=== PATIENT | male | born 1940 | race Caucasian/White ===

== ENCOUNTER 2018-05-14 06:55 | Day surgery (SDC) | payer OTHER ==
[~2018-05-14] VITALS: Ht 185.4 cm; Wt 81.5 kg
[2018-05-14] MEDS ORDERED: IOHEXOL 350 MG/ML 50 ML BTL (for Cath Lab) OTHER ONE (06:56)
[2018-05-14 07:59] VITALS: BP 173/71; PULSE 53; RESP 18; TEMP 97.8; O2SAT 95
[2018-05-14] MEDS ORDERED: ASPI-516 CHEW (08:04)
[2018-05-14] MEDS ORDERED: ATOR40TA16 PO (08:04)
[2018-05-14] MEDS ORDERED: METF500T PO ×2 (08:04→10:17)
[2018-05-14] MEDS ORDERED: ISOS30TA3 PO (08:04)
[2018-05-14] MEDS ORDERED: PANT20TA2 PO (08:04)
[2018-05-14] MEDS ORDERED: NITR1SUB3 SL (08:04)
[2018-05-14 08:20] LABS: AUTOMATED NEUTROPHIL # 2.5 TH/MM3 (1.8-7.7); BASOPHIL % 1.2 % (0.0-2.0); EOSINOPHIL # 0.2 TH/MM3 (0-0.4); EOSINOPHIL % 4.7 % (0.0-4.0); HEMATOCRIT 34.1 % (39.0-51.0); HEMOGLOBIN 11.7 GM/DL (13.0-17.0); LYMPH % 22.7 % (9.0-44.0); LYMPHOCYTE # 0.9 TH/MM3 (1.0-4.8); MEAN CELL VOLUME 91.9 FL (80.0-100.0); MEAN CORPUSCULAR HEMOGLOBIN 31.5 PG (27.0-34.0); MEAN CORPUSCULAR HGB CONC 34.3 % (32.0-36.0); MEAN PLATELET VOLUME 8.4 FL (7.0-11.0); MONO % 9.6 % (0.0-8.0); MONOCYTE # 0.4 TH/MM3 (0-0.9); NEUT % 61.8 % (16.0-70.0); PLATELET COUNT 179 TH/MM3 (150-450); RED BLOOD COUNT 3.71 MIL/MM3 (4.50-5.90); RED CELL DISTRIBUTION WIDTH 14.4 % (11.6-17.2)
[2018-05-14] MEDS ORDERED: HEPARIN-NS/PF INJ 1,500 ML ONE (08:27)
[2018-05-14] MEDS ORDERED: NITROGLYCERIN INJ 5 ML ONE (08:28)
[2018-05-14] MEDS ORDERED: HEPARIN SODIUM - IV 10,000 UNITS/10 ML VIAL ONE (08:28)
[2018-05-14] MEDS ORDERED: VERAPAMIL HCL 5 MG/2 ML VIAL ONE (08:28)
[2018-05-14 08:33] LABS: BICARBONATE 28.8 MEQ/L (21.0-32.0); CALCIUM 8.5 MG/DL (8.5-10.1); CREATININE 1.15 MG/DL (0.60-1.30)
[2018-05-14 08:34] LABS: INTERNATIONAL NORMALIZED RATIO 1.1 RATIO; PROTHROMBIN TIME - PATIENT 10.8 SEC (9.8-11.6)
[2018-05-14] MEDS ORDERED: LIDOCAINE HCL 1% PF 30 ML VIAL ONE (08:40)
[2018-05-14] MEDS ORDERED: SODIUM CHLOR 0.9% 1000 ML INJ 1,000 ML IV SCH (08:45)
[2018-05-14] MEDS ORDERED: MIDAZOLAM HCL 2 MG/2 ML VIAL ONE (08:46)
--- NOTE | 2018-05-14 10:14 | CATHPROC ---
[email or web address] HIS Report Study Information Study Number Admission Scheduled Start Study Start [id number] May 14 2018 6:55AM 05/14/2018 May 14 2018 8:33AM [place] [facility] Cardiac Catheterization Admit Source Facility Department Other [facility] Physician and Clinical Staff Initial Moises Louise Assembly Room Supervisorjami Hernandez RN, Santos Assembly Room SupervisorGriffin Cortez,ANTON Recorder Ирина Shaver ,RT(R) Scrub StoneCapri,RT(R) Scrub Student, TERMITE CONTROL SERVICER/RT(R) Procedures Performed Procedure Location (Site) Vessel Name Coronary Angiograms LCA Left Coronary Coronary Angiograms RCA Right Coronary Wire insertion Fem Vein (right) Femoral Vein Wire insertion Radial (right) Radial Art. Equipment Time Silica Dry Press Helper Description Size Mfg Part Number Used/Scraped CATHETER, FR5 SWAN DAT 08:49 [employer] FR 5 [id number] *[id number] Used MONITOR TRANSDUCER, TRUWAVE [id number] 08:48 [employer]AR[employer] SANCHEZ * Used W/STOCKCOCK *[id number] *[id number] [id number] *[id number] 08:48 [employer] BLANKET,WARM AIR CCL * Used *[id number] 08:48 [employer] PACK, CCL CUSTOM * Used *[id number] BAND, RADIAL COMPRESSION TR [id number] 09:49 [employer] MEDICAL 24CM Used SHORT 24 *[id number] 09:12 [employer] MEDICAL SHEATH, FR5.5 PRELUDE 11CM FR 5 [id number] Used [id number] 08:48 [employer] Preference WIRE, 3MMJ .035 180CM 180CM Used *[id number] PROBE COVER, STERILE [id number] 09:21 [employer] MEDICAL * Used ULTRASOUND W/ GEL *[id number] PROBE COVER, STERILE [id number] 09:21 [employer] MEDICAL * Used ULTRASOUND W/ GEL *[id number] 08:48 NAMIC MANIFOLD, 4 PORT * Used *[id number] 08:48 [employer] OMNIPAQUE, 350 MG, 150ML 150ML [id number] Used SHEATH, FR6 TRANSRADIAL [id number] 08:48 [employer] FR 6 Used SLENDER 10CM *[id number] SHEATH, FR6 TRANSRADIAL [id number] 08:48 [employer] FR 6 Used SLENDER 10CM *[id number] History: Current Medications Medication Dosage/Unit Route Frequency Last Date/Time Taken ASA Statins (any) NTG Patch NTG SL History: Allergies Allergy Reaction butalbital acetaminophen erythromycin base tamsulosin History: Risk Factors Family History of Hypertension Dyslipidemia Previous AR Previous Heart Failure Premature CAD Yes Yes Yes No No Prior Valve Prior PCI Prior PCIDate Prior CABG Surgery No Yes 11/17/2004 No Cerebrovascular Peripheral Artery Chronic Lung On Dialysis Diabetes Diabetes Therapy Disease Disease Disease No No Yes No Yes Oral History: Stress Tests Stress or Imaging Studies Performed No History: Other Disease Selection Items CAD HTN History: Other Current Smoker Method Quit Packs a Day Years Used Pack Years No Cigarettes 44 Years Ago 1 20 20 Labs Hgb (g/dl) Hct (%) WBC (l/cumm) Platelets (thousands) 11.60-17.00 35.00-51.00 4.00-11.00 150.00-450.00 11.7 34.1 4 179 Glucose (mg/dl) BUN (mg/dl) Creatinine (mg/dl) BUN:Creatinine (1:x) 74.00-106.00 7.00-18.00 0.50-1.30 10.00-20.00 125 15 1.1 13.6 Na (meq/l) K (meq/l) 136.00-145.00 3.50-5.10 137 3.7 INR (PTT:PT) 0.90-1.10 1.1 CPK-MB (ng/ML) 0.50-3.60 Not Drawn Medication Medication Total Dose (Bolus/Oral) Medication Total Dosage/Unit 1% XYLOCAINE 15 mL FENTANYL 50 mcg RADIAL COCKTAIL 5 mL (Bolus) Medications (Bolus/Oral) Medication Time Given Dosage/Unit Administered By Reason 1% XYLOCAINE 05/14/2018 8:59:00 AM 5 mL Moises Webb 5 mL 1% XYLOCAINE given in lab by Moises Webb in Right Radial via Subcutaneous. Ordered by Moises Dominique FENTANYL 05/14/2018 9:00:38 AM 50 mcg Griffin Stratton 50 mcg FENTANYL given in lab by Griffin Stratton, ANTON in Left Antecubital via Peripheral IV. Ordered by Moises Dominique 1% XYLOCAINE 05/14/2018 9:15:31 AM 10 mL Moises Webb 10 mL 1% XYLOCAINE given in lab by Moises Webb in Right Groin via Subcutaneous. Ordered by Moises Dominique. Ntg 200mcg Verapamil 2.5mg Heparin RADIAL COCKTAIL 05/14/2018 9:16:00 AM 5 mL (Bolus) Moises Webb 3000U 5 mL (Bolus) RADIAL COCKTAIL given in lab by Moises Webb via Radial. Using [Solution Name]. O rdered by Moises Webb. Reason: Ntg 200mcg Heparin 3300U. Medication (Drip) Medication Time Given Dosage/Unit Concentration/Unit Diluent (ml) Solution IV Solutions 05/14/2018 8:34:34 AM 50 mL (IV) NaCl .9 Patient arrived on IV Solutions in Left Antecubital via Peripheral IV. Pump/Drip Flow using NaCl .9. Initial Case Assessment Cardiovascular HR Rhythm NIBP Chest Pain 55 sr 157/75 0 Edema Present Skin color Skin None Normal Warm Dry Circulatory - Right Pulses Dorsalis Pedis Femoral Radial 2 3 2 Scale (0,1,2,3,4,d) Circulatory - Left Pulses Dorsalis Pedis Femoral Radial 2 3 Scale (0,1,2,3,4,d) Neurological State Oriented to time-place- Alert Moves all extremities person Respiration - General Respiration Rate SpO2 (%) (B/min) 9 99 Final Case Assessment Cardiovascular HR Rhythm NIBP Chest Pain 55 sr 151/63 0 Edema Present Skin color Skin None Normal Warm Dry Circulatory - Right Pulses Dorsalis Pedis Femoral Radial 2 3 2 Scale (0,1,2,3,4,d) Circulatory - Left Pulses Dorsalis Pedis Femoral Radial 2 3 Scale (0,1,2,3,4,d) Neurological State Oriented to time-place- Alert Moves all extremities person Respiration - General Respiration Rate SpO2 (%) (B/min) 20 99 Chronological Log Time Study Chronological Log 8:25:20 Patient arrived via Bed. 8:34:08 Patient Name, D.O.B, / Armband Verified By R.N. 8:34:19 Consent signed by the physician and the patient and verified by the [facility] staff. 8:34:19 Pre-op and post- op instructions given; patient acknowledges understanding of instructions. 8:34:22 Verbal Stimulation=2 Physical Stimulation=2 Airway=2 Respiration=2 TOTAL=8. (0=absent, 1=li mited, 2=present) 8:34:27 Allens test performed on the right radial and ulnar artery. positive 8:34:29 Patient has been NPO for More than 6Hrs. 8:34:29 Skin Breakdown- none per patient 8:34:31 Patient Warmer Placed on the Table. 8:34:32 Estefany Prominences Protected 8:34:33 A # 20 IV was noted in the Antecubital (left). Grade = 0 8:34:34 Patient arrived on IV Solutions in Left Antecubital via Peripheral IV. Pump/Drip Flow using NaCl .9. 8:34:36 History and physical on the chart or being dictated. Assessment: Initial Case, HR=55 BPM, Rhythm=sr, VGCL=908/75 mmhg, Chest Pain=0, Edema=None, Col or=Normal, Skin = Warm, Dry Right Pulses: Tate Ped=2, Femoral=3, Radial=2 8:34:36 Left Pulses: Tate Ped=2, Femoral=3 Neurological: State=Alert, Ox3, RIVERA Respiration: Resp=9 B/min, SpO2=99 % Vitals capture started with the following parameters, Patient=Adult, Interval=5 min, Initial Pre uopkg=037 mmHg, 8:36:15 Deflation Rate=5 mmHg, Cuff placed on Left Arm 8:36:54 HR=56 bpm, SKMC=256/75 mmhg, SpO2=99.0 %, Resp=9 B/min 8:38:55 Reference ECG taken 8:41:57 HR=57 bpm, AIMA=194/76 mmhg, SpO2=99.0 %, Resp=8 B/min 8:47:01 HR=52 bpm, LMII=799/69 mmhg, SpO2=99.0 %, Resp=8 B/min 8:47:08 Right radial, right brachial, and groin(s) prepped with 2% chlorhexidine, and draped after a 3 min. waiting time. 8:47:16 MD paged 8:50:30 MD responded 8:51:56 HR=52 bpm, DKRI=356/67 mmhg, SpO2=98.0 %, Resp=15 B/min 8:52:49 Pressure channel 1 zeroed. 8:52:55 MD arrived. 8:56:57 HR=52 bpm, UGJE=759/71 mmhg, SpO2=99.0 %, Resp=16 B/min Time Out. Correct patient, correct procedure, correct physician, labs, allergies, and equipment verified with geophysical laboratory chief 8:58:53 team present. Fire risk assesment completed (see hard stop sheet for coding). Time Out Concu rred by MD and individual staff in procedure. 5 mL 1% XYLOCAINE given in lab by Moises Webb in Right Radial via Subcutaneous. Ordered by Jon 8:59:00 Moises Ray 8:59:15 Case Start 50 mcg FENTANYL given in lab by Griffin Stratton, RN in Left Antecubital via Peripheral IV. Ordered by Moises Webb 9:00:38 G. 9:01:25 Access site was Right Radial Artery. ::38 A wire was inserted via Radial (right). A SHEATH, FR6 TRANSRADIAL SLENDER 10CM FR 6 was advanced into the Radial (right) using the Tammie doe 9:01:45 technique. 9:01:56 HR=54 bpm, QMTV=769/72 mmhg, SpO2=99.0 %, Resp=8 B/min 9:06:59 HR=57 bpm, YDQW=007/72 mmhg, SpO2=97.0 %, Resp=17 B/min 9:12:00 HR=57 bpm, PQTG=279/72 mmhg, SpO2=97.0 %, Resp=18 B/min 10 mL 1% XYLOCAINE given in lab by Moises Webb in Right Groin via Subcutaneous. Ordered by Jon 9:15:31 Moises Ray 5 mL (Bolus) RADIAL COCKTAIL given in lab by Moises Webb via Radial. Using [Solution Nam e]. Ordered by 9:16:00 Moises Webb Reason: Ntg 200mcg Heparin 3300U. 9:16:59 HR=60 bpm, TBWL=778/68 mmhg, SpO2=97.0 %, Resp=13 B/min 9:22:00 HR=60 bpm, ZJFT=170/68 mmhg, SpO2=98.0 %, Resp=12 B/min 9:23:00 Access site was Left Femoral Vein. 9:23:10 A wire was inserted via Fem Vein (right). 9:23:16 A SHEATH, FR5.5 PRELUDE 11CM FR 5 was advanced into the Fem Vein (right) using the Percutane ous technique. A CATHETER, FR5 SWAN DAT MONITOR FR 5 was advanced over a wire. OMNIPAQUE, 350 MG, 150ML 150ML was 9:24:53 used for injections. Recorded Pressure: PCW, HR=60, Condition=Condition 1 9:26:44 (Pulmonary Capillary Wedge) PCW 39/43/28 9:27:01 HR=59 bpm, IHQD=147/67 mmhg, SpO2=99.0 %, Resp=12 B/min 9:27:39 Saturation: Site=PA (Pulmonary Artery) , O2=67.8 %, Hgb=11.7 gm/dl, Condition=Condition 1. U sed in calculation. 9:29:59 Saturation: Site=Ao (Aorta) , O2=94.9 %, Hgb=11.7 gm/dl, Condition=Condition 1. Used in calc ulation. Recorded Pressure: MPA, HR=53, Condition=Condition 1 9:31:15 (Main Pulmonary Artery) MPA 37/15/26 Recorded Pressure: RV, HR=55, Condition=Condition 1 9:31:48 (Right Ventricle) RV 39/3/12 9:32:00 HR=53 bpm, DNVF=845/69 mmhg, SpO2=97.0 %, Resp=4 B/min Recorded Pressure: RA, HR=56, Condition=Condition 1 9:32:50 (Right Atrium) RA 12/8 9:33:02 [place] Dat Catheter Removed A JR 4.0 INFINITI CATHETER FR 5 was advanced over a wire. OMNIPAQUE, 350 MG, 150ML 150ML was us ed for 9:33:55 injections. Recorded Pressure: Ao, HR=56, Condition=Condition 1 9:35:47 (Aorta) Ao 175/64/106 9:36:20 The RCA was injected and visualized at various angles. OMNIPAQUE, 350 MG, 150ML 150ML used. 9:36:59 HR=55 bpm, IFAZ=301/71 mmhg, SpO2=97.0 %, Resp=15 B/min 9:37:10 Catheter was removed A JL 3.5 INFINITI CATHETER FR 5 was advanced over a wire. OMNIPAQUE, 350 MG, 150ML 150ML was us ed for 9:38:58 injections. 9:39:59 The LCA was injected and visualized at various angles. OMNIPAQUE, 350 MG, 150ML 150ML used. 9:41:56 HR=51 bpm, KQTU=949/71 mmhg, SpO2=97.0 %, Resp=11 B/min 9:46:53 Catheter was removed 9:47:03 Activated Clotting Time Drawn 9:47:46 HR=50 bpm, WLBC=672/63 mmhg, SpO2=98.0 %, Resp=13 B/min 9:47:48 Case End (Physician broke scrub) Assessment: Final Case, HR=55 BPM, Rhythm=sr, LLMQ=723/63 mmhg, Chest Pain=0, Edema=None, Color =Normal, Skin = Warm, Dry Right Pulses: Tate Ped=2, Femoral=3, Radial=2 9:49:46 Left Pulses: Tate Ped=2, Femoral=3 Neurological: State=Alert, Ox3, RIVERA Respiration: Resp=20 B/min, SpO2=99 % 9:50:23 Catheter(s) removed without difficulty Radial Compression Device Used. 12 mLs of air placed in BAND, RADIAL COMPRESSION TR SHORT 24 24 CM. Affected 9:50:29 hand ~O2 SATURATION~ % O2 saturation. 9:50:37 Sterile dressing applied to site 9:50:37 No case complications noted. 9:50:39 Cine recording checked. 9:50:39 Bedside Report will be given. 9:50:43 A Left and Right Heart Cath was performed. 9:51:20 ACT (Normal Range 90-180) = 202 9:52:02 HR=56 bpm, PMRS=690/69 mmhg, SpO2=98.0 %, Resp=5 B/min 9:57:03 HR=57 bpm, FPUL=557/67 mmhg, SpO2=99.0 %, Resp=12 B/min 10:02:06 IJYE=237/63 mmhg 10:05:17 Patient moved to stretcher End Study - Contrast Media Used In Study Contrast Total Opened (mL) Total Used (mL) Total Wasted (mL) Omnipaque 45 45 0 End Study - Maximum Contrast Load Max Contrast Load (mL) 370.5 End Study - Radiation Exposure Fluoro Time (minutes) 3.6 End Study - Sheaths Sheaths Pulled By Sheath Hold Time (min) Honorio Dinhey End Study - Patient Disposition Complications Transferred To Interventional Outcome No Critical Care Bed No attempt made
[2018-05-14] MEDS ORDERED: MISC INFORMATION XX ONE ×2 (10:15)
[2018-05-14 11:59] LABS: BILIRUBIN, URINE NEG (NEG); BLOOD, URINE NEG (NEG); GLUCOSE,URINE NEG (NEG); KETONE, URINE NEG (NEG); NITRITE,URINE NEG (NEG); SQUAMOUS EPITHELIAL CELL URINE <1 /hpf (0-5); URINE COLOR Straw (YELLW/STRAW); URINE LEUKOCYTE ESTERASE NEG (NEG)
[2018-05-14 12:23] LABS: ALBUMIN 3.5 GM/DL (3.4-5.0); ALT (GPT) 15 U/L (12-78); AST (GOT) 10 U/L (15-37); DIRECT BILIRUBIN ADULT 0.2 MG/DL (0.0-0.2)
[2018-05-14 12:25] LABS: ALKALINE PHOSPHATASE 60 U/L (45-117); INDIRECT BILIRUBIN 0.4 MG/DL (0.0-0.8); TOTAL BILIRUBIN ADULT 0.6 MG/DL (0.2-1.0); TOTAL PROTEIN 6.1 GM/DL (6.4-8.2)
--- NOTE | 2018-05-14 12:26 | RADRPT ---
EXAM DATE: 05/14/2018 11:33 AM EDT AGE/SEX: 77 years / Male INDICATIONS: Evaluate for pneumonia, pneumothorax, or any communicable disease. Pre op CABG. CLINICAL DATA: This is the patient's initial encounter. Patient reports that signs and symptoms have been present for 1 day and indicates a pain score of 0/10. MEDICAL/SURGICAL HISTORY: None. None. COMPARISON: No prior exams available for comparison. FINDINGS: The lungs are symmetrically aerated. No focal areas of consolidation. Mild prominence of the intersti tial markings in the central lungs bilaterally. The heart is normal size. Both hemidiaphragms well de lineated. Mild degenerative changes throughout the thoracic spine. CONCLUSION: The lungs are clear. Electronically signed by: Donaldo Slade MD 05/14/2018 12:25 PM EDT
--- NOTE | 2018-05-14 13:39 | RADRPT ---
EXAM DATE: 05/14/2018 1:22 PM EDT AGE/SEX: 77 years / Male INDICATIONS: Preop cardiac surgery. CLINICAL DATA: This is the patient's initial encounter. Patient reports that signs and symptoms have been present for 1 day and indicates a pain score of 0/10. MEDICAL/SURGICAL HISTORY: Diabetes mellitus type II. Carcinoma, prostatic. Peripheral vascula r disease. Coronary artery disease. Skin cancer. Neoplasm. CKD stage III. HTN. Angina. Coronary ar yuridia stent. Cardiac cath. COMPARISON: No prior exams available for comparison. TECHNIQUE: Venous ultrasound of both lower extremities was performed from the inguinal ligament to t he proximal calf. Real-time, color Doppler and spectral tracing, compression and augmentation techni ques were used. FINDINGS: Right Leg: Normal compression of the deep venous system from the inguinal region to the proximal hilda f. No echogenic clot is seen. Normal response of the venous system to augmentation and respiration. Left Leg: Normal compression of the deep venous system from the inguinal region to the proximal calf . No echogenic clot is seen. Normal response of the venous system to augmentation and respiration. Other: None. CONCLUSION: 1. No evidence of deep venous thrombosis within the lower extremities. Electronically signed by: Momo Soto MD 05/14/2018 1:38 PM EDT
[2018-05-14 14:22] LABS: HEMOGLOBIN A1C 6.5 % (4.3-6.0)
--- NOTE | 2018-05-14 14:45 | PD.CAR.PN ---
CVT Progress Note Subjective/Hospital Course: pt seen and evaluated / full note dictated Jehovah Witness no blood products / ok for epogen will discuss bypass/ cellsaver sts data discussed with pt using bedside big data engineer RISK SCORES About the STS Risk Calculator Procedure: AV Replacement + CAB Risk of Mortality: 3.388% Morbidity or Mortality: 23.215% Long Length of Stay: 10.885% Short Length of Stay: 22.825% Permanent Stroke: 2.276% Prolonged Ventilation: 14.56% DSW Infection: 0.807% Renal Failure: 8.465% Reoperation: 9.802% Objective: Vital Signs Date Time Temp Pulse Resp B/P (MAP) Pulse Ox O2 Delivery O2 Flow Rate FiO2 05/14/18 10:07 95 Room Air 05/14/18 07:59 97.8 53 18 173/71 (105) 95 Labs: Laboratory Tests Test 05/14/18 07:34 05/14/18 11:09 White Blood Count 4.0 TH/MM3 (4.0-11.0) Red Blood Count 3.71 MIL/MM3 (4.50-5.90) Hemoglobin 11.7 GM/DL (13.0-17.0) Hematocrit 34.1 % (39.0-51.0) Mean Corpuscular Volume 91.9 FL (80.0-100.0) Mean Corpuscular Hemoglobin 31.5 PG (27.0-34.0) Mean Corpuscular Hemoglobin Concent 34.3 % (32.0-36.0) Red Cell Distribution Width 14.4 % (11.6-17.2) Platelet Count 179 TH/MM3 (150-450) Mean Platelet Volume 8.4 FL (7.0-11.0) Neutrophils (%) (Auto) 61.8 % (16.0-70.0) Lymphocytes (%) (Auto) 22.7 % (9.0-44.0) Monocytes (%) (Auto) 9.6 % (0.0-8.0) Eosinophils (%) (Auto) 4.7 % (0.0-4.0) Basophils (%) (Auto) 1.2 % (0.0-2.0) Neutrophils # (Auto) 2.5 TH/MM3 (1.8-7.7) Lymphocytes # (Auto) 0.9 TH/MM3 (1.0-4.8) Monocytes # (Auto) 0.4 TH/MM3 (0-0.9) Eosinophils # (Auto) 0.2 TH/MM3 (0-0.4) Basophils # (Auto) 0.0 TH/MM3 (0-0.2) CBC Comment DIFF FINAL Differential Comment Prothrombin Time 10.8 SEC (9.8-11.6) Prothromb Time International Ratio 1.1 RATIO Activated Partial Thromboplast Time 28.3 SEC (24.3-30.1) Blood Urea Nitrogen 15 MG/DL (7-18) Creatinine 1.15 MG/DL (0.60-1.30) Random Glucose 125 MG/DL (74-106) Calcium Level 8.5 MG/DL (8.5-10.1) Sodium Level 137 MEQ/L (136-145) Potassium Level 3.7 MEQ/L (3.5-5.1) Chloride Level 101 MEQ/L (98-107) Carbon Dioxide Level 28.8 MEQ/L (21.0-32.0) Anion Gap 7 MEQ/L (5-15) Estimat Glomerular Filtration Rate 61 ML/MIN (>89) Total Bilirubin 0.6 MG/DL (0.2-1.0) Direct Bilirubin 0.2 MG/DL (0.0-0.2) Indirect Bilirubin 0.4 MG/DL (0.0-0.8) Aspartate Amino Transf (AST/SGOT) 10 U/L (15-37) Alanine Aminotransferase (ALT/SGPT) 15 U/L (12-78) Alkaline Phosphatase 60 U/L (45-117) Total Protein 6.1 GM/DL (6.4-8.2) Albumin 3.5 GM/DL (3.4-5.0) Urine Color Straw (YELLW/STRAW) Urine Turbidity CLEAR (CLEAR) Urine pH 7.0 (5.0-8.5) Urine Specific [place] 1.013 (1.002-1.035) Urine Protein NEG mg/dL (NEG-TRACE) Urine Glucose (UA) NEG mg/dL (NEG) Urine Ketones NEG mg/dL (NEG) Urine Occult Blood NEG (NEG) Urine Nitrite NEG (NEG) Urine Bilirubin NEG (NEG) Urine Urobilinogen LESS THAN 2 mg/dL (LESS Urine Leukocyte Esterase NEG (NEG) Urine RBC LESS THAN 1 /hpf (0-3) Urine WBC 1 /hpf (0-5) Urine Squamous Epithelial Cells <1 /hpf (0-5) Microscopic Urinalysis Comment CATH-CULT NOT IND Result Diagram: 05/14/18 0734 05/14/18 0734 Sara Urban May 14, 2018 14:45
--- NOTE | 2018-05-14 14:51 | RADRPT ---
EXAM DATE: 05/14/2018 2:43 PM EDT AGE/SEX: 77 years / Male INDICATIONS: Pre-op CABG. CLINICAL DATA: This is the patient's initial encounter. Patient reports that signs and symptoms have been present for 1 day and indicates a pain score of 0/10. MEDICAL/SURGICAL HISTORY: Cardiovascular disease. Carcinoma, prostatic. Diabetes. None. RADIATION DOSE: 9.31 CTDI (mGy) COMPARISON: No prior exams available for comparison. TECHNIQUE: Multiple contiguous axial images were obtained through the chest without contrast. Image s were obtained in suspended respiration using multiple row detector helical technique. Using automa charla exposure control and adjustment of the mA and/or kV according to patient size, radiation dose was kept as low as reasonably achievable to obtain optimal diagnostic quality images. DICOM format imag e data is available electronically for review and comparison. FINDINGS: Lungs: The lungs are symmetrically aerated. No infiltrates or nodular densities are seen.. Scattere d atelectasis and/or fibrotic scarring is noted within the posterior lower lobes. Mediastinum: There is good visualization of the great vessels of the middle mediastinum. No evidenc e of mediastinal or hilar adenopathy/mass. Coronary artery calcifications are noted. Pleurae: No evidence of focal thickening or pleural effusion. Axillae: Unremarkable. Bony Structures: Unremarkable. Miscellaneous: The examination was extended to include the upper abdomen, and both adrenal glands ar e normal in size and configuration. CONCLUSION: 1. Scattered atelectasis and/or fibrotic scarring within the posterior lower lobes. 2. Coronary artery calcifications. 3. Degenerative changes throughout the thoracic spine. Electronically signed by: Momo Soto MD 05/14/2018 2:49 PM EDT
--- NOTE | 2018-05-14 15:24 | MB ---
cc: Sara Urban DATE: 05/14/2018 PRIMARY CARE PHYSICIAN: Rob Squires MD SOLUTION ADVISOR: Viktor Myers MD INTERVENTIONALIST: Moises Webb DO HISTORY OF PRESENT ILLNESS: A 77-year-old man, history of coronary artery disease, prior stent to the LAD in 2004, also history of severe aortic valve stenosis, normal ejection fraction of 56%, mean gradient of 37 mm, peak gradient 57, presented for followup with the cradle slide maker and was having some chest pain, which was radiating to his left arm. The patient is deaf since childbirth. He does have a bedside type cutter during the entire conversation. He underwent cardiac catheterization, which showed 3-vessel disease including a 70% mid distal LAD, 90% circumflex, OM 70%, the RCA 60%. RCA was nondominant. Artery pressures of 8, PA pressures 37/26 with a wedge of 28. Cardiac output of 6.0. We were consulted to evaluate for coronary artery bypass grafting and aortic valve replacement. PAST MEDICAL HISTORY: Includes coronary artery disease, prior stenting of the LAD in 2004, carotid artery stenosis. Apparently, he had a history of a 90% right internal. Repeat carotid ultrasound is pending at this time. 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 PAST SURGICAL HISTORY: Include appendectomy, coronary stent in 2004, hernia repair, radical prostatectomy, skin cancer resection. ALLERGIES: INCLUDE BUTALBITAL, ACETAMINOPHEN, ERYTHROMYCIN, FLOMAX. HOME MEDICATIONS: Include aspirin, atorvastatin, Imdur, metformin, nitroglycerine, Protonix. FAMILY HISTORY: Noncontributory. SOCIAL HISTORY: The patient , 4 children. Rare alcohol. Jehovah Witness. No blood products. Okay for Epogen. Will discuss Cell Saver and bypass surgery on pump. REVIEW OF SYSTEMS: Other than the HPI, other 12 systems negative and discussed with the type cutter and the patient. PHYSICAL EXAMINATION: VITAL SIGNS: Blood pressure 170/70, heart rate of 53, afebrile. GENERAL: The patient is awake, alert, no acute distress. HEENT: Head is normocephalic, atraumatic. Pupils are equal and reactive. Oral mucosa pink, moist. He has upper and lower dentures. NECK: Supple. No JVD. He has a soft bruit on the right. HEART: He has a III/ systolic murmur best noted on the left sternal border. LUNGS: Clear to auscultation. No wheezes, rales or rhonchi. ABDOMEN: Soft, nontender. No masses or organomegaly. EXTREMITIES: No cyanosis, clubbing, or edema. LABORATORY AND DIAGNOSTIC DATA: Lab work shows hemoglobin 11, hematocrit of 34, white cell count of 4, platelet count of 179. Sodium 137, potassium 3.7, BUN of 15, creatinine 1.15, AST 10, ALT 15. INR 1.1. Urinalysis is unremarkable. Radiological exams including the carotid repeat is pending. Chest CT pending. Carotid US discussed with Dr Altman 1. Right Internal Carotid Artery: Atherosclerotic plaquing with elevated ratios and velocities characteristic of a estimated stenosis of 50-69%. 2. Left Internal Carotid Artery: No significant stenosis in the internal./ external stenosis will need out patient follow up with Dr Altman post surgery IMPRESSION: This is a 77-year-old male, Jehovah Witness, does not accept blood products of any kind. Will discuss a Cell Saver, going on cardiac bypass, also patient okay for Epogen. In the meantime, will follow up with the carotid ultrasound regarding his history of carotid disease on the right and schedule tentatively for 06/02/2018. Discussed in front of the type cutter again and informed consent received with the type cutter in presence. ROSE Coombs MD JRT/JEFF , 02:54 PM , 03:22 PM MELY
--- NOTE | 2018-05-14 16:28 | RADRPT ---
EXAM DATE: 05/14/2018 1:25 PM EDT AGE/SEX: 77 years / Male INDICATIONS: Preop cardiac surgery. CLINICAL DATA: This is the patient's initial encounter. Patient reports that signs and symptoms have been present for 1 day and indicates a pain score of 0/10. MEDICAL/SURGICAL HISTORY: Diabetes mellitus type II. Carcinoma, prostatic. Peripheral vascula r disease. Coronary artery disease. Skin cancer. Neoplasm. CKD stage III. HTN. Angina. Coronary ar yuridia stent. Cardiac cath. COMPARISON: No prior exams available for comparison. MEASUREMENTS: RIGHT THIGH: Proximal:__4 mm Mid:__ 3 mm Distal:__5 mm LEFT THIGH: Proximal:__4 mm Mid:__3 mm Distal:__5 mm RIGHT CALF: Proximal:__3 mm Mid:__2 mm Distal:__2 mm LEFT CALF: Proximal:__2 mm Mid:__2 mm Distal:__2 mm FINDINGS: The venous system of the lower extremities are patent by color Doppler imaging. Measurements of the leg veins (in mm) are listed above. CONCLUSION: 1. Sonographic lower extremity venous mapping, as above. Electronically signed by: Camden Gunn MD 05/14/2018 4:27 PM EDT
--- NOTE | 2018-05-14 17:46 | RADRPT ---
EXAM DATE: 05/14/2018 1:37 PM EDT AGE/SEX: 77 years / Male INDICATIONS: Preop cardiac surgery. CLINICAL DATA: This is the patient's initial encounter. Patient reports that signs and symptoms have been present for 1 day and indicates a pain score of 0/10. MEDICAL/SURGICAL HISTORY: Diabetes mellitus type I. Carcinoma, prostatic. Peripheral vascular disease. Coronary artery disease. Skin cancer. Neoplasm. CK stage III. HTN. Angina. Coronary annamarie ry stent. Cardiac cath. COMPARISON: No prior exams available for comparison. VELOCITY PARAMETERS: ICA/CCA Ratio: Right 3.0 , Left 1.4 ICA: Right 249 cm/sec, Left 145 cm/sec CCA: Right 83 cm/sec, Left 107 cm/sec ECA: Right 134 cm/sec, Left 369 cm/sec Vertebral: Right 95 cm/sec antegrade, Left 74 cm/sec antegrade FINDINGS: Right Carotid: Mild arteriosclerotic plaque is visualized.The waveforms are within normal limits. Left Carotid: Mild arteriosclerotic plaque is visualized. The waveforms are within normal limits. Other: None. CONCLUSION: 1. Right Internal Carotid Artery: Atherosclerotic plaquing with elevated ratios and velocities wilder cteristic of a estimated stenosis of 50-69%. 2. Left Internal Carotid Artery: No significant stenosis in the internal. 3. High-grade stenosis suspected in the left external carotid. Antegrade flow in both vertebrals 4. Recommend CTA of the cervical vessels for further anatomic characterization Electronically signed by: Zaheer Blue MD 05/14/2018 5:45 PM EDT
--- NOTE | 2018-05-14 20:40 | EKG ---
Date Performed: 05/14/2018 Time Performed: 08:09:04 PTAGE: 77 years EKG: Sinus bradycardia. When compared to PREVIOUS TRACING , sinus rate is slower. Normal ECG except for rate PREVIOUS TRACIN 21.22 DOCTOR: Alex Lozada Interpretating Date/Time 05/14/2018 20:39:01
--- NOTE | 2018-05-14 23:36 | MA ---
cc: Moises Webb Vincent G DO DATE: 05/14/2018 PROCEDURE: Right heart catheterization, coronary angiogram, ultrasound-guided access. PREOPERATIVE DIAGNOSIS: Severe aortic stenosis, coronary artery disease. POSTOPERATIVE DIAGNOSIS: Severe aortic stenosis by echocardiogram, multivessel coronary artery disease. MEDICATIONS: Fentanyl 50 mcg, heparin 3300 units, nitro 200 mcg. CONTRAST USED: 45 mL FLUOROSCOPY: 3.6 minutes. MODERATE SEDATION: 0 minutes. FRAILTY SCORE: 3. ESTIMATED BLOOD LOSS: 10 mL PROCEDURAL SUMMARY: Roscoe Bennett is a pleasant 77-year-old male who sees my partner, Dr. Myers, in the office and underwent an echocardiogram, which showed moderate to severe aortic stenosis with a mean gradient of 37. He was also noted to have chest pain, which was typical for angina. Because of this, as well as the evaluation of the aortic valve for possible aortic valve replacement, he was recommended cardiac catheterization. Risks, benefits and alternatives were explained to him and he consented as such. He was brought to the lab and prepped in the usual sterile fashion. The right radial artery was accessed using modified Seldinger technique and placement of a 5/6 Kinyarwanda slender sheath. This was easily aspirated and flushed. The right radial artery was accessed using modified Seldinger technique and placement of a 5/6 Kinyarwanda slender sheath. I attempted to gain access to the right brachial vein, but was unable to and so right femoral vein was accessed using modified Seldinger technique with ultrasound guidance and placement of a 5-Kinyarwanda sheath. This was easily aspirated and flushed. A [place]-Leisa catheter was advanced to a wedge position and oxygen saturations as well as pressures were done in a standard pullback throughout the heart. [place]-Leisa catheter was removed. A JR4 was advanced to the ascending aorta over a J wire and used for selective angiography of the right coronary artery system. This was exchanged out for a JL3.5, which was used for selective angiography of the left coronary artery system. A radial band was placed over the arteriotomy site for hemostasis. The femoral sheath was sutured in place as ACT value was slightly elevated and he was sent to the holding unit where the sheath will be removed and pressure held for hemostasis. The patient left the laborer powerhouse cardiovascularly stable. FINDINGS: LEFT MAIN: Normal-sized vessel with adequate reflux. It trifurcates into an LAD, ramus and circumflex. LAD: Normal-sized vessel with a stent in the proximal portion, which is patent with 20% in-stent restenosis. After this, there is a 70% lesion at the takeoff of the second diagonal. Distally, the LAD has diffuse 30% disease. It gives off multiple small diagonals which are overall around 1.5 mm. RAMUS: Normal-sized vessel with 80% disease in the proximal and mid portion. Distally, there is no disease. LEFT CIRCUMFLEX: Normal-sized vessel with a 90% lesion in the proximal portion. It supplies two obtuse marginals as well as a left posterior descending artery. The mid portion of the left circumflex has a 70% lesion. RCA: Small, nondominant vessel with 80% stenosis in the mid portion: HEMODYNAMICS: RA 8 RV 39/3, RVEDP 12. PA 37/15, mean PA 26. Wedge 28. Cardiac output 6.0. Cardiac index 2.9. IMPRESSION: 1. Moderate to severe aortic stenosis (mean gradient 37) by echocardiogram. 2. Multivessel coronary artery disease. RECOMMENDATIONS: 1. Mr. Bennett appears to have at least moderate to severe aortic stenosis as well as multivessel coronary artery disease and he will be seen by CT surgery for further consideration of aortic valve replacement/coronary artery bypass graft. 2. 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 3. He appears to only get his anginal symptoms when he overdoes it and so I believe that he may go home today and come back electively for surgery. Thank you for allowing me to see Roscoe Bennett. If there are any questions, please do not hesitate to call. DO EDD Richards/ , 10:54 PM , 11:33 PM
== END 2018-05-14 16:17 | disposition home or self-care (01) ==
LOC: HDOC 06:55 → HDIC 06:56 → HDOC 16:17
PROVIDERS: ATTEND Nuclear Medicine Nuclear Cardiology
DX: I25.10 Atherosclerotic heart disease of native coronary artery without angina pectoris (principal); I35.0 Nonrheumatic aortic (valve) stenosis; Z01.818 Encounter for other preprocedural examination; E11.51 Type 2 diabetes mellitus with diabetic peripheral angiopathy without gangrene; E11.22 Type 2 diabetes mellitus with diabetic chronic kidney disease; Z85.828 Personal history of other malignant neoplasm of skin; I12.9 Hypertensive chronic kidney disease with stage 1 through stage 4 chronic kidney disease, or unspecified chronic kidney disease; N18.3 Chronic kidney disease, stage 3 (moderate); Z95.5 Presence of coronary angioplasty implant and graft; I73.9 Peripheral vascular disease, unspecified; R00.1 Bradycardia, unspecified; Z01.811 Encounter for preprocedural respiratory examination; Z79.84 Long term (current) use of oral hypoglycemic drugs
CPT/HCPCS: 71045; 71250; 80048; 80076; 81001; 83036; 85025; 85610; 85730; 93005; 93456; 93880; 93970; 93998; 94010; 99152; 99153; C1769; C1893; J1644; J2250; J3010; Q9967

== ENCOUNTER 2018-06-02 05:26 | Inpatient (IN) ==
[~2018-06-02 05:26] MED LIST: Metoprolol Tartrate 25 MG Tablet PO SCH
[2018-06-02] MEDS ORDERED: MethylPREDNISolone Sod Succinate Inj 125 MG/2 ML Vial ONE (06:11)
[2018-06-02] MEDS ORDERED: ceFAZolin 2 GM Premix Inj 0 GM/0 ML PIGGYBACK IV.SIG ONE (06:12)
[2018-06-02] MEDS ORDERED: Heparin - SQ 10,000 UNITS/ML Vial SQ ONE ×3 (06:12→15:07)
[2018-06-02] MEDS ORDERED: Metoprolol Tartrate 25 MG Tablet PO SCH (06:15)
[2018-06-02] MEDS ORDERED: Chlorhexidine Gluconate 2% 1 Pack (2 Cloths) TOPICAL SCH (06:15)
[2018-06-02] MEDS ORDERED: Dextrose 50% in Water 50 ML Vial IV.PUSH PRN ×2 (06:26→15:08)
[2018-06-02] MEDS ORDERED: Insulin Regular (For Infusion) 100 UNIT in Sodium Chlor 0.9% Inj 99 ML IV.CONT PRN ×2 (06:26→16:00)
[2018-06-02] MEDS ORDERED: Chlorhexidine 4% Topical 120 APPLIC/120 ML Bottle TOPICAL SCH (06:30)
[2018-06-02] MEDS ORDERED: Sodium Chloride 0.9% Irr Bot 500 ML, ceFAZolin Inj 500 MG IRRIGATION SCH ×2 (06:30)
[2018-06-02] MEDS ORDERED: Sodium Chlor 0.9% Inj 77.5 ML, Papaverine Inj 60 MG, Nitroglycerin Inj 100 MCG, dilTIAZ... IRRIGATION SCH ×3 (06:30)
[2018-06-02] MEDS ORDERED: Sodium Chlor 0.9% Inj 500 ML IV.SIG SCH (07:00)
[2018-06-02] MEDS ORDERED: ceFAZolin Inj 2,000 MG in Sodium Chlor 0.9% Inj 80 ML IV.SIG SCH (07:00)
[2018-06-02] MEDS ORDERED: CUST1000P IRRIGATION ONE (07:14)
[2018-06-02] MEDS ORDERED: Albumin Human 25% Inj 50 ML IV.SIG ONE ×2 (07:16→12:39)
[2018-06-02] MEDS ORDERED: Heparin 10,000 UNITS/10 ML Vial (for IV use) ONE ×2 (07:16→12:40)
[2018-06-02] MEDS ORDERED: Calcium Chloride Inj 1 GM/10 ML Syringe ONE (07:16)
[2018-06-02] MEDS ORDERED: Desmopressin Inj 4 MCG/ML Ampul IV.SIG SCH (08:00)
[2018-06-02] MEDS ORDERED: Nitroglycerin Drip Premix 50 MG/250 ML BOTTLE ONE (08:51)
[2018-06-02] MEDS ORDERED: FACTOR VIIA IV.PUSH ONE (13:41)
[2018-06-02] MEDS ORDERED: Dexmedetomidine Inj 200 MCG/2 ML Vial IV.CONT ONE (15:07)
[2018-06-02] MEDS ORDERED: SODIUM CHLOR 0.9% IV.SIG ONE (15:07)
[2018-06-02] MEDS ORDERED: Protamine Sulfate Inj 250 MG/25 ML Vial IV.CONT ONE (15:07)
[2018-06-02] MEDS ORDERED: Metoprolol Inj 5 MG/5 ML Vial IV.PUSH ONE (15:07)
[2018-06-02] MEDS ORDERED: Lidocaine PF 1% Inj 5 ML Syringe INFILTRATN ONE (15:07)
[2018-06-02] MEDS ORDERED: Normosol-R pH 7.4 Inj 3,000 ML IV.CONT ONE (15:07)
[2018-06-02] MEDS ORDERED: Phenylephrine/NS 1000 MCG/10ML Syringe IV.PUSH ONE (15:07)
[2018-06-02] MEDS ORDERED: Calcium Chloride Inj 1 GM/10 ML Syringe IV.CONT ONE (15:07)
[2018-06-02] MEDS ORDERED: Sodium Chlor 0.9% Inj 750 ML IV.SIG ONE (15:07)
[2018-06-02] MEDS ORDERED: Potassium Chlor 20 mEq Premix 20 MEQ/100 ML PIGGYBACK IV.SIG PRN (15:08)
[2018-06-02] MEDS ORDERED: hydrALAZINE HCl Inj 20 MG/ML Vial IV.PUSH PRN (15:08)
[2018-06-02] MEDS ORDERED: Acetaminophen 650 MG Supp RECTAL PRN (15:08)
[2018-06-02] MEDS ORDERED: Acetaminophen 325 MG Tablet PO PRN (15:08)
[2018-06-02] MEDS ORDERED: Metoprolol Inj 5 MG/5 ML Vial IV.PUSH PRN (15:08)
[2018-06-02] MEDS ORDERED: Magnesium Sulfate Inj 2 GM in Sodium Chlor 0.9% Inj 96 ML IV.SIG PRN ×2 (15:08→16:00)
[2018-06-02] MEDS ORDERED: RESP: Racemic Epinephrine 2.25% 0.5 ML Neb NEB PRN (15:08)
[2018-06-02] MEDS ORDERED: Morphine Inj 4 MG/ML Vial IV.PUSH PRN (15:08)
[2018-06-02] MEDS ORDERED: Post-op Orders (for Pharmacy) OTHER STA (15:08)
[2018-06-02] MEDS ORDERED: Phenylephrine Inj 40 MG in Sodium Chlor 0.9% Inj 496 ML IV.CONT PRN (15:08)
[2018-06-02] MEDS ORDERED: Ketorolac Inj 30 MG/ML (IVP) Vial IV.PUSH PRN (15:08)
[2018-06-02] MEDS ORDERED: Albumin Human 5% Inj 250 ML IV.SIG PRN (15:08)
[2018-06-02] MEDS ORDERED: fentaNYL Citrate Inj 100 MCG/2 ML Ampul IV.PUSH PRN (15:08)
[2018-06-02] MEDS ORDERED: Calcium Chloride Inj 1 GM/10 ML Syringe IV.PUSH PRN (15:08)
[2018-06-02] MEDS ORDERED: Clevidipine Inj 25 MG/50 ML VIAL IV.CONT PRN (15:08)
[2018-06-02] MEDS ORDERED: Dexmedetomidine Inj 200 MCG/50 ML INFUS..BTL IV.CONT PRN (16:00)
[2018-06-02] MEDS ORDERED: EPINEPHrine (1:1000) Inj 2 MG in Sodium Chlor 0.9% Inj 248 ML IV.CONT PRN (16:00)
[2018-06-02] MEDS ORDERED: fentaNYL Citrate Inj 250 MCG/5 ML Ampul ONE ×2 (16:06)
[2018-06-02] MEDS: Calcium Chloride Inj 1 GM in Sodium Chlor 0.9% Inj 100 ML IV.SIG PRN (16:16)
--- NOTE | 2018-06-02 16:27 | P.OP ---
Date of procedure: 06/02/18 Anesthesia: GETA Surgeon: Yasir Beavers MD Operation and Findings: PREPROCEDURE DIAGNOSES 1. Severe Multi Vessel Coronary Artery Disease. 2. Critical Aortic Valve Stenosis 3. Christianity 4. Anemia POSTPROCEDURE DIAGNOSES Same SURGICAL PROCEDURE 1. Coronary Artery Bypass Grafting x 2 with left internal mammary artery (RAPP) to left anterior descending (LAD), reverse saphenous vein graft to the Ramus marginalis (RM) 2. Aortic Valve Replacement with 23mm Medtronic Mosaic Tissue Valve 3. Right Leg Endoscopic Vein [place] 4. Intraoperative Vein Mapping. SURGEON Yasir Beavers MD SUBMARINE OPERATOR Roscoe Butler, ESTHER Robert, [facility] ANESTHESIA General endotracheal SOLDER DEPOSIT OPERATOR Kamron Fowler, KIANA Bellamy MD PREPARATION ChloraPrep. COUNTS Needle, sponge, and instrument counts were correct. DRAINS Two 32-[place] Island[place] mediastinal tubes. COMPLICATIONS None. INDICATIONS FOR PROCEDURE The patient is a 77-year-old presenting with shortness of breath and known . Patient was noted to have multi-vessel coronary artery disease in addition to severe . The patient is being brought to the operating room for surgical revascularization and AVR therapy. PROCEDURE Patient was brought to the operating room and placed supine on the OR table. Following the induction of adequate general endotracheal anesthesia and placement of appropriate monitoring devices, intraoperative vein mapping was performed which revealed suitable-caliber conduit in the right lower extremity. The patient was then prepped and draped in standard sterile fashion. Next, 2500 units of intravenous heparin was given. The right greater saphenous vein was harvested endoscopically. This appeared to be a good-caliber conduit. Simultaneously, a median sternotomy was performed and the left internal mammary artery dissected free off the posterior sternal table. The patient was systemically heparinized and anticoagulation monitored by serial ACT measurements. The internal mammary artery had good pulsatile flow in it and was a good-caliber conduit. The pericardium was then divided in the midline, the cradle created and targets analyzed. Then 2 pursestring sutures of 2-0 Ethibond were placed on the aorta proximal to the takeoff of the innominate artery, another was placed in the right atrial appendage. At this point, aortic and 2-stage venous cannulas were introduced and attached to the arterial and venous components of the bypass circuit respectively. Antegrade cardioplegia cannula and a left ventricular vent, through the right superior pulmonary vein, were also placed. The patient was placed on cardiopulmonary bypass and core cooling initiated to a temperature of 32 degrees centigrade. At this point, all anastomoses were performed in a pump-assisted, beating-heart fashion using the CritiSense stabilizing system. The left internal mammary artery was anastomosed to the mid LAD (1.75 mm) in an end-to-side fashion using 7-0 Prolene. Segment of saphenous vein graft was then anastomosed to the ramus (2.25 mm) in an end-to- side fashion using 7-0 Prolene. The crossclamp was applied and 2 L of cardioplegia solution (Mcc HTK) given in an antegrade fashion into the root as well as through the ramus graft, in addition to topical cooling with slushed saline. Upon achieving adequate diastolic arrest of the heart a transverse aortotomy was performed extending towards the non-coronary annulus. The aortic valve was noted to be very heavily calcified with the calcification extending into ascending aorta as well as the anterior leaflet of the mitral valve. The valve was excised and sent for microbiologic analysis. Circumferential decalcification was performed. Horizontal mattress sutures of pledgeted 2-0 Ethibond were placed circumferentially in the aortic annulus with the pledgets on the ventricular side. After adequate sizing, a 23 mm Medtronic Mosaic Cinch tissue valve was brought in the surgical field and the sutures passed through the skirt. The valve was situated supra-annular. The sutures were tied with Cor-knots. This appeared to be a good fit. Gradual rewarming was initiated and the aortotomy closed in 2 layers. This was with 4-0 Prolene; the 1st layer being horizontal mattress, the 2nd layer being running baseball stitch. The cross clamp was removed and upon achieving normothermic cardiac activity, the patient was weaned off of the cardiopulmonary bypass circuit without any difficulty. The proximal anastomosis was then constructed to the ascending aorta in a running manner using 6-0 Prolene.Transesophageal echocardiography revealed a well-situated aortic prosthesis with no evidence of perivalvular leak and no aortic stenosis or aortic regurgitation. Protamine was administered. Decannulation was performed and all sites were inspected for hemostasis. All anastomotic sites were inspected and appeared to be hemostatic and patent. Strict hemostasis was assured. 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 A lot of time was spent making sure there was no surgical bleeding. The closure was undertaken. 2 chest tubes were placed. The pericardium was reapproximated in the midline. The sternum was approximated using sternal wires. The muscular and fascial layers were then closed in 3 layers. The endoscopic vein harvest site was closed in 2 layers. The patient tolerated the procedure well and was transferred to CVICU in stable condition.
--- NOTE | 2018-06-02 16:27 | XR ---
EXAM DATE: 06/02/2018 4:19 PM EDT AGE/SEX: 77 years / Male INDICATIONS: . Post op AVR. CLINICAL DATA: This is the patient's initial encounter. Patient reports that signs and symptoms have been present for 2 days and indicates a pain score of Nonresponsive. MEDICAL/SURGICAL HISTORY: . Diabetes mellitus type II. Carcinoma, prostatic. Peripheral vascula r disease. Coronary artery disease. Skin cancer. Neoplasm. CKD stage III. HTN. Angina. . Coronary a rtery stent. Cardiac cath. COMPARISON: [facility] – [place], [place] SINGLE [facility], 05/14/2018. . FINDINGS: Endotracheal tube is present in good position with tip approximately 6 cm above the maribel. Nasogastr ic tube descends into the stomach. Right neck sheath and central catheter are present in good positio n. Thoracostomy tubes are noted. The cardiac contours are satisfactory. Sternotomy wires are present. Prosthetic aortic valve is noted. There is mild optimal atelectasis in the lung bases, left worse th an right. CONCLUSION: Satisfactory postop appearance Electronically signed by: Roscoe Tolliver MD 06/02/2018 4:26 PM EDT
--- NOTE | 2018-06-02 16:35 | P.PNCA ---
- Note Subjective/Hospital Course: 77-year-old man, intially seen history of coronary artery disease, prior stent to the LAD in 2004, also history of severe aortic valve stenosis, normal ejection fraction of 56%, mean gradient of 37 mm, peak gradient 57, presented for followup with the flower arranger and was having some chest pain, which was radiating to his left arm. The patient is deaf since childbirth. He does have a bedside foundry molder during the entire conversation. He underwent cardiac catheterization, which showed 3-vessel disease including a 70% mid distal LAD, 90% circumflex, OM 70%, the RCA 60%. RCA was nondominant. Artery pressures of 8, PA pressures 37/26 with a wedge of 28. Cardiac output of 6.0. We were consulted to evaluate for coronary artery bypass grafting and aortic valve replacement. PAST MEDICAL HISTORY: Includes coronary artery disease, prior stenting of the LAD in 2004, carotid artery stenosis. Apparently, he had a history of a 90% right internal. Repeat carotid ultrasound is pending at this time. 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 Jehovah Witness. No blood products. Okay for Epogen. 06/02 electively admitted for surgery 1. Coronary Artery Bypass Grafting x 2 with left internal mammary artery (RAPP) to left anterior descending (LAD), reverse saphenous vein graft to the Ramus marginalis (RM) 2. Aortic Valve Replacement with 23mm Medtronic Mosaic Tissue Valve 3. Right Leg Endoscopic Vein [place] 4. Intraoperative Vein Mapping. Objective: Vital Signs - 24 hr 06/02/18 06:42 06/02/18 15:40 06/02/18 15:50 Temperature 97.6 F Pulse Rate 61 Respiratory Rate 16 22 Blood Pressure 174/64 H Pulse Oximetry 100 100 100 06/02/18 16:00 Temperature 99.1 F Pulse Rate 97 H Respiratory Rate 19 Blood Pressure 129/69 Pulse Oximetry 99 Labs: Laboratory Results - last 12 hr 06/02/18 06:30 Nasal Screen MRSA (PCR) Not detected
[2018-06-02 17:52] LABS: Baso # (Auto) 0.1 th/mm3 (0.0-0.2); Baso % (Auto) 0.3 % (0.0-2.0); Hematocrit 28.5 % (39.0-51.0); Hemoglobin 9.8 gm/dL (13.0-17.0); Lymph # (Auto) 1.1 th/mm3 (1.0-4.8); Lymph % (Auto) 5.7 % (9.0-44.0); Mean Corpuscular HGB Conc 34.2 % (32.0-36.0); Mean Corpuscular Hemoglobin 31.7 pg (27.0-34.0); Mean Corpuscular Volume 92.6 fL (80.0-100.0); Mean Platelet Volume 9.4 fL (7.0-11.0); Mono # (Auto) 2.1 th/mm3 (0.0-0.9); Mono % (Auto) 10.6 % (0.0-8.0); Neut # (Auto) 16.5 th/mm3 (1.8-7.7); Neut % (Auto) 83.4 % (16.0-70.0); Platelet Count 103 th/mm3 (150-450); Red Blood Count 3.08 mil/mm3 (4.50-5.90); Red Cell Distribution Width 13.8 % (11.6-17.2); White Blood Count 19.7 th/mm3 (4.0-11.0)
[2018-06-02 17:55] LABS: INR 1.1 Ratio; Prothrombin Time 11.4 sec (9.8-11.6)
[2018-06-02] MEDS: Potassium Chlor 20 mEq Premix 20 MEQ/100 ML PIGGYBACK IV.SIG PRN ×3 (18:50→22:30)
--- NOTE | 2018-06-02 19:33 | P.CON ---
History of Present Illness Service: Critical Care Medicine Consult date: 06/02/18 Requesting Physician: Yasir Beavers Reason for Consult: hemodynamic management Primary Care Provider: Rob Squires MD Family Provider: Rob Squires MD History of Present Illness: This is a 77-year-old male with a history of deafness and severe aortic stenosis who presents for elective 2 vessel CABG (RAPP to LAD, saphenous vein graft to diagonal) and bioprosthetic aortic valve replacement. He underwent the above-mentioned procedure. Intraoperative events were complicated by significant bleeding once the chest wall was closed requiring reopening the chest wall and obtain hemostasis. During this time he received 7 mg of recombinant factor VII. He arrives to the CVICU intubated on phenylephrine 100 mcg/min for persistent hypotension. I discussed the case with Dr. Beavers, the patient is a Taoist and his stated preoperatively that he will not accept blood, blood products, or human albumin. He did agree to agree to recombinant factor VII administration. Patient is intubated and no additional information is available from the patient. Review systems is unobtainable. Review of Systems unobtainable due to endotracheal tube PMFSH - History History Provided By: Medical Record - Medical History Medical History: Medical History (Last Updated 06/02/18 @ 06:40 by Zaira Clement) CAD (coronary artery disease) CKD (chronic kidney disease) Coronary artery stenosis Deaf Diabetes mellitus HTN (hypertension) Heart murmur Hyperlipidemia PVD (peripheral vascular disease) Prostate cancer Skin cancer Stomach benign neoplasm - Surgical History Surgical History: Surgical History (Last Updated 06/02/18 @ 06:40 by Zaira Clement) H/O hernia repair H/O radical prostatectomy History of appendectomy Stented coronary artery - Tobacco History Second Hand Smoke Exposure: No Smoking Status: Former smoker Tobacco Type: Cigarettes - Alcohol History How Often Do You Have a Drink Containing Alcohol: Never - Substance Use History Substance History: No History of Abuse - Travel History Recent Travel in the [facility] Within the Last 8 Weeks: No Medications and Allergies Active Medications: Active Medications Albuterol (Duoneb Neb (Prn)) 1 ampul NEB Q2HR NEB PRN PRN Reason: WHEEZING Albuterol (Duoneb Neb (Saira)) 1 ampul NEB Q6HR NEB [facility] Last Admin: 06/02/18 16:50 Dose: 1 ampul Amiodarone HCl (Cordarone) 200 mg PO Q12HR [facility] Aspirin (Aspirin Chew) 81 mg PO DAILY [facility] Atorvastatin Calcium (Lipitor) 10 mg PO DAILY [facility] Calcium Chloride (Calcium Chloride Inj) 0.5 gm IV.PUSH PRN PRN PRN Reason: SEE LABEL COMMENTS Chlorhexidine Gluconate (Chlorhexidine 2% Cloth) 3 pack TOPICAL PROCED TECH [facility] Stop: 06/05/18 06:07 Chlorhexidine Gluconate (Hibiclens 4% Topical) 1 applicatio TOPICAL PROCED TECH [facility] Stop: 06/08/18 06:27 Sodium Chloride 77.5 ml/Papaverine HCl 60 mg/Nitroglycerin 100 mcg/Diltiazem HCl 100 mg 0 ml IRRIGATION PROCED TECH [facility] Stop: 06/08/18 06:27 Last Admin: 06/02/18 10:20 Dose: 1 irrig.soln Sodium Chloride 500 ml/ (Cefazolin Sodium 500 mg) 0 ml IRRIGATION PROCED TECH [facility] Stop: 06/08/18 06:28 Last Admin: 06/02/18 10:21 Dose: 1 irrig.soln Desmopressin Acetate (Ddavp Inj) 32 mcg IV.SIG PROCED TECH [facility] Stop: 06/04/18 07:59 Dextrose (D50w Vial) 50 ml IV.PUSH UNSCH PRN PRN Reason: PER HYPOGLYCEMIA PROTOCOL Dextrose (D50w Vial) 50 ml IV.PUSH UNSCH PRN PRN Reason: x 2 per Hypoglycemia Protocol Epinephrine (Racepinephrine 2.25% Neb) 0.5 ml NEB DAILY NEB PRN PRN Reason: STRIDOR Fentanyl Citrate (Fentanyl Inj) 25 mcg IV.PUSH Q1H PRN PRN Reason: BREAKTHROUGH PAIN Hydralazine HCl (Apresoline Inj) 10 mg IV.PUSH Q4H PRN PRN Reason: SEE LABEL COMMENTS Lactated Ringer's (Lr 1000 Ml Inj) 1,000 mls @ 30 mls/hr IV.SIG .Q24H [facility] Stop: 06/05/18 06:07 Last Admin: 06/02/18 07:08 Dose: 30 mls/hr Sodium Chloride (Ns Inj) 500 mls @ 30 mls/hr IV.SIG .Q10H [facility] Stop: 06/05/18 06:07 Insulin Human Regular 100 unit (/ Sodium Chloride) 100 mls @ 3 mls/hr IV.CONT TITRATE PRN; Protocol PRN Reason: See Protocol Cefazolin Sodium 2,000 mg/ (Sodium Chloride) 100 mls @ 200 mls/hr IV.SIG PROCED TECH [facility] Stop: 06/08/18 06:28 Last Admin: 06/02/18 08:14 Dose: 200 mls/hr, 200 mls/hr Clevidipine (Cleviprex Inj) 25 mg in 50 mls @ 2 mls/hr IV.CONT TITRATE PRN; Protocol PRN Reason: Per protocol Dexmedetomidine/Sodium Chloride (Precedex Inj) 200 mcg in 50 mls @ 4.1 mls/hr IV.CONT TITRATE PRN; Protocol PRN Reason: Per Protocol Last Titration: 06/02/18 17:45 Dose: 0 mcg/kg/hr, 0 mls/hr Epinephrine HCl 2 mg/ Sodium (Chloride) 250 mls @ 22.5 mls/hr IV.CONT TITRATE PRN; Protocol PRN Reason: See protocol Insulin Human Regular 100 unit (/ Sodium Chloride) 100 mls @ 3 mls/hr IV.CONT TITRATE PRN; Protocol PRN Reason: See Protocol Last Titration: 06/02/18 18:00 Dose: 3 units/hr, 3 mls/hr Lactated Ringer's (Lr 1000 Ml Inj) 500 mls @ 500 mls/hr IV.SIG .Q1H PRN PRN Reason: SEE LABEL COMMENTS Magnesium Sulfate Inj 2 gm/ (Sodium Chloride) 100 mls @ 50 mls/hr IV.SIG PRN PRN PRN Reason: SEE LABEL COMMENTS Magnesium Sulfate Inj 2 gm/ (Sodium Chloride) 100 mls @ 50 mls/hr IV.SIG PRN PRN PRN Reason: SEE LABEL COMMENTS Phenylephrine HCl 40 mg/ (Sodium Chloride) 500 mls @ 30 mls/hr IV.CONT TITRATE PRN; Protocol PRN Reason: See Protocol Last Titration: 06/02/18 18:40 Dose: 30 mcg/min, 22.5 mls/hr Potassium Chloride (Kcl 20 Meq Premix Inj) 20 meq in 100 mls @ 50 mls/hr IV.SIG PRN PRN PRN Reason: SEE LABEL COMMENTS Potassium Chloride (Kcl 20 Meq Premix Inj) 20 meq in 100 mls @ 50 mls/hr IV.SIG PRN PRN PRN Reason: SEE LABEL COMMENTS Cefazolin Sodium/Dextrose (Ancef 2 Gm Premix Inj) 2 gm in 50 mls @ 100 mls/hr IV.SIG Q8H [facility] Stop: 06/04/18 04:29 Potassium Chloride (Kcl 20 Meq Premix Inj) 20 meq in 100 mls @ 50 mls/hr IV.SIG PRN PRN PRN Reason: SEE LABEL COMMENTS Last Admin: 06/02/18 18:50 Dose: 50 mls/hr Ketorolac Tromethamine (Toradol Inj) 15 mg IV.PUSH Q6H PRN PRN Reason: SEE LABEL COMMENTS Stop: 06/04/18 15:07 Meperidine HCl (Demerol Inj) 12.5 mg IV.PUSH Q4H PRN PRN Reason: SHIVERING Metoprolol Tartrate (Lopressor) 25 mg PO PROCED TECH [facility] Stop: 06/05/18 06:07 Metoprolol Tartrate (Lopressor) 12.5 mg PO PROCED TECH [facility] Stop: 06/08/18 06:28 Last Admin: 06/02/18 06:30 Dose: Not Given Metoprolol Tartrate (Lopressor Inj) 2.5 mg IV.PUSH Q1H PRN PRN Reason: SEE LABEL COMMENTS Morphine Sulfate (Morphine Inj) 1 mg IV.PUSH Q10M PRN PRN Reason: PAIN SCALE 1 TO 5 Ondansetron HCl (Zofran Odt) 4 mg PO Q6H PRN PRN Reason: NAUSEA OR VOMITING Pantoprazole Sodium (Protonix) 40 mg PO DAILY@06 [facility] Phenylephrine HCl (Neosynephrine Inj) 0.1 mg IV.PUSH PRN PRN PRN Reason: SEE LABEL COMMENTS Potassium Chloride (K-Dur) 20 meq PO PRN PRN PRN Reason: SEE LABEL COMMENTS Potassium Chloride (K-Dur) 40 meq PO PRN PRN PRN Reason: SEE LABEL COMMENTS Povidone Iodine (Betadine 5% Antisepsis Kit) 1 applicatio EACH NARE PROCED TECH [facility] Stop: 06/05/18 06:07 Last Admin: 06/02/18 07:09 Dose: 1 applicatio Sodium Bicarbonate (Sodium Bicarbonate 8.4% Inj) 50 meq IV.PUSH UNSCH PRN PRN Reason: SEE LABEL COMMENTS Sodium Bicarbonate (Sodium Bicarbonate 8.4% Inj) 100 meq IV.PUSH UNSCH PRN PRN Reason: SEE LABEL COMMENTS Sodium Chloride (Ns Flush) 2 ml IV.FLUSH BID [facility] Sodium Chloride (Ns Flush) 2 ml IV.FLUSH PRN PRN PRN Reason: FLUSH AFTER USING IV ACCESS Sodium Chloride (Ns Flush) 2 ml IV.FLUSH BID [facility] Sodium Chloride (Ns Flush) 2 ml IV.FLUSH PRN PRN PRN Reason: FLUSH AFTER USING IV ACCESS Terbutaline Sulfate (Brethine Inj) 1 mg SQ UNSCH PRN PRN Reason: For Extravasation Tramadol HCl (Ultram) 50 mg PO Q4H PRN PRN Reason: PAIN 1 TO 10 Allergies Allergy/AdvReac Type Severity Reaction Status Date / Time acetaminophen Allergy Severe Verified 05/14/18 08:05 butalbital Allergy Severe Verified 05/14/18 08:05 erythromycin base Allergy Severe Verified 05/14/18 08:05 tamsulosin Allergy Severe Verified 05/14/18 08:05 Home Medications Medication Instructions Recorded Confirmed Type aspirin [Aspir-81] 81 mg PO DAILY 06/02/18 06/02/18 History atorvastatin PO DAILY 06/02/18 History isosorbide mononitrate 30 mg PO DAILY 06/02/18 History metformin 500 mg PO BID 06/02/18 History metoprolol succinate PO DAILY 06/02/18 History nitroglycerin 0.6 mg SUBLINGUAL Q5-15M PRN 06/02/18 History Physical Exam Vital signs: Vital Signs 06/02/18 06:42 06/02/18 15:08 06/02/18 15:40 Temperature 36.4 C 37.6 C Pulse Rate 61 Respiratory Rate 16 22 Blood Pressure 174/64 H Pulse Oximetry 100 100 06/02/18 15:50 06/02/18 16:00 06/02/18 16:50 Temperature 37.3 C Pulse Rate 97 H 88 Respiratory Rate 19 18 Blood Pressure 129/69 Pulse Oximetry 100 99 06/02/18 17:00 06/02/18 18:10 06/02/18 18:45 Temperature 37.4 C 37.4 C 37.4 C Pulse Rate 117 H 92 H Respiratory Rate 13 Blood Pressure 139/70 109/58 L Pulse Oximetry Intake & Output 06/02/18 06/02/18 06/03/18 06:59 18:59 06:59 Intake Total 5943.1 / 5943.1 Output Total 2995 / 2995 Balance 2948.1 / 2948.1 Weight 82 kg Intake: IV 193.1 / 193.1 Precedex Inj 200 mcg In 50 ml @ 17.7 / 17.7 0.2 MCG/KG/HR 4.1 mls/hr IV. CONT TITRATE PRN Rx#:[id number] NovoLIN R (IV Infusion) 100 29.4 / 29.4 UNIT In NS Inj 99 ML @ 3 UNITS/ HR 3 mls/hr IV.CONT TITRATE PRN Rx#:[id number] Neosynephrine Inj 40 MG In NS 146 / 146 Inj 496 ML @ 40 MCG/MIN 30 mls/ hr IV.CONT TITRATE PRN Rx#: [id number] Anesthesia Amount 5000 / 5000 Cell Saver Amount 750 / 750 Output: Estimated Blood Loss 1500 / 1500 Urine Amount (Catheter) 1495 / 1495 Indwelling Temp Sensing 1495 / 1495 Catheter Other: Weight On Admission 82 kg Narrative: GENERAL: Elderly male, lying in bed, intubated, sedated HEENT: Normocephalic. Atraumatic. Pupils equal, round, reactive, conjugate. Mucous membranes are moist NECK: Trachea is midline. There is no JVD. Right IJ introducer sheath in place , site clean dry and intact. CHEST: Endotracheal tube in place. PRVC. FiO2 50%. Equal chest rise. There is a soft tissue wound VAC overlying a midline sternal incision all which appear clean dry and intact. 2 chest tubes exit subxiphoid with a moderate amount of sanguinous output. Initial chest tube output was 150 cc in the first hour. No air leak in the chest tubes. CARDIOVASCULAR: Normal rate, regular rhythm. Appears sinus by telemetry. On phenylephrine at 100 mcg/min. CVP is 0. ABDOMEN: Soft, nontender, nondistended. No guarding. MUSCULOSKELETAL: Pulses 2+. No peripheral edema. Lower extremities wrapped in Jack bandage. NEUROLOGICAL: RASS -3. Moves all extremities. Does not follow commands. Still arousing from anesthesia. On very low-dose dexmedetomidine. - Urinary Catheter Management Indwelling Temp Sensing Catheter Cath placed during this visit: yes Reason for continuing: Hourly intake/output Insertion date: 06/02/18 Insertion time: 07:45 Assessment and Plan - Plan Assessment: 77-year-old male postop day 0 status post CABG 2 (RAPP to LAD, saphenous vein graft to diagonal) and bioprosthetic aortic valve replacement, course complicated by postoperative hypotension and a moderate amount of chest tube bleeding. Patient appears clinically intravascularly hypovolemic and we will gently give crystalloid IV fluid resuscitation. We will honor the patient' s wishes not to have any blood or blood product administration. We will wean phenylephrine as tolerated for goal map greater than 65. If he remains stable we will move towards extubation. s/p CABG (RAPP-->LAD, SVG-->Diag) and tAVR 06/02 - anticoagulation per Dr. Beavers - afib prophylaxis per Dr. Beavers - monitor chest tube output closely - close uop monitoring Post-operative hypotension Acute intravascular volume depletion - gentle ivf crystlloid resuscitation - trend CVP - trend lactates Anemia secondary to acute blood loss - patient is Taoist and will not receive blood or blood products - no albumin - recombinant factor VII is allowable per the patient. - trend on daily cbc. - minimize lab draws Deafness - spanish medical interpreter at bedside Wean mechanical ventilation for goal extubation tonight - wean fio2 for goal spo2 > 90% - OOB after extubation advance diet tomorrow. Discussed with Dr. Beavers Critical care medicine will continue to follow along while patient remains in the CVICU. Critical care time: 31 minutes, exclusive of separately billable procedures.
[2018-06-02 20:12] LABS: Activated Partial Thrombo Time 44.1 sec (24.3-30.1)
[2018-06-02] MEDS: ceFAZolin 2 GM Premix Inj 2 GM/50 ML PIGGYBACK IV.SIG SCH (20:23)
[2018-06-02] MEDS ORDERED: Amiodarone 200 MG Tablet PO SCH (21:00)
--- NOTE | 2018-06-03 05:02 | XR ---
EXAM DATE: 06/03/2018 4:59 AM EDT AGE/SEX: 77 years / Male INDICATIONS: . Status post CABG. CLINICAL DATA: This is the patient's subsequent encounter. Patient reports that signs and symptoms h ave been present for 3 days and indicates a pain score of Nonresponsive. MEDICAL/SURGICAL HISTORY: . Diabetes mellitus type II. Carcinoma, prostatic. Peripheral vascul ar disease. Coronary artery disease. Skin cancer. Neoplasm. CKD stage III. HTN. Angina. . Coronary artery stent. Cardiac cath. COMPARISON: [facility], CHEST 1V SINGLE AP, 06/02/2018. . FINDINGS: Central and left chest tube present. Bilateral mostly basilar airspace disease, left greater than rig ht similar to June 02. Previous endotracheal tube and nasogastric tube have been removed. Right centr al line in superior vena cava. CONCLUSION: Interval extubation. Stable mild basilar airspace disease. Right central line in superior vena cava. Electronically signed by: Tha Mullen MD 06/03/2018 5:01 AM EDT
[2018-06-03] MEDS: ceFAZolin 2 GM Premix Inj 2 GM/50 ML PIGGYBACK IV.SIG SCH ×3 (05:35→20:00)
[2018-06-03 05:37] LABS: Hematocrit 26.6 % (39.0-51.0); Hemoglobin 9.1 gm/dL (13.0-17.0); Mean Corpuscular HGB Conc 34.1 % (32.0-36.0); Mean Corpuscular Hemoglobin 31.7 pg (27.0-34.0); Mean Platelet Volume 9.4 fL (7.0-11.0); Platelet Count 104 th/mm3 (150-450); Red Blood Count 2.86 mil/mm3 (4.50-5.90); Red Cell Distribution Width 14.1 % (11.6-17.2); White Blood Count 9.8 th/mm3 (4.0-11.0)
[2018-06-03 05:54] LABS: Calcium 8.9 mg/dL (8.5-10.1); Carbon Dioxide 23.9 meq/L (21.0-32.0); Magnesium 2.3 mg/dL (1.5-2.5); Potassium 3.9 meq/L (3.5-5.1)
[2018-06-03] MEDS ORDERED: Pantoprazole Inj 40 MG Vial IV.PUSH ONE (06:30)
[2018-06-03] MEDS: Calcium Chloride Inj 1 GM in Sodium Chlor 0.9% Inj 100 ML IV.SIG PRN ×4 (08:49→14:43)
[2018-06-03] MEDS ORDERED: Bisacodyl 10 MG Supp RECTAL PRN (09:16)
[2018-06-03] MEDS ORDERED: Sod Phosphate/Sod Biphosphate (Adult) Enema 133 ML Bottle RECTAL PRN (09:16)
[2018-06-03] MEDS ORDERED: Dextrose 50% in Water 50 ML Vial IV.PUSH PRN (09:16)
[2018-06-03] MEDS ORDERED: fentaNYL Citrate Inj 100 MCG/2 ML Ampul IV.PUSH PRN (09:20)
--- NOTE | 2018-06-03 09:24 | P.PNCC ---
Subjective Subjective Remarks/Hospital Course: Hospital Course: This is a 77-year-old male with a history of deafness and severe aortic stenosis who presents for elective 2 vessel CABG (RAPP to LAD, saphenous vein graft to diagonal) and bioprosthetic aortic valve replacement. He underwent the above-mentioned procedure. Intraoperative events were complicated by significant bleeding once the chest wall was closed requiring reopening the chest wall and obtain hemostasis. During this time he received 7 mg of recombinant factor VII. He arrives to the CVICU intubated on phenylephrine 100 mcg/min for persistent hypotension. I discussed the case with Dr. Beavers, the patient is a Muslim and his stated preoperatively that he will not accept blood, blood products, or human albumin. He did agree to agree to recombinant factor VII administration. Patient is intubated and no additional information is available from the patient. Review systems is unobtainable. Subjective: 06/02: extubated overnight. lactated trended up to 6. this AM volume depleted, remains on phenylephrine. gave 1L crystalloid bolus this AM. repeat lactate downtrending to 3. more altered this AM, likely secondary to acidosis. ordered 1 amp bicarb for persistent acidosis in the setting of myocardial dysfunction post AVR. hgb stable at 9.1. chest tubes drying up. uop marginal. Objective Vital Signs / I&O: Vital Signs 06/02/18 15:08 06/02/18 15:40 06/02/18 15:50 Temperature 37.6 C Pulse Rate Respiratory Rate 22 Blood Pressure Pulse Oximetry 100 100 06/02/18 16:00 06/02/18 16:50 06/02/18 17:00 Temperature 37.3 C 37.4 C Pulse Rate 97 H 88 117 H Respiratory Rate 19 18 13 Blood Pressure 129/69 139/70 Pulse Oximetry 99 06/02/18 18:10 06/02/18 18:45 06/02/18 19:00 Temperature 37.4 C 37.4 C 37.7 C H Pulse Rate 92 H 93 H Respiratory Rate 12 Blood Pressure 109/58 L 93/52 L Pulse Oximetry 99 06/02/18 20:22 06/02/18 20:25 06/02/18 22:13 Temperature 37.7 C H Pulse Rate Respiratory Rate 22 16 Blood Pressure Pulse Oximetry 100 99 06/02/18 23:00 06/02/18 23:06 06/02/18 23:20 Temperature 37.7 C H 37.7 C H Pulse Rate 100 H 105 H Respiratory Rate 22 19 Blood Pressure 90/43 L Pulse Oximetry 100 06/03/18 00:16 06/03/18 03:00 06/03/18 04:29 Temperature 37.9 C H 37.4 C Pulse Rate 106 H 103 H Respiratory Rate 24 18 Blood Pressure 104/59 L Pulse Oximetry 100 06/03/18 07:00 06/03/18 07:45 Temperature 37.6 C H Pulse Rate 100 H Respiratory Rate 28 H Blood Pressure 94/51 L Pulse Oximetry 97 Intake & Output 06/02/18 06/03/18 06/03/18 18:59 06:59 18:59 Intake Total 5943.1 / 5943.1 450 / 450 50 / 50 Output Total 2995 / 2995 650 / 650 Balance 2948.1 / 2948.1 -200 / -200 50 / 50 Weight 88 kg Intake: IV 193.1 / 193.1 450 / 450 50 / 50 Precedex Inj 200 mcg In 50 ml @ 17.7 / 17.7 0.2 MCG/KG/HR 4.1 mls/hr IV. CONT TITRATE PRN Rx#:[id number] NovoLIN R (IV Infusion) 100 29.4 / 29.4 UNIT In NS Inj 99 ML @ 3 UNITS/ HR 3 mls/hr IV.CONT TITRATE PRN Rx#:[id number] Neosynephrine Inj 40 MG In NS 146 / 146 Inj 496 ML @ 40 MCG/MIN 30 mls/ hr IV.CONT TITRATE PRN Rx#: [id number] Calcium Chloride Inj 1 GM In NS 0 / 0 Inj 100 ML @ 100 mls/hr IV.SIG PRN PRN Rx#:[id number] KCl 20 mEq Premix Inj 20 meq In 300 / 300 100 ml @ 50 mls/hr IV.SIG PRN PRN Rx#:[id number] Ancef 2 GM Premix Inj 2 gm In 40 / 40 50 / 50 50 ml @ 100 mls/hr IV.SIG Q8H [facility] Rx#:[id number] Anesthesia Amount 5000 / 5000 Cell Saver Amount 750 / 750 Output: Estimated Blood Loss 1500 / 1500 Urine Amount (Catheter) 1495 / 1495 430 / 430 Indwelling Temp Sensing 1495 / 1495 430 / 430 Catheter Chest Tube Drainage 220 / 220 Mediastinal 220 / 220 Other: # Bowel Movements 0 Result Diagrams: 06/03/18 05:16 06/03/18 05:16 Objective Remarks: GENERAL: Elderly male, lying in bed, awake, somnolent. HEENT: Normocephalic. Atraumatic. Pupils equal, round, reactive, conjugate. Mucous membranes are moist NECK: Trachea is midline. There is no JVD. Right IJ introducer sheath in place , site clean dry and intact. CHEST: nc o2. equal chest rise. Equal chest rise. There is a soft tissue wound VAC overlying a midline sternal incision all which appear clean dry and intact. 2 chest tubes exit subxiphoid with minimal sanguinous output this AM. No air leak in the chest tubes. CARDIOVASCULAR: Normal rate, regular rhythm. Appears sinus by telemetry. On phenylephrine at 20 mcg/min. CVP is 2. ABDOMEN: Soft, nontender, nondistended. No guarding. MUSCULOSKELETAL: Pulses 2+. No peripheral edema. Lower extremities wrapped in Jack bandage. NEUROLOGICAL: RASS -1. Moves all extremities. follows commands. Assessment and Plan - Assessment and Plan Plan: Assessment: 77-year-old male postop day 1 status post CABG 2 (RAPP to LAD, saphenous vein graft to diagonal) and bioprosthetic aortic valve replacement, course complicated by postoperative hypotension and a moderate amount of chest tube bleeding. Now patient continues to remain slightly under-resuscitated. continue gentle hydration. trend lactates. lactic acid persists. remains critically ill and high risk for decompensation. s/p CABG (RAPP-->LAD, SVG-->Diag) and tAVR 06/02 - anticoagulation per Dr. Beavers - afib prophylaxis per Dr. Beavers - monitor chest tube output closely - close uop monitoring Post-operative hypotension- persistent. Acute intravascular volume depletion - gentle ivf crystlloid resuscitation - additional 1L crystalloid - trend CVP - trend lactates Lactic Acidosis - secondary to volume depletion - trend. Anemia secondary to acute blood loss - patient is Muslim and will not receive blood or blood products - no albumin - recombinant factor VII is allowable per the patient. - trend on daily cbc. - minimize lab draws Deafness - salesperson corsets at bedside advance diet. Discussed with Dr. Beavers Critical care medicine will continue to follow along while patient remains in the CVICU. Critical care time: 33 minutes, exclusive of separately billable procedures.
--- NOTE | 2018-06-03 09:57 | P.PNCA ---
- Note CVT: Post Op Day #: 1 Subjective/Hospital Course: 77-year-old man, intially seen history of coronary artery disease, prior stent to the LAD in 2004, also history of severe aortic valve stenosis, normal ejection fraction of 56%, mean gradient of 37 mm, peak gradient 57, presented for followup with the boat ride operator and was having some chest pain, which was radiating to his left arm. The patient is deaf since childbirth. He does have a bedside microbiology instructor during the entire conversation. He underwent cardiac catheterization, which showed 3-vessel disease including a 70% mid distal LAD, 90% circumflex, OM 70%, the RCA 60%. RCA was nondominant. Artery pressures of 8, PA pressures 37/26 with a wedge of 28. Cardiac output of 6.0. We were consulted to evaluate for coronary artery bypass grafting and aortic valve replacement. PAST MEDICAL HISTORY: Includes coronary artery disease, prior stenting of the LAD in 2004, carotid artery stenosis. Apparently, he had a history of a 90% right internal. Repeat carotid ultrasound is pending at this time. 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 Jehovah Witness. No blood products. Okay for Epogen. 06/02 electively admitted for surgery 1. Coronary Artery Bypass Grafting x 2 with left internal mammary artery (RAPP) to left anterior descending (LAD), reverse saphenous vein graft to the Ramus marginalis (RM) 2. Aortic Valve Replacement with 23mm Medtronic Mosaic Tissue Valve 3. Right Leg Endoscopic Vein [facility] 4. Intraoperative Vein Mapping. 5000cc crystalloid, 750cc sell saver 1300cc EBL extubated last pm intraoperative events were complicated by significant bleeding once the chest wall was closed requiring reopening the chest wall and obtain hemostasis. During this time he received 7 mg of recombinant factor VII. He arrived to the CVICU intubated on phenylephrine 100 mcg/min for persistent hypotension. the patient is a [employer] and his stated preoperatively that he will not accept blood, blood products, or human albumin. He did agree to agree to recombinant factor VII administration. 06/03 pt has sign microbiology instructor at bedside, pt lethargic but attempting to follow some commands remains on low dose Jl, weaned off insulin gtt HGB 9.1, check BNP in am with pedi tube start ferrous sulfate in am epogen in am will need coumadin goal 2-2.5 x 6 weeks for AVR tissue valve Objective: Vital Signs - 24 hr 06/02/18 15:08 06/02/18 15:40 06/02/18 15:50 Temperature 99.6 F Pulse Rate Respiratory Rate 22 Blood Pressure Pulse Oximetry 100 100 06/02/18 16:00 06/02/18 16:50 06/02/18 17:00 Temperature 99.1 F 99.3 F Pulse Rate 97 H 88 117 H Respiratory Rate 19 18 13 Blood Pressure 129/69 139/70 Pulse Oximetry 99 06/02/18 18:10 06/02/18 18:45 06/02/18 19:00 Temperature 99.4 F 99.4 F 99.8 F H Pulse Rate 92 H 93 H Respiratory Rate 12 Blood Pressure 109/58 L 93/52 L Pulse Oximetry 99 06/02/18 20:22 06/02/18 20:25 06/02/18 22:13 Temperature 99.8 F H Pulse Rate Respiratory Rate 22 16 Blood Pressure Pulse Oximetry 100 99 06/02/18 23:00 06/02/18 23:06 06/02/18 23:20 Temperature 99.8 F H 99.8 F H Pulse Rate 100 H 105 H Respiratory Rate 22 19 Blood Pressure 90/43 L Pulse Oximetry 100 06/03/18 00:16 06/03/18 03:00 06/03/18 04:29 Temperature 100.2 F H 99.4 F Pulse Rate 106 H 103 H Respiratory Rate 24 18 Blood Pressure 104/59 L Pulse Oximetry 100 06/03/18 07:00 06/03/18 07:45 Temperature 99.7 F H Pulse Rate 100 H Respiratory Rate 28 H Blood Pressure 94/51 L Pulse Oximetry 97 GENERAL: lethargic, weak, attempting to follow simple commands with microbiology instructor at bedside SKIN: Warm and dry. prevena dressing to chest , BOB wrap to right leg HEAD: Atraumatic. Normocephalic. EYES: Pupils equal and round. No scleral icterus. No injection or drainage. ENT: No nasal bleeding or discharge. Mucous membranes pink and moist. NECK: Trachea midline. No JVD. CARDIOVASCULAR: Regular rate and rhythm. general edema RESPIRATORY: No accessory muscle use. Clear to auscultation. Breath sounds equal bilaterally. chest tube to wall suction, no air leak , drained 220cc/ 12 hrs GASTROINTESTINAL: Abdomen soft, non-tender, nondistended. Hepatic and splenic margins not palpable. MUSCULOSKELETAL: Extremities without clubbing, cyanosis, or edema. No obvious deformities. NEUROLOGICAL: lethargic, awake , sleepy No obvious cranial nerve deficits. Motor grossly within normal limits. pt is deaf PSYCHIATRIC: lethargic Labs: Laboratory Results - last 12 hr 06/03/18 06/03/18 06/03/18 00:04 03:03 05:16 WBC 9.8 D RBC 2.86 L Hgb 9.1 L Hct 26.6 L MCV 93.0 MCH 31.7 MCHC 34.1 RDW 14.1 Plt Count 104 L MPV 9.4 Sodium Potassium Chloride Carbon Dioxide Anion Gap BUN Creatinine Estimated GFR POC Glucose 102 161 H Random Glucose Calcium Magnesium Ammonia 06/03/18 06/03/18 06/03/18 05:16 05:16 05:25 WBC RBC Hgb Hct MCV MCH MCHC RDW Plt Count MPV Sodium 147 H Potassium 3.9 Chloride 110 H Carbon Dioxide 23.9 Anion Gap 13 BUN 35 H Creatinine 1.76 H Estimated GFR 38 L POC Glucose 115 H Random Glucose 127 H Calcium 8.9 Magnesium 2.3 Ammonia 32 06/03/18 06/03/18 06/03/18 06:40 07:38 08:45 WBC RBC Hgb Hct MCV MCH MCHC RDW Plt Count MPV Sodium Potassium Chloride Carbon Dioxide Anion Gap BUN Creatinine Estimated GFR POC Glucose 93 120 H 113 H Random Glucose Calcium Magnesium Ammonia Result Diagrams: 06/03/18 05:16 06/03/18 05:16 Cardiovascular: NSR - Plan (1) CAD (coronary artery disease), [place] coronary artery (3) S/P CABG x 2 Plan: ASA, statin , hold BB for now wean Jl as tolerated , IV fluid resuscitation CCM following mobilize pt thia am low dose fentanly for pain pulm toileting (4) S/P aortic valve replacement Plan: will need coumadin x 6 weeks, 2-2.5 (6) Acute blood loss as cause of postoperative anemia Plan: start ferrous sulfate in am dose of epogen in am limit blood draws pediatric tubes only pt has microbiology instructor at bedside (1) CAD (coronary artery disease), [place] coronary artery Qualifiers: [place] vs. transplanted heart: [place] heart
[2018-06-03] MEDS: Insulin NovoLOG Aspart Correctional Sugar Inj SQ SCH ×4 (10:32→22:00)
[2018-06-03] MEDS: Potassium Chlor 20 mEq Premix 20 MEQ/100 ML PIGGYBACK IV.SIG PRN ×2 (12:01→14:03)
--- NOTE | 2018-06-03 13:06 | P.DIET ---
Nutritional Evaluation Screening comments: MDC for diet education s/p CABG x 2 and AVR on 06/02. Patient Navigator to provide education. Consult RD if complexities with diet education arise.
[2018-06-03] MEDS ORDERED: Calcium Chloride Inj 1 GM in Sodium Chlor 0.9% Inj 100 ML IV.SIG PRN (13:17)
[2018-06-03] MEDS: Epoetin Alfa Inj 20,000 UNIT/ML Vial SQ SCH (14:27)
--- NOTE | 2018-06-03 14:41 | ECG ---
Date Performed: 06/03/2018 Time Performed: 04:28:50 PTAGE: 77 years EKG: Sinus tachycardia Lateral T wave changes are nonspecific Low QRS voltages in precordial jass ds Borderline ECG NO PREVIOUS TRACING DOCTOR: Bahman Bowman Interpretating Date/Time 06/03/2018 14:40:20
[2018-06-03] MEDS ORDERED: Metoprolol Inj 5 MG/5 ML Vial IV.PUSH SCH (16:45)
[2018-06-03] MEDS ORDERED: Metoprolol Inj 5 MG/5 ML Vial ONE (16:55)
[2018-06-04] MEDS: Docusate Sodium 100 MG Capsule PO SCH ×3 (00:20→21:52)
[2018-06-04] MEDS: Insulin NovoLOG Aspart Correctional Sugar Inj SQ SCH ×7 (02:00→22:03)
[2018-06-04] MEDS: ceFAZolin 2 GM Premix Inj 2 GM/50 ML PIGGYBACK IV.SIG SCH (04:11)
[2018-06-04 04:46] LABS: INR 1.2 Ratio; Prothrombin Time 12.1 sec (9.8-11.6)
[2018-06-04 04:52] LABS: Calcium 8.3 mg/dL (8.5-10.1); Carbon Dioxide 29.1 meq/L (21.0-32.0); Potassium 4.3 meq/L (3.5-5.1)
--- NOTE | 2018-06-04 08:52 | P.PNCC ---
Subjective Subjective Remarks/Hospital Course: Hospital Course: This is a 77-year-old male with a history of deafness and severe aortic stenosis who presents for elective 2 vessel CABG (RAPP to LAD, saphenous vein graft to diagonal) and bioprosthetic aortic valve replacement. He underwent the above-mentioned procedure. Intraoperative events were complicated by significant bleeding once the chest wall was closed requiring reopening the chest wall and obtain hemostasis. During this time he received 7 mg of recombinant factor VII. He arrives to the CVICU intubated on phenylephrine 100 mcg/min for persistent hypotension. I discussed the case with Dr. Beavers, the patient is a [employer] and his stated preoperatively that he will not accept blood, blood products, or human albumin. He did agree to agree to recombinant factor VII administration. Patient is intubated and no additional information is available from the patient. Review systems is unobtainable. Subjective: 06/03: extubated overnight. lactated trended up to 6. this AM volume depleted, remains on phenylephrine. gave 1L crystalloid bolus this AM. repeat lactate downtrending to 3. more altered this AM, likely secondary to acidosis. ordered 1 amp bicarb for persistent acidosis in the setting of myocardial dysfunction post AVR. hgb stable at 9.1. chest tubes drying up. uop marginal. 06/04: clinically improving, although still appears to have some hypoactive delirium: intermittently not following commands. Cr improving slightly. remains slightly tachycardic with rates in the low 100s. on 6L o2 by NC. uop adequate. Objective Vital Signs / I&O: Vital Signs 06/03/18 10:47 06/03/18 11:00 06/03/18 14:40 Temperature 37.6 C Pulse Rate 120 H 117 H 116 H Respiratory Rate 16 Blood Pressure 96/67 L Pulse Oximetry 98 06/03/18 15:00 06/03/18 18:53 06/03/18 20:00 Temperature 37.6 C H 36.9 C Pulse Rate 121 H 105 H Respiratory Rate 24 20 Blood Pressure 113/55 L 105/59 L Pulse Oximetry 97 96 06/03/18 20:40 06/03/18 21:08 06/03/18 23:00 Temperature Pulse Rate 103 H 103 H Respiratory Rate 20 Blood Pressure Pulse Oximetry 93 L 06/04/18 00:00 06/04/18 04:00 06/04/18 07:19 Temperature 36.9 C 37.1 C Pulse Rate 103 H 112 H 109 H Respiratory Rate 18 22 Blood Pressure 138/67 142/44 H Pulse Oximetry 96 96 06/04/18 07:24 06/04/18 08:21 06/04/18 08:28 Temperature 36.9 C Pulse Rate 109 H 111 H Respiratory Rate 20 18 Blood Pressure 154/72 H Pulse Oximetry 97 97 97 Intake & Output 06/03/18 06/04/18 06/04/18 18:59 06:59 18:59 Intake Total 420 / 420 50 / 50 Output Total 575 / 575 575 / 575 Balance -155 / -155 -525 / -525 Weight 88 kg 88 kg Intake: IV 420 / 420 50 / 50 KCl 20 mEq Premix Inj 20 meq In 100 / 100 100 ml @ 50 mls/hr IV.SIG PRN PRN Rx#:[id number] Ancef 2 GM Premix Inj 2 gm In 100 / 100 50 / 50 50 ml @ 100 mls/hr IV.SIG Q8H LAW Rx#:[id number] Oral 0 / 0 Output: Urine Amount (Catheter) 575 / 575 455 / 455 Indwelling Temp Sensing 575 / 575 455 / 455 Catheter Chest Tube Drainage 120 / 120 Mediastinal 120 / 120 Other: Date of Last Bowel Movement 06/03/18 06/03/18 # Bowel Movements 2 # Incontinent Bowel Movements 2 Result Diagrams: 06/03/18 05:16 06/04/18 04:00 Objective Remarks: GENERAL: Elderly male, lying in bed, awake, somnolent. HEENT: Normocephalic. Atraumatic. Pupils equal, round, reactive, conjugate. Mucous membranes are moist NECK: Trachea is midline. There is no JVD. Right IJ introducer sheath in place , site clean dry and intact. CHEST: nc o2. equal chest rise. Equal chest rise. There is a soft tissue wound VAC overlying a midline sternal incision all which appear clean dry and intact. 2 chest tubes exit subxiphoid with minimal output this AM. No air leak in the chest tubes. CARDIOVASCULAR: tachycardic rate of 104, regular rhythm. Appears sinus by telemetry. ABDOMEN: Soft, nontender, nondistended. No guarding. MUSCULOSKELETAL: Pulses 2+. No peripheral edema. Lower extremities wrapped in Jack bandage. NEUROLOGICAL: RASS -1. Moves all extremities. not following commands this AM. Assessment and Plan - Assessment and Plan Plan: Assessment: 77-year-old male postop day 2 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 Clinically improving slowly. Unclear etiology of delirium: may be pump associated vs. ICU hypoactive delirium. doubt MRI or head CT will change active management: current non-focal neurologic exam. Acute encephalopathy Hypoactive Delirium - frequent neuro checks - will hold off on neuro imaging at this point: non-focal exam. - avoid sedating meds s/p CABG (RAPP-->LAD, SVG-->Diag) and tAVR 06/02 - anticoagulation per Dr. Beavers - afib prophylaxis per Dr. Beavers - monitor chest tube output closely - close uop monitoring Post-operative hypotension- resolved. Lactic Acidosis- resolved sinus tachycardia - start lopressor 25mg po bid Acute intravascular volume overload - allow autodiuresis. - will give one-time dose of lasix 20mg iv to assist with autodiuresis. Anemia secondary to acute blood loss - patient is [employer] and will not receive blood or blood products - no albumin - recombinant factor VII is allowable per the patient. - minimize lab draws Deafness - child development teacher at bedside advance diet. Discussed with Dr. Beavers Critical care medicine will continue to follow along while patient remains in the CVICU. Could consider transferring out of ICU as ICU environment may worsen delirium. Will leave ultimate choice of disposition up to CT surgery team.
[2018-06-04] MEDS: Metoprolol Tartrate 25 MG Tablet PO SCH ×2 (08:56→21:53)
[2018-06-04] MEDS: Multivitamin/Minerals Therapeutic Tablet PO SCH (08:56)
[2018-06-04] MEDS: Polyethylene Glycol 3350 17 GM Packet PO SCH (08:57)
[2018-06-04] MEDS ORDERED: Ferrous Sulfate 325 MG Tablet PO SCH (12:00)
--- NOTE | 2018-06-04 14:07 | P.PNCA ---
- Note Subjective/Hospital Course: 77-year-old man, intially seen history of coronary artery disease, prior stent to the LAD in 2004, also history of severe aortic valve stenosis, normal ejection fraction of 56%, mean gradient of 37 mm, peak gradient 57, presented for followup with the tire care manager and was having some chest pain, which was radiating to his left arm. The patient is deaf since childbirth. He does have a bedside french cord binder during the entire conversation. He underwent cardiac catheterization, which showed 3-vessel disease including a 70% mid distal LAD, 90% circumflex, OM 70%, the RCA 60%. RCA was nondominant. Artery pressures of 8, PA pressures 37/26 with a wedge of 28. Cardiac output of 6.0. We were consulted to evaluate for coronary artery bypass grafting and aortic valve replacement. PAST MEDICAL HISTORY: Includes coronary artery disease, prior stenting of the LAD in 2004, carotid artery stenosis. Apparently, he had a history of a 90% right internal. Repeat carotid ultrasound is pending at this time. 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 Jehovah Witness. No blood products. Okay for Epogen. 06/02 electively admitted for surgery 1. Coronary Artery Bypass Grafting x 2 with left internal mammary artery (RAPP) to left anterior descending (LAD), reverse saphenous vein graft to the Ramus marginalis (RM) 2. Aortic Valve Replacement with 23mm Medtronic Mosaic Tissue Valve 3. Right Leg Endoscopic Vein [place] 4. Intraoperative Vein Mapping. 5000cc crystalloid, 750cc sell saver 1300cc EBL extubated last pm intraoperative events were complicated by significant bleeding once the chest wall was closed requiring reopening the chest wall and obtain hemostasis. During this time he received 7 mg of recombinant factor VII. He arrived to the CVICU intubated on phenylephrine 100 mcg/min for persistent hypotension. the patient is a [employer] and his stated preoperatively that he will not accept blood, blood products, or human albumin. He did agree to agree to recombinant factor VII administration. 06/03 pt has sign french cord binder at bedside, pt lethargic but attempting to follow some commands remains on low dose Jl, weaned off insulin gtt HGB 9.1, check BNP in am with pedi tube start ferrous sulfate in am epogen in am will need coumadin goal 2-2.5 x 6 weeks for AVR tissue valve 06/04 pt was more lethargic this am , not following commands did not sleep well last pm , as the day went on , pt napped was more awake and response , responding to sign language with french cord binder at bedside needs environmental cues BB added for BP , on ASA, statin on iron supplement and epogen will keep in CVICU today Objective: Vital Signs - 24 hr 06/03/18 14:40 06/03/18 15:00 06/03/18 18:53 Temperature 99.7 F H Pulse Rate 116 H 121 H Respiratory Rate 16 24 Blood Pressure 113/55 L Pulse Oximetry 97 06/03/18 20:00 06/03/18 20:40 06/03/18 21:08 Temperature 98.4 F Pulse Rate 105 H 103 H Respiratory Rate 20 20 Blood Pressure 105/59 L Pulse Oximetry 96 93 L 06/03/18 23:00 06/04/18 00:00 06/04/18 04:00 Temperature 98.4 F 98.8 F Pulse Rate 103 H 103 H 112 H Respiratory Rate 18 22 Blood Pressure 138/67 142/44 H Pulse Oximetry 96 96 06/04/18 07:19 06/04/18 07:24 06/04/18 08:21 Temperature 98.5 F Pulse Rate 109 H 109 H Respiratory Rate 20 Blood Pressure 154/72 H Pulse Oximetry 97 97 06/04/18 08:28 06/04/18 10:53 06/04/18 10:56 Temperature 98.6 F Pulse Rate 111 H 82 92 H Respiratory Rate 18 20 Blood Pressure 143/67 H Pulse Oximetry 97 97 06/04/18 11:00 Temperature 98.6 F Pulse Rate 92 H Respiratory Rate 20 Blood Pressure 143/67 H Pulse Oximetry 97 GENERAL: lethargic sleepy SKIN: Warm and dry. prevena dressing to chest HEAD: Atraumatic. Normocephalic. EYES: Pupils equal and round. No scleral icterus. No injection or drainage. ENT: No nasal bleeding or discharge. Mucous membranes pink and moist. NECK: Trachea midline. No JVD. CARDIOVASCULAR: Regular rate and rhythm. mild general edema RESPIRATORY: No accessory muscle use. Clear to auscultation. Breath sounds equal bilaterally. diminsihed in bases, chest tube drained 130cc/ 12 hrs GASTROINTESTINAL: Abdomen soft, non-tender, nondistended. Hepatic and splenic margins not palpable. MUSCULOSKELETAL: Extremities without clubbing, cyanosis, or edema. No obvious deformities. NEUROLOGICAL: sleepy , lethargic , but improving, awake and alert. No obvious cranial nerve deficits. pt deaf Labs: Laboratory Results - last 12 hr 06/04/18 06/04/18 06/04/18 04:00 04:00 04:08 PT 12.1 H INR 1.2 Sodium 147 H Potassium 4.3 Chloride 113 H Carbon Dioxide 29.1 Anion Gap 5 BUN 42 H Creatinine 1.54 H Estimated GFR 44 L POC Glucose 187 H Random Glucose 165 H Calcium 8.3 L 06/04/18 09:53 PT INR Sodium Potassium Chloride Carbon Dioxide Anion Gap BUN Creatinine Estimated GFR POC Glucose 138 H Random Glucose Calcium Result Diagrams: 06/03/18 05:16 06/04/18 04:00 Telemetry: NSR - Plan (1) CAD (coronary artery disease), [place] coronary artery Plan: on ASA, statin , BB OT, PT OOB to stretcher chair leave chest tubes in today eval for [facility] (3) S/P CABG x 2 Plan: ASA, statin , hold BB for now wean Jl as tolerated , IV fluid resuscitation CCM following mobilize pt pulm toileting (4) S/P aortic valve replacement Plan: will need coumadin x 6 weeks, 2-2.5 start in am (6) Acute blood loss as cause of postoperative anemia Plan: start ferrous sulfate in am scheduled epogen -- limit blood draws pediatric tubes only check cbc in am in [place] of starting coumadin (7) Deaf mutism, congenital Plan: pt has french cord binder at bedside at all time (1) CAD (coronary artery disease), [place] coronary artery Qualifiers: [place] vs. transplanted heart: [place] heart
[2018-06-04] MEDS: Ferrrous Sulfate 300 MG/5 ML UDC PO SCH (17:07)
--- NOTE | 2018-06-04 19:39 | ECG ---
Date Performed: 06/03/2018 Time Performed: 16:29:36 PTAGE: 77 years EKG: Sinus Tachycardia Nonspecific ST-T wave changes Abnormal ECG PREVIOUS TRACING :06/03/2018 @04.28 Since the previous tracing, no significant change noted DOCTOR: Jose Rolle Interpretating Date/Time 06/04/2018 19:38:18
[2018-06-05] MEDS: Insulin NovoLOG Aspart Correctional Sugar Inj SQ SCH ×5 (01:54→17:47)
[2018-06-05 04:56] LABS: INR 1.1 Ratio; Prothrombin Time 11.1 sec (9.8-11.6)
[2018-06-05 05:01] LABS: Mean Corpuscular HGB Conc 34.3 % (32.0-36.0); Mean Corpuscular Hemoglobin 32.1 pg (27.0-34.0); Mean Corpuscular Volume 93.6 fL (80.0-100.0); Mean Platelet Volume 9.7 fL (7.0-11.0); Platelet Count 71 th/mm3 (150-450); Red Blood Count 1.98 mil/mm3 (4.50-5.90); White Blood Count 9.5 th/mm3 (4.0-11.0)
[2018-06-05 05:09] LABS: Calcium 8.3 mg/dL (8.5-10.1); Carbon Dioxide 29.8 meq/L (21.0-32.0); Potassium 3.7 meq/L (3.5-5.1)
[2018-06-05 05:11] LABS: Hematocrit 18.5 % (39.0-51.0); Hemoglobin 6.4 gm/dL (13.0-17.0)
[2018-06-05] MEDS: Multivitamin/Minerals Therapeutic Tablet PO SCH (08:23)
[2018-06-05] MEDS: Metoprolol Tartrate 25 MG Tablet PO SCH ×3 (08:24→22:17)
[2018-06-05] MEDS: Polyethylene Glycol 3350 17 GM Packet PO SCH (08:25)
[2018-06-05] MEDS: Docusate Sodium 100 MG Capsule PO SCH ×2 (08:25→22:21)
[2018-06-05] MEDS ORDERED: Potassium Chloride 25 MEQ Effervescent Tablet PO ONE (10:00)
--- NOTE | 2018-06-05 11:43 | P.PNCA ---
- Note Subjective/Hospital Course: 77-year-old man, intially seen history of coronary artery disease, prior stent to the LAD in 2004, also history of severe aortic valve stenosis, normal ejection fraction of 56%, mean gradient of 37 mm, peak gradient 57, presented for followup with the change person and was having some chest pain, which was radiating to his left arm. The patient is deaf since childbirth. He does have a bedside supervisor sewing room during the entire conversation. He underwent cardiac catheterization, which showed 3-vessel disease including a 70% mid distal LAD, 90% circumflex, OM 70%, the RCA 60%. RCA was nondominant. Artery pressures of 8, PA pressures 37/26 with a wedge of 28. Cardiac output of 6.0. We were consulted to evaluate for coronary artery bypass grafting and aortic valve replacement. PAST MEDICAL HISTORY: Includes coronary artery disease, prior stenting of the LAD in 2004, carotid artery stenosis. Apparently, he had a history of a 90% right internal. Repeat carotid ultrasound is pending at this time. 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 Jehovah Witness. No blood products. Okay for Epogen. 06/02 electively admitted for surgery 1. Coronary Artery Bypass Grafting x 2 with left internal mammary artery (RAPP) to left anterior descending (LAD), reverse saphenous vein graft to the Ramus marginalis (RM) 2. Aortic Valve Replacement with 23mm Medtronic Mosaic Tissue Valve 3. Right Leg Endoscopic Vein [place] 4. Intraoperative Vein Mapping. 5000cc crystalloid, 750cc sell saver 1300cc EBL extubated last pm intraoperative events were complicated by significant bleeding once the chest wall was closed requiring reopening the chest wall and obtain hemostasis. During this time he received 7 mg of recombinant factor VII. He arrived to the CVICU intubated on phenylephrine 100 mcg/min for persistent hypotension. the patient is a Restorationism and his stated preoperatively that he will not accept blood, blood products, or human albumin. He did agree to agree to recombinant factor VII administration. 06/03 pt has sign supervisor sewing room at bedside, pt lethargic but attempting to follow some commands remains on low dose Jl, weaned off insulin gtt HGB 9.1, check BNP in am with pedi tube start ferrous sulfate in am epogen in am will need coumadin goal 2-2.5 x 6 weeks for AVR tissue valve 06/04 pt was more lethargic this am , not following commands did not sleep well last pm , as the day went on , pt napped was more awake and response , responding to sign language with supervisor sewing room at bedside needs environmental cues BB added for BP , on ASA, statin on iron supplement and epogen will keep in CVICU today 06/05 pt improving slowly, still sleepy during the day needs environmental cues. ux interaction designer at bedside pt nods head , but does not participate in signing back HGB 6.4/ continue epogen and ferrous sulfate / hold on starting coumadin ASA only transfer to stepdown near nurses station Objective: Vital Signs - 24 hr 06/04/18 14:13 06/04/18 15:00 06/04/18 15:03 Temperature 99.4 F Pulse Rate 98 H 101 H 101 H Respiratory Rate 20 18 Blood Pressure 172/75 H Pulse Oximetry 98 06/04/18 20:00 06/04/18 21:40 06/04/18 22:29 Temperature 98.4 F Pulse Rate 98 H 89 Respiratory Rate 20 20 Blood Pressure 169/75 H Pulse Oximetry 99 97 06/05/18 00:00 06/05/18 04:00 06/05/18 07:11 Temperature 98.7 F 98.5 F Pulse Rate 83 81 91 H Respiratory Rate 18 20 Blood Pressure 175/80 H 163/72 H Pulse Oximetry 96 98 06/05/18 07:13 06/05/18 08:18 06/05/18 08:20 Temperature 98.7 F Pulse Rate 91 H 88 Respiratory Rate 18 18 Blood Pressure 167/73 H Pulse Oximetry 95 95 99 06/05/18 11:01 06/05/18 11:03 Temperature 99.1 F Pulse Rate 72 72 Respiratory Rate 18 Blood Pressure 167/73 H Pulse Oximetry 95 Labs: Laboratory Results - last 12 hr 06/05/18 06/05/18 06/05/18 04:30 04:30 04:30 WBC 9.5 RBC 1.98 L Hgb 6.4 L* D Hct 18.5 L* MCV 93.6 MCH 32.1 MCHC 34.3 RDW 14.0 Plt Count 71 L D MPV 9.7 Hematology Comments PT 11.1 INR 1.1 Sodium 148 H Potassium 3.7 Chloride 112 H Carbon Dioxide 29.8 Anion Gap 6 BUN 37 H Creatinine 1.23 Estimated GFR 57 L POC Glucose Random Glucose 164 H Calcium 8.3 L 06/05/18 09:35 WBC RBC Hgb Hct MCV MCH MCHC RDW Plt Count MPV Hematology Comments PT INR Sodium Potassium Chloride Carbon Dioxide Anion Gap BUN Creatinine Estimated GFR POC Glucose 153 H Random Glucose Calcium Result Diagrams: 06/05/18 04:30 06/05/18 04:30 Telemetry: NSR - Plan (1) CAD (coronary artery disease), [place] coronary artery Plan: on ASA, statin , BB OT, PT OOB to stretcher chair leave chest tubes in today eval for [facility] (3) S/P CABG x 2 Plan: ASA, statin , increase BB add norvasc mobilize pt pulm toileting wean 02 gentle diuresis (4) S/P aortic valve replacement Plan: will need coumadin x 6 weeks, 2-2.5 hold on starting with HGB 6.4 ? dilutional (6) Acute blood loss as cause of postoperative anemia Plan: ferrous sulfate scheduled epogen M-W- limit blood draws pediatric tubes only (7) Deaf mutism, congenital Plan: pt has supervisor sewing room at bedside at all time continue over the weekend ASI supervisor sewing room notified [phone] (1) CAD (coronary artery disease), [place] coronary artery Qualifiers: [place] vs. transplanted heart: [place] heart
[2018-06-05] MEDS: amLODIPine 5 MG Tablet PO SCH (12:31)
[2018-06-05] MEDS: Ferrrous Sulfate 300 MG/5 ML UDC PO SCH ×2 (12:33→17:10)
[2018-06-05] MEDS: Epoetin Alfa Inj 20,000 UNIT/ML Vial SQ SCH (13:18)
--- NOTE | 2018-06-05 16:42 | P.CONREH ---
History of Present Illness Service: Physical medicine and rehabilitation Consult date: 06/05/18 Requesting Physician: Yasir Beavers Reason for Consult: Comprehensive rehabilitation evaluation Primary Care Provider: Rob Squires MD Family Provider: Rob Squires MD History of Present Illness: Roscoe Bennett is a 77-year-old male admitted to [facility] 06/02/18 and underwent CABG 2 RAPP to LAD and reverse saphenous vein graft to RM as well as aortic valve replacement with tissue valve. He was extubated 06/03/18. He was noted to have postoperative delirium. Hemoglobin 6.4. Patient is Zoroastrian. Epogen permitted. Review of Systems unobtainable due to mental condition, other (Clip Riveter is available but patient is not responding to signing) [facility] - History History Provided By: Medical Record - Medical History Medical History: Medical History (Last Reviewed 06/12/18 @ 09:17 by Vanesa Patel) CAD (coronary artery disease) CKD (chronic kidney disease) Coronary artery stenosis Deaf Diabetes mellitus HTN (hypertension) Heart murmur Hyperlipidemia PVD (peripheral vascular disease) Prostate cancer Skin cancer Stomach benign neoplasm - Surgical History Surgical History: Surgical History (Last Reviewed 06/12/18 @ 09:17 by Vanesa Patel) H/O hernia repair H/O radical prostatectomy History of appendectomy Stented coronary artery - Tobacco History Second Hand Smoke Exposure: No Smoking Status: Former smoker Tobacco Type: Cigarettes - Alcohol History How Often Do You Have a Drink Containing Alcohol: Never - Substance Use History Substance History: No History of Abuse - Travel History Recent Travel in the [facility] Within the Last 8 Weeks: No Medications and Allergies Active Medications: Active Medications Al Hydroxide/Mg Hydroxide (Milk Of [place] Liq) 30 ml PO DAILY [facility] Last Admin: 06/05/18 08:25 Dose: Not Given Albuterol (Duoneb Neb (Prn)) 1 ampul NEB Q2HR NEB PRN PRN Reason: WHEEZING Amlodipine Besylate (Norvasc) 5 mg PO DAILY [facility] Last Admin: 06/05/18 12:31 Dose: Not Given Aspirin (Aspirin Chew) 81 mg PO DAILY [facility] Last Admin: 06/05/18 08:24 Dose: Not Given Atorvastatin Calcium (Lipitor) 10 mg PO DAILY [facility] Last Admin: 06/05/18 08:24 Dose: 10 mg Bisacodyl (Dulcolax Supp) 10 mg RECTAL DAILY PRN PRN Reason: SEE LABEL COMMENTS Chlorhexidine Gluconate (Hibiclens 4% Topical) 1 applicatio TOPICAL FRUIT LOADER [facility] Stop: 06/08/18 06:27 Dextrose (D50w Vial) 50 ml IV.PUSH UNSCH PRN PRN Reason: PER HYPOGLYCEMIA PROTOCOL Docusate Sodium (Colace) 100 mg PO BID [facility] Last Admin: 06/05/18 08:25 Dose: Not Given Epoetin [place] (Epogen Inj) 20,000 unit SQ MoWeFr [facility] Last Admin: 06/05/18 13:18 Dose: 20,000 unit Ferrous Sulfate (Ferrrous Sulfate Liq) 300 mg PO BID@1200,1700 [facility] Last Admin: 06/05/18 12:33 Dose: 300 mg Glucagon (Glucagon Inj) 1 mg OTHER PRN PRN PRN Reason: For hypoglycemia Insulin Aspart (Novolog Insulin Correctional Sugar Inj) 0 unit SQ 02,06,10,14, 18,22 [facility]; Protocol Last Admin: 06/05/18 13:22 Dose: Not Given Metoprolol Tartrate (Lopressor) 50 mg PO BID [facility] Last Admin: 06/05/18 09:22 Dose: 50 mg Multivitamins/Minerals (Theragran-M) 1 tab PO DAILY [facility] Last Admin: 06/05/18 08:23 Dose: 1 tab Ondansetron HCl (Zofran Odt) 4 mg PO Q6H PRN PRN Reason: NAUSEA OR VOMITING Pantoprazole Sodium (Protonix) 40 mg PO DAILY@06 [facility] Last Admin: 06/05/18 06:29 Dose: 40 mg Polyethylene Glycol (Miralax) 17 gm PO DAILY [facility] Last Admin: 06/05/18 08:25 Dose: Not Given Sennosides (Senokot) 8.6 mg PO HS [facility] Last Admin: 06/04/18 21:52 Dose: 8.6 mg Sodium Biphosphate/Sodium Phosphate (Fleets Enema (Adult)) 118 ml RECTAL UNSCH PRN PRN Reason: SEE LABEL COMMENTS Sodium Chloride (Ns Flush) 2 ml IV.FLUSH BID [facility] Last Admin: 06/05/18 08:15 Dose: 2 ml Sodium Chloride (Ns Flush) 2 ml IV.FLUSH PRN PRN PRN Reason: FLUSH AFTER USING IV ACCESS Sodium Chloride (Ns Flush) 2 ml IV.FLUSH BID LAW Last Admin: 06/05/18 08:25 Dose: Not Given Sodium Chloride (Ns Flush) 2 ml IV.FLUSH PRN PRN PRN Reason: FLUSH AFTER USING IV ACCESS Tramadol HCl (Ultram) 50 mg PO Q6H PRN PRN Reason: PAIN 1 TO 10 Allergies Allergy/AdvReac Type Severity Reaction Status Date / Time acetaminophen Allergy Severe Verified 05/14/18 08:05 butalbital Allergy Severe Verified 05/14/18 08:05 erythromycin base Allergy Severe Verified 05/14/18 08:05 tamsulosin Allergy Severe Verified 05/14/18 08:05 Home Medications Medication Instructions Recorded Confirmed Type atorvastatin [Lipitor] 10 mcg/day PO DAILY 06/02/18 06/04/18 History metformin 500 mg PO BID 06/02/18 06/03/18 History Exam - Physical Examination Vital Signs / I&O: Vital Signs 06/04/18 20:00 06/04/18 21:40 06/04/18 22:29 Temperature 98.4 F Pulse Rate 98 H 89 Respiratory Rate 20 20 Blood Pressure 169/75 H Pulse Oximetry 99 97 06/05/18 00:00 06/05/18 04:00 06/05/18 07:11 Temperature 98.7 F 98.5 F Pulse Rate 83 81 91 H Respiratory Rate 18 20 Blood Pressure 175/80 H 163/72 H Pulse Oximetry 96 98 06/05/18 07:13 06/05/18 08:18 06/05/18 08:20 Temperature 98.7 F Pulse Rate 91 H 88 Respiratory Rate 18 18 Blood Pressure 167/73 H Pulse Oximetry 95 95 99 06/05/18 11:01 06/05/18 11:03 06/05/18 15:06 Temperature 99.1 F Pulse Rate 72 72 56 L Respiratory Rate 18 Blood Pressure 167/73 H Pulse Oximetry 95 06/05/18 15:08 Temperature 99.6 F Pulse Rate 56 L Respiratory Rate 17 Blood Pressure 118/55 L Pulse Oximetry 99 Intake & Output 06/04/18 06/05/18 06/05/18 18:59 06:59 18:59 Intake Total 500 / 500 240 / 240 Output Total 1715 / 1715 580 / 580 Balance -1215 / -1215 -340 / -340 Weight 84 kg Intake: Oral 500 / 500 240 / 240 Output: Urine Amount (Catheter) 1415 / 1415 540 / 540 Indwelling Temp Sensing 1415 / 1415 540 / 540 Catheter Chest Tube Drainage 300 / 300 40 / 40 Mediastinal 300 / 300 40 / 40 Other: Date of Last Bowel Movement 06/03/18 06/03/18 06/03/18 # Bowel Movements 0 0 Intake & Output 06/03/18 06/04/18 06/05/18 06/06/18 06:59 06:59 06:59 06:59 Intake Total 6393.1 / 6393.1 470 / 470 740 / 740 Output Total 3645 / 3645 1150 / 1150 2295 / 2295 Balance 2748.1 / 2748.1 -680 / -680 -1555 / -1555 Weight 88 kg 84 kg General: No acute distress, Other (Patient is up in bedside chair) Respiratory: BS equal, Coarse breath sounds Gastrointestinal: Positive bowel sounds, Non-tender Date of Last Bowel Movement: 06/03/18 Cardiovascular: Normal rate, Regular rhythm - Neurologic Orientation: unable to assess: Self, Place, Time, Situation Neurologic: Pupils (PERRLA), EOM (Focuses briefly), Speech (Not attempting to verbalize her to sign), Other (Not following commands to move both upper and lower extremities) DTRs: Normal Clonus: Negative Results - Labs CBC & Chem 7: 06/12/18 04:33 06/12/18 04:33 Labs: Laboratory Results - last 24 hr 06/04/18 06/04/18 06/05/18 17:31 21:58 04:30 WBC RBC Hgb Hct MCV MCH MCHC RDW Plt Count MPV Hematology Comments PT 11.1 INR 1.1 Sodium Potassium Chloride Carbon Dioxide Anion Gap BUN Creatinine Estimated GFR POC Glucose 98 130 H Random Glucose Calcium 06/05/18 06/05/18 06/05/18 04:30 04:30 09:35 WBC 9.5 RBC 1.98 L Hgb 6.4 L* D Hct 18.5 L* MCV 93.6 MCH 32.1 MCHC 34.3 RDW 14.0 Plt Count 71 L D MPV 9.7 Hematology Comments PT INR Sodium 148 H Potassium 3.7 Chloride 112 H Carbon Dioxide 29.8 Anion Gap 6 BUN 37 H Creatinine 1.23 Estimated GFR 57 L POC Glucose 153 H Random Glucose 164 H Calcium 8.3 L 06/05/18 13:21 WBC RBC Hgb Hct MCV MCH MCHC RDW Plt Count MPV Hematology Comments PT INR Sodium Potassium Chloride Carbon Dioxide Anion Gap BUN Creatinine Estimated GFR POC Glucose 79 Random Glucose Calcium Assessment and Plan (1) S/P CABG x 2 Status: Acute Code(s): Z95.1 - Presence of aortocoronary bypass graft (2) S/P aortic valve replacement Status: Acute Code(s): Z95.2 - Presence of prosthetic heart valve (3) Acute blood loss as cause of postoperative anemia Status: Acute Code(s): D62 - Acute posthemorrhagic anemia (4) Deaf mutism, congenital Status: Chronic Code(s): H91.3 - Deaf nonspeaking, not elsewhere classified - Plan 1. Physical therapy is mobilizing and patient is now dependent for bed mobility and mod assist of 2 for transfers. Continue to mobilize as medical and cardiac status allows. 2. Occupational therapy is addressing ADLs and now dependent 3. Continue to reposition a monitor skin carefully for breakdown 4. Patient will benefit from ongoing rehabilitation at discharge in case management is addressing. Will follow for level of care anticipating that skilled level of care may be appropriate 5. Will follow while hospitalized and at discharge Thank you for this consult
[2018-06-06 04:36] LABS: INR 1.1 Ratio; Prothrombin Time 10.9 sec (9.8-11.6)
[2018-06-06] MEDS: Insulin NovoLOG Aspart Correctional Sugar Inj SQ SCH ×5 (09:42→16:26)
[2018-06-06] MEDS: amLODIPine 5 MG Tablet PO SCH (09:44)
[2018-06-06] MEDS: Metoprolol Tartrate 25 MG Tablet PO SCH ×2 (09:44→21:58)
[2018-06-06] MEDS: Multivitamin/Minerals Therapeutic Tablet PO SCH (09:44)
--- NOTE | 2018-06-06 10:25 | P.PNCA ---
- Note Subjective/Hospital Course: 77-year-old man, intially seen history of coronary artery disease, prior stent to the LAD in 2004, also history of severe aortic valve stenosis, normal ejection fraction of 56%, mean gradient of 37 mm, peak gradient 57, presented for followup with the log inspector and was having some chest pain, which was radiating to his left arm. The patient is deaf since childbirth. He does have a bedside official court interpreter during the entire conversation. He underwent cardiac catheterization, which showed 3-vessel disease including a 70% mid distal LAD, 90% circumflex, OM 70%, the RCA 60%. RCA was nondominant. Artery pressures of 8, PA pressures 37/26 with a wedge of 28. Cardiac output of 6.0. We were consulted to evaluate for coronary artery bypass grafting and aortic valve replacement. PAST MEDICAL HISTORY: Includes coronary artery disease, prior stenting of the LAD in 2004, carotid artery stenosis. Apparently, he had a history of a 90% right internal. Repeat carotid ultrasound is pending at this time. 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 Jehovah Witness. No blood products. Okay for Epogen. 06/02 electively admitted for surgery 1. Coronary Artery Bypass Grafting x 2 with left internal mammary artery (RAPP) to left anterior descending (LAD), reverse saphenous vein graft to the Ramus marginalis (RM) 2. Aortic Valve Replacement with 23mm Medtronic Mosaic Tissue Valve 3. Right Leg Endoscopic Vein [place] 4. Intraoperative Vein Mapping. 5000cc crystalloid, 750cc sell saver 1300cc EBL extubated last pm intraoperative events were complicated by significant bleeding once the chest wall was closed requiring reopening the chest wall and obtain hemostasis. During this time he received 7 mg of recombinant factor VII. He arrived to the CVICU intubated on phenylephrine 100 mcg/min for persistent hypotension. the patient is a Latter-day and his stated preoperatively that he will not accept blood, blood products, or human albumin. He did agree to agree to recombinant factor VII administration. 06/[address] official [address] interpreter at bedside, pt lethargic but attempting to follow some commands remains on low dose Jl, weaned off insulin gtt HGB 9.1, check BNP in am with pedi tube start ferrous sulfate in am epogen in am will need coumadin goal 2-2.5 x 6 weeks for AVR tissue valve 06/04 pt was more lethargic this am , not following commands did not sleep well last pm , as the day went on , pt napped was more awake and response , responding to sign language with official court interpreter at bedside needs environmental cues BB added for BP , on ASA, statin on iron supplement and epogen will keep in CVICU today 06/05 pt improving slowly, still sleepy during the day needs environmental cues. art glass designer at bedside pt nods head , but does not participate in signing back HGB 6.4/ continue epogen and ferrous sulfate / hold on starting coumadin ASA only transfer to stepdown near nurses station 06/06 Left sided weakness this am. Will obtain head CT Continue with PT Monitor CBC Objective: Vital Signs - 24 hr 06/05/18 11:01 06/05/18 11:03 06/05/18 15:06 Temperature 99.1 F Pulse Rate 72 72 56 L Respiratory Rate 18 Blood Pressure 167/73 H Pulse Oximetry 95 06/05/18 15:08 06/05/18 19:15 06/05/18 20:00 Temperature 99.6 F 97.9 F Pulse Rate 56 L 78 Respiratory Rate 17 18 Blood Pressure 118/55 L 151/62 H Pulse Oximetry 99 100 100 06/05/18 23:00 06/06/18 03:00 06/06/18 07:00 Temperature 97.6 F 98.2 F 99 F Pulse Rate 64 74 68 Respiratory Rate 22 18 18 Blood Pressure 114/47 L 141/81 H 155/60 H Pulse Oximetry 98 96 06/06/18 08:00 Temperature Pulse Rate Respiratory Rate Blood Pressure Pulse Oximetry 99 Labs: Laboratory Results - last 12 hr 06/06/18 06/06/18 06/06/18 04:14 05:48 08:52 PT 10.9 INR 1.1 POC Glucose 129 H 184 H Result Diagrams: 06/05/18 04:30 06/05/18 04:30 - Plan (1) CAD (coronary artery disease), [place] coronary artery Plan: on ASA, statin , BB OT, PT OOB to stretcher chair leave chest tubes in today eval for [facility] (3) S/P CABG x 2 Plan: ASA, statin , increase BB add norvasc mobilize pt pulm toileting wean 02 gentle diuresis (4) S/P aortic valve replacement Plan: will need coumadin x 6 weeks, 2-2.5 hold on starting with HGB 6.4 ? dilutional (6) Acute blood loss as cause of postoperative anemia Plan: ferrous sulfate scheduled epogen limit blood draws pediatric tubes only (7) Deaf mutism, congenital Plan: pt has official court interpreter at bedside at all time continue over the weekend ASI official court interpreter notified [phone] (1) CAD (coronary artery disease), [place] coronary artery Qualifiers: [place] vs. transplanted heart: [place] heart
[2018-06-06] MEDS: Polyethylene Glycol 3350 17 GM Packet PO SCH (11:11)
[2018-06-06] MEDS: Docusate Sodium 100 MG Capsule PO SCH ×2 (11:11→22:06)
[2018-06-06 11:44] LABS: Calcium 8.2 mg/dL (8.5-10.1); Carbon Dioxide 31.1 meq/L (21.0-32.0); Potassium 3.4 meq/L (3.5-5.1)
[2018-06-06 12:38] LABS: Mean Corpuscular HGB Conc 34.6 % (32.0-36.0); Mean Corpuscular Hemoglobin 32.6 pg (27.0-34.0); Mean Platelet Volume 9.9 fL (7.0-11.0); Platelet Count 100 th/mm3 (150-450); Red Blood Count 2.16 mil/mm3 (4.50-5.90); White Blood Count 8.8 th/mm3 (4.0-11.0)
[2018-06-06] MEDS: Ferrrous Sulfate 300 MG/5 ML UDC PO SCH ×2 (12:45→18:01)
[2018-06-06 12:46] LABS: Hematocrit 20.3 % (39.0-51.0)
--- NOTE | 2018-06-06 23:01 | CT ---
EXAM DATE: 06/06/2018 10:55 PM EDT AGE/SEX: 77 years / Male INDICATIONS: Weakness. CLINICAL DATA: This is the patient's initial encounter. Patient reports that signs and symptoms have been present for 1 day and indicates a pain score of 0/10. MEDICAL/SURGICAL HISTORY: Diabetes. Carcinoma, prostatic. Renal disease. Aortic valve stenosis, hypertension Appendectomy. Prostatectomy. CABG. Hernia repair RADIATION DOSE: 66.34 CTDI (mGy) COMPARISON: No prior exams available for comparison. TECHNIQUE: CT of the head without contrast. Using automated exposure control and adjustment of the mA and/or kV according to patient size, radiation dose was kept as low as reasonably achievable to ob tain optimal diagnostic quality images. DICOM format image data is available electronically for revi ew and comparison. FINDINGS: Cerebrum: The ventricles, sulci, and cisterns are diffusely prominent consistent with age-appropriat e diffuse atrophy.. No evidence of midline shift, mass lesion, hemorrhage or acute infarction. No e xtraaxial fluid collections are seen. Posterior Fossa: Multiple small hypodensities in the cerebellum bilaterally indicating likely old in farcts. The 4th ventricle is midline. The cerebellopontine angle is unremarkable. Extracranial: The visualized portion of the orbits is intact. Skull: Evidence of prior craniotomy in the right frontal region.. No evidence of skull fracture. CONCLUSION: 1. Multiple bilateral cerebellar infarcts, likely old. 2. Postsurgical findings right frontal region. 3. Age-appropriate diffuse atrophy. Electronically signed by: Jose Juan Perry MD 06/06/2018 11:00 PM EDT
[2018-06-07] MEDS: Insulin NovoLOG Aspart Correctional Sugar Inj SQ SCH ×7 (06:22→18:40)
[2018-06-07 07:13] LABS: INR 1.1 Ratio; Prothrombin Time 11.1 sec (9.8-11.6)
[2018-06-07] MEDS: Multivitamin/Minerals Therapeutic Tablet PO SCH (08:58)
--- NOTE | 2018-06-07 09:44 | P.PNCA ---
- Note Subjective/Hospital Course: 77-year-old man, intially seen history of coronary artery disease, prior stent to the LAD in 2004, also history of severe aortic valve stenosis, normal ejection fraction of 56%, mean gradient of 37 mm, peak gradient 57, presented for followup with the administrative dietitian and was having some chest pain, which was radiating to his left arm. The patient is deaf since childbirth. He does have a bedside supervisor stone during the entire conversation. He underwent cardiac catheterization, which showed 3-vessel disease including a 70% mid distal LAD, 90% circumflex, OM 70%, the RCA 60%. RCA was nondominant. Artery pressures of 8, PA pressures 37/26 with a wedge of 28. Cardiac output of 6.0. We were consulted to evaluate for coronary artery bypass grafting and aortic valve replacement. PAST MEDICAL HISTORY: Includes coronary artery disease, prior stenting of the LAD in 2004, carotid artery stenosis. Apparently, he had a history of a 90% right internal. Repeat carotid ultrasound is pending at this time. 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 Jehovah Witness. No blood products. Okay for Epogen. 06/02 electively admitted for surgery 1. Coronary Artery Bypass Grafting x 2 with left internal mammary artery (RAPP) to left anterior descending (LAD), reverse saphenous vein graft to the Ramus marginalis (RM) 2. Aortic Valve Replacement with 23mm Medtronic Mosaic Tissue Valve 3. Right Leg Endoscopic Vein [place] 4. Intraoperative Vein Mapping. 5000cc crystalloid, 750cc sell saver 1300cc EBL extubated last pm intraoperative events were complicated by significant bleeding once the chest wall was closed requiring reopening the chest wall and obtain hemostasis. During this time he received 7 mg of recombinant factor VII. He arrived to the CVICU intubated on phenylephrine 100 mcg/min for persistent hypotension. the patient is a Amish and his stated preoperatively that he will not accept blood, blood products, or human albumin. He did agree to agree to recombinant factor VII administration. 06/03 pt has sign supervisor stone at bedside, pt lethargic but attempting to follow some commands remains on low dose Jl, weaned off insulin gtt HGB 9.1, check BNP in am with pedi tube start ferrous sulfate in am epogen in am will need coumadin goal 2-2.5 x 6 weeks for AVR tissue valve 06/04 pt was more lethargic this am , not following commands did not sleep well last pm , as the day went on , pt napped was more awake and response , responding to sign language with supervisor stone at bedside needs environmental cues BB added for BP , on ASA, statin on iron supplement and epogen will keep in CVICU today 06/05 pt improving slowly, still sleepy during the day needs environmental cues. intermediate designer at bedside pt nods head , but does not participate in signing back HGB 6.4/ continue epogen and ferrous sulfate / hold on starting coumadin ASA only transfer to stepdown near nurses station 06/06 Left sided weakness this am. Will obtain head CT Continue with PT Monitor CBC 06/07 Clinically stable. Moving left side better. Head CT results noted. No acute infarct. Old infarcts Transfer CPCU Monitor CBC PT Objective: Vital Signs - 24 hr 06/06/18 11:00 06/06/18 15:00 06/06/18 19:00 Temperature 98.3 F 98.7 F 97.9 F Pulse Rate 55 L 66 67 Respiratory Rate 18 18 18 Blood Pressure 131/58 L 122/53 L 124/58 L Pulse Oximetry 95 99 06/06/18 21:25 06/06/18 23:00 06/07/18 03:00 Temperature 98.3 F 98.3 F Pulse Rate 66 64 Respiratory Rate 23 20 Blood Pressure 136/65 144/62 H Pulse Oximetry 96 96 97 06/07/18 07:00 Temperature 99.4 F Pulse Rate 67 Respiratory Rate 20 Blood Pressure 97/49 L Pulse Oximetry Labs: Laboratory Results - last 12 hr 06/07/18 06/07/18 06/07/18 01:05 06:13 06:47 PT 11.1 INR 1.1 POC Glucose 141 H 138 H 06/07/18 08:46 PT INR POC Glucose 178 H Result Diagrams: 06/06/18 11:57 06/06/18 11:07 - Plan (1) CAD (coronary artery disease), [place] coronary artery Plan: on ASA, statin , BB OT, PT OOB to stretcher chair leave chest tubes in today eval for [place] [facility] (3) S/P CABG x 2 Plan: ASA, statin , increase BB add norvasc mobilize pt pulm toileting wean 02 gentle diuresis (4) S/P aortic valve replacement Plan: will need coumadin x 6 weeks, 2-2.5 hold on starting with HGB 6.4 ? dilutional (6) Acute blood loss as cause of postoperative anemia Plan: ferrous sulfate scheduled epogen limit blood draws pediatric tubes only (7) Deaf mutism, congenital Plan: pt has supervisor stone at bedside at all time continue over the weekend ASI supervisor stone notified [phone] (1) CAD (coronary artery disease), [place] coronary artery Qualifiers: [place] vs. transplanted heart: [place] heart
[2018-06-07] MEDS: Docusate Sodium 100 MG Capsule PO SCH ×2 (10:35→20:31)
[2018-06-07] MEDS: Polyethylene Glycol 3350 17 GM Packet PO SCH (10:35)
[2018-06-07] MEDS: Metoprolol Tartrate 25 MG Tablet PO SCH (10:35)
[2018-06-07] MEDS: amLODIPine 5 MG Tablet PO SCH (10:36)
[2018-06-07 11:11] LABS: Baso % (Auto) 0.3 % (0.0-2.0); Eos % (Auto) 0.5 % (0.0-4.0); Hemoglobin 9.2 gm/dL (13.0-17.0); Lymph # (Auto) 0.6 th/mm3 (1.0-4.8); Mean Corpuscular HGB Conc 34.2 % (32.0-36.0); Mean Corpuscular Hemoglobin 32.3 pg (27.0-34.0); Mean Corpuscular Volume 94.5 fL (80.0-100.0); Mean Platelet Volume 9.4 fL (7.0-11.0); Mono # (Auto) 0.7 th/mm3 (0.0-0.9); Mono % (Auto) 7.9 % (0.0-8.0); Neut # (Auto) 7.5 th/mm3 (1.8-7.7); Neut % (Auto) 84.3 % (16.0-70.0); Platelet Count 110 th/mm3 (150-450); Red Blood Count 2.86 mil/mm3 (4.50-5.90); Red Cell Distribution Width 14.3 % (11.6-17.2); White Blood Count 8.9 th/mm3 (4.0-11.0)
[2018-06-07 11:15] LABS: Carbon Dioxide 28.2 meq/L (21.0-32.0)
[2018-06-07 11:16] LABS: Potassium 3.6 meq/L (3.5-5.1)
[2018-06-07 11:48] LABS: Eosinophils 1 % (0-4); Lymphocytes 8 % (9-44); Monocytes 5 % (0-8); Tallied Nucleated RBC 2 (0-0)
[2018-06-07 11:49] LABS: Platelet Morphology Normal (Normal); RBC Morphology Normal (Normal)
[2018-06-07] MEDS: Ferrrous Sulfate 300 MG/5 ML UDC PO SCH ×2 (12:40→18:40)
[2018-06-08] MEDS: Insulin NovoLOG Aspart Correctional Sugar Inj SQ SCH ×6 (04:07→21:02)
[2018-06-08] MEDS: Multivitamin/Minerals Therapeutic Tablet PO SCH (08:14)
[2018-06-08] MEDS: Docusate Sodium 100 MG Capsule PO SCH ×2 (08:14→21:02)
[2018-06-08] MEDS: Polyethylene Glycol 3350 17 GM Packet PO SCH (08:15)
[2018-06-08] MEDS: Metoprolol Tartrate 25 MG Tablet PO SCH ×2 (09:01→21:01)
--- NOTE | 2018-06-08 10:43 | P.PNCA ---
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 The patient is deaf since childbirth. He does have a bedside mill operator during the entire conversation. He underwent cardiac catheterization, which showed 3-vessel disease including a 70% mid distal LAD, 90% circumflex, OM 70%, the RCA 60%. RCA was nondominant. Artery pressures of 8, PA pressures 37/26 with a wedge of 28. Cardiac output of 6.0. We were consulted to evaluate for coronary artery bypass grafting and aortic valve replacement. PAST MEDICAL HISTORY: Includes coronary artery disease, prior stenting of the LAD in 2004, carotid artery stenosis. Apparently, he had a history of a 90% right internal. Repeat carotid ultrasound is pending at this time. 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 Jehovah Witness. No blood products. Okay for Epogen. 06/02 electively admitted for surgery 1. Coronary Artery Bypass Grafting x 2 with left internal mammary artery (RAPP) to left anterior descending (LAD), reverse saphenous vein graft to the Ramus marginalis (RM) 2. Aortic Valve Replacement with 23mm Medtronic Mosaic Tissue Valve 3. Right Leg Endoscopic Vein [place] 4. Intraoperative Vein Mapping. 5000cc crystalloid, 750cc sell saver 1300cc EBL extubated last pm intraoperative events were complicated by significant bleeding once the chest wall was closed requiring reopening the chest wall and obtain hemostasis. During this time he received 7 mg of recombinant factor VII. He arrived to the CVICU intubated on phenylephrine 100 mcg/min for persistent hypotension. the patient is a Spiritism and his stated preoperatively that he will not accept blood, blood products, or human albumin. He did agree to agree to recombinant factor VII administration. 06/03 pt has sign mill operator at bedside, pt lethargic but attempting to follow some commands remains on low dose Jl, weaned off insulin gtt HGB 9.1, check BNP in am with pedi tube start ferrous sulfate in am epogen in am will need coumadin goal 2-2.5 x 6 weeks for AVR tissue valve 06/04 pt was more lethargic this am , not following commands did not sleep well last pm , as the day went on , pt napped was more awake and response , responding to sign language with mill operator at bedside needs environmental cues BB added for BP , on ASA, statin on iron supplement and epogen will keep in CVICU today 06/05 pt improving slowly, still sleepy during the day needs environmental cues. experience design director at bedside pt nods head , but does not participate in signing back HGB 6.4/ continue epogen and ferrous sulfate / hold on starting coumadin ASA only transfer to stepdown near nurses station 06/06 Left sided weakness this am. Will obtain head CT Continue with PT Monitor CBC 06/07 Clinically stable. Moving left side better. Head CT results noted. No acute infarct. Old infarcts Transfer CPCU Monitor CBC PT 06/08 left sided neglect , able to move left arm some difficultly lifting head up , will focus and track, will attempt to sign consult with nephrology will start plavix , continue ASA, no coumadin for now Objective: Vital Signs - 24 hr 06/07/18 11:00 06/07/18 15:00 06/07/18 16:00 Temperature 97.9 F 98.5 F Pulse Rate 72 76 74 Respiratory Rate 24 20 Blood Pressure 108/49 L 118/58 L Pulse Oximetry 06/07/18 17:00 06/07/18 18:00 06/07/18 19:00 Temperature 98.6 F Pulse Rate 68 64 79 Respiratory Rate 16 Blood Pressure 128/58 L Pulse Oximetry 06/07/18 20:00 06/07/18 22:00 06/07/18 23:00 Temperature 100.3 F H Pulse Rate 80 83 Respiratory Rate 18 Blood Pressure 143/65 H Pulse Oximetry 96 06/08/18 00:20 06/08/18 03:00 06/08/18 05:47 Temperature 98.1 F Pulse Rate 82 80 66 Respiratory Rate 18 Blood Pressure 151/67 H Pulse Oximetry 06/08/18 06:00 06/08/18 07:00 06/08/18 07:33 Temperature 98.1 F Pulse Rate 70 69 Respiratory Rate 20 Blood Pressure 145/64 H Pulse Oximetry 95 95 07/23/18 08:00 06/08/18 09:00 06/08/18 10:00 Temperature Pulse Rate 74 80 88 Respiratory Rate Blood Pressure Pulse Oximetry 06/08/18 10:31 Temperature 99.5 F Pulse Rate 86 Respiratory Rate Blood Pressure 120/60 Pulse Oximetry 94 L GENERAL: SKIN: Warm and dry. prevena dressing to chest HEAD: Atraumatic. Normocephalic. EYES: Pupils equal and round. No scleral icterus. No injection or drainage. ENT: No nasal bleeding or discharge. Mucous membranes pink and moist. NECK: Trachea midline. No JVD. CARDIOVASCULAR: Regular rate and rhythm. some general edema RESPIRATORY: No accessory muscle use. Clear to auscultation. Breath sounds equal bilaterally. diminished in bases , fair cough effort GASTROINTESTINAL: Abdomen soft, non-tender, nondistended. Hepatic and splenic margins not palpable. MUSCULOSKELETAL: Extremities without clubbing, cyanosis, or edema. No obvious deformities. NEUROLOGICAL: left arm and leg weakness, some facial droop , 3/5 LUE awake and lethargic but improved attempts to sign acknowledges presence PSYCHIATRIC: NA / deaf / attempts to sign mill operator at bedside Result Diagrams: 06/07/18 10:40 06/07/18 10:40 Telemetry: NSR - Plan (1) CAD (coronary artery disease), [place] coronary artery Plan: on ASA, statin , BB , plavix OT, PT OOB to stretcher chair PT/OT/ speech will need half-way rehab (3) S/P CABG x 2 Plan: ASA, statin , increase BB add norvasc mobilize pt pulm toileting wean 02 gentle diuresis (4) S/P aortic valve replacement Plan: will need coumadin x 6 weeks, 2-2.5 hold on starting with HGB 6.4 ? dilutional (6) Acute blood loss as cause of postoperative anemia Plan: ferrous sulfate scheduled epogen -- limit blood draws pediatric tubes only HGB stable >9.0 (7) Deaf mutism, congenital Plan: pt has mill operator at bedside at all time continue over the weekend ASI mill operator notified [phone] (8) History of CVA (cerebrovascular accident) Plan: ASA, plavix neuro consult pending (1) CAD (coronary artery disease), [place] coronary artery Qualifiers: [place] vs. transplanted heart: [place] heart
--- NOTE | 2018-06-08 11:53 | MB ---
cc: Melvin Boyle MD DATE: 06/08/2018 HISTORY OF PRESENT ILLNESS: The patient is a 77-year-old who is deaf and I am asked to see him for left-sided weakness. He has a history of severe aortic stenosis and had 2-vessel CABG and bioprosthetic aortic valve replacement. He is a Mormonism. He had some hypotension postop, some postop bleeding and the chest had to be reopened. He was noted to have some confusion on 06/04/2018 and has been noticed to have some left-sided weakness. No atrial fibrillation according to the nurse and tele, although he is on fibrillation prophylaxis according to the notes. The patient denied any history of prior strokes. History is hard to get because the patient is a little lethargic, has some confusion and is not communicating well with sign language, with a sign frog catcher. There is a history of a carotid ultrasound done, although the report cannot be brought up by the computer. Looks like the surgery was done on 05/14/2018. PREOPERATIVE MEDICATION: 1. He was on Lipitor. 2. Toprol. 3. Nitroglycerin. 4. Metformin. 5. Isosorbide. 6. A baby aspirin. CURRENT MEDICATIONS: 1. He is on a baby aspirin. 2. Lipitor. 3. Colace. 4. Epoetin 5. Glucagon. 6. Lopressor. 7. Protonix. 8. MiraLax. 9. Ultram. PAST MEDICAL HISTORY: Carotid artery stenosis, 90% internal carotid artery on the right. In the past, hyperlipidemia, hypertension, peripheral vascular disease, prostate cancer, stomach neoplasm, benign carcinoid, type 2 diabetes, deafness since , chronic kidney disease stage III. PHYSICAL EXAMINATION: VITAL SIGNS: On exam he has been in sinus rhythm, 9, 95, 86, 120/60. NECK: There were no carotid bruits. HEART: Regular rate and rhythm. I do not detect a murmur. NEUROLOGIC: Pupils are equal. Visual jamil are hard to say, appears to be full, however. Face is symmetric. Tongue was midline. Facial sensation is hard to say if it is intact or not; it seems to be intact and in both his arms and legs but is hard to say again. Best effort, he seems to move his right arm and leg normally. Left arm he can lift up off the chair. Left leg he can lift up off the chair well, but has weakness in the left tibialis anterior. I would say he has definitely got some weakness, however, in the finger extensors and triceps on the left, at least at 4-/5, maybe worse, hard to say. He is a little drowsy. LABORATORY DATA: His hematocrit is 27, it was as low as 18. His hemoglobin is 9.2 now. Platelet count is normal. Basic metabolic profile with creatinine 1.31, otherwise essentially normal. Ammonia level is normal. Coags normal. IMAGING STUDIES: CAT scan of the brain shows what appeared to be older cerebellar infarcts. He had a carotid ultrasound done earlier, but I do not have those results. Unable to pull up on this computer, although on the old computer I am able to pull it up. He had a 50-69% on the right and nothing on the left. It was a high-grade stenosis in the left external carotid artery only. IMPRESSION: Probably a right hemisphere infarct, possibly bilateral cerebellar infarcts in the past. PLAN: We will check an MRI and also an MRA of the neck and head, also get an echocardiogram on him. If any atrial fibrillation comes up, he should be anticoagulated. Depending on the results. MD YULIANA Cox/JEFF , 11:16 AM , 11:51 AM
[2018-06-08] MEDS ORDERED: Amiodarone Inj 150 MG in Dextrose 5% in Water Inj 97 ML IV.SIG ONE ×2 (12:00)
[2018-06-08] MEDS ORDERED: Potassium Chloride 25 MEQ Effervescent Tablet PO ONE (12:00)
[2018-06-08] MEDS: Ferrrous Sulfate 300 MG/5 ML UDC PO SCH ×2 (12:09→17:27)
--- NOTE | 2018-06-08 13:10 | MB ---
cc: Bruce Fulton DO DATE: 06/08/2018 HISTORY OF PRESENT ILLNESS: Mr. Bennett is a 77-year-old male who is deaf, who recently underwent a CABG and aortic valve replacement. He has been having urinary retention and has been receiving straight catheterization for approximately 300-400 mL every 6-8 hours. Postoperatively, he has been having trouble with ambulation and possible stroke. However, the CT scan of the head was negative. An MRI of the head is currently pending and he was recently noted to be in rapid atrial fibrillation and has been placed on a drip to control his heart rate. Prior to his surgery, he denies any nocturia or trouble with urination. He denies any gross hematuria or urinary tract infections. He denies incomplete emptying. PAST MEDICAL HISTORY: Noted for carotid stenosis, hypertension, hyperlipidemia, peripheral vascular disease, aortic stenosis, prostate cancer, type 2 diabetes, chronic kidney disease. PAST SURGICAL HISTORY: Recent coronary artery bypass graft with aortic valve replacement. SOCIAL HISTORY: He is currently deaf. I do not have any history of smoking or drinking. FAMILY HISTORY: Noncontributory. PHYSICAL EXAMINATION: GENERAL: Well-developed, well-nourished, 77-year-old male in no acute distress. He is resting comfortably in his recliner. HEENT: Normocephalic, atraumatic. Pupils equal, round, regular and reactive to light. Extraocular movements intact. NECK: Supple. HEART: Regular rate is irregular. LUNGS: Clear bilaterally. ABDOMEN: Soft, nontender, nondistended. Normal phallus. Testes descended. Catheter is currently in place draining clear urine and 350 was noted to drain upon placement of the Oliva catheter. EXTREMITIES: Show no cyanosis, clubbing, or edema. LABORATORY DATA: His white count is 8.9, hemoglobin 9.2, hematocrit 27.0, platelet count 110. Sodium 143, potassium 3.6, chloride 107, CO2 28.2, BUN of 29, creatinine 1.31, glucose of 211. IMAGING STUDIES: Head CT showed old multi-bilateral cerebral infarcts, postsurgical findings of the right frontal lobe with diffuse atrophy. ASSESSMENT: A 77-year-old male status post aortic valve replacement and coronary artery bypass grafting with left-sided weakness and possible cerebrovascular accident, awaiting MRI results. The patient now in rapid atrial fibrillation on a drip and urinary retention. RECOMMENDATIONS: 1. Maintain the Oliva catheter. 2. Would recommend giving a void trial once he has regained his strength and is ambulating again. 3. We will await MRI results and we will follow with you. Thank you for the consult and allowing me to participate in the care of this patient. DO ESTELA Hedrick/JEFF , 12:53 PM , 01:09 PM
[2018-06-08] MEDS: Epoetin Alfa Inj 20,000 UNIT/ML Vial SQ SCH (13:30)
[2018-06-08] MEDS ORDERED: Metoprolol Inj 5 MG/5 ML Vial ONE (15:29)
--- NOTE | 2018-06-08 15:53 | XR ---
EXAM DATE: 06/08/2018 3:40 PM EDT AGE/SEX: 77 years / Male INDICATIONS: S/p pneumonia. CLINICAL DATA: This is the patient's initial encounter. Patient reports that signs and symptoms have been present for 1 day and indicates a pain score of Nonresponsive. MEDICAL/SURGICAL HISTORY: Diabetes mellitus type II. Hypertension. carcinoma of the prostate, peripheral vascular disease, coronary artery disease . coronary artery stent, cardiac cauterization COMPARISON: [facility] [place], [place]ST 1V SINGLE AP, 06/03/2018. . FINDINGS: A single AP view of the chest demonstrates interval removal of the right-sided central line and left- sided thoracostomy tube. No pneumothorax observed. Small bilateral pleural effusions and bibasilar co nsolidations are noted. The right is new from the prior exam. The left is stable. The heart is normal in size. Median sternotomy wires. CONCLUSION: New right-sided pleural effusion and right lower lobe consolidation. Stable left pleural effusion and left lower lobe consolidation. Electronically signed by: Donaldo Retana MD 06/08/2018 3:52 PM EDT
[2018-06-08] MEDS ORDERED: Epoetin Alfa Inj 20,000 UNIT/ML Vial SQ SCH (16:00)
[2018-06-08 16:17] LABS: Baso # (Auto) 0.1 th/mm3 (0.0-0.2); Baso % (Auto) 0.5 % (0.0-2.0); Eos # (Auto) 0.2 th/mm3 (0.0-0.4); Eos % (Auto) 1.5 % (0.0-4.0); Lymph # (Auto) 0.6 th/mm3 (1.0-4.8); Lymph % (Auto) 4.9 % (9.0-44.0); Mean Corpuscular HGB Conc 34.6 % (32.0-36.0); Mean Corpuscular Hemoglobin 32.7 pg (27.0-34.0); Mean Corpuscular Volume 94.7 fL (80.0-100.0); Mean Platelet Volume 9.2 fL (7.0-11.0); Mono % (Auto) 9.1 % (0.0-8.0); Neut # (Auto) 9.6 th/mm3 (1.8-7.7); Platelet Count 163 th/mm3 (150-450); Red Blood Count 2.12 mil/mm3 (4.50-5.90); Red Cell Distribution Width 14.3 % (11.6-17.2); White Blood Count 11.4 th/mm3 (4.0-11.0)
[2018-06-08 16:19] LABS: Hemoglobin 6.9 gm/dL (13.0-17.0)
[2018-06-08 16:20] LABS: Hematocrit 20.1 % (39.0-51.0)
[2018-06-08 16:37] LABS: Calcium 7.6 mg/dL (8.5-10.1); Carbon Dioxide 29.1 meq/L (21.0-32.0)
[2018-06-08 16:45] LABS: Potassium 3.7 meq/L (3.5-5.1)
[2018-06-08] MEDS ORDERED: Metoprolol Inj 5 MG/5 ML Vial IV.PUSH ONE (16:45)
[2018-06-08 16:51] LABS: Lymphocytes 3 % (9-44); Metamyelocytes 2 % (0-1); Monocytes 8 % (0-8); Myelocytes 3 % (0-0); Tallied Nucleated RBC 2 (0-0)
[2018-06-08 16:52] LABS: Platelet Estimate Normal (Normal); Platelet Morphology Normal (Normal)
[2018-06-08] MEDS ORDERED: Gadobutrol PF 7.5 MMOL/7.5 ML Vial (for RAD) IV.SIG ONE (18:48)
--- NOTE | 2018-06-08 19:21 | MR ---
EXAM DATE: 06/08/2018 7:13 PM EDT AGE/SEX: 77 years / Male INDICATIONS: CVA. CLINICAL DATA: This is the patient's initial encounter. Patient reports that signs and symptoms have been present for 1 day and indicates a pain score of 5/10. MEDICAL/SURGICAL HISTORY: Hypertension. Diabetes mellitus type II. Carcinoma, prostatic. Appe ndectomy. CABG. Craniotomy. Aortic valve replacement, Hernia repair. [place] [facility] [place]. . TECHNIQUE: Multiplanar, multisequence examination of the brain was performed without and with 10 ml G adavist (gadobutrol) contrast as a single exam dose. FINDINGS: Cerebrum: The ventricles are normal for age. There are numerous small focal areas of increased sign al seen on the diffusion weighted images in the superior frontoparietal regions, right occipital lesi on region, and the temporal regions bilaterally. These are in the watershed zone areas. They do appea r somewhat more prominent on the right than the left. There does appear to be a mild chronic subdural collection seen in the right frontal region measuring up to 1 cm in thickness. Significant underlyin g mass effect on the sulci in this region is not seen. No areas of hemorrhage are seen. The pituitar y gland and suprasellar cistern are normal in configuration. White Matter: There is signal abnormality seen on the diffusion-weighted images are also seen on the T2 and FLAIR images in the white matter likely related to recent areas of infarction. Posterior Fossa: There are numerous small areas of signal abnormality seen on the diffusion-weighted images in the cerebral hemispheres bilaterally being more prominent on the left. Diffusion Imaging: Again noted are the multiple small areas of signal abnormality seen throughout th e cerebral and cerebellar hemispheres bilaterally. Extracranial: The patient appears to be status post right frontal craniotomy. There is an associated chronic subdural fluid collection in this region Post Contrast: No abnormal areas of parenchymal or dural enhancement. No evidence of blood-brain ba rrier breakdown. There is prominent motion artifact on the postcontrast images. CONCLUSION: 1. Numerous areas of infarction seen predominantly in the watershed zone areas in the superior front oparietal regions, right occipital region, and temporal regions bilaterally. 2. Numerous small areas of infarction seen throughout the cerebellar hemispheres bilaterally. 3. No definite areas of hemorrhage or mass effect are seen at this time. 4. Status post right frontal craniotomy with an associated chronic subdural fluid collection seen. Electronically signed by: Roscoe Kay MD 06/08/2018 7:20 PM EDT
--- NOTE | 2018-06-08 19:26 | MR ---
EXAM DATE: 06/08/2018 7:20 PM EDT AGE/SEX: 77 years / Male INDICATIONS: CVA. CLINICAL DATA: This is the patient's initial encounter. Patient reports that signs and symptoms have been present for 1 day and indicates a pain score of 4/10. MEDICAL/SURGICAL HISTORY: Hypertension. Diabetes mellitus type II. Carcinoma, prostatic. CABG . Craniotomy. Appendectomy. Aortic valve replacement, Hernia repair. COMPARISON: [facility] [place] W & W/O CONTRAST, 06/08/2018. . TECHNIQUE: 3D [id number] MRA was performed. Source images, multiplanar STS MIP, and 3D volum e MIP reconstructions were reviewed. FINDINGS: There is asymmetry to the intracranial portions of the internal carotid arteries with the right inter nal carotid artery being smaller with less signal. The right internal carotid artery primarily ends a s the right middle cerebral artery. There is a very small right A1 segment of the anterior cerebral a rtery seen. The left internal carotid artery appears normal. Both the A2 segments primarily fill from the left A1 segment. There is a patent anterior communicating artery. There is asymmetry to the midd le cerebral arteries with diminished flow seen in general on the right. The basilar artery is primari ly a continuation of the right vertebral artery. The left vertebral artery appears to end as the post erior inferior cerebellar artery. The basilar artery is seen to normally bifurcate into the posterior cerebral arteries. There appears to be asymmetry with diminished signal seen on the left side compar ed to the right side at the posterior cerebral arteries. CONCLUSION: Asymmetric flow as described above. Distinct thrombus is not seen. Electronically signed by: Roscoe Kay MD 06/08/2018 7:25 PM EDT
[2018-06-09] MEDS ORDERED: Potassium Chloride 25 MEQ Effervescent Tablet PO ONE (08:11)
[2018-06-09] MEDS: Multivitamin/Minerals Therapeutic Tablet PO SCH (08:20)
[2018-06-09] MEDS: Metoprolol Tartrate 25 MG Tablet PO SCH ×2 (08:20→21:05)
[2018-06-09] MEDS: Polyethylene Glycol 3350 17 GM Packet PO SCH (08:21)
[2018-06-09] MEDS: Docusate Sodium 100 MG Capsule PO SCH ×2 (08:21→21:07)
[2018-06-09] MEDS: Insulin NovoLOG Aspart Correctional Sugar Inj SQ SCH ×4 (08:21→21:06)
--- NOTE | 2018-06-09 08:30 | P.PNNEU ---
Subjective Subjective Comments: had afib yest and converted Active Medications: Active Medications Al Hydroxide/Mg Hydroxide (Milk Of Magnesia Liq) 30 ml PO DAILY [facility] Last Admin: 06/08/18 08:15 Dose: Not Given Albuterol (Duoneb Neb (Prn)) 1 ampul NEB Q2HR NEB PRN PRN Reason: WHEEZING Aspirin (Aspirin Chew) 81 mg PO DAILY [facility] Last Admin: 06/08/18 08:14 Dose: 81 mg Atorvastatin Calcium (Lipitor) 10 mg PO DAILY [facility] Last Admin: 06/08/18 08:14 Dose: 10 mg Bisacodyl (Dulcolax Supp) 10 mg RECTAL DAILY PRN PRN Reason: SEE LABEL COMMENTS Clopidogrel Bisulfate (Plavix) 75 mg PO DAILY [facility] Last Admin: 06/08/18 12:26 Dose: 75 mg Dextrose (D50w Vial) 50 ml IV.PUSH UNSCH PRN PRN Reason: PER HYPOGLYCEMIA PROTOCOL Docusate Sodium (Colace) 100 mg PO BID [facility] Last Admin: 06/08/18 21:02 Dose: Not Given Epoetin Brandon (Epogen Inj) 10,000 unit SQ MoWeFr [facility] Last Admin: 06/08/18 17:27 Dose: 10,000 unit Ferrous Sulfate (Ferrrous Sulfate Liq) 300 mg PO BID@1200,1700 [facility] Last Admin: 06/08/18 17:27 Dose: 300 mg Glucagon (Glucagon Inj) 1 mg OTHER PRN PRN PRN Reason: For hypoglycemia Amiodarone HCl 450 mg/ (Dextrose) 250 mls @ 33.33 mls/hr IV.CONT TITRATE PRN; Protocol PRN Reason: Per Protocol Last Admin: 06/08/18 19:27 Dose: 0.5 mg/min, 17 mls/hr Insulin Aspart (Novolog Insulin Correctional Sugar Inj) 0 unit SQ ACHS [facility]; Protocol Last Admin: 06/08/18 21:02 Dose: 7 unit Metoprolol Tartrate (Lopressor) 25 mg PO BID [facility] Last Admin: 06/08/18 21:01 Dose: 25 mg Multivitamins/Minerals (Theragran-M) 1 tab PO DAILY [facility] Last Admin: 06/08/18 08:14 Dose: 1 tab Ondansetron HCl (Zofran Odt) 4 mg PO Q6H PRN PRN Reason: NAUSEA OR VOMITING Pantoprazole Sodium (Protonix) 40 mg PO DAILY@06 [facility] Last Admin: 06/09/18 05:32 Dose: 40 mg Polyethylene Glycol (Miralax) 17 gm PO DAILY [facility] Last Admin: 06/08/18 08:15 Dose: Not Given Potassium Bicarb/Potassium Chloride (K-Lyte Cl Eff) 25 meq PO ONCE ONE Stop: 06/09/18 08:12 Sennosides (Senokot) 8.6 mg PO [facility] Last Admin: 06/08/18 21:03 Dose: Not Given Sodium Biphosphate/Sodium Phosphate (Fleets Enema (Adult)) 118 ml RECTAL UNSCH PRN PRN Reason: SEE LABEL COMMENTS Sodium Chloride (Ns Flush) 2 ml IV.FLUSH BID [facility] Last Admin: 06/08/18 21:04 Dose: 2 ml Sodium Chloride (Ns Flush) 2 ml IV.FLUSH PRN PRN PRN Reason: FLUSH AFTER USING IV ACCESS Sodium Chloride (Ns Flush) 2 ml IV.FLUSH BID [facility] Last Admin: 06/08/18 21:04 Dose: 2 ml Sodium Chloride (Ns Flush) 2 ml IV.FLUSH PRN PRN PRN Reason: FLUSH AFTER USING IV ACCESS Allergies/Adverse Reactions: Allergies Allergy/AdvReac Type Severity Reaction Status Date / Time acetaminophen Allergy Severe Verified 05/14/18 08:05 butalbital Allergy Severe Verified 05/14/18 08:05 erythromycin base Allergy Severe Verified 05/14/18 08:05 tamsulosin Allergy Severe Verified 05/14/18 08:05 Physical Exam Vital signs: Vital Signs 06/08/18 09:00 06/08/18 09:30 06/08/18 10:00 Temperature Pulse Rate 80 88 Respiratory Rate Blood Pressure Pulse Oximetry 94 L 06/08/18 10:31 06/08/18 11:00 06/08/18 12:00 Temperature 99.5 F Pulse Rate 86 85 122 H Respiratory Rate Blood Pressure 120/60 Pulse Oximetry 94 L 06/08/18 13:00 06/08/18 14:00 06/08/18 14:44 Temperature 99.6 F Pulse Rate 118 H 124 H 120 H Respiratory Rate 20 Blood Pressure 106/69 Pulse Oximetry 95 06/08/18 15:00 06/08/18 16:00 06/08/18 17:00 Temperature Pulse Rate 109 H 102 H 108 H Respiratory Rate Blood Pressure Pulse Oximetry 06/08/18 18:00 06/08/18 19:00 06/08/18 20:00 Temperature 98.2 F Pulse Rate 89 85 Respiratory Rate 20 Blood Pressure 148/67 H Pulse Oximetry 95 95 06/08/18 23:17 06/08/18 23:19 06/09/18 00:00 Temperature 99.8 F H Pulse Rate 64 67 67 Respiratory Rate 18 Blood Pressure 108/53 L Pulse Oximetry 99 06/09/18 01:00 06/09/18 02:07 06/09/18 03:00 Temperature 98.8 F Pulse Rate 65 66 64 Respiratory Rate 18 Blood Pressure 138/65 Pulse Oximetry 99 06/09/18 04:23 06/09/18 05:00 06/09/18 06:00 Temperature Pulse Rate 82 64 65 Respiratory Rate Blood Pressure Pulse Oximetry 06/09/18 07:00 06/09/18 08:00 Temperature 98.4 F Pulse Rate 82 77 Respiratory Rate 18 Blood Pressure 149/69 H Pulse Oximetry 98 98 Intake & Output 06/08/18 06/09/18 06/09/18 18:59 06:59 18:59 Intake Total 1060 / 1060 570 / 570 Output Total 900 / 900 300 / 300 Balance 160 / 160 270 / 270 Weight 84 kg Intake: IV 100 / 100 250 / 250 Cordarone Inj 450 MG In D5W Inj 250 / 250 241 ML @ 1 MG/MIN 33.33 mls/hr IV.CONT TITRATE PRN Rx#: [id number] Cordarone Inj 150 MG In D5W Inj 100 / 100 97 ML @ 100 mls/hr IV.SIG ONCE ONE Rx#:[id number] Oral 960 / 960 320 / 320 Output: Urine 300 / 300 Urine Amount (Catheter) 900 / 900 Indwelling Urethral Catheter 900 / 900 Other: Date of Last Bowel Movement 06/08/18 06/09/18 06/09/18 # Bowel Movements 3 3 # Incontinent Bowel Movements 2 Narrative: moves ble well and r am better than left rxt bilat threats not interacting much awake minimally lethargic - Urinary Catheter Management Indwelling Temp Sensing Catheter Cath placed during this visit: yes, but has since been removed by the nurse Reason for continuing: Chronic Urinary Retention Insertion date: 06/08/18 Insertion time: 10:09 Removal date: 06/07/18 Removal time: 09:00 Indwelling Urethral Catheter Cath placed during this visit: no Objective Laboratory Results - last 24 hr 06/08/18 06/08/18 06/08/18 10:45 15:55 15:55 WBC 11.4 H RBC 2.12 L Hgb 6.9 L* D Hct 20.1 L* MCV 94.7 MCH 32.7 MCHC 34.6 RDW 14.3 Plt Count 163 D MPV 9.2 Prelim Diff (Auto) Slide review pending Neut % (Auto) 84.0 H Lymph % (Auto) 4.9 L Wheeler % (Auto) 9.1 H Eos % (Auto) 1.5 Baso % (Auto) 0.5 Neut # (Auto) 9.6 H Lymph # (Auto) 0.6 L Wheeler # (Auto) 1.0 H Eos # (Auto) 0.2 Baso # (Auto) 0.1 WBC Differential Manual diff final Seg Neuts % (Manual) 77 H Band Neuts % (Manual) 7 H Lymphocytes % (Manual) 3 L Monocytes % (Manual) 8 Metamyelocytes % (Man) 2 H Myelocytes % (Man) 3 H Abs Neuts (Manual) 10.1 H Nucleated RBCs/100 WBC 2 H Differential Comment . Platelet Estimate Normal Platelet Morphology Normal Hematology Comments Sodium Potassium Chloride Carbon Dioxide Anion Gap BUN Creatinine Estimated GFR POC Glucose 211 H Random Glucose Calcium Magnesium 2.3 06/08/18 06/08/18 06/08/18 15:55 17:01 20:29 WBC RBC Hgb Hct MCV MCH MCHC RDW Plt Count MPV Prelim Diff (Auto) Neut % (Auto) Lymph % (Auto) Wheeler % (Auto) Eos % (Auto) Baso % (Auto) Neut # (Auto) Lymph # (Auto) Wheeler # (Auto) Eos # (Auto) Baso # (Auto) WBC Differential Seg Neuts % (Manual) Band Neuts % (Manual) Lymphocytes % (Manual) Monocytes % (Manual) Metamyelocytes % (Man) Myelocytes % (Man) Abs Neuts (Manual) Nucleated RBCs/100 WBC Differential Comment Platelet Estimate Platelet Morphology Hematology Comments Sodium 143 Potassium 3.7 Chloride 107 Carbon Dioxide 29.1 Anion Gap 7 BUN 28 H Creatinine 1.20 Estimated GFR 58 L POC Glucose 200 H 156 H Random Glucose 209 H Calcium 7.6 L Magnesium Review/Management - Review/Management Plan: imp had afib mri shows mult cva all 4 territories kristie showered around surgery or post op fu echo i rec anticoag with afib yest no blood on mri mra neck today he got 1 mg ativan yest at mri acc to tech would explain his lethargy i bhupinder nurse
--- NOTE | 2018-06-09 09:46 | P.PNCA ---
- Note Subjective/Hospital Course: 77-year-old man, intially seen history of coronary artery disease, prior stent to the LAD in 2004, also history of severe aortic valve stenosis, normal ejection fraction of 56%, mean gradient of 37 mm, peak gradient 57, presented for followup with the [employer] and was having some chest pain, which was radiating to his left arm. The patient is deaf since childbirth. He does have a bedside park interpreter during the entire conversation. He underwent cardiac catheterization, which showed 3-vessel disease including a 70% mid distal LAD, 90% circumflex, OM 70%, the RCA 60%. RCA was nondominant. Artery pressures of 8, PA pressures 37/26 with a wedge of 28. Cardiac output of 6.0. We were consulted to evaluate for coronary artery bypass grafting and aortic valve replacement. PAST MEDICAL HISTORY: Includes coronary artery disease, prior stenting of the LAD in 2004, carotid artery stenosis. Apparently, he had a history of a 90% right internal. Repeat carotid ultrasound is pending at this time. 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 Jehovah Witness. No blood products. Okay for Epogen. 06/02 electively admitted for surgery 1. Coronary Artery Bypass Grafting x 2 with left internal mammary artery (RAPP) to left anterior descending (LAD), reverse saphenous vein graft to the Ramus marginalis (RM) 2. Aortic Valve Replacement with 23mm Medtronic Mosaic Tissue Valve 3. Right Leg Endoscopic Vein [place] 4. Intraoperative Vein Mapping. 5000cc crystalloid, 750cc sell saver 1300cc EBL extubated last pm intraoperative events were complicated by significant bleeding once the chest wall was closed requiring reopening the chest wall and obtain hemostasis. During this time he received 7 mg of recombinant factor VII. He arrived to the CVICU intubated on phenylephrine 100 mcg/min for persistent hypotension. the patient is a [employer] and his stated preoperatively that he will not accept blood, blood products, or human albumin. He did agree to agree to recombinant factor VII administration. 06/03 pt has sign park interpreter at bedside, pt lethargic but attempting to follow some commands remains on low dose Jl, weaned off insulin gtt HGB 9.1, check BNP in am with pedi tube start ferrous sulfate in am epogen in am will need coumadin goal 2-2.5 x 6 weeks for AVR tissue valve 06/04 pt was more lethargic this am , not following commands did not sleep well last pm , as the day went on , pt napped was more awake and response , responding to sign language with park interpreter at bedside needs environmental cues BB added for BP , on ASA, statin on iron supplement and epogen will keep in CVICU today 06/05 pt improving slowly, still sleepy during the day needs environmental cues. reconsignment clerk at bedside pt nods head , but does not participate in signing back HGB 6.4/ continue epogen and ferrous sulfate / hold on starting coumadin ASA only transfer to stepdown near nurses station 06/06 Left sided weakness this am. Will obtain head CT Continue with PT Monitor CBC 06/07 Clinically stable. Moving left side better. Head CT results noted. No acute infarct. Old infarcts Transfer [facility] Monitor CBC PT 06/08 left sided neglect , able to move left arm some difficultly lifting head up , will focus and track, will attempt to sign consult with nephrology will start plavix , continue ASA, no coumadin for now 06/09 MRI : mri shows mult cva all 4 territories 1. Numerous areas of infarction seen predominantly in the watershed zone areas in the superior frontoparietal regions, right occipital region, and temporal regions bilaterally. 2. Numerous small areas of infarction seen throughout the cerebellar hemispheres bilaterally. 3. No definite areas of hemorrhage or mass effect are seen at this time. 4. Status post right frontal craniotomy with an associated chronic subdural fluid collection seen. pt went into Afib RVR yesterday / placed on amiodarone IV, converted to NSR this am will change to amiodarone po , will also start coumadin goal 2-3 continue PT/OT / Speech will need rehab remove prevena dressing today Objective: Vital Signs - 24 hr 06/08/18 10:00 06/08/18 10:31 06/08/18 11:00 Temperature 99.5 F Pulse Rate 88 86 85 Respiratory Rate Blood Pressure 120/60 Pulse Oximetry 94 L 06/08/18 12:00 06/08/18 13:00 06/08/18 14:00 Temperature Pulse Rate 122 H 118 H 124 H Respiratory Rate Blood Pressure Pulse Oximetry 06/08/18 14:44 06/08/18 15:00 06/08/18 16:00 Temperature 99.6 F Pulse Rate 120 H 109 H 102 H Respiratory Rate 20 Blood Pressure 106/69 Pulse Oximetry 95 06/08/18 17:00 06/08/18 18:00 06/08/18 19:00 Temperature 98.2 F Pulse Rate 108 H 89 85 Respiratory Rate 20 Blood Pressure 148/67 H Pulse Oximetry 95 06/08/18 20:00 06/08/18 23:17 06/08/18 23:19 Temperature 99.8 F H Pulse Rate 64 67 Respiratory Rate 18 Blood Pressure 108/53 L Pulse Oximetry 95 99 06/09/18 00:00 06/09/18 01:00 06/09/18 02:07 Temperature Pulse Rate 67 65 66 Respiratory Rate Blood Pressure Pulse Oximetry 06/09/18 03:00 06/09/18 04:23 06/09/18 05:00 Temperature 98.8 F Pulse Rate 64 82 64 Respiratory Rate 18 Blood Pressure 138/65 Pulse Oximetry 99 06/09/18 06:00 06/09/18 07:00 06/09/18 08:00 Temperature 98.4 F Pulse Rate 65 82 77 Respiratory Rate 18 Blood Pressure 149/69 H Pulse Oximetry 98 98 06/09/18 09:00 Temperature Pulse Rate 68 Respiratory Rate Blood Pressure Pulse Oximetry GENERAL: more awake and alert today , attempts to sign with park interpreter SKIN: Warm and dry. prevena dressing to chest HEAD: Normocephalic. EYES: No scleral icterus. No injection or drainage. NECK: Supple, trachea midline. No JVD or lymphadenopathy. CARDIOVASCULAR: Regular rate and rhythm without murmurs, gallops, or rubs. RESPIRATORY: Breath sounds equal bilaterally. No accessory muscle use. diminished in bases , fair cough effort GASTROINTESTINAL: Abdomen soft, non-tender, nondistended. MUSCULOSKELETAL: No cyanosis, or edema. BACK: Nontender without obvious deformity. No CVA tenderness. neuro : left sided weakness improving Result Diagrams: 06/08/18 15:55 06/08/18 15:55 Telemetry: NSR - Plan (1) CAD (coronary artery disease), [place] coronary artery Plan: on ASA, statin , BB , OT, PT OOB to stretcher chair PT/OT/ speech will need [facility] rehab (3) S/P CABG x 2 Plan: ASA, statin , increase BB add norvasc mobilize pt pulm toileting wean 02 gentle diuresis (4) S/P aortic valve replacement Plan: will need coumadin x 6 weeks, 2-2.5 hold on starting with HGB 6.4 ? dilutional (6) Acute blood loss as cause of postoperative anemia Plan: ferrous sulfate scheduled epogen M-W- 10,000 sq limit blood draws pediatric tubes only HGB stable >6.9 (7) Deaf mutism, congenital Plan: pt has park interpreter at bedside at all time continue over the weekend ASI park interpreter notified [phone] (8) History of CVA (cerebrovascular accident) Plan: ASA, couamdin acute 1. Numerous areas of infarction seen predominantly in the watershed zone areas in the superior frontoparietal regions, right occipital region, and temporal regions bilaterally. 2. Numerous small areas of infarction seen throughout the cerebellar hemispheres bilaterally. 3. No definite areas of hemorrhage or mass effect are seen at this time. 4. Status post right frontal craniotomy with an associated chronic subdural fluid collection seen. neuro consult pending (1) CAD (coronary artery disease), [place] coronary artery Qualifiers: [place] vs. transplanted heart: [place] heart
[2018-06-09] MEDS: Amiodarone 200 MG Tablet PO SCH ×2 (10:47→21:05)
--- NOTE | 2018-06-09 11:12 | ECG ---
Date Performed: 06/08/2018 Time Performed: 11:47:00 PTAGE: 77 years EKG: --- Warning: Data quality may affect interpretation --- Atrial fibrillation with rapid vent ricular response. Abnormal ECG PREVIOUS TRACING : 06/03/2018 16.29 DOCTOR: Bahman Bowman Interpretating Date/Time 06/09/2018 11:11:36
[2018-06-09 12:47] LABS: INR 1.1 Ratio; Prothrombin Time 10.9 sec (9.8-11.6)
[2018-06-09] MEDS: Ferrrous Sulfate 300 MG/5 ML UDC PO SCH ×2 (13:02→16:22)
[2018-06-09] MEDS ORDERED: Gadobutrol PF 10 MMOL/10 ML Vial (for RAD) IV.SIG ONE (15:34)
--- NOTE | 2018-06-09 16:03 | MR ---
EXAM DATE: 06/09/2018 3:31 PM EDT AGE/SEX: 77 years / Male INDICATIONS: . CVA. CLINICAL DATA: This is the patient's initial encounter. Patient reports that signs and symptoms have been present for 1 day and indicates a pain score of 4/10. MEDICAL/SURGICAL HISTORY: Diabetes mellitus type II. Hypertension. Carcinoma, prostatic. CABG . Appendectomy. Craniotomy. Aortic valve replacement, Hernia repair. COMPARISON: Carotid ultrasound 05/14/2018. TECHNIQUE: 10 ml Gadavist (gadobutrol) contrast infused MRA (single exam dose) of the extracranial circulation was performed using a neurovascular coil. Postprocessing was performed, including rotati ng sub-volume maximum intensity projections of each carotid artery, rotating full-volume maximum inte nsity projections of both carotid arteries, sagittal and coronal sliding thin-slab reformations of ea ch carotid artery, and left oblique sliding thin-slab reformation through the aortic arch to include the origin of the arch branch vessels. FINDINGS: Aortic Arch : Motion artifact degrades the evaluation of the arch vessels somewhat. Conventional raffaele norma is observed. Atherosclerotic plaque is seen involving the origin of the arch vessels but no hemo dynamically significant stenosis involving the origins. There is a questionable stenosis involving th e origin of the common carotid artery which is poorly characterized due to the motion and its juxtapo sition to the adjacent vein.. Right Carotid : The common carotid artery is patent. Please see the above discussion regarding its o rigin. The ECA is patent. There is a focal area of lack of signal involving the proximal ICA occurrin g approximately 2 cm cephalad to its origin. There is signal seen both cranial and caudal to this. Th is spans approximately half a centimeter... Left Carotid : The common carotid artery is patent. The external carotid artery shows a high-grade s tenosis at its origin. The internal carotid artery is patent throughout its extracranial extent.. Vertebrals : The right vertebral artery is dominant. Left vertebral artery is diffusely small in hilda iber. Both are patent otherwise.. CONCLUSION: 1. High-grade stenosis involving the proximal right ICA occurring approximately 2 cm cephalad to its origin. 2. Questionable stenosis involving the origin of the right common carotid artery. Motion artifact de grades this area of the exam. Consideration could be made to a CTA to further assess. This is less se nsitive motion artifact. 3. Patent left carotid. 4. Dominant right vertebral artery. Percent stenosis is calculated using the diameter of the stenotic region over the diameter of the nor mal distal internal carotid artery Electronically signed by: Donaldo Retana MD 06/09/2018 4:02 PM EDT
[2018-06-09] MEDS: Heparin - SQ 10,000 UNITS/ML Vial SQ SCH (21:05)
[2018-06-10 04:50] LABS: INR 1.1 Ratio; Prothrombin Time 11.4 sec (9.8-11.6)
--- NOTE | 2018-06-10 07:49 | P.PNNEU ---
Subjective Subjective Comments: sr Active Medications: Active Medications Al Hydroxide/Mg Hydroxide (Milk Of Magnesia Liq) 30 ml PO DAILY [facility] Last Admin: 06/09/18 08:21 Dose: Not Given Albuterol (Duoneb Neb (Prn)) 1 ampul NEB Q2HR NEB PRN PRN Reason: WHEEZING Amiodarone HCl (Cordarone) 400 mg PO Q12HR [facility] Last Admin: 06/09/18 21:05 Dose: 400 mg Aspirin (Aspirin Chew) 81 mg PO DAILY [facility] Last Admin: 06/09/18 08:20 Dose: 81 mg Atorvastatin Calcium (Lipitor) 10 mg PO DAILY [facility] Last Admin: 06/09/18 08:20 Dose: 10 mg Bisacodyl (Dulcolax Supp) 10 mg RECTAL DAILY PRN PRN Reason: SEE LABEL COMMENTS Dextrose (D50w Vial) 50 ml IV.PUSH UNSCH PRN PRN Reason: PER HYPOGLYCEMIA PROTOCOL Docusate Sodium (Colace) 100 mg PO BID [facility] Last Admin: 06/09/18 21:07 Dose: Not Given Epoetin Brandon (Epogen Inj) 10,000 unit SQ MoWeFr [facility] Last Admin: 06/08/18 17:27 Dose: 10,000 unit Ferrous Sulfate (Ferrrous Sulfate Liq) 300 mg PO BID@1200,1700 [facility] Last Admin: 06/09/18 16:22 Dose: 300 mg Glucagon (Glucagon Inj) 1 mg OTHER PRN PRN PRN Reason: For hypoglycemia Guaifenesin (Robitussin Liq) 200 mg PO Q4H PRN PRN Reason: COUGH Heparin Sodium (Porcine) (Heparin Inj) 5,000 units SQ Q12H [facility] Last Admin: 06/09/18 21:05 Dose: 5,000 units Insulin Aspart (Novolog Insulin Correctional Sugar Inj) 0 unit SQ ACHS [facility]; Protocol Last Admin: 06/09/18 21:06 Dose: 7 unit Metoprolol Tartrate (Lopressor) 25 mg PO BID [facility] Last Admin: 06/09/18 21:05 Dose: 25 mg Multivitamins/Minerals (Theragran-M) 1 tab PO DAILY [facility] Last Admin: 06/09/18 08:20 Dose: 1 tab Ondansetron HCl (Zofran Odt) 4 mg PO Q6H PRN PRN Reason: NAUSEA OR VOMITING Pantoprazole Sodium (Protonix) 40 mg PO DAILY@06 [facility] Last Admin: 06/10/18 06:58 Dose: 40 mg Polyethylene Glycol (Miralax) 17 gm PO DAILY [facility] Last Admin: 06/09/18 08:21 Dose: Not Given Sennosides (Senokot) 8.6 mg PO HS [facility] Last Admin: 06/09/18 21:05 Dose: 8.6 mg Sodium Biphosphate/Sodium Phosphate (Fleets Enema (Adult)) 118 ml RECTAL UNSCH PRN PRN Reason: SEE LABEL COMMENTS Sodium Chloride (Ns Flush) 2 ml IV.FLUSH BID [facility] Last Admin: 06/09/18 21:06 Dose: 2 ml Sodium Chloride (Ns Flush) 2 ml IV.FLUSH PRN PRN PRN Reason: FLUSH AFTER USING IV ACCESS Warfarin Sodium (Coumadin) 5 mg PO DAILY@1600 [facility] Last Admin: 06/09/18 16:20 Dose: 5 mg Allergies/Adverse Reactions: Allergies Allergy/AdvReac Type Severity Reaction Status Date / Time acetaminophen Allergy Severe Verified 05/14/18 08:05 butalbital Allergy Severe Verified 05/14/18 08:05 erythromycin base Allergy Severe Verified 05/14/18 08:05 tamsulosin Allergy Severe Verified 05/14/18 08:05 Physical Exam Vital signs: Vital Signs 06/09/18 08:00 06/09/18 09:00 06/09/18 10:00 Temperature Pulse Rate 77 68 58 L Respiratory Rate Blood Pressure Pulse Oximetry 98 06/09/18 11:00 06/09/18 12:00 06/09/18 13:00 Temperature 98.2 F Pulse Rate 65 63 66 Respiratory Rate 18 Blood Pressure 138/65 Pulse Oximetry 100 06/09/18 14:00 06/09/18 15:00 06/09/18 16:00 Temperature 97.6 F Pulse Rate 64 70 77 Respiratory Rate 18 Blood Pressure 147/67 H Pulse Oximetry 98 06/09/18 17:00 06/09/18 18:00 06/09/18 19:40 Temperature 97.7 F Pulse Rate 75 70 80 Respiratory Rate 19 Blood Pressure 157/81 H Pulse Oximetry 97 06/09/18 20:00 06/09/18 21:00 06/09/18 22:00 Temperature Pulse Rate 71 70 67 Respiratory Rate Blood Pressure Pulse Oximetry 06/09/18 23:00 06/09/18 23:50 06/10/18 00:00 Temperature 99.1 F Pulse Rate 71 75 70 Respiratory Rate 21 Blood Pressure 152/65 H Pulse Oximetry 95 06/10/18 01:00 06/10/18 02:51 06/10/18 03:42 Temperature 99.1 F Pulse Rate 68 65 72 Respiratory Rate 20 Blood Pressure 134/60 Pulse Oximetry 98 06/10/18 04:45 06/10/18 05:33 06/10/18 06:08 Temperature Pulse Rate 72 71 67 Respiratory Rate Blood Pressure Pulse Oximetry Intake & Output 06/09/18 06/10/18 06/10/18 18:59 06:59 18:59 Intake Total 720 / 720 240 / 240 Output Total 450 / 450 250 / 250 Balance 270 / 270 -10 / -10 Weight 84 kg Intake: Oral 720 / 720 240 / 240 Output: Urine Amount (Catheter) 450 / 450 250 / 250 Indwelling Temp Sensing 450 / 450 Catheter Indwelling Urethral Catheter 250 / 250 Other: Date of Last Bowel Movement 06/09/18 # Bowel Movements 1 Narrative: moves ble well and r am better than left rxt bilat threats not interacting much awake less lethargic signed name to diplomatic interpreter not follow commands for me now awake alert can do left tricep 4- and makes fist but not lifting lue off bed 3- at deltoid - Urinary Catheter Management Indwelling Temp Sensing Catheter Cath placed during this visit: yes, but has since been removed by the nurse Reason for continuing: Acute urinary retention Insertion date: 06/08/18 Insertion time: 10:09 Removal date: 06/07/18 Removal time: 09:00 Indwelling Urethral Catheter Cath placed during this visit: no Objective Laboratory Results - last 24 hr 06/09/18 06/09/18 06/09/18 12:01 12:07 20:10 PT 10.9 INR 1.1 POC Glucose 184 H 191 H 06/10/18 04:16 PT 11.4 INR 1.1 POC Glucose Review/Management - Review/Management Plan: imp had afib mri shows mult cva all 4 territories likley showered around surgery or post op fu echo pend i rec anticoag with afib yest on coumadin and sq hep no blood on mri mra neck very tight r ica check ldl consider statin some inc rr now and i have asked nurse to call med team now
[2018-06-10] MEDS: Heparin - SQ 10,000 UNITS/ML Vial SQ SCH ×2 (08:43→20:46)
[2018-06-10] MEDS: Amiodarone 200 MG Tablet PO SCH ×2 (08:44→20:44)
[2018-06-10] MEDS: Multivitamin/Minerals Therapeutic Tablet PO SCH (08:44)
[2018-06-10] MEDS: Metoprolol Tartrate 25 MG Tablet PO SCH ×2 (08:44→20:44)
[2018-06-10] MEDS: Docusate Sodium 100 MG Capsule PO SCH ×2 (08:45→20:46)
[2018-06-10] MEDS: Polyethylene Glycol 3350 17 GM Packet PO SCH (08:45)
[2018-06-10] MEDS: Insulin NovoLOG Aspart Correctional Sugar Inj SQ SCH ×4 (08:45→20:45)
[2018-06-10] MEDS: Piperacil/Tazo 4.5 GM Premix 4.5 GM/100 ML BAG IV.SIG SCH ×2 (11:21→16:03)
[2018-06-10] MEDS: Epoetin Alfa Inj 20,000 UNIT/ML Vial SQ SCH (11:22)
[2018-06-10] MEDS: Ferrrous Sulfate 300 MG/5 ML UDC PO SCH ×2 (11:23→16:02)
[2018-06-10 13:49] LABS: Chol/HDL Ratio 3.38 Ratio; HDL Cholesterol 24.2 mg/dL (40.0-60.0)
--- NOTE | 2018-06-10 15:23 | P.PNCV ---
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 The patient is deaf since childbirth. He does have a bedside interpreter deaf during the entire conversation. He underwent cardiac catheterization, which showed 3-vessel disease including a 70% mid distal LAD, 90% circumflex, OM 70%, the RCA 60%. RCA was nondominant. Artery pressures of 8, PA pressures 37/26 with a wedge of 28. Cardiac output of 6.0. We were consulted to evaluate for coronary artery bypass grafting and aortic valve replacement. PAST MEDICAL HISTORY: Includes coronary artery disease, prior stenting of the LAD in 2004, carotid artery stenosis. Apparently, he had a history of a 90% right internal. Repeat carotid ultrasound is pending at this time. 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 Jehovah Witness. No blood products. Okay for Epogen. 06/02 electively admitted for surgery 1. Coronary Artery Bypass Grafting x 2 with left internal mammary artery (RAPP) to left anterior descending (LAD), reverse saphenous vein graft to the Ramus marginalis (RM) 2. Aortic Valve Replacement with 23mm Medtronic Mosaic Tissue Valve 3. Right Leg Endoscopic Vein [place] 4. Intraoperative Vein Mapping. 5000cc crystalloid, 750cc sell saver 1300cc EBL extubated last pm intraoperative events were complicated by significant bleeding once the chest wall was closed requiring reopening the chest wall and obtain hemostasis. During this time he received 7 mg of recombinant factor VII. He arrived to the CVICU intubated on phenylephrine 100 mcg/min for persistent hypotension. the patient is a Shinto and his stated preoperatively that he will not accept blood, blood products, or human albumin. He did agree to agree to recombinant factor VII administration. 06/03 pt has sign interpreter deaf at bedside, pt lethargic but attempting to follow some commands remains on low dose Jl, weaned off insulin gtt HGB 9.1, check BNP in am with pedi tube start ferrous sulfate in am epogen in am will need coumadin goal 2-2.5 x 6 weeks for AVR tissue valve 06/04 pt was more lethargic this am , not following commands did not sleep well last pm , as the day went on , pt napped was more awake and response , responding to sign language with interpreter deaf at bedside needs environmental cues BB added for BP , on ASA, statin on iron supplement and epogen will keep in CVICU today 06/05 pt improving slowly, still sleepy during the day needs environmental cues. 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 Will obtain head CT Continue with PT Monitor CBC 06/07 Clinically stable. Moving left side better. Head CT results noted. No acute infarct. Old infarcts Transfer [facility] Monitor CBC PT 06/08 left sided neglect , able to move left arm some difficultly lifting head up , will focus and track, will attempt to sign consult with nephrology will start plavix , continue ASA, no coumadin for now 06/09 MRI : mri shows mult cva all 4 territories 1. Numerous areas of infarction seen predominantly in the watershed zone areas in the superior frontoparietal regions, right occipital region, and temporal regions bilaterally. 2. Numerous small areas of infarction seen throughout the cerebellar hemispheres bilaterally. 3. No definite areas of hemorrhage or mass effect are seen at this time. 4. Status post right frontal craniotomy with an associated chronic subdural fluid collection seen. pt went into Afib RVR yesterday / placed on amiodarone IV, converted to NSR this am will change to amiodarone po , will also start coumadin goal 2-3 continue PT/OT / Speech will need rehab remove prevena dressing today 06/10 more awake today, attempts to sign with interpreter deaf appreciate neuro input/ CXR reviewed, concern for aspiration PNA continue EZpap acapella , aspiration precautions continue heparin sq, coumadin Goal 2-3 add zosyn , f/u labs in am continue epogen and ferrous sulfate Objective: Vital Signs - 24 hr 06/09/18 16:00 06/09/18 17:00 06/09/18 18:00 Temperature Pulse Rate 77 75 70 Respiratory Rate Blood Pressure Pulse Oximetry 06/09/18 19:40 06/09/18 20:00 06/09/18 21:00 Temperature 97.7 F Pulse Rate 80 71 70 Respiratory Rate 19 Blood Pressure 157/81 H Pulse Oximetry 97 06/09/18 22:00 06/09/18 23:00 06/09/18 23:50 Temperature 99.1 F Pulse Rate 67 71 75 Respiratory Rate 21 Blood Pressure 152/65 H Pulse Oximetry 95 06/10/18 00:00 06/10/18 01:00 06/10/18 02:51 Temperature Pulse Rate 70 68 65 Respiratory Rate Blood Pressure Pulse Oximetry 06/10/18 03:42 06/10/18 04:45 06/10/18 05:33 Temperature 99.1 F Pulse Rate 72 72 71 Respiratory Rate 20 Blood Pressure 134/60 Pulse Oximetry 98 06/10/18 06:08 06/10/18 07:00 06/10/18 08:00 Temperature 99.5 F Pulse Rate 67 74 63 Respiratory Rate 29 H Blood Pressure 143/67 H Pulse Oximetry 96 06/10/18 08:38 06/10/18 09:00 06/10/18 10:00 Temperature Pulse Rate 71 65 62 Respiratory Rate 18 Blood Pressure Pulse Oximetry 96 06/10/18 11:00 06/10/18 12:00 06/10/18 13:00 Temperature 98.0 F Pulse Rate 68 60 62 Respiratory Rate 30 H Blood Pressure 131/58 L Pulse Oximetry 97 06/10/18 14:00 Temperature Pulse Rate 64 Respiratory Rate Blood Pressure Pulse Oximetry GENERAL: more awake and alert , more interactive SKIN: Warm and dry. sternal incision intact and well approximated HEAD: Normocephalic. EYES: No scleral icterus. No injection or drainage. NECK: Supple, trachea midline. No JVD or lymphadenopathy. CARDIOVASCULAR: Regular rate and rhythm without murmurs, gallops, or rubs. RESPIRATORY: Breath sounds equal bilaterally. No accessory muscle use. diminished right lower lobe GASTROINTESTINAL: Abdomen soft, non-tender, nondistended. MUSCULOSKELETAL: No cyanosis, or edema. BACK: Nontender without obvious deformity. No CVA tenderness. Neuro : left sided weakness, slightly improved Labs: Laboratory Results - last 12 hr 06/10/18 06/10/18 06/10/18 04:16 11:48 12:45 PT 11.4 INR 1.1 POC Glucose 259 H Triglycerides 83 Cholesterol 82 L LDL Cholesterol, Calc 41 HDL Cholesterol 24.2 L Cholesterol/HDL Ratio 3.38 Result Diagrams: 06/08/18 15:55 06/08/18 15:55 - Plan (1) CAD (coronary artery disease), [place] coronary artery Plan: on ASA, statin , BB , OT, PT OOB to stretcher chair PT/OT/ speech will need snf rehab (3) S/P CABG x 2 Plan: ASA, statin , increase BB add norvasc mobilize pt pulm toileting wean 02 (4) S/P aortic valve replacement Plan: will need coumadin x 6 weeks, 2-2.5 hold on starting with HGB 6.4 ? dilutional (6) Acute blood loss as cause of postoperative anemia Plan: ferrous sulfate scheduled epogen M-W- 2 00,000 sq limit blood draws pediatric tubes only HGB stable >6.9 , recheck in am (7) Deaf mutism, congenital Plan: pt has interpreter deaf at bedside at all time continue over the weekend ASI interpreter deaf notified [phone] (8) History of CVA (cerebrovascular accident) Plan: ASA, couamdin, Heparin sq acute 1. Numerous areas of infarction seen predominantly in the watershed zone areas in the superior frontoparietal regions, right occipital region, and temporal regions bilaterally. 2. Numerous small areas of infarction seen throughout the cerebellar hemispheres bilaterally. 3. No definite areas of hemorrhage or mass effect are seen at this time. 4. Status post right frontal craniotomy with an associated chronic subdural fluid collection seen. neuro following (1) CAD (coronary artery disease), [place] coronary artery Qualifiers: [place] vs. transplanted heart: [place] heart
--- NOTE | 2018-06-11 01:57 | XR ---
EXAM DATE: 06/11/2018 1:37 AM EDT AGE/SEX: 77 years / Male INDICATIONS: Short of breath, follow up left lower lobe infiltrate. CLINICAL DATA: This is the patient's subsequent encounter. Patient reports that signs and symptoms h ave been present for 4 - 6 days and indicates a pain score of 5/10. MEDICAL/SURGICAL HISTORY: Diabetes mellitus type II. Hypertension. carcinoma of the prostate, peripheral vascular disease, coronary artery disease. Coronary artery stent. cardiac cauterization. [place] [facility] [place]. . FINDINGS: A single AP view of the chest demonstrates persistent bibasilar airspace disease with associated effu sions. Heart size is borderline prominent. Median sternotomy wires and osseous structures are all int act. CONCLUSION: Stable chest with bibasilar airspace disease and associated effusions. Electronically signed by: Zaheer Blue MD 06/11/2018 1:55 AM EDT
[2018-06-11 04:27] LABS: Baso # (Auto) 0.1 th/mm3 (0.0-0.2); Baso % (Auto) 0.6 % (0.0-2.0); Eos # (Auto) 0.2 th/mm3 (0.0-0.4); Lymph % (Auto) 8.4 % (9.0-44.0); Mean Corpuscular HGB Conc 33.2 % (32.0-36.0); Mean Corpuscular Hemoglobin 31.6 pg (27.0-34.0); Mean Corpuscular Volume 95.3 fL (80.0-100.0); Mean Platelet Volume 8.7 fL (7.0-11.0); Mono # (Auto) 1.2 th/mm3 (0.0-0.9); Mono % (Auto) 10.3 % (0.0-8.0); Neut # (Auto) 9.1 th/mm3 (1.8-7.7); Neut % (Auto) 78.7 % (16.0-70.0); Platelet Count 295 th/mm3 (150-450); Red Blood Count 2.18 mil/mm3 (4.50-5.90); Red Cell Distribution Width 14.6 % (11.6-17.2); White Blood Count 11.6 th/mm3 (4.0-11.0)
[2018-06-11 04:36] LABS: INR 1.4 Ratio; Prothrombin Time 14.4 sec (9.8-11.6)
[2018-06-11 04:45] LABS: Hematocrit 20.8 % (39.0-51.0); Hemoglobin 6.9 gm/dL (13.0-17.0)
[2018-06-11 05:01] LABS: Calcium 7.7 mg/dL (8.5-10.1); Carbon Dioxide 27.7 meq/L (21.0-32.0); Potassium 3.3 meq/L (3.5-5.1)
[2018-06-11] MEDS: Piperacil/Tazo 4.5 GM Premix 4.5 GM/100 ML BAG IV.SIG SCH ×4 (05:35→16:24)
[2018-06-11 06:08] LABS: Eosinophils 3 % (0-4); Lymphocytes 10 % (9-44); Metamyelocytes 1 % (0-1); Monocytes 5 % (0-8); Myelocytes 1 % (0-0); Tallied Nucleated RBC 1 (0-0)
[2018-06-11 06:09] LABS: Platelet Estimate Normal (Normal); Platelet Morphology Normal (Normal)
[2018-06-11 06:10] LABS: Polychromasia 3.8 % (0.0-1.9)
[2018-06-11 06:11] LABS: Acanthocytes Occ
[2018-06-11] MEDS: Insulin NovoLOG Aspart Correctional Sugar Inj SQ SCH ×4 (07:59→21:30)
--- NOTE | 2018-06-11 08:05 | P.PNNEU ---
Subjective Subjective Comments: No acute events reported No headache No chest pain No dyspnea Active Medications: Active Medications Al Hydroxide/Mg Hydroxide (Milk Of Magnesia Liq) 30 ml PO DAILY [facility] Last Admin: 06/10/18 08:45 Dose: Not Given Albuterol (Duoneb Neb (Saira)) 1 ampul NEB Q6HR NEB SAIRA Albuterol (Duoneb Neb (Prn)) 1 ampul NEB Q2HR NEB PRN PRN Reason: WHEEZING Last Admin: 06/10/18 08:38 Dose: 1 ampul Amiodarone HCl (Cordarone) 400 mg PO Q12HR [facility] Last Admin: 06/10/18 20:44 Dose: 400 mg Aspirin (Aspirin Chew) 81 mg PO DAILY [facility] Last Admin: 06/10/18 08:44 Dose: 81 mg Atorvastatin Calcium (Lipitor) 10 mg PO DAILY [facility] Last Admin: 06/10/18 08:44 Dose: 10 mg Bisacodyl (Dulcolax Supp) 10 mg RECTAL DAILY PRN PRN Reason: SEE LABEL COMMENTS Dextrose (D50w Vial) 50 ml IV.PUSH UNSCH PRN PRN Reason: PER HYPOGLYCEMIA PROTOCOL Docusate Sodium (Colace) 100 mg PO BID [facility] Last Admin: 06/10/18 20:46 Dose: Not Given Epoetin [place] (Epogen Inj) 20,000 unit SQ MoWeFr [facility] Last Admin: 06/10/18 11:22 Dose: 20,000 unit Ferrous Sulfate (Ferrrous Sulfate Liq) 300 mg PO BID@1200,1700 [facility] Last Admin: 06/10/18 16:02 Dose: 300 mg Glucagon (Glucagon Inj) 1 mg OTHER PRN PRN PRN Reason: For hypoglycemia Guaifenesin (Robitussin Liq) 200 mg PO Q4H PRN PRN Reason: COUGH Heparin Sodium (Porcine) (Heparin Inj) 5,000 units SQ Q12H [facility] Last Admin: 06/10/18 20:46 Dose: 5,000 units Piperacillin/Tazobactam/Dextrose (Zosyn 4.5 Gm Premix) 4.5 gm in 100 mls @ 200 mls/hr IV.SIG Q6H [facility] Last Admin: 06/11/18 05:35 Dose: 200 mls/hr Insulin Aspart (Novolog Insulin Correctional Sugar Inj) 0 unit SQ ACHS [facility]; Protocol Last Admin: 06/11/18 07:59 Dose: Not Given Metoprolol Tartrate (Lopressor) 25 mg PO BID [facility] Last Admin: 06/10/18 20:44 Dose: 25 mg Multivitamins/Minerals (Theragran-M) 1 tab PO DAILY [facility] Last Admin: 06/10/18 08:44 Dose: 1 tab Ondansetron HCl (Zofran Odt) 4 mg PO Q6H PRN PRN Reason: NAUSEA OR VOMITING Pantoprazole Sodium (Protonix) 40 mg PO DAILY@06 [facility] Last Admin: 06/11/18 05:35 Dose: 40 mg Polyethylene Glycol (Miralax) 17 gm PO DAILY [facility] Last Admin: 06/10/18 08:45 Dose: Not Given Sennosides (Senokot) 8.6 mg PO HS [facility] Last Admin: 06/10/18 20:47 Dose: Not Given Sodium Biphosphate/Sodium Phosphate (Fleets Enema (Adult)) 118 ml RECTAL UNSCH PRN PRN Reason: SEE LABEL COMMENTS Sodium Chloride (Ns Flush) 2 ml IV.FLUSH BID [facility] Last Admin: 06/10/18 20:46 Dose: 2 ml Sodium Chloride (Ns Flush) 2 ml IV.FLUSH PRN PRN PRN Reason: FLUSH AFTER USING IV ACCESS Warfarin Sodium (Coumadin) 5 mg PO DAILY@1600 [facility] Last Admin: 06/10/18 16:02 Dose: 5 mg Allergies/Adverse Reactions: Allergies Allergy/AdvReac Type Severity Reaction Status Date / Time acetaminophen Allergy Severe Verified 05/14/18 08:05 butalbital Allergy Severe Verified 05/14/18 08:05 erythromycin base Allergy Severe Verified 05/14/18 08:05 tamsulosin Allergy Severe Verified 05/14/18 08:05 Physical Exam Vital signs: Vital Signs 06/10/18 08:38 06/10/18 09:00 06/10/18 10:00 Temperature Pulse Rate 71 65 62 Respiratory Rate 18 Blood Pressure Pulse Oximetry 96 06/10/18 11:00 06/10/18 12:00 06/10/18 13:00 Temperature 98.0 F Pulse Rate 68 60 62 Respiratory Rate 30 H Blood Pressure 131/58 L Pulse Oximetry 97 06/10/18 14:00 06/10/18 15:00 06/10/18 16:00 Temperature 99.6 F Pulse Rate 64 73 75 Respiratory Rate 30 H Blood Pressure 156/65 H Pulse Oximetry 96 06/10/18 17:00 06/10/18 18:00 06/10/18 19:00 Temperature Pulse Rate 68 76 Respiratory Rate Blood Pressure Pulse Oximetry 96 06/10/18 19:32 06/10/18 20:10 06/10/18 20:30 Temperature 98.7 F Pulse Rate 78 72 Respiratory Rate 27 H Blood Pressure 161/71 H Pulse Oximetry 95 95 06/10/18 21:20 06/10/18 22:11 06/10/18 23:00 Temperature 100.9 F H Pulse Rate 65 63 72 Respiratory Rate 30 H Blood Pressure 140/60 Pulse Oximetry 97 06/11/18 00:00 06/11/18 01:22 06/11/18 02:11 Temperature Pulse Rate 72 71 71 Respiratory Rate Blood Pressure Pulse Oximetry 06/11/18 03:00 06/11/18 04:38 06/11/18 05:15 Temperature 98.2 F Pulse Rate 69 73 80 Respiratory Rate 28 H Blood Pressure 142/69 H Pulse Oximetry 94 L 06/11/18 05:30 06/11/18 06:00 06/11/18 07:00 Temperature 98.9 F Pulse Rate 76 88 80 Respiratory Rate 28 H 26 H Blood Pressure 146/60 H Pulse Oximetry 94 L 06/11/18 07:57 Temperature Pulse Rate Respiratory Rate Blood Pressure Pulse Oximetry 94 L Intake & Output 06/10/18 06/11/18 06/11/18 18:59 06:59 18:59 Intake Total 1020 / 1020 240 / 240 Output Total 450 / 450 320 / 320 Balance 570 / 570 -80 / -80 Weight 82.5 kg Intake: IV 300 / 300 Zosyn 4.5 GM Premix 4.5 gm In 200 / 200 100 ml @ 200 mls/hr IV.SIG Q6H [facility]IRA Rx#:[id number] Flagyl 500 MG Inj 100 ML @ 100 100 / 100 mls/hr IV.SIG Q8H SAIRA Rx#: [id number] Oral 720 / 720 240 / 240 Output: Urine Amount (Catheter) 450 / 450 320 / 320 Indwelling Temp Sensing 450 / 450 Catheter Indwelling Urethral Catheter 320 / 320 Other: Date of Last Bowel Movement 06/10/18 06/11/18 # Bowel Movements 1 2 Narrative: awake on toilet moving left arm some stood with assist - Urinary Catheter Management Indwelling Temp Sensing Catheter Cath placed during this visit: yes, but has since been removed by the nurse Reason for continuing: Acute urinary retention Insertion date: 06/08/18 Insertion time: 10:09 Removal date: 06/07/18 Removal time: 09:00 Indwelling Urethral Catheter Cath placed during this visit: no Reason for continuing: Acute urinary retention Objective Laboratory Results - last 24 hr 06/10/18 06/10/18 06/10/18 11:48 12:45 16:05 WBC RBC Hgb Hct MCV MCH MCHC RDW Plt Count MPV Prelim Diff (Auto) Neut % (Auto) Lymph % (Auto) [place] % (Auto) Eos % (Auto) Baso % (Auto) Neut # (Auto) Lymph # (Auto) [place] # (Auto) Eos # (Auto) Baso # (Auto) WBC Differential Seg Neuts % (Manual) Band Neuts % (Manual) Lymphocytes % (Manual) Monocytes % (Manual) Eosinophils % (Manual) Metamyelocytes % (Man) Myelocytes % (Man) Abs Neuts (Manual) Nucleated RBCs/100 WBC Differential Comment Platelet Estimate Platelet Morphology Polychromasia Acanthocytes (Spur) Keratocytes PT INR Sodium Potassium Chloride Carbon Dioxide Anion Gap BUN Creatinine Estimated GFR POC Glucose 259 H 242 H Random Glucose Calcium Triglycerides 83 Cholesterol 82 L LDL Cholesterol, Calc 41 HDL Cholesterol 24.2 L Cholesterol/HDL Ratio 3.38 06/10/18 06/11/18 06/11/18 20:30 03:22 03:22 WBC 11.6 H RBC 2.18 L Hgb 6.9 L* Hct 20.8 L* MCV 95.3 MCH 31.6 MCHC 33.2 RDW 14.6 Plt Count 295 D MPV 8.7 Prelim Diff (Auto) Slide review pending Neut % (Auto) 78.7 H Lymph % (Auto) 8.4 L [place] % (Auto) 10.3 H Eos % (Auto) 2.0 Baso % (Auto) 0.6 Neut # (Auto) 9.1 H Lymph # (Auto) 1.0 [place] # (Auto) 1.2 H Eos # (Auto) 0.2 Baso # (Auto) 0.1 WBC Differential Manual diff final Seg Neuts % (Manual) 74 H Band Neuts % (Manual) 6 Lymphocytes % (Manual) 10 Monocytes % (Manual) 5 Eosinophils % (Manual) 3 Metamyelocytes % (Man) 1 Myelocytes % (Man) 1 H Abs Neuts (Manual) 9.5 H Nucleated RBCs/100 WBC 1 H Differential Comment . Platelet Estimate Normal Platelet Morphology Normal Polychromasia 3.8 H Acanthocytes (Spur) Occ H Keratocytes Occ H PT 14.4 H INR 1.4 Sodium Potassium Chloride Carbon Dioxide Anion Gap BUN Creatinine Estimated GFR POC Glucose 246 H Random Glucose Calcium Triglycerides Cholesterol LDL Cholesterol, Calc HDL Cholesterol Cholesterol/HDL Ratio 06/11/18 06/11/18 03:22 07:48 WBC RBC Hgb Hct MCV MCH MCHC RDW Plt Count MPV Prelim Diff (Auto) Neut % (Auto) Lymph % (Auto) [place] % (Auto) Eos % (Auto) Baso % (Auto) Neut # (Auto) Lymph # (Auto) [place] # (Auto) Eos # (Auto) Baso # (Auto) WBC Differential Seg Neuts % (Manual) Band Neuts % (Manual) Lymphocytes % (Manual) Monocytes % (Manual) Eosinophils % (Manual) Metamyelocytes % (Man) Myelocytes % (Man) Abs Neuts (Manual) Nucleated RBCs/100 WBC Differential Comment Platelet Estimate Platelet Morphology Polychromasia Acanthocytes (Spur) Keratocytes PT INR Sodium 145 Potassium 3.3 L Chloride 108 H Carbon Dioxide 27.7 Anion Gap 9 BUN 23 H Creatinine 1.44 H Estimated GFR 47 L POC Glucose 147 H Random Glucose 98 Calcium 7.7 L Triglycerides Cholesterol LDL Cholesterol, Calc HDL Cholesterol Cholesterol/HDL Ratio Review/Management - Review/Management Plan: imp had afib mri shows mult cva all 4 territories likley showered around surgery or post op fu echo pend i rec anticoag with afib yest on coumadin and sq hep no blood on mri mra neck very tight r ica check ldl consider statin some inc rr now and i have asked nurse to call med team now ---- 06/11/18 looks a little better inr 1.4 will need inpt rehab r ica asx ldl nl fu echo
[2018-06-11] MEDS: Amiodarone 200 MG Tablet PO SCH ×2 (08:55→21:18)
[2018-06-11] MEDS: Heparin - SQ 10,000 UNITS/ML Vial SQ SCH ×2 (08:55→21:18)
[2018-06-11] MEDS: Metoprolol Tartrate 25 MG Tablet PO SCH ×2 (08:55→21:18)
[2018-06-11] MEDS: Multivitamin/Minerals Therapeutic Tablet PO SCH (08:55)
[2018-06-11] MEDS: Docusate Sodium 100 MG Capsule PO SCH ×2 (08:56→21:18)
[2018-06-11] MEDS: Polyethylene Glycol 3350 17 GM Packet PO SCH (09:03)
--- NOTE | 2018-06-11 11:11 | P.PNIM ---
Subjective Interval history: Feeling okay. No other complaints. Eating breakfast. Bedside sweatband perforator available to interpret. Physical Exam Vital signs: Vital Signs 06/10/18 12:00 06/10/18 13:00 06/10/18 14:00 Temperature Pulse Rate 60 62 64 Respiratory Rate Blood Pressure Pulse Oximetry 06/10/18 15:00 06/10/18 16:00 06/10/18 17:00 Temperature 99.6 F Pulse Rate 73 75 68 Respiratory Rate 30 H Blood Pressure 156/65 H Pulse Oximetry 96 06/10/18 18:00 06/10/18 19:00 06/10/18 19:32 Temperature 98.7 F Pulse Rate 76 78 Respiratory Rate 27 H Blood Pressure 161/71 H Pulse Oximetry 96 95 06/10/18 20:10 06/10/18 20:30 06/10/18 21:20 Temperature Pulse Rate 72 65 Respiratory Rate Blood Pressure Pulse Oximetry 95 06/10/18 22:11 06/10/18 23:00 06/11/18 00:00 Temperature 100.9 F H Pulse Rate 63 72 72 Respiratory Rate 30 H Blood Pressure 140/60 Pulse Oximetry 97 06/11/18 01:22 06/11/18 02:11 06/11/18 03:00 Temperature 98.2 F Pulse Rate 71 71 69 Respiratory Rate 28 H Blood Pressure 142/69 H Pulse Oximetry 94 L 06/11/18 04:38 06/11/18 05:15 06/11/18 05:30 Temperature Pulse Rate 73 80 76 Respiratory Rate 28 H Blood Pressure Pulse Oximetry 06/11/18 06:00 06/11/18 07:00 06/11/18 07:57 Temperature 98.9 F Pulse Rate 88 80 Respiratory Rate 26 H Blood Pressure 146/60 H Pulse Oximetry 94 L 94 L 06/11/18 08:00 06/11/18 09:00 06/11/18 10:00 Temperature Pulse Rate 76 88 61 Respiratory Rate Blood Pressure Pulse Oximetry 06/11/18 10:47 Temperature 97.8 F Pulse Rate 79 Respiratory Rate 22 Blood Pressure 136/80 Pulse Oximetry 99 Intake & Output 06/10/18 06/11/18 06/11/18 18:59 06:59 18:59 Intake Total 1020 / 1020 240 / 240 Output Total 450 / 450 320 / 320 Balance 570 / 570 -80 / -80 Weight 82.5 kg Intake: IV 300 / 300 Zosyn 4.5 GM Premix 4.5 gm In 200 / 200 100 ml @ 200 mls/hr IV.SIG Q6H LAW Rx#:[id number] Flagyl 500 MG Inj 100 ML @ 100 100 / 100 mls/hr IV.SIG Q8H LAW Rx#: [id number] Oral 720 / 720 240 / 240 Output: Urine Amount (Catheter) 450 / 450 320 / 320 Indwelling Temp Sensing 450 / 450 Catheter Indwelling Urethral Catheter 320 / 320 Other: Date of Last Bowel Movement 06/10/18 06/11/18 # Bowel Movements 1 2 Narrative: GENERAL: This is a well-nourished, well-developed patient, in no apparent distress sitting up eating breakfast. CARDIOVASCULAR: Regular rate and rhythm RESPIRATORY: Relatively clear GASTROINTESTINAL: Abdomen soft, non-tender, nondistended. Normal active bowel sounds MUSCULOSKELETAL: Extremities without clubbing, cyanosis, or edema. NEURO: Alert to place person and time - Urinary Catheter Management Indwelling Temp Sensing Catheter Cath placed during this visit: yes, but has since been removed by the nurse Reason for continuing: Acute urinary retention Insertion date: 06/08/18 Insertion time: 10:09 Removal date: 06/07/18 Removal time: 09:00 Indwelling Urethral Catheter Cath placed during this visit: no Reason for continuing: Acute urinary retention Results - Labs CBC & Chem 7: 06/11/18 03:22 06/11/18 03:22 Laboratory Results - last 24 hr 06/10/18 06/10/18 06/10/18 11:48 12:45 16:05 WBC RBC Hgb Hct MCV MCH MCHC RDW Plt Count MPV Prelim Diff (Auto) Neut % (Auto) Lymph % (Auto) [place] % (Auto) Eos % (Auto) Baso % (Auto) Neut # (Auto) Lymph # (Auto) [place] # (Auto) Eos # (Auto) Baso # (Auto) WBC Differential Seg Neuts % (Manual) Band Neuts % (Manual) Lymphocytes % (Manual) Monocytes % (Manual) Eosinophils % (Manual) Metamyelocytes % (Man) Myelocytes % (Man) Abs Neuts (Manual) Nucleated RBCs/100 WBC Differential Comment Platelet Estimate Platelet Morphology Polychromasia Acanthocytes (Spur) Keratocytes PT INR Sodium Potassium Chloride Carbon Dioxide Anion Gap BUN Creatinine Estimated GFR POC Glucose 259 H 242 H Random Glucose Calcium Triglycerides 83 Cholesterol 82 L LDL Cholesterol, Calc 41 HDL Cholesterol 24.2 L Cholesterol/HDL Ratio 3.38 06/10/18 06/11/18 06/11/18 20:30 03:22 03:22 WBC 11.6 H RBC 2.18 L Hgb 6.9 L* Hct 20.8 L* MCV 95.3 MCH 31.6 MCHC 33.2 RDW 14.6 Plt Count 295 D MPV 8.7 Prelim Diff (Auto) Slide review pending Neut % (Auto) 78.7 H Lymph % (Auto) 8.4 L [place] % (Auto) 10.3 H Eos % (Auto) 2.0 Baso % (Auto) 0.6 Neut # (Auto) 9.1 H Lymph # (Auto) 1.0 [place] # (Auto) 1.2 H Eos # (Auto) 0.2 Baso # (Auto) 0.1 WBC Differential Manual diff final Seg Neuts % (Manual) 74 H Band Neuts % (Manual) 6 Lymphocytes % (Manual) 10 Monocytes % (Manual) 5 Eosinophils % (Manual) 3 Metamyelocytes % (Man) 1 Myelocytes % (Man) 1 H Abs Neuts (Manual) 9.5 H Nucleated RBCs/100 WBC 1 H Differential Comment . Platelet Estimate Normal Platelet Morphology Normal Polychromasia 3.8 H Acanthocytes (Spur) Occ H Keratocytes Occ H PT 14.4 H INR 1.4 Sodium Potassium Chloride Carbon Dioxide Anion Gap BUN Creatinine Estimated GFR POC Glucose 246 H Random Glucose Calcium Triglycerides Cholesterol LDL Cholesterol, Calc HDL Cholesterol Cholesterol/HDL Ratio 06/11/18 06/11/18 03:22 07:48 WBC RBC Hgb Hct MCV MCH MCHC RDW Plt Count MPV Prelim Diff (Auto) Neut % (Auto) Lymph % (Auto) [place] % (Auto) Eos % (Auto) Baso % (Auto) Neut # (Auto) Lymph # (Auto) [place] # (Auto) Eos # (Auto) Baso # (Auto) WBC Differential Seg Neuts % (Manual) Band Neuts % (Manual) Lymphocytes % (Manual) Monocytes % (Manual) Eosinophils % (Manual) Metamyelocytes % (Man) Myelocytes % (Man) Abs Neuts (Manual) Nucleated RBCs/100 WBC Differential Comment Platelet Estimate Platelet Morphology Polychromasia Acanthocytes (Spur) Keratocytes PT INR Sodium 145 Potassium 3.3 L Chloride 108 H Carbon Dioxide 27.7 Anion Gap 9 BUN 23 H Creatinine 1.44 H Estimated GFR 47 L POC Glucose 147 H Random Glucose 98 Calcium 7.7 L Triglycerides Cholesterol LDL Cholesterol, Calc HDL Cholesterol Cholesterol/HDL Ratio - Imaging Impressions Chest X-Ray 06/11/18 06:00 CONCLUSION: Assessment and Plan - Plan Assessment: 77-year-old male postop day 2 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 Clinically improving slowly. Acute encephalopathy due to CVA Neurology service following and recommended inpatient rehab Aspirin Anticoagulation with warfarin with goal INR greater than 2.0 INR today 1.4 on warfarin 5 mg p.o. daily s/p CABG (RAPP-->LAD, SVG-->Diag) and tAVR 06/02 - anticoagulation per Dr. Beavers - afib prophylaxis per Dr. Beavers Post-operative hypotension- resolved. Lactic Acidosis- resolved sinus tachycardiaresolved - start lopressor 25mg po bid Anemia secondary to acute blood loss - patient is Denominational and will not receive blood or blood products - no albumin - recombinant factor VII is allowable per the patient. - minimize lab draws Epogen. Bilateral consolidation with pneumonia and pleural effusion fluid overload Zosyn IV Deafness - sweatband perforator at bedside Urinary hesitancy and retentionFoley catheter. Per urology recommendations to make ensure patient is more amatory prior to this continuing the catheter. DVT prophylaxisCoumadin
[2018-06-11] MEDS: Ferrrous Sulfate 300 MG/5 ML UDC PO SCH ×2 (12:28→16:21)
[2018-06-11] MEDS: Potassium Chloride 25 MEQ Effervescent Tablet PO SCH ×2 (12:28→16:24)
[2018-06-11] MEDS ORDERED: Potassium Chloride 10 MEQ ER Capsule PO ONE (14:00)
--- NOTE | 2018-06-11 14:03 | P.PNCV ---
- Note Subjective/Hospital Course: 77-year-old man, intially seen history of coronary artery disease, prior stent to the LAD in 2004, also history of severe aortic valve stenosis, normal ejection fraction of 56%, mean gradient of 37 mm, peak gradient 57, presented for followup with the gold letterer and was having some chest pain, which was radiating to his left arm. The patient is deaf since childbirth. He does have a bedside employee health rn during the entire conversation. He underwent cardiac catheterization, which showed 3-vessel disease including a 70% mid distal LAD, 90% circumflex, OM 70%, the RCA 60%. RCA was nondominant. Artery pressures of 8, PA pressures 37/26 with a wedge of 28. Cardiac output of 6.0. We were consulted to evaluate for coronary artery bypass grafting and aortic valve replacement. PAST MEDICAL HISTORY: Includes coronary artery disease, prior stenting of the LAD in 2004, carotid artery stenosis. Apparently, he had a history of a 90% right internal. Repeat carotid ultrasound is pending at this time. 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 Jehovah Witness. No blood products. Okay for Epogen. 06/02 electively admitted for surgery 1. Coronary Artery Bypass Grafting x 2 with left internal mammary artery (RAPP) to left anterior descending (LAD), reverse saphenous vein graft to the Ramus marginalis (RM) 2. Aortic Valve Replacement with 23mm Medtronic Mosaic Tissue Valve 3. Right Leg Endoscopic Vein [place] 4. Intraoperative Vein Mapping. 5000cc crystalloid, 750cc sell saver 1300cc EBL extubated last pm intraoperative events were complicated by significant bleeding once the chest wall was closed requiring reopening the chest wall and obtain hemostasis. During this time he received 7 mg of recombinant factor VII. He arrived to the CVICU intubated on phenylephrine 100 mcg/min for persistent hypotension. the patient is a Restorationism and his stated preoperatively that he will not accept blood, blood products, or human albumin. He did agree to agree to recombinant factor VII administration. 06/03 pt has sign employee health rn at bedside, pt lethargic but attempting to follow some commands remains on low dose Jl, weaned off insulin gtt HGB 9.1, check BNP in am with pedi tube start ferrous sulfate in am epogen in am will need coumadin goal 2-2.5 x 6 weeks for AVR tissue valve 06/04 pt was more lethargic this am , not following commands did not sleep well last pm , as the day went on , pt napped was more awake and response , responding to sign language with employee health rn at bedside needs environmental cues BB added for BP , on ASA, statin on iron supplement and epogen will keep in CVICU today 06/05 pt improving slowly, still sleepy during the day needs environmental cues. solar designer at bedside pt nods head , but does not participate in signing back HGB 6.4/ continue epogen and ferrous sulfate / hold on starting coumadin ASA only transfer to stepdown near nurses station 06/06 Left sided weakness this am. Will obtain head CT Continue with PT Monitor CBC 06/07 Clinically stable. Moving left side better. Head CT results noted. No acute infarct. Old infarcts Transfer [facility] Monitor CBC PT 06/08 left sided neglect , able to move left arm some difficultly lifting head up , will focus and track, will attempt to sign consult with nephrology will start plavix , continue ASA, no coumadin for now 06/09 MRI : mri shows mult cva all 4 territories 1. Numerous areas of infarction seen predominantly in the watershed zone areas in the superior frontoparietal regions, right occipital region, and temporal regions bilaterally. 2. Numerous small areas of infarction seen throughout the cerebellar hemispheres bilaterally. 3. No definite areas of hemorrhage or mass effect are seen at this time. 4. Status post right frontal craniotomy with an associated chronic subdural fluid collection seen. pt went into Afib RVR yesterday / placed on amiodarone IV, converted to NSR this am will change to amiodarone po , will also start coumadin goal 2-3 continue PT/OT / Speech will need rehab remove prevena dressing today 06/10 more awake today, attempts to sign with employee health rn appreciate neuro input/ CXR reviewed, concern for aspiration PNA continue EZpap acapella , aspiration precautions continue heparin sq, coumadin Goal 2-3 add zosyn , f/u labs in am continue epogen and ferrous sulfate 06/11 CXR noted, volume overload, small bilateral effusion right lower lobe consolidation gentle diuresis , await echo results continue antibiotics , OOB , PT/OT speech dc heparin SQ when INR> 2 leave gunn cath in place per Urology , voiding trials when pt more ambulatory possible dc to rehab tomorrow, when cleared by Neuro Objective: Vital Signs - 24 hr 06/10/18 14:00 06/10/18 15:00 06/10/18 16:00 Temperature 99.6 F Pulse Rate 64 73 75 Respiratory Rate 30 H Blood Pressure 156/65 H Pulse Oximetry 96 06/10/18 17:00 06/10/18 18:00 06/10/18 19:00 Temperature Pulse Rate 68 76 Respiratory Rate Blood Pressure Pulse Oximetry 96 06/10/18 19:32 06/10/18 20:10 06/10/18 20:30 Temperature 98.7 F Pulse Rate 78 72 Respiratory Rate 27 H Blood Pressure 161/71 H Pulse Oximetry 95 95 06/10/18 21:20 06/10/18 22:11 06/10/18 23:00 Temperature 100.9 F H Pulse Rate 65 63 72 Respiratory Rate 30 H Blood Pressure 140/60 Pulse Oximetry 97 06/11/18 00:00 06/11/18 01:22 06/11/18 02:11 Temperature Pulse Rate 72 71 71 Respiratory Rate Blood Pressure Pulse Oximetry 06/11/18 03:00 06/11/18 04:38 06/11/18 05:15 Temperature 98.2 F Pulse Rate 69 73 80 Respiratory Rate 28 H Blood Pressure 142/69 H Pulse Oximetry 94 L 06/11/18 05:30 06/11/18 06:00 06/11/18 07:00 Temperature 98.9 F Pulse Rate 76 88 80 Respiratory Rate 28 H 26 H Blood Pressure 146/60 H Pulse Oximetry 94 L 06/11/18 07:57 06/11/18 08:00 06/11/18 09:00 Temperature Pulse Rate 76 88 Respiratory Rate Blood Pressure Pulse Oximetry 94 L 06/11/18 10:00 06/11/18 10:47 06/11/18 11:00 Temperature 97.8 F Pulse Rate 61 79 64 Respiratory Rate 22 Blood Pressure 136/80 Pulse Oximetry 99 06/11/18 12:00 Temperature Pulse Rate 63 Respiratory Rate Blood Pressure Pulse Oximetry GENERAL: more awake and alert , attempts to sign with employee health rn SKIN: Warm and dry. sternal incision intact and well approximated HEAD: Normocephalic. EYES: No scleral icterus. No injection or drainage. NECK: Supple, trachea midline. No JVD or lymphadenopathy. CARDIOVASCULAR: Regular rate and rhythm without murmurs, gallops, or rubs. RESPIRATORY: Breath sounds equal bilaterally. No accessory muscle use. few basilar crackles , poor cough effort GASTROINTESTINAL: Abdomen soft, non-tender, nondistended. MUSCULOSKELETAL: No cyanosis, or edema. BACK: Nontender without obvious deformity. No CVA tenderness. Labs: Laboratory Results - last 12 hr 06/11/18 06/11/18 06/11/18 03:22 03:22 03:22 WBC 11.6 H RBC 2.18 L Hgb 6.9 L* Hct 20.8 L* MCV 95.3 MCH 31.6 MCHC 33.2 RDW 14.6 Plt Count 295 D MPV 8.7 Prelim Diff (Auto) Slide review pending Neut % (Auto) 78.7 H Lymph % (Auto) 8.4 L [place] % (Auto) 10.3 H Eos % (Auto) 2.0 Baso % (Auto) 0.6 Neut # (Auto) 9.1 H Lymph # (Auto) 1.0 [place] # (Auto) 1.2 H Eos # (Auto) 0.2 Baso # (Auto) 0.1 WBC Differential Manual diff final Seg Neuts % (Manual) 74 H Band Neuts % (Manual) 6 Lymphocytes % (Manual) 10 Monocytes % (Manual) 5 Eosinophils % (Manual) 3 Metamyelocytes % (Man) 1 Myelocytes % (Man) 1 H Abs Neuts (Manual) 9.5 H Nucleated RBCs/100 WBC 1 H Differential Comment . Platelet Estimate Normal Platelet Morphology Normal Polychromasia 3.8 H Acanthocytes (Spur) Occ H Keratocytes Occ H PT 14.4 H INR 1.4 Sodium 145 Potassium 3.3 L Chloride 108 H Carbon Dioxide 27.7 Anion Gap 9 BUN 23 H Creatinine 1.44 H Estimated GFR 47 L POC Glucose Random Glucose 98 Calcium 7.7 L 06/11/18 06/11/18 07:48 11:55 WBC RBC Hgb Hct MCV MCH MCHC RDW Plt Count MPV Prelim Diff (Auto) Neut % (Auto) Lymph % (Auto) [place] % (Auto) Eos % (Auto) Baso % (Auto) Neut # (Auto) Lymph # (Auto) [place] # (Auto) Eos # (Auto) Baso # (Auto) WBC Differential Seg Neuts % (Manual) Band Neuts % (Manual) Lymphocytes % (Manual) Monocytes % (Manual) Eosinophils % (Manual) Metamyelocytes % (Man) Myelocytes % (Man) Abs Neuts (Manual) Nucleated RBCs/100 WBC Differential Comment Platelet Estimate Platelet Morphology Polychromasia Acanthocytes (Spur) Keratocytes PT INR Sodium Potassium Chloride Carbon Dioxide Anion Gap BUN Creatinine Estimated GFR POC Glucose 147 H 230 H Random Glucose Calcium Result Diagrams: 06/11/18 03:22 06/11/18 03:22 Telemetry: Afib> NSR - Plan (1) CAD (coronary artery disease), nondalton coronary artery Plan: on ASA, statin , BB , OT, PT OOB with assitance still requires 2 person assist PT/OT/ speech will need [facility] rehab (3) S/P CABG x 2 Plan: ASA, statin , increase BB add norvasc mobilize pt pulm toileting wean 02 (4) S/P aortic valve replacement Plan: will need coumadin x 6 weeks, 2-2.5 hold on starting with HGB 6.4 ? dilutional (6) Acute blood loss as cause of postoperative anemia Plan: ferrous sulfate scheduled epogen M-W-F 2 00,000 sq limit blood draws pediatric tubes only HGB stable >6.9 , recheck in am (7) Deaf mutism, congenital Plan: pt has employee health rn at bedside at all time continue over the weekend ASI employee health rn notified [phone] (8) History of CVA (cerebrovascular accident) Plan: ASA, couamdin, Heparin sq acute 1. Numerous areas of infarction seen predominantly in the watershed zone areas in the superior frontoparietal regions, right occipital region, and temporal regions bilaterally. 2. Numerous small areas of infarction seen throughout the cerebellar hemispheres bilaterally. 3. No definite areas of hemorrhage or mass effect are seen at this time. 4. Status post right frontal craniotomy with an associated chronic subdural fluid collection seen. neuro following dc heparin when INR >1.9 (9) Aspiration pneumonia Plan: continue zosyn, will change to Augmentin at discharge (1) CAD (coronary artery disease), nondalton coronary artery Qualifiers: [place] vs. transplanted heart: nondalton heart
--- NOTE | 2018-06-11 16:57 | P.PNURO ---
Subjective Patient symptoms today: Pt seen and examined. Alert x 2. Pt still unable to stand on his own. Objective Vital Signs: Vital Signs 06/10/18 17:00 06/10/18 18:00 06/10/18 19:00 Temperature Pulse Rate 68 76 Respiratory Rate Blood Pressure Pulse Oximetry 96 06/10/18 19:32 06/10/18 20:10 06/10/18 20:30 Temperature 98.7 F Pulse Rate 78 72 Respiratory Rate 27 H Blood Pressure 161/71 H Pulse Oximetry 95 95 06/10/18 21:20 06/10/18 22:11 06/10/18 23:00 Temperature 100.9 F H Pulse Rate 65 63 72 Respiratory Rate 30 H Blood Pressure 140/60 Pulse Oximetry 97 06/11/18 00:00 06/11/18 01:22 06/11/18 02:11 Temperature Pulse Rate 72 71 71 Respiratory Rate Blood Pressure Pulse Oximetry 06/11/18 03:00 06/11/18 04:38 06/11/18 05:15 Temperature 98.2 F Pulse Rate 69 73 80 Respiratory Rate 28 H Blood Pressure 142/69 H Pulse Oximetry 94 L 06/11/18 05:30 06/11/18 06:00 06/11/18 07:00 Temperature 98.9 F Pulse Rate 76 88 80 Respiratory Rate 28 H 26 H Blood Pressure 146/60 H Pulse Oximetry 94 L 06/11/18 07:57 06/11/18 08:00 06/11/18 09:00 Temperature Pulse Rate 76 88 Respiratory Rate Blood Pressure Pulse Oximetry 94 L 06/11/18 10:00 06/11/18 10:47 06/11/18 11:00 Temperature 97.8 F Pulse Rate 61 79 64 Respiratory Rate 22 Blood Pressure 136/80 Pulse Oximetry 99 06/11/18 12:00 06/11/18 13:00 06/11/18 14:00 Temperature Pulse Rate 63 66 66 Respiratory Rate Blood Pressure Pulse Oximetry 06/11/18 15:00 06/11/18 16:26 Temperature 98.6 F Pulse Rate 65 70 Respiratory Rate 20 18 Blood Pressure 126/71 Pulse Oximetry 95 Intake & Output 06/10/18 06/11/18 06/11/18 18:59 06:59 18:59 Intake Total 1020 / 1020 340 / 340 100 / 100 Output Total 450 / 450 320 / 320 Balance 570 / 570 20 / 20 100 / 100 Weight 82.5 kg Intake: IV 300 / 300 100 / 100 100 / 100 Zosyn 4.5 GM Premix 4.5 gm In 200 / 200 100 / 100 100 / 100 100 ml @ 200 mls/hr IV.SIG Q6H [facility] Rx#:[id number] Flagyl 500 MG Inj 100 ML @ 100 100 / 100 mls/hr IV.SIG Q8H [facility]IRA Rx#: [id number] Oral 720 / 720 240 / 240 Output: Urine Amount (Catheter) 450 / 450 320 / 320 Indwelling Temp Sensing 450 / 450 Catheter Indwelling Urethral Catheter 320 / 320 Other: Date of Last Bowel Movement 06/10/18 06/11/18 # Bowel Movements 1 2 Result Diagrams: 06/11/18 03:22 06/11/18 03:22 Imaging: Impressions Chest X-Ray 06/11/18 06:00 CONCLUSION: Medications and IVs: Active Medications Generic Name Dose Route Start Last Admin Trade Name Freq PRN Reason Stop Dose Admin Al Hydroxide/Mg Hydroxide 30 ml 06/04/18 09:00 06/11/18 09:03 Milk Of Magnesia Liq PO Not Given DAILY SAIRA Albuterol 1 ampul 06/11/18 08:00 06/11/18 16:25 Duoneb Neb (Saira) NEB 1 ampul Q6HR NEB [facility]IRA Administration Albuterol 1 ampul 06/02/18 15:08 06/10/18 08:38 Duoneb Neb (Prn) NEB 1 ampul Q2HR NEB PRN Administration WHEEZING Amiodarone HCl 400 mg 06/09/18 09:45 06/11/18 08:55 Cordarone PO 400 mg Q12HR SAIRA Administration Aspirin 81 mg 06/03/18 09:00 06/11/18 08:55 Aspirin Chew PO 81 mg DAILY SAIRA Administration Atorvastatin Calcium 10 mg 06/03/18 09:00 06/11/18 08:55 Lipitor PO 10 mg DAILY [facility] Administration Bisacodyl 10 mg 06/03/18 09:16 Dulcolax Supp RECTAL DAILY PRN SEE LABEL COMMENTS Dextrose 50 ml 06/03/18 09:16 D50w Vial IV.PUSH UNSCH PRN PER HYPOGLYCEMIA PROTOCOL Docusate Sodium 100 mg 06/03/18 21:00 06/11/18 08:56 Colace PO Not Given BID SAIRA Epoetin [place] 20,000 unit 06/10/18 11:00 06/10/18 11:22 Epogen Inj SQ 20,000 unit MoWeFr [facility] Administration Ferrous Sulfate 300 mg 06/04/18 17:00 06/11/18 16:21 Ferrrous Sulfate Liq PO 300 mg BID@1200,1700 SAIRA Administration Glucagon 1 mg 06/03/18 09:16 Glucagon Inj OTHER PRN PRN For hypoglycemia Guaifenesin 200 mg 06/10/18 06:53 Robitussin Liq PO Q4H PRN COUGH Heparin Sodium (Porcine) 5,000 units 06/09/18 21:00 06/11/18 08:55 Heparin Inj SQ 5,000 units Q12H [facility] Administration Piperacillin/Tazobactam/Dextrose 4.5 gm in 100 mls @ 200 mls/hr 06/10/18 11: 00 06/11/18 16:24 Zosyn 4.5 Gm Premix IV.SIG 200 mls/hr Q6H [facility] Administration Insulin Aspart 0 unit 06/08/18 12:00 06/11/18 12:28 Novolog Insulin Correctional Sugar Inj SQ 1 unit ACHS [facility] Administration Protocol Metoprolol Tartrate 25 mg 06/08/18 09:00 06/11/18 08:55 Lopressor PO 25 mg BID [facility] Administration Multivitamins/Minerals 1 tab 06/04/18 09:00 06/11/18 08:55 Theragran-M PO 1 tab DAILY [facility] Administration Ondansetron HCl 4 mg 06/02/18 15:08 Zofran Odt PO Q6H PRN NAUSEA OR VOMITING Pantoprazole Sodium 40 mg 06/04/18 06:00 06/11/18 05:35 Protonix PO 40 mg DAILY@06 [facility] Administration Polyethylene Glycol 17 gm 06/04/18 09:00 06/11/18 09:03 Miralax PO Not Given DAILY [facility]IRA Sennosides 8.6 mg 06/03/18 21:00 06/10/18 20:47 Senokot PO Not Given HS [facility] Sodium Biphosphate/Sodium Phosphate 118 ml 06/03/18 09:16 Fleets Enema (Adult) RECTAL UNSCH PRN SEE LABEL COMMENTS Sodium Chloride 2 ml 06/02/18 09:00 06/11/18 09:03 Ns Flush IV.FLUSH 2 ml BID [facility] Administration Sodium Chloride 2 ml 06/02/18 06:26 Ns Flush IV.FLUSH PRN PRN FLUSH AFTER USING IV ACCESS Warfarin Sodium 5 mg 06/09/18 16:00 06/11/18 16:24 Coumadin PO 5 mg DAILY@1600 [facility] Administration Objective Remarks: Abd:roger,nt,nd Gunn: clear Assessment and Plan - Plan 77 y.o male s/p CABG and AVR with weakness/AUR Maintain gunn catheter Pt to go to rehab tomorrow Void trial in a few weeks at Rehab center F/U in office one month.
--- NOTE | 2018-06-11 17:37 | ECHRPT ---
Indication: CVA/TIA CONCLUSIONS Normal left ventricular size. Mild concentric left ventricular hypertrophy. The left ventricular systolic function is hyperdynamic with an estimated ejection fraction in the ra nge of 65- 70%. Trace mitral valve regurgitation. Moderate aortic valve stenosis. mean gradient = 31 mm hg There is trace tricuspid valve regurgitation. A large left sided pleural effusion is noted. A right sided pleural effusion is present. BP: / HR: Rhythm: Sinus MEASUREMENTS (Male / Female) Normal Values Technical Quality:Fair 2D ECHO LV Diastolic Diameter PLAX 4.2 cm 4.2 - 5.9 / 3.9 - 5.3 cm LV Systolic Diameter PLAX 2.8 cm IVS Diastolic Thickness 1.2 cm 0.6 - 1.0 / 0.6 - 0.9 cm LVPW Diastolic Thickness 1.3 cm 0.6 - 1.0 / 0.6 - 0.9 cm LV Relative Wall Thickness 0.6 RV Internal Dim ED PLAX 2.4 cm LVOT Diameter 2.0 cm Aortic Root Diameter 3.2 cm LA Systolic Diameter LX 3.7 cm 3.0 - 4.0 / 2.7 - 3.8 cm M-MODE AV Cusp Separation MM 3.0 cm DOPPLER AV Peak Velocity 353.0 cm/s AV Peak Gradient 49.8 mmHg AV Mean Gradient 24.0 mmHg AV Velocity Time Integral 70.4 cm LVOT Peak Velocity 121.0 cm/s LVOT Peak Gradient 5.9 mmHg LVOT Velocity Time Integral 28.0 cm AV Area Cont Eq vti 1.2 cm AV Area Cont Eq pk 1.1 cm Mitral E Point Velocity 119.0 cm/s Mitral A Point Velocity 108.0 cm/s Mitral E to A Ratio 1.1 PV Peak Velocity 91.0 cm/s PV Peak Gradient 3.3 mmHg FINDINGS LEFT VENTRICLE Normal left ventricular size. Mild concentric left ventricular hypertrophy. The left ventricular systolic function is hyperdynamic with an estimated ejection fraction in the ra nge of 65- 70%. RIGHT VENTRICLE Normal right ventricular size and systolic function. LEFT ATRIUM The left atrial size is normal. RIGHT ATRIUM The right atrial size is normal. ATRIAL SEPTUM The interatrial septum not well visualized. AORTA The aortic root and proximal ascending aorta are not well visualized. MITRAL VALVE Trace mitral valve regurgitation. AORTIC VALVE Mild aortic valve stenosis. TRICUSPID VALVE There is trace tricuspid valve regurgitation. PULMONARY VALVE No pulmonary valve regurgitation or stenosis. VESSELS The inferior vena cava was not well visualized. PERICARDIUM A large left sided pleural effusion is noted. A right sided pleural effusion is present. No pericardial effusion. Abiel Rivera MD, FACC, [facility] [place] (Electronically Signed) Final Date:11 June 2018 17:36
[2018-06-12 06:01] LABS: Baso % (Auto) 0.4 % (0.0-2.0); Eos # (Auto) 0.3 th/mm3 (0.0-0.4); Eos % (Auto) 2.4 % (0.0-4.0); Lymph # (Auto) 0.9 th/mm3 (1.0-4.8); Lymph % (Auto) 7.9 % (9.0-44.0); Mean Corpuscular HGB Conc 33.2 % (32.0-36.0); Mean Corpuscular Hemoglobin 31.8 pg (27.0-34.0); Mean Corpuscular Volume 95.7 fL (80.0-100.0); Mean Platelet Volume 8.8 fL (7.0-11.0); Mono % (Auto) 8.3 % (0.0-8.0); Neut # (Auto) 9.5 th/mm3 (1.8-7.7); Platelet Count 307 th/mm3 (150-450); Red Blood Count 2.12 mil/mm3 (4.50-5.90); Red Cell Distribution Width 15.1 % (11.6-17.2); White Blood Count 11.7 th/mm3 (4.0-11.0)
[2018-06-12 06:10] LABS: Hematocrit 20.3 % (39.0-51.0); Hemoglobin 6.7 gm/dL (13.0-17.0)
[2018-06-12 06:12] LABS: INR 1.9 Ratio; Prothrombin Time 19.7 sec (9.8-11.6)
[2018-06-12 06:20] LABS: Calcium 7.7 mg/dL (8.5-10.1)
[2018-06-12] MEDS: Piperacil/Tazo 4.5 GM Premix 4.5 GM/100 ML BAG IV.SIG SCH ×3 (07:32→12:16)
[2018-06-12 08:01] LABS: Eosinophils 3 % (0-4); Lymphocytes 5 % (9-44); Monocytes 3 % (0-8); Myelocytes 2 % (0-0); Tallied Nucleated RBC 2 (0-0)
[2018-06-12 08:02] LABS: Platelet Estimate Normal (Normal); Platelet Morphology Normal (Normal); Polychromasia 2.5 % (0.0-1.9); Stomatocytes 1+
[2018-06-12 08:41] VITALS: BP 126/58; TEMP 99.3
[2018-06-12 08:45] VITALS: O2SAT 93
[2018-06-12] MEDS: Insulin NovoLOG Aspart Correctional Sugar Inj SQ SCH ×2 (10:00→12:25)
[2018-06-12 10:02] VITALS: RESP 22
--- NOTE | 2018-06-12 10:20 | P.PNNEU ---
Subjective Active Medications: Active Medications Al Hydroxide/Mg Hydroxide (Milk Of Magnesia Liq) 30 ml PO DAILY [facility] Last Admin: 06/11/18 09:03 Dose: Not Given Albuterol (Duoneb Neb (Saira)) 1 ampul NEB Q6HR NEB [facility] Last Admin: 06/12/18 09:53 Dose: 1 ampul Albuterol (Duoneb Neb (Prn)) 1 ampul NEB Q2HR NEB PRN PRN Reason: WHEEZING Last Admin: 06/10/18 08:38 Dose: 1 ampul Amiodarone HCl (Cordarone) 400 mg PO Q12HR [facility] Last Admin: 06/11/18 21:18 Dose: 400 mg Aspirin (Aspirin Chew) 81 mg PO DAILY [facility] Last Admin: 06/11/18 08:55 Dose: 81 mg Atorvastatin Calcium (Lipitor) 10 mg PO DAILY [facility] Last Admin: 06/11/18 08:55 Dose: 10 mg Bisacodyl (Dulcolax Supp) 10 mg RECTAL DAILY PRN PRN Reason: SEE LABEL COMMENTS Dextrose (D50w Vial) 50 ml IV.PUSH UNSCH PRN PRN Reason: PER HYPOGLYCEMIA PROTOCOL Docusate Sodium (Colace) 100 mg PO BID [facility] Last Admin: 06/11/18 21:18 Dose: Not Given Epoetin Brandon (Epogen Inj) 20,000 unit SQ MoWeFr [facility] Last Admin: 06/10/18 11:22 Dose: 20,000 unit Ferrous Sulfate (Ferrrous Sulfate Liq) 300 mg PO BID@1200,1700 [facility] Last Admin: 06/11/18 16:21 Dose: 300 mg Glucagon (Glucagon Inj) 1 mg OTHER PRN PRN PRN Reason: For hypoglycemia Guaifenesin (Robitussin Liq) 200 mg PO Q4H PRN PRN Reason: COUGH Heparin Sodium (Porcine) (Heparin Inj) 5,000 units SQ Q12H [facility] Last Admin: 06/11/18 21:18 Dose: 5,000 units Piperacillin/Tazobactam/Dextrose (Zosyn 4.5 Gm Premix) 4.5 gm in 100 mls @ 200 mls/hr IV.SIG Q6H [facility] Last Admin: 06/12/18 07:33 Dose: 200 mls/hr Insulin Aspart (Novolog Insulin Correctional Sugar Inj) 0 unit SQ ACHS [facility]; Protocol Last Admin: 06/11/18 21:30 Dose: 12 unit Metoprolol Tartrate (Lopressor) 25 mg PO BID [facility] Last Admin: 06/11/18 21:18 Dose: 25 mg Multivitamins/Minerals (Theragran-M) 1 tab PO DAILY [facility] Last Admin: 06/11/18 08:55 Dose: 1 tab Ondansetron HCl (Zofran Odt) 4 mg PO Q6H PRN PRN Reason: NAUSEA OR VOMITING Pantoprazole Sodium (Protonix) 40 mg PO DAILY@06 [facility] Last Admin: 06/11/18 05:35 Dose: 40 mg Polyethylene Glycol (Miralax) 17 gm PO DAILY [facility] Last Admin: 06/11/18 09:03 Dose: Not Given Sennosides (Senokot) 8.6 mg PO HS [facility] Last Admin: 06/11/18 21:18 Dose: Not Given Sodium Biphosphate/Sodium Phosphate (Fleets Enema (Adult)) 118 ml RECTAL UNSCH PRN PRN Reason: SEE LABEL COMMENTS Sodium Chloride (Ns Flush) 2 ml IV.FLUSH BID [facility] Last Admin: 06/11/18 21:30 Dose: 2 ml Sodium Chloride (Ns Flush) 2 ml IV.FLUSH PRN PRN PRN Reason: FLUSH AFTER USING IV ACCESS Warfarin Sodium (Coumadin) 5 mg PO DAILY@1600 [facility] Last Admin: 06/11/18 16:24 Dose: 5 mg Allergies/Adverse Reactions: Allergies Allergy/AdvReac Type Severity Reaction Status Date / Time acetaminophen Allergy Severe Verified 05/14/18 08:05 butalbital Allergy Severe Verified 05/14/18 08:05 erythromycin base Allergy Severe Verified 05/14/18 08:05 tamsulosin Allergy Severe Verified 05/14/18 08:05 Physical Exam Vital signs: Vital Signs 06/11/18 10:47 06/11/18 11:00 06/11/18 12:00 Temperature 97.8 F Pulse Rate 79 64 63 Respiratory Rate 22 Blood Pressure 136/80 Pulse Oximetry 99 06/11/18 13:00 06/11/18 14:00 06/11/18 15:00 Temperature 98.6 F Pulse Rate 66 66 65 Respiratory Rate 20 Blood Pressure 126/71 Pulse Oximetry 95 06/11/18 16:00 06/11/18 16:26 06/11/18 17:00 Temperature Pulse Rate 74 70 80 Respiratory Rate 18 Blood Pressure Pulse Oximetry 06/11/18 18:00 06/11/18 19:30 06/11/18 20:00 Temperature 98.7 F Pulse Rate 72 75 76 Respiratory Rate 23 Blood Pressure 105/75 Pulse Oximetry 94 L 06/11/18 21:00 06/11/18 21:19 06/11/18 22:00 Temperature Pulse Rate 71 88 80 Respiratory Rate 18 Blood Pressure Pulse Oximetry 06/11/18 23:00 06/11/18 23:10 06/12/18 00:00 Temperature 98.7 F Pulse Rate 72 74 70 Respiratory Rate 23 Blood Pressure 105/75 Pulse Oximetry 94 L 06/12/18 01:12 06/12/18 02:20 06/12/18 03:20 Temperature 98.7 F Pulse Rate 71 75 74 Respiratory Rate 23 Blood Pressure 105/75 Pulse Oximetry 94 L 06/12/18 04:18 06/12/18 05:00 06/12/18 06:48 Temperature Pulse Rate 75 72 77 Respiratory Rate Blood Pressure Pulse Oximetry 06/12/18 07:00 06/12/18 08:39 06/12/18 08:42 Temperature 99.3 F Pulse Rate 71 80 Respiratory Rate 20 Blood Pressure 126/58 L Pulse Oximetry 93 L 06/12/18 09:58 Temperature Pulse Rate 80 Respiratory Rate 22 Blood Pressure Pulse Oximetry 93 L Intake & Output 06/11/18 06/12/18 06/12/18 18:59 06:59 18:59 Intake Total 1160 / 1160 480 / 480 Output Total 900 / 900 310 / 310 Balance 260 / 260 170 / 170 Weight 82.5 kg Intake: IV 200 / 200 Zosyn 4.5 GM Premix 4.5 gm In 200 / 200 100 ml @ 200 mls/hr IV.SIG Q6H [facility] Rx#:[id number] Oral 960 / 960 480 / 480 Output: Urine Amount (Catheter) 900 / 900 310 / 310 Indwelling Urethral Catheter 900 / 900 310 / 310 Other: Date of Last Bowel Movement 06/11/18 # Bowel Movements 3 Narrative: moving lue better and off chair and moving ble well sees to left ok following sign language - Urinary Catheter Management Indwelling Temp Sensing Catheter Cath placed during this visit: yes, but has since been removed by the nurse Reason for continuing: Acute urinary retention Insertion date: 06/08/18 Insertion time: 10:09 Removal date: 06/07/18 Removal time: 09:00 Indwelling Urethral Catheter Cath placed during this visit: yes Reason for continuing: Chronic Urinary Retention Insertion date: 06/08/18 Insertion time: 10:09 Objective Laboratory Results - last 24 hr 06/11/18 06/11/18 06/11/18 11:55 16:19 21:29 WBC RBC Hgb Hct MCV MCH MCHC RDW Plt Count MPV Prelim Diff (Auto) Neut % (Auto) Lymph % (Auto) [place] % (Auto) Eos % (Auto) Baso % (Auto) Neut # (Auto) Lymph # (Auto) [place] # (Auto) Eos # (Auto) Baso # (Auto) WBC Differential Seg Neuts % (Manual) Band Neuts % (Manual) Lymphocytes % (Manual) Monocytes % (Manual) Eosinophils % (Manual) Myelocytes % (Man) Abs Neuts (Manual) Nucleated RBCs/100 WBC Differential Comment Platelet Estimate Platelet Morphology Polychromasia Stomatocytes PT INR Sodium Potassium Chloride Carbon Dioxide Anion Gap BUN Creatinine Estimated GFR POC Glucose 230 H 156 H 200 H Random Glucose Calcium 06/12/18 06/12/18 06/12/18 04:33 04:33 04:33 WBC 11.7 H RBC 2.12 L Hgb 6.7 L* Hct 20.3 L* MCV 95.7 MCH 31.8 MCHC 33.2 RDW 15.1 Plt Count 307 MPV 8.8 Prelim Diff (Auto) Slide review pending Neut % (Auto) 81.0 H Lymph % (Auto) 7.9 L [place] % (Auto) 8.3 H Eos % (Auto) 2.4 Baso % (Auto) 0.4 Neut # (Auto) 9.5 H Lymph # (Auto) 0.9 L [place] # (Auto) 1.0 H Eos # (Auto) 0.3 Baso # (Auto) 0.0 WBC Differential Manual diff final Seg Neuts % (Manual) 75 H Band Neuts % (Manual) 12 H Lymphocytes % (Manual) 5 L Monocytes % (Manual) 3 Eosinophils % (Manual) 3 Myelocytes % (Man) 2 H Abs Neuts (Manual) 10.4 H Nucleated RBCs/100 WBC 2 H Differential Comment . Platelet Estimate Normal Platelet Morphology Normal Polychromasia 2.5 H Stomatocytes 1+ H PT 19.7 H INR 1.9 Sodium 144 Potassium 3.0 L Chloride 107 Carbon Dioxide 25.0 Anion Gap 12 BUN 24 H Creatinine 1.57 H Estimated GFR 43 L POC Glucose Random Glucose 197 H Calcium 7.7 L 06/12/18 08:52 WBC RBC Hgb Hct MCV MCH MCHC RDW Plt Count MPV Prelim Diff (Auto) Neut % (Auto) Lymph % (Auto) [place] % (Auto) Eos % (Auto) Baso % (Auto) Neut # (Auto) Lymph # (Auto) [place] # (Auto) Eos # (Auto) Baso # (Auto) WBC Differential Seg Neuts % (Manual) Band Neuts % (Manual) Lymphocytes % (Manual) Monocytes % (Manual) Eosinophils % (Manual) Myelocytes % (Man) Abs Neuts (Manual) Nucleated RBCs/100 WBC Differential Comment Platelet Estimate Platelet Morphology Polychromasia Stomatocytes PT INR Sodium Potassium Chloride Carbon Dioxide Anion Gap BUN Creatinine Estimated GFR POC Glucose 239 H Random Glucose Calcium Review/Management - Review/Management Plan: imp had afib mri shows mult cva all 4 territories likley showered around surgery or post op fu echo pend i rec anticoag with afib yest on coumadin and sq hep no blood on mri mra neck very tight r ica check ldl consider statin some inc rr now and i have asked nurse to call med team now ---- 06/11/18 looks a little better inr 1.4 will need inpt rehab r ica asx ldl nl fu echo 06/12/18 clinically much better echo nl ok to rehab 1.9 inr today i bhupinder omhamud check daily inr to start at rehab fu office will sign off
--- NOTE | 2018-06-12 10:27 | P.PNIM ---
Subjective Interval history: Doing okay with no complaints overnight. Translated with a spanish interpreter/translator at bedside. Physical Exam Vital signs: Vital Signs 06/11/18 10:47 06/11/18 11:00 06/11/18 12:00 Temperature 97.8 F Pulse Rate 79 64 63 Respiratory Rate 22 Blood Pressure 136/80 Pulse Oximetry 99 06/11/18 13:00 06/11/18 14:00 06/11/18 15:00 Temperature 98.6 F Pulse Rate 66 66 65 Respiratory Rate 20 Blood Pressure 126/71 Pulse Oximetry 95 06/11/18 16:00 06/11/18 16:26 06/11/18 17:00 Temperature Pulse Rate 74 70 80 Respiratory Rate 18 Blood Pressure Pulse Oximetry 06/11/18 18:00 06/11/18 19:30 06/11/18 20:00 Temperature 98.7 F Pulse Rate 72 75 76 Respiratory Rate 23 Blood Pressure 105/75 Pulse Oximetry 94 L 06/11/18 21:00 06/11/18 21:19 06/11/18 22:00 Temperature Pulse Rate 71 88 80 Respiratory Rate 18 Blood Pressure Pulse Oximetry 06/11/18 23:00 06/11/18 23:10 06/12/18 00:00 Temperature 98.7 F Pulse Rate 72 74 70 Respiratory Rate 23 Blood Pressure 105/75 Pulse Oximetry 94 L 06/12/18 01:12 06/12/18 02:20 06/12/18 03:20 Temperature 98.7 F Pulse Rate 71 75 74 Respiratory Rate 23 Blood Pressure 105/75 Pulse Oximetry 94 L 06/12/18 04:18 06/12/18 05:00 06/12/18 06:48 Temperature Pulse Rate 75 72 77 Respiratory Rate Blood Pressure Pulse Oximetry 06/12/18 07:00 06/12/18 08:39 06/12/18 08:42 Temperature 99.3 F Pulse Rate 71 80 Respiratory Rate 20 Blood Pressure 126/58 L Pulse Oximetry 93 L 06/12/18 09:58 Temperature Pulse Rate 80 Respiratory Rate 22 Blood Pressure Pulse Oximetry 93 L Intake & Output 06/11/18 06/12/18 06/12/18 18:59 06:59 18:59 Intake Total 1160 / 1160 480 / 480 Output Total 900 / 900 310 / 310 Balance 260 / 260 170 / 170 Weight 82.5 kg Intake: IV 200 / 200 Zosyn 4.5 GM Premix 4.5 gm In 200 / 200 100 ml @ 200 mls/hr IV.SIG Q6H [facility] Rx#:[id number] Oral 960 / 960 480 / 480 Output: Urine Amount (Catheter) 900 / 900 310 / 310 Indwelling Urethral Catheter 900 / 900 310 / 310 Other: Date of Last Bowel Movement 06/11/18 # Bowel Movements 3 Narrative: GENERAL: This is a well-nourished, well-developed patient, in no apparent distress. CARDIOVASCULAR: Regular rate and rhythm RESPIRATORY: Clear to auscultation. Breath sounds equal bilaterally. No wheezes , rales, or rhonchi. GASTROINTESTINAL: Abdomen soft, non-tender, nondistended. Normal active bowel sounds MUSCULOSKELETAL: Extremities without clubbing, cyanosis, or edema. NEURO: Alert & Oriented x4 to person, place, time, situation. - Urinary Catheter Management Indwelling Temp Sensing Catheter Cath placed during this visit: yes, but has since been removed by the nurse Reason for continuing: Acute urinary retention Insertion date: 06/08/18 Insertion time: 10:09 Removal date: 06/07/18 Removal time: 09:00 Indwelling Urethral Catheter Cath placed during this visit: yes Reason for continuing: Chronic Urinary Retention Insertion date: 06/08/18 Insertion time: 10:09 Results - Labs CBC & Chem 7: 06/12/18 04:33 06/12/18 04:33 Laboratory Results - last 24 hr 06/11/18 06/11/18 06/11/18 11:55 16:19 21:29 WBC RBC Hgb Hct MCV MCH MCHC RDW Plt Count MPV Prelim Diff (Auto) Neut % (Auto) Lymph % (Auto) [place] % (Auto) Eos % (Auto) Baso % (Auto) Neut # (Auto) Lymph # (Auto) [place] # (Auto) Eos # (Auto) Baso # (Auto) WBC Differential Seg Neuts % (Manual) Band Neuts % (Manual) Lymphocytes % (Manual) Monocytes % (Manual) Eosinophils % (Manual) Myelocytes % (Man) Abs Neuts (Manual) Nucleated RBCs/100 WBC Differential Comment Platelet Estimate Platelet Morphology Polychromasia Stomatocytes PT INR Sodium Potassium Chloride Carbon Dioxide Anion Gap BUN Creatinine Estimated GFR POC Glucose 230 H 156 H 200 H Random Glucose Calcium 06/12/18 06/12/18 06/12/18 04:33 04:33 04:33 WBC 11.7 H RBC 2.12 L Hgb 6.7 L* Hct 20.3 L* MCV 95.7 MCH 31.8 MCHC 33.2 RDW 15.1 Plt Count 307 MPV 8.8 Prelim Diff (Auto) Slide review pending Neut % (Auto) 81.0 H Lymph % (Auto) 7.9 L [place] % (Auto) 8.3 H Eos % (Auto) 2.4 Baso % (Auto) 0.4 Neut # (Auto) 9.5 H Lymph # (Auto) 0.9 L [place] # (Auto) 1.0 H Eos # (Auto) 0.3 Baso # (Auto) 0.0 WBC Differential Manual diff final Seg Neuts % (Manual) 75 H Band Neuts % (Manual) 12 H Lymphocytes % (Manual) 5 L Monocytes % (Manual) 3 Eosinophils % (Manual) 3 Myelocytes % (Man) 2 H Abs Neuts (Manual) 10.4 H Nucleated RBCs/100 WBC 2 H Differential Comment . Platelet Estimate Normal Platelet Morphology Normal Polychromasia 2.5 H Stomatocytes 1+ H PT 19.7 H INR 1.9 Sodium 144 Potassium 3.0 L Chloride 107 Carbon Dioxide 25.0 Anion Gap 12 BUN 24 H Creatinine 1.57 H Estimated GFR 43 L POC Glucose Random Glucose 197 H Calcium 7.7 L 06/12/18 08:52 WBC RBC Hgb Hct MCV MCH MCHC RDW Plt Count MPV Prelim Diff (Auto) Neut % (Auto) Lymph % (Auto) [place] % (Auto) Eos % (Auto) Baso % (Auto) Neut # (Auto) Lymph # (Auto) [place] # (Auto) Eos # (Auto) Baso # (Auto) WBC Differential Seg Neuts % (Manual) Band Neuts % (Manual) Lymphocytes % (Manual) Monocytes % (Manual) Eosinophils % (Manual) Myelocytes % (Man) Abs Neuts (Manual) Nucleated RBCs/100 WBC Differential Comment Platelet Estimate Platelet Morphology Polychromasia Stomatocytes PT INR Sodium Potassium Chloride Carbon Dioxide Anion Gap BUN Creatinine Estimated GFR POC Glucose 239 H Random Glucose Calcium Assessment and Plan - Plan Assessment: 77-year-old male postop day 2 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 Clinically improving slowly. Acute encephalopathy due to CVA Neurology service following and recommended inpatient rehab Aspirin Anticoagulation with warfarin with goal INR greater than 2.0 INR today 1.9 on warfarin 5 mg p.o. daily s/p CABG (RAPP-->LAD, SVG-->Diag) and tAVR 06/02 - anticoagulation per Dr. Beavers - afib prophylaxis per Dr. Beavers Post-operative hypotension- resolved. Lactic Acidosis- resolved sinus tachycardiaresolved - start lopressor 25mg po bid Anemia secondary to acute blood loss - patient is [employer] and will not receive blood or blood products - no albumin - recombinant factor VII is allowable per the patient. - minimize lab draws Epogen. Bilateral consolidation with pneumonia and pleural effusion fluid overload Zosyn IV Deafness - spanish interpreter/translator at bedside Urinary hesitancy and retentionFoley catheter. Per urology recommendations to make ensure patient is more amatory prior to discontinue the catheter. At this time we will send the patient to rehab with Oliva catheter. Per Dr. Fulton DVT prophylaxisCoumadin Discharge Planning: To [facility] for continue rehab.
--- NOTE | 2018-06-12 12:08 | P.DS ---
Date of admission: 06/02/18 05:26 Primary care physician: Rob Squires MD Attending physician on discharge: Yasir Beavers Anticipated date of discharge: 06/12/18 Brief History from admission: 77-year-old man, intially seen history of coronary artery disease, prior stent to the LAD in 2004, also history of severe aortic valve stenosis, normal ejection fraction of 56%, mean gradient of 37 mm, peak gradient 57, presented for followup with the cpas and was having some chest pain, which was radiating to his left arm. The patient is deaf since childbirth. He does have a bedside automotive parts interpreter during the entire conversation. He underwent cardiac catheterization, which showed 3-vessel disease including a 70% mid distal LAD, 90% circumflex, OM 70%, the RCA 60%. RCA was nondominant. Artery pressures of 8, PA pressures 37/26 with a wedge of 28. Cardiac output of 6.0. We were consulted to evaluate for coronary artery bypass grafting and aortic valve replacement. PAST MEDICAL HISTORY: Includes coronary artery disease, prior stenting of the LAD in 2004, carotid artery stenosis. Apparently, he had a history of a 90% right internal. Repeat carotid ultrasound is pending at this time. 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 Jehovah Witness. No blood products. Okay for Epogen. 06/02 electively admitted for surgery 1. Coronary Artery Bypass Grafting x 2 with left internal mammary artery (RAPP) to left anterior descending (LAD), reverse saphenous vein graft to the Ramus marginalis (RM) 2. Aortic Valve Replacement with 23mm Medtronic Mosaic Tissue Valve 3. Right Leg Endoscopic Vein [place] 4. Intraoperative Vein Mapping. DS: Diagnosis - Discharge Diagnosis (1) CAD (coronary artery disease), [place] coronary artery Status: Acute (2) Aortic valvar stenosis Status: Acute (3) S/P CABG x 2 Status: Acute (4) S/P aortic valve replacement Status: Acute (5) Refusal of blood transfusions as patient is [employer] Status: Acute (6) Acute blood loss as cause of postoperative anemia Status: Acute (7) Deaf mutism, congenital Status: Chronic (8) History of CVA (cerebrovascular accident) Status: Acute (9) Aspiration pneumonia Status: Acute DS: Summary Hospital Course: 06/02 electively admitted for surgery 1. Coronary Artery Bypass Grafting x 2 with left internal mammary artery (RAPP) to left anterior descending (LAD), reverse saphenous vein graft to the Ramus marginalis (RM) 2. Aortic Valve Replacement with 23mm Medtronic Mosaic Tissue Valve 3. Right Leg Endoscopic Vein [place] 4. Intraoperative Vein Mapping. 5000cc crystalloid, 750cc sell saver 1300cc EBL extubated last pm intraoperative events were complicated by significant bleeding once the chest wall was closed requiring reopening the chest wall and obtain hemostasis. During this time he received 7 mg of recombinant factor VII. He arrived to the CVICU intubated on phenylephrine 100 mcg/min for persistent hypotension. the patient is a [employer] and his stated preoperatively that he will not accept blood, blood products, or human albumin. He did agree to agree to recombinant factor VII administration. 06/03 pt has sign automotive parts interpreter at bedside, pt lethargic but attempting to follow some commands remains on low dose Jl, weaned off insulin gtt HGB 9.1, check BNP in am with pedi tube start ferrous sulfate in am epogen in am will need coumadin goal 2-2.5 x 6 weeks for AVR tissue valve 06/04 pt was more lethargic this am , not following commands did not sleep well last pm , as the day went on , pt napped was more awake and response , responding to sign language with automotive parts interpreter at bedside needs environmental cues BB added for BP , on ASA, statin on iron supplement and epogen will keep in CVICU today 06/05 pt improving slowly, still sleepy during the day needs environmental cues. ug designer at bedside pt nods head , but does not participate in signing back HGB 6.4/ continue epogen and ferrous sulfate / hold on starting coumadin ASA only transfer to stepdown near nurses station 06/06 Left sided weakness this am. Will obtain head CT Continue with PT Monitor CBC 06/07 Clinically stable. Moving left side better. Head CT results noted. No acute infarct. Old infarcts Transfer CPC[facility] Monitor CBC PT 06/08 left sided neglect , able to move left arm some difficultly lifting head up , will focus and track, will attempt to sign consult with nephrology will start plavix , continue ASA, no coumadin for now 06/09 MRI : mri shows mult cva all 4 territories 1. Numerous areas of infarction seen predominantly in the watershed zone areas in the superior frontoparietal regions, right occipital region, and temporal regions bilaterally. 2. Numerous small areas of infarction seen throughout the cerebellar hemispheres bilaterally. 3. No definite areas of hemorrhage or mass effect are seen at this time. 4. Status post right frontal craniotomy with an associated chronic subdural fluid collection seen. pt went into Afib RVR yesterday / placed on amiodarone IV, converted to NSR this am will change to amiodarone po , will also start coumadin goal 2-3 continue PT/OT / Speech will need rehab remove prevena dressing today 06/10 more awake today, attempts to sign with automotive parts interpreter appreciate neuro input/ CXR reviewed, concern for aspiration PNA continue EZpap acapella , aspiration precautions continue heparin sq, coumadin Goal 2-3 add zosyn , f/u labs in am continue epogen and ferrous sulfate 06/11 CXR noted, volume overload, small bilateral effusion right lower lobe consolidation gentle diuresis , await echo results continue antibiotics , OOB , PT/OT speech dc heparin SQ when INR> 2 [address] gunn cath in place per Urology , voiding trials when pt more ambulatory possible dc to rehab tomorrow, when cleared by Neuro 06/12 INR 1.9, will dc heparin now on room air / resp rate stable needs to continue pulm toileting PT/OT/Speech per Urology : Maintain gunn catheter Pt to go to rehab tomorrow Void trial in a few weeks at Rehab center F/U in office one month. - Time Spent with Patient Total time spent providing and/or coordinating discharge services: - Quality: VTE Deep Vein Thrombosis/Pulmonary Embolism Present on Admission: No Exam Vital signs: Vital Signs 06/11/18 13:00 06/11/18 14:00 06/11/18 15:00 Temperature 98.6 F Pulse Rate 66 66 65 Respiratory Rate 20 Blood Pressure 126/71 Pulse Oximetry 95 06/11/18 16:00 06/11/18 16:26 06/11/18 17:00 Temperature Pulse Rate 74 70 80 Respiratory Rate 18 Blood Pressure Pulse Oximetry 06/11/18 18:00 06/11/18 19:30 06/11/18 20:00 Temperature 98.7 F Pulse Rate 72 75 76 Respiratory Rate 23 Blood Pressure 105/75 Pulse Oximetry 94 L 06/11/18 21:00 06/11/18 21:19 06/11/18 22:00 Temperature Pulse Rate 71 88 80 Respiratory Rate 18 Blood Pressure Pulse Oximetry 06/11/18 23:00 06/11/18 23:10 06/12/18 00:00 Temperature 98.7 F Pulse Rate 72 74 70 Respiratory Rate 23 Blood Pressure 105/75 Pulse Oximetry 94 L 06/12/18 01:12 06/12/18 02:20 06/12/18 03:20 Temperature 98.7 F Pulse Rate 71 75 74 Respiratory Rate 23 Blood Pressure 105/75 Pulse Oximetry 94 L 06/12/18 04:18 06/12/18 05:00 06/12/18 06:48 Temperature Pulse Rate 75 72 77 Respiratory Rate Blood Pressure Pulse Oximetry 06/12/18 07:00 06/12/18 08:00 06/12/18 08:39 Temperature 99.3 F Pulse Rate 71 78 80 Respiratory Rate 20 Blood Pressure 126/58 L Pulse Oximetry 06/12/18 08:42 06/12/18 09:00 06/12/18 09:58 Temperature Pulse Rate 80 80 Respiratory Rate 22 Blood Pressure Pulse Oximetry 93 L 93 L 06/12/18 10:00 06/12/18 11:00 Temperature Pulse Rate 80 73 Respiratory Rate Blood Pressure Pulse Oximetry Intake & Output 06/11/18 06/12/18 06/12/18 18:59 06:59 18:59 Intake Total 1160 / 1160 480 / 480 Output Total 900 / 900 310 / 310 Balance 260 / 260 170 / 170 Weight 82.5 kg Intake: IV 200 / 200 Zosyn 4.5 GM Premix 4.5 gm In 200 / 200 100 ml @ 200 mls/hr IV.SIG Q6H [facility] Rx#:[id number] Oral 960 / 960 480 / 480 Output: Urine Amount (Catheter) 900 / 900 310 / 310 Indwelling Urethral Catheter 900 / 900 310 / 310 Other: Date of Last Bowel Movement 06/11/18 # Bowel Movements 3 - Constitutional no acute distress - Routine HEENT Exam Head: Present: normocephalic Eye: Present: EOMI, PERRL Comments: deaf / mute has required bedside ug designer - Routine Neck Exam Present: supple Comments: has a forward extension of neck - Routine Chest/Breast/Axilla Exam Chest wall: Present: tenderness - Routine Respiratory Exam Present: decreased breath sounds Comments: diminished in bases left > right - Routine Abdominal Exam Present: soft, normoactive bowel sounds - Routine Extremities Exam Present: pulses intact, normal capillary refill - Routine Skin Exam Present: wounds Comments: sternal incision intact and well approximated - Routine Neurological Exam left upper and lower ext weakness, improving Results Procedures completed during hospitalization: 06/02 electively admitted for surgery 1. Coronary Artery Bypass Grafting x 2 with left internal mammary artery (RAPP) to left anterior descending (LAD), reverse saphenous vein graft to the Ramus marginalis (RM) 2. Aortic Valve Replacement with 23mm Medtronic Mosaic Tissue Valve 3. Right Leg Endoscopic Vein [place] 4. Intraoperative Vein Mapping. Completed studies during hospitalization: Pending at discharge 06/02/18 09:11 Surgical [PTH] Routine Labs on day of discharge: Labs from last 24 hours 06/12/18 06/12/18 06/12/18 08:52 04:33 04:33 WBC RBC Hgb Hct MCV MCH MCHC RDW Plt Count MPV Prelim Diff (Auto) Neut % (Auto) Lymph % (Auto) [place] % (Auto) Eos % (Auto) Baso % (Auto) Neut # (Auto) Lymph # (Auto) [place] # (Auto) Eos # (Auto) Baso # (Auto) WBC Differential Seg Neuts % (Manual) Band Neuts % (Manual) Lymphocytes % (Manual) Monocytes % (Manual) Eosinophils % (Manual) Myelocytes % (Man) Abs Neuts (Manual) Nucleated RBCs/100 WBC Differential Comment Platelet Estimate Platelet Morphology Polychromasia Stomatocytes PT 19.7 H INR 1.9 Sodium 144 Potassium 3.0 L Chloride 107 Carbon Dioxide 25.0 Anion Gap 12 BUN 24 H Creatinine 1.57 H Estimated GFR 43 L POC Glucose 239 H Random Glucose 197 H Calcium 7.7 L 06/12/18 06/11/18 06/11/18 04:33 21:29 16:19 WBC 11.7 H RBC 2.12 L Hgb 6.7 L* Hct 20.3 L* MCV 95.7 MCH 31.8 MCHC 33.2 RDW 15.1 Plt Count 307 MPV 8.8 Prelim Diff (Auto) Slide review pending Neut % (Auto) 81.0 H Lymph % (Auto) 7.9 L Vilas % (Auto) 8.3 H Eos % (Auto) 2.4 Baso % (Auto) 0.4 Neut # (Auto) 9.5 H Lymph # (Auto) 0.9 L [place] # (Auto) 1.0 H Eos # (Auto) 0.3 Baso # (Auto) 0.0 WBC Differential Manual diff final Seg Neuts % (Manual) 75 H Band Neuts % (Manual) 12 H Lymphocytes % (Manual) 5 L Monocytes % (Manual) 3 Eosinophils % (Manual) 3 Myelocytes % (Man) 2 H Abs Neuts (Manual) 10.4 H Nucleated RBCs/100 WBC 2 H Differential Comment . Platelet Estimate Normal Platelet Morphology Normal Polychromasia 2.5 H Stomatocytes 1+ H PT INR Sodium Potassium Chloride Carbon Dioxide Anion Gap BUN Creatinine Estimated GFR POC Glucose 200 H 156 H Random Glucose Calcium - Impressions ITS Impressions Head CT 06/06/18 00:00 CONCLUSION: 1. Multiple bilateral cerebellar infarcts, likely old. 2. Postsurgical findings right frontal region. 3. Age-appropriate diffuse atrophy. Head MRI 06/08/18 00:00 CONCLUSION: 1. Numerous areas of infarction seen predominantly in the watershed zone areas in the superior frontoparietal regions, right occipital region, and temporal regions bilaterally. 2. Numerous small areas of infarction seen throughout the cerebellar hemispheres bilaterally. 3. No definite areas of hemorrhage or mass effect are seen at this time. 4. Status post right frontal craniotomy with an associated chronic subdural fluid collection seen. Head MRA 06/08/18 00:00 CONCLUSION: Asymmetric flow as described above. Distinct thrombus is not seen. Neck MRA 06/09/18 00:00 CONCLUSION: 1. High-grade stenosis involving the proximal right ICA occurring approximately 2 cm cephalad to its origin. 2. Questionable stenosis involving the origin of the right common carotid artery. Motion artifact degrades this area of the exam. Consideration could be made to a CTA to further assess. This is less sensitive motion artifact. 3. Patent left carotid. 4. Dominant right vertebral artery. Percent stenosis is calculated using the diameter of the stenotic region over the diameter of the normal distal internal carotid artery Chest X-Ray 06/11/18 06:00 CONCLUSION: Stable chest with bibasilar airspace disease and associated effusions. Discharge Plan - Discharge Disposition Patient Disposition: [facility] Rehab Inpatient - Discharge Condition Condition: Fair - Discharge Order Discharge Orders: Discharge Order (Routine); Ordered 06/12/18 Ordered By: Sara Urban - Discharge Details Anticipated Discharge Date: 06/12/18 Discharge Comment: pt is Jehovah witness, minimize blood draws - Physicians Team Primary Care Provider: Rob Squires Attending Provider: Yasir Beavers Other Providers: Moises Webb DO ; [facility] ; Livia Chaidez MD ; Melvin Mccartney MD ; Bruce Fulton DO ; [facility] ; Leyda Boone MD - Rxs /Orders / Referrals /Forms Prescriptions: New amiodarone 200 mg Tablet 200 mg PO Q12HR 14 Days Qty: 28 RF: 0 amoxicillin-pot clavulanate [Augmentin] 875-125 mg Tablet 1 tab PO Q12H 7 Days Qty: 14 RF: 0 aspirin 81 mg Tablet,Chewable 81 mg PO DAILY RF: 0 docusate sodium [DOK] 100 mg Capsule 100 mg PO BID RF: 0 epoetin mamadou [Epogen] 20,000 unit/mL Solution 20,000 unit Sub-Q MoWeFr 14 Days RF: 0 ferrous sulfate 300 mg (60 mg iron)/5 mL Liquid 300 mg PO BID@1200,1700 RF: 0 guaifenesin 100 mg/5 mL Liquid 200 mg PO Q6H PRN (Reason: Cough) RF: 0 insulin aspart U-100 [Novolog U-100 Insulin aspart] 100 unit/mL Solution 0 unit Sub-Q ACHS RF: 0 ipratropium-albuterol 0.5 mg-3 mg(2.5 mg base)/3 mL Solution For Nebulization 1 amp NEB Q6HR NEB PRN (Reason: wheezing ) RF: 0 metoprolol tartrate 25 mg Tablet 25 mg PO BID RF: 0 uphgpvwg-jmnz-LP-calcium-mins [Thera M Plus (ferrous fumarat)] 9 mg iron-400 mcg Tablet 1 tab PO DAILY RF: 0 pantoprazole 40 mg Tablet,Delayed Release (Dr/Ec) 40 mg PO DAILY@06 RF: 0 polyethylene glycol 3350 17 gram Powder In Packet 17 gm PO DAILY RF: 0 warfarin [Coumadin] 5 mg Tablet 5 mg PO DAILY@1600 RF: 0 Continue atorvastatin [Lipitor] 10 mg Tablet 10 mcg/day PO DAILY metformin 500 mg Tablet 500 mg PO BID Discontinued aspirin [Aspir-81] 81 mg Tablet,Delayed Release (Dr/Ec) 81 mg PO DAILY isosorbide mononitrate 30 mg Tablet Extended Release 24 Hr 30 mg PO DAILY metoprolol succinate [Toprol XL] 25 mg Tablet Extended Release 24 Hr 25 mg/day PO DAILY nitroglycerin 0.3 mg Tablet, Sublingual 0.6 mg SUBLINGUAL Q5-15M PRN (Reason: Chest Pain) Ambulatory Orders / Order Sets / DME: Prothrombin Time INR (Routine) Timeframe: 1 Day Location: Determined by Patient Ordered By: Sara Urban Referrals: Viktor Myers MD [Physician] - See Instructions (Office will call you to schedule appt, please be sure to follow up within 4 weeks of discharge.) Melvin Mccartney MD [Physician] - See Instructions (Office will call you with appt, please be sure to follow up within 3 weeks of discharge) Rob Squires MD [Primary Care Provider] - See Instructions ( Your appointment has been scheduled for [06/18/18] at [1:20 pm] If you cannot make this appointment, please call the office to reschedule ) Sara Urban [ADVANCE RN PRACTITIONER] - See Instructions ( Your appointment has been scheduled for [06/16/18] at [11:15 am] If you cannot make this appointment, please call the office to reschedule ) - Discharge Instructions Additional Instructions: Incentive spirometry Q1 hr x 10, while awake, also use acapella device hourly whole awake Sternal Breast Bone Precautions: NO pushing or pulling, ( pt must use sternal pillow to support chest with all activities and with coughing ( takes up to 3 months breast bone to heal ) All females to wear sternal bra , launder as needed Daily incision care: ok to shower daily, no tub bath. Wash all incisions with liquid dial soap, clean wash cloth to each site, rinse and pat dry. Observe for any signs of infection, such as drainage which is dark yellow, mills, green or foul smelling. Immediately report to the surgeon any drainage from the chest incision, or legs, and for any abnormal drainage from the chest tube sites. Notify surgeon if any temp >101.5 degrees F. When specialty dressing removed/ or if you do not have one, continue to shower daily as above, then rinse and pat incision dry and paint with betadine daily x 5 days. Allow steri strips to fall off if you have any. Avoid lotions, creams, salves, oils, etc. for the first month F/U appointment: as per DC instructions: PCP in 2 weeks, CV surgeon 2 weeks, Submarine Advisory Team Watch Officer 3-4 weeks For any questions regarding incisions/ dressing / meds / post op care or above Symptoms, Friday 8am-5pm Heart & Vascular Surgery Office ( Dr. Beavers & Dr. Barrera), After Hours / Nights (5pm -8am) Weekends and Holidays Please call [facility] Cardiac Intermediate Care Unit (CIC) Charge Nurse
[2018-06-12] MEDS ORDERED: Potassium Chloride 25 MEQ Effervescent Tablet PO ONE (12:12)
[2018-06-12] MEDS: Amiodarone 200 MG Tablet PO SCH (12:14)
[2018-06-12] MEDS: Docusate Sodium 100 MG Capsule PO SCH (12:14)
[2018-06-12] MEDS: Heparin - SQ 10,000 UNITS/ML Vial SQ SCH (12:15)
[2018-06-12] MEDS: Metoprolol Tartrate 25 MG Tablet PO SCH (12:15)
[2018-06-12] MEDS ORDERED: Potassium Chlor 10 mEq Premix 10 MEQ/100 ML PIGGYBACK IV.SIG SCH (12:15)
[2018-06-12] MEDS: Multivitamin/Minerals Therapeutic Tablet PO SCH (12:16)
[2018-06-12] MEDS: Epoetin Alfa Inj 20,000 UNIT/ML Vial SQ SCH (12:16)
[2018-06-12] MEDS: Polyethylene Glycol 3350 17 GM Packet PO SCH (12:16)
[2018-06-12 13:15] VITALS: PULSE 68
--- NOTE | 2018-06-12 15:21 | US ---
EXAM DATE: 06/12/2018 1:18 PM EDT AGE/SEX: 77 years / Male INDICATIONS: Left pleural effusion. CLINICAL DATA: This is the patient's initial encounter. Patient reports that signs and symptoms have been present for 2 days and indicates a pain score of 3/10. MEDICAL/SURGICAL HISTORY: Carcinoma, prostatic. Coronary artery disease and stenosis. CKD. Deaf . Diabetes. Heart murmur. HTN. Hyperlipidemia. PVD. Skin cancer. Stomach benign neoplasm. Appendecto my. Hernia repair. Radical prostatectomy. Stented coronary artery. COMPARISON: No prior exams available for comparison. MEASUREMENTS: Skin To Parietal Pleura:__1.9 cm Skin To Max Safe Depth:__5.6 cm Estimated Fluid Volume:__767 cc Fluid Composition:__simple FINDINGS: Pleural effusion as above. CONCLUSION: 1. A large left pleural effusion is confirmed sonographically as described above. Electronically signed by: Momo Soto MD 06/12/2018 3:20 PM EDT
== END 2018-06-12 15:01 ==
LOC: HSDI 05:26 → HCVI 15:34 → HCPC 06-07 14:35
PROVIDERS: ADMIT Thoracic Surgery (Cardiothoracic Vascular Surgery); ATTEND Thoracic Surgery (Cardiothoracic Vascular Surgery)

== ENCOUNTER 2018-06-23 18:05 | Inpatient (IN) ==
--- NOTE | 2018-06-23 18:48 | ED ---
HPI General Chief Complaint: Chest Pain Stated Complaint: Chest pain Time Seen by Provider: 06/23/18 18:25 Source: EMS and other ([employer] translator and interpreter) Mode of arrival: EMS Limitations: language barrier (Pt is mute) History of Present Illness HPI narrative: Patient is 77-year-old male with a history of coronary artery disease, aortic valve stenosis. Patient had a 2 vessel CABG and aortic valve replacement on 02 June, presents to the emergency department for evaluation of chest pain. Patient states it has been ongoing all day. He states that sharp and stabbing across his whole chest wall. Patient reports it is hard to catch his breath and he feels like his heart racing. He reports feeling a little dizzy. Patient was given 3 sublingual nitroglycerin by the assisted staff. Patient's pain improved with this, he does not rate his pain he just states it is lower. Patient is currently on Coumadin aspirin, he has been compliant with this therapy, his most recent INR was 2.0. Patient denies any abdominal pain, nausea, vomiting, diaphoresis. Symptom onset was sudden, symptoms are moderate in nature. Activity does not influence pain scale. Complete Quality Measures for STEMI Alert Patients Related Data Home Medications Medication Instructions Recorded Confirmed metformin 500 mg PO BID 06/02/18 06/23/18 acetaminophen 650 mg PO Q4H PRN 06/23/18 06/23/18 amoxicillin-pot clavulanate 1 tab PO BID 06/23/18 06/23/18 [Augmentin] warfarin [Coumadin] 4 mg PO DAILY@1600 06/23/18 06/23/18 Previous Rx's Medication Instructions Recorded amiodarone 200 mg PO Q12HR 14 Days #28 tab 06/12/18 aspirin 81 mg PO DAILY tab 06/12/18 docusate sodium [DOK] 100 mg PO BID cap 06/12/18 epoetin mamadou [Epogen] 20,000 unit SUB-Q MoWeFr 14 Days 06/12/18 ml ferrous sulfate 300 mg PO BID@1200,1700 ml 06/12/18 guaifenesin 200 mg PO Q6H PRN ml 06/12/18 insulin aspart U-100 [Novolog 0 unit SUB-Q ACHS ml 06/12/18 U-100 Insulin aspart] ipratropium-albuterol 1 amp NEB Q6HR NEB PRN ml 06/12/18 metoprolol tartrate 25 mg PO BID tab 06/12/18 giinmptx-usmr-QR-calcium-mins 1 tab PO DAILY tab 06/12/18 [Thera M Plus (ferrous fumarat)] pantoprazole 40 mg PO DAILY@06 tab 06/12/18 polyethylene glycol 3350 17 gm PO DAILY ea 06/12/18 Allergies Allergy/AdvReac Type Severity Reaction Status Date / Time acetaminophen Allergy Severe Verified 05/14/18 08:05 butalbital Allergy Severe Verified 05/14/18 08:05 erythromycin base Allergy Severe Verified 05/14/18 08:05 tamsulosin Allergy Severe Verified 05/14/18 08:05 Review of Systems ROS: all other systems reviewed are negative [facility] Medical History Medical History CAD (coronary artery disease) (Acute) CKD (chronic kidney disease) (Acute) Coronary artery stenosis (Acute) Deaf (Acute) Diabetes mellitus (Acute) HTN (hypertension) (Acute) Heart murmur (Acute) Hyperlipidemia (Acute) PVD (peripheral vascular disease) (Acute) Prostate cancer (Acute) Skin cancer (Acute) Stomach benign neoplasm (Acute) Surgical History Surgical History H/O hernia repair (Acute) H/O radical prostatectomy (Acute) History of appendectomy (Acute) Stented coronary artery (Acute) Social History Social History Substance History: No History of Abuse Second Hand Smoke Exposure: No Smoking Status: Unknown if ever smoked Tobacco Type: Cigarettes How Often Do You Have a Drink Containing Alcohol: Never Immunization History Tetanus Immunization: Unsure Hx Influenza Vaccine This Season: No Exam Narrative Exam Narrative: GENERAL: Well-developed, well-nourished, alert elderly male. Presenting in no acute distress. SKIN: Focused skin assessment warm/dry. HEAD: Atraumatic. Normocephalic. EYES: Pupils equal and round. No scleral icterus. No injection or drainage. ENT: No nasal bleeding or discharge. Mucous membranes pink and moist. NECK: Trachea midline. No JVD. CARDIOVASCULAR: Regular rate and rhythm. 2/6 systolic murmur appreciated. RESPIRATORY: Diaphragmatic, diminished in bases. GASTROINTESTINAL: Abdomen soft, non-tender, nondistended. Hepatic and splenic margins not palpable. MUSCULOSKELETAL: No obvious deformities. No clubbing. No cyanosis. No edema. NEUROLOGICAL: Awake and alert. No obvious cranial nerve deficits. Motor grossly within normal limits. Normal speech. PSYCHIATRIC: Appropriate mood and affect; insight and judgment normal. Course Initial Documented Vital Signs Pulse Rate 85 06/23/18 18:12 Respiratory Rate 18 06/23/18 18:12 Blood Pressure 169/65 H 06/23/18 18:12 Pulse Oximetry 98 06/23/18 18:12 Last Documented Vital Signs Temperature 98.2 F 06/23/18 18:18 Pulse Rate 65 06/24/18 06:07 Respiratory Rate 16 06/24/18 06:07 Blood Pressure 168/74 H 06/24/18 06:07 Pulse Oximetry 97 06/24/18 06:07 Medical Decision Making SILVANA Attestation SILVANA supervised visit: Yes Attestation: I, Dr. Rolle, have reviewed the advance practice practitioner's documentation and am in agreement, met with the patient face to face, made the diagnosis, and the medical decision making was done by me. The patient was initially evaluated by Seema, the MILL OPERATOR HELPER. Please see their complete history and physical. *My assessment and Findings: The patient presents with a history of corneal chest pain that he reports began this morning. The patient also reports having shortness of breath associated with this. The patient has a history of coronary artery disease status post two-vessel coronary artery bypass grafting. The patient's examination was remarkable for a healing central chest wound from recent open heart surgery that appears to be healing well without signs of infection. Decreased breath sounds in bilateral lung bases on exam. Bilateral lower extremity edema is 1+. During the course of the patient's emergency department visit, the patient's history, examination, and differential diagnosis were reviewed with the patient. The patient was placed on a cardiac cath lab radiology technologist with oximetry and frequent blood pressure monitoring. The patient had IV access obtained and blood work sent for analysis. The patient's laboratory studies were reviewed and remarkable for a white count of 8, platelets 364 with neutrophil percent 77.9, hemoglobin 9.2, PT 17.3, INR 1.7, PTT 30.9, d-dimer 3.38, chemistry is remarkable for a glucose of 151, troponin I is 0.33 which could be related to his recent cardiac surgery, versus , this will be trended while the patient is in the hospital, total protein 5.9, glucose 148, GFR 50, creatinine 1.38, chloride 108, calcium 8.2, BUN 22, BNP 375 , AST is 10, albumin 2.7. Radiology studies were reviewed and remarkable for Chest x-ray reveals persistent bilateral pleural effusions and basilar consolidation without significant change, CTA to rule out PE shows no pulmonary embolism, large pleural effusions and compressive dependent atelectasis of both lungs. This appears to be the cause of the patient's worsening shortness of breath and possibly his chest pain as well. The patient will be admitted to the hospital for continued evaluation and treatment. The patient's results were discussed with the patient, including the plan of care. I explained that further testing and/ or monitoring is indicated based on the patient's history, examination, and/ or laboratory findings. Therefore, I recommended admission for additional evaluation. The patient expressed understanding and was agreeable with this plan. The patient was admitted to the hospital in guarded condition and sent to a bed under the care of service. [facility] Narrative Medical decision making narrative: Patient is a 77-year-old male presented to emerge department for evaluation of sharp precordial chest pain that started this morning. Patient is tachypneic and breathing is diaphragmatic. Labs and imaging ordered and pending. Initial EKG shows sinus bradycardia, this was reviewed by my attending physician. Troponin elevated at 0.36, patient recently underwent a two-vessel CABG. Elevated d-dimer at 3.38. CT pulmonary angiogram is ordered and pending. INR is subtherapeutic at 1.7. Hemoglobin has trended up since last admission. Hemoglobin is currently at 9.2. Chest x-ray shows persistent bilateral pleural effusions. Bilateral large pleural effusions with dependent atelectasis. Patient will be admitted to medicine. Attempted to contact cardiovascular surgeon, is not pollution control engineer this evening. Differential Diagnosis Differential Diagnosis: Coronary spasms versus postoperative pain versus pleurisy versus pulmonary embolism versus metabolic abnormality versus anemia versus other Medical Records Medical records reviewed: Yes I reviewed the patient's medical records. Lab Data Lab results reviewed: Yes I reviewed the patient's lab results. Result diagrams: 06/23/18 18:35 06/23/18 18:35 Lab Results 08/06/0306/23/18 06/23/18 Range/Units 18:35 18:35 18:35 WBC 8.0 (4.0-11.0) th/mm3 RBC 3.19 L (4.50-5.90) mil/mm3 Hgb 9.2 L (13.0-17.0) gm/dL Hct 28.9 L (39.0-51.0) % MCV 90.7 (80.0-100.0) fL MCH 29.0 (27.0-34.0) pg MCHC 32.0 (32.0-36.0) % RDW 16.4 (11.6-17.2) % Plt Count 364 (150-450) th/mm3 MPV 7.6 (7.0-11.0) fL Neut % (Auto) 77.9 H (16.0-70.0) % Lymph % (Auto) 8.9 L (9.0-44.0) % Sharkey % (Auto) 6.9 (0.0-8.0) % Eos % (Auto) 5.4 H (0.0-4.0) % Baso % (Auto) 0.9 (0.0-2.0) % Neut # (Auto) 6.3 (1.8-7.7) th/mm3 Lymph # (Auto) 0.7 L (1.0-4.8) th/mm3 Sharkey # (Auto) 0.6 (0.0-0.9) th/mm3 Eos # (Auto) 0.4 (0.0-0.4) th/mm3 Baso # (Auto) 0.1 (0.0-0.2) th/mm3 WBC Differential . Differential Comment Auto diff final PT 17.3 H D (9.8-11.6) sec INR 1.7 Ratio APTT 30.9 H (24.3-30.1) sec D-Dimer Quant (PE/DVT) 3.38 H (0.00-0.50) mg/L FEU Sodium 143 (136-145) meq/L Potassium 3.7 (3.5-5.1) meq/L Chloride 108 H (98-107) meq/L Carbon Dioxide 25.4 (21.0-32.0) meq/L Anion Gap 10 (5-15) meq/L BUN 22 H (7-18) mg/dL Creatinine 1.38 H (0.60-1.30) mg/dL Estimated GFR 50 L (>89) mL/min POC Glucose (68-110) mg/dl Random Glucose 148 H (74-106) mg/dL Calcium 8.2 L (8.5-10.1) mg/dL Magnesium 2.0 (1.5-2.5) mg/dL Total Bilirubin 0.5 (0.2-1.0) mg/dL AST 10 L (15-37) U/L ALT 17 (12-78) U/L Alkaline Phosphatase 99 (45-117) U/L Total Creatine Kinase 41 (39-308) U/L Troponin I 0.36 H (0.02-0.05) ng/mL B-Natriuretic Peptide (0-100) pg/mL Total Protein 5.9 L (6.4-8.2) g/dL Albumin 2.4 L (3.4-5.0) g/dL 06/23/18 06/24/18 06/24/18 Range/Units 18:35 02:20 03:17 WBC (4.0-11.0) th/mm3 RBC (4.50-5.90) mil/mm3 Hgb (13.0-17.0) gm/dL Hct (39.0-51.0) % MCV (80.0-100.0) fL MCH (27.0-34.0) pg MCHC (32.0-36.0) % RDW (11.6-17.2) % Plt Count (150-450) th/mm3 MPV (7.0-11.0) fL Neut % (Auto) (16.0-70.0) % Lymph % (Auto) (9.0-44.0) % Sharkey % (Auto) (0.0-8.0) % Eos % (Auto) (0.0-4.0) % Baso % (Auto) (0.0-2.0) % Neut # (Auto) (1.8-7.7) th/mm3 Lymph # (Auto) (1.0-4.8) th/mm3 Sharkey # (Auto) (0.0-0.9) th/mm3 Eos # (Auto) (0.0-0.4) th/mm3 Baso # (Auto) (0.0-0.2) th/mm3 WBC Differential Differential Comment PT (9.8-11.6) sec INR Ratio APTT (24.3-30.1) sec D-Dimer Quant (PE/DVT) (0.00-0.50) mg/L FEU Sodium (136-145) meq/L Potassium (3.5-5.1) meq/L Chloride (98-107) meq/L Carbon Dioxide (21.0-32.0) meq/L Anion Gap (5-15) meq/L BUN (7-18) mg/dL Creatinine (0.60-1.30) mg/dL Estimated GFR (>89) mL/min POC Glucose 151 H (68-110) mg/dl Random Glucose (74-106) mg/dL Calcium (8.5-10.1) mg/dL Magnesium (1.5-2.5) mg/dL Total Bilirubin (0.2-1.0) mg/dL AST (15-37) U/L ALT (12-78) U/L Alkaline Phosphatase (45-117) U/L Total Creatine Kinase 41 (39-308) U/L Troponin I 0.33 H (0.02-0.05) ng/mL B-Natriuretic Peptide 375 H (0-100) pg/mL Total Protein (6.4-8.2) g/dL Albumin (3.4-5.0) g/dL Imaging Data Radiologist's impression: Chest X-Ray 06/23/18 18:25 CONCLUSION: Persistent bilateral pleural effusions and basilar consolidation without significant change. Chest CTA 06/23/18 19:40 CONCLUSION: 1. No pulmonary embolus. 2. Large pleural effusions and compressive/dependent atelectasis of both lungs. Discharge Plan Discharge Disposition Patient Disposition: 30 Still Patient Discharge Condition Condition: Stable Discharge Details Diagnosis: Atypical chest pain, Pleural effusion, bilateral Physicians Team ED Provider: Luisa Rolle ED Midlevel Provider: Seema Del Angel Primary Care Provider: UNKNOWN, Attending Provider: Juan Pablo Lin Other Providers: [employer] Status ED Status: Admitted Patient
[2018-06-23 19:13] LABS: Baso # (Auto) 0.1 th/mm3 (0.0-0.2); Baso % (Auto) 0.9 % (0.0-2.0); Eos # (Auto) 0.4 th/mm3 (0.0-0.4); Eos % (Auto) 5.4 % (0.0-4.0); Hematocrit 28.9 % (39.0-51.0); Hemoglobin 9.2 gm/dL (13.0-17.0); Lymph # (Auto) 0.7 th/mm3 (1.0-4.8); Lymph % (Auto) 8.9 % (9.0-44.0); Mean Corpuscular Volume 90.7 fL (80.0-100.0); Mean Platelet Volume 7.6 fL (7.0-11.0); Mono # (Auto) 0.6 th/mm3 (0.0-0.9); Mono % (Auto) 6.9 % (0.0-8.0); Neut # (Auto) 6.3 th/mm3 (1.8-7.7); Neut % (Auto) 77.9 % (16.0-70.0); Platelet Count 364 th/mm3 (150-450); Red Blood Count 3.19 mil/mm3 (4.50-5.90); Red Cell Distribution Width 16.4 % (11.6-17.2)
--- NOTE | 2018-06-23 19:23 | XR ---
EXAM DATE: 06/23/2018 7:05 PM EDT AGE/SEX: 77 years / Male INDICATIONS: Chest pain and short of breath. CLINICAL DATA: This is the patient's initial encounter. Patient reports that signs and symptoms have been present for 1 day and indicates a pain score of 4/10. MEDICAL/SURGICAL HISTORY: Cardiovascular disease. CABG. COMPARISON: C, CHEST 1V SINGLE AP, 06/11/2018. . FINDINGS: Moderate bilateral pleural effusions with basilar parenchymal opacities again noted and not significa ntly changed. No pneumothorax. Heart size stable, within normal limits. Patient has had previous median sternotomy. CONCLUSION: Persistent bilateral pleural effusions and basilar consolidation without significant change. Electronically signed by: Roscoe Bearden MD 06/23/2018 7:22 PM EDT
[2018-06-23 19:24] LABS: Activated Partial Thrombo Time 30.9 sec (24.3-30.1); INR 1.7 Ratio; Prothrombin Time 17.3 sec (9.8-11.6)
[2018-06-23 19:25] LABS: D-Dimer 3.38 mg/L FEU (0.00-0.50)
[2018-06-23 19:28] LABS: Albumin 2.4 g/dL (3.4-5.0); Anion Gap 10 meq/L (5-15); Aspartate Aminotransferase 10 U/L (15-37); Blood Urea Nitrogen 22 mg/dL (7-18); Calcium 8.2 mg/dL (8.5-10.1); Carbon Dioxide 25.4 meq/L (21.0-32.0); Chloride 108 meq/L (98-107); Glomerular Filtration Rate 50 mL/min (>89); Glucose,Random 148 mg/dL (74-106); Potassium 3.7 meq/L (3.5-5.1); Sodium 143 meq/L (136-145)
[2018-06-23 19:29] LABS: Alanine Aminotransferase 17 U/L (12-78)
[2018-06-23 19:33] LABS: Alkaline Phosphatase 99 U/L (45-117); Total Protein 5.9 g/dL (6.4-8.2); Troponin I 0.36 ng/mL (0.02-0.05)
[2018-06-23 19:37] LABS: Creatine Kinase 41 U/L (39-308)
--- NOTE | 2018-06-23 21:10 | CT ---
EXAM DATE: 06/23/2018 8:56 PM EDT AGE/SEX: 77 years / Male INDICATIONS: Chest pain shortness of breath CLINICAL DATA: This is the patient's initial encounter. Patient reports that signs and symptoms have been present for 1 day and indicates a pain score of 4/10. MEDICAL/SURGICAL HISTORY: Cardiovascular disease. Hypertension. Hypertension. pvd . stomach bebo ign neoplasm RADIATION DOSE: 19.26 CTDI (mGy) COMPARISON: No prior exams available for comparison. TECHNIQUE: Volumetric scanning was performed using a multi-row detector CT scanner during bolus infu cruzito of 73 ml Omnipaque 350 (iohexol) nonionic water-soluble contrast as a single exam dose. The meseret a was post processed with a variety of visualization algorithms including full volume maximum intensi ty projection and sliding thin slab reformation. Using automated exposure control and adjustment of the mA and/or kV according to patient size, radiation dose was kept as low as reasonably achievable t o obtain optimal diagnostic quality images. DICOM format image data is available electronically for review and comparison. FINDINGS: No pulmonary embolus. Mild panchamber enlargement of the heart. Patient has had previous median swan otomy and aortic valve surgery. Large bilateral pleural effusions and dependent/compressive atelectasis present. CONCLUSION: 1. No pulmonary embolus. 2. Large pleural effusions and compressive/dependent atelectasis of both lungs. Electronically signed by: Roscoe Bearden MD 06/23/2018 9:08 PM EDT
[2018-06-24] MEDS ORDERED: Dextrose 50% in Water 50 ML Vial IV.PUSH PRN (01:25)
[2018-06-24] MEDS ORDERED: Temazepam 15 MG Capsule PO PRN (01:26)
[2018-06-24] MEDS ORDERED: Bisacodyl 10 MG Supp RECTAL PRN (01:26)
[2018-06-24] MEDS ORDERED: Warfarin Consult Pharmacy 1 EACH OTHER SCH (02:00)
[2018-06-24 02:45] LABS: Troponin I 0.33 ng/mL (0.02-0.05)
[2018-06-24] MEDS: Insulin NovoLOG Aspart Correctional Sugar Inj SQ SCH ×5 (03:29→21:14)
[2018-06-24] MEDS: Sod Chloride 0.9% Inj 1,000 ML IV.CONT SCH ×2 (03:37→18:13)
--- NOTE | 2018-06-24 04:24 | P.HP ---
History of Present Illness Service: [facility] Primary Care Physician: UNKNOWN History of Present Illness: 77-year-old male with a past medical history significant for deafness, coronary artery disease, chronic kidney disease, diabetes mellitus, hypertension, hyperlipidemia and peripheral vascular disease presents to the emergency department for the evaluation of chest pain and shortness of breath. The patient had a two-vessel CABG and aortic valve replacement on June 02. He complains of a sharp and stabbing pain across his whole chest. It is nonradiating. The patient states that he has been short of breath all day and endorses palpitations. Inpatient Certification: I certify that the inpatient services were ordered in accordance with Medicare regulations governing the order. This includes certification that hospital inpatient services are reasonable and necessary and in the case of services not specified as inpatient-only under 42 CFR 419.22(n), that they are appropriately provided as inpatient services in accordance to with the 2-midnight benchmark under 43 CFR 412.3(e) Estimated Total Length of Stay (Days): 2 Plans for Post Hospital Care: Not yet determined Review of Systems Denies fever or chills Denies blurry vision, otorrhea, rhinorrhea Denies sore throat and cough No abdominal pain Denies constipation/diarrhea/nausea/vomiting Denies muscle pain Denies focal weakness No rashes PMFSH - History History Provided By: Patient - Medical History Medical History: Medical History (Last Reviewed 06/23/18 @ 18:49 by ROSE Oates) CAD (coronary artery disease) CKD (chronic kidney disease) Coronary artery stenosis Deaf Diabetes mellitus HTN (hypertension) Heart murmur Hyperlipidemia PVD (peripheral vascular disease) Prostate cancer Skin cancer Stomach benign neoplasm - Surgical History Surgical History: Surgical History (Last Reviewed 06/23/18 @ 18:49 by ROSE Oates) H/O hernia repair H/O radical prostatectomy History of appendectomy Stented coronary artery - Tobacco History Second Hand Smoke Exposure: No Smoking Status: Unknown if ever smoked Tobacco Type: Cigarettes - Alcohol History How Often Do You Have a Drink Containing Alcohol: Never - Substance Use History Substance History: No History of Abuse - Immunization History Tetanus Immunization: Unsure Hx Influenza Vaccine This Season: No Medications and Allergies Active Medications: Active Medications Acetaminophen (Tylenol) 650 mg PO Q4H PRN PRN Reason: Temp > 100.4 Al Hydroxide/Mg Hydroxide (Milk Of Magnesia Liq) 30 ml PO Q12H PRN PRN Reason: Mild Constipation Albuterol (Duoneb Neb (Prn)) 1 ampul NEB Q6HR NEB PRN PRN Reason: wheezing Amiodarone HCl (Cordarone) 200 mg PO Q12HR [facility] Bisacodyl (Dulcolax Supp) 10 mg RECTAL DAILY PRN PRN Reason: SEVERE CONSITIPATION Dextrose (D50w Vial) 50 ml IV.PUSH UNSCH PRN PRN Reason: PER HYPOGLYCEMIA PROTOCOL Ferrous Sulfate (Ferrrous Sulfate Liq) 300 mg PO BID@1200,1700 [facility] Glucagon (Glucagon Inj) 1 mg OTHER PRN PRN PRN Reason: for Hypoglycemia Protocol Heparin Sodium (Porcine) (Heparin Inj) 5,000 units SQ Q8HR [facility] Sodium Chloride (Ns Inj) 1,000 mls @ 75 mls/hr IV.CONT .[id number] [facility] Last Admin: 06/24/18 03:37 Dose: 75 mls/hr Pharmacy Profile Note (Coumadin Consult Pharmacy) 0 mls @ 0 mls/hr OTHER UNSCH [facility] Insulin Aspart (Novolog Insulin Correctional Sugar Inj) 0 unit SQ ACHS AND 3AM [facility]; Protocol Last Admin: 06/24/18 03:29 Dose: Not Given Lactulose (Lactulose Liq) 30 ml PO DAILY PRN PRN Reason: SEVERE CONSITIPATION Metoprolol Tartrate (Lopressor) 25 mg PO BID [facility] Ondansetron HCl (Zofran Inj) 4 mg IV.PUSH Q6H PRN PRN Reason: NAUSEA OR VOMITING Pantoprazole Sodium (Protonix) 40 mg PO DAILY@06 [facility] Senna/Docusate Sodium (Tessa-Colace) 1 tab PO BID [facility] Sennosides (Senokot) 17.2 mg PO Q12H PRN PRN Reason: Moderate Constipation Sodium Chloride (Ns Flush) 2 ml IV.FLUSH UNSCH PRN PRN Reason: FLUSH AFTER USING IV ACCESS Temazepam (Restoril) 15 mg PO HS PRN PRN Reason: INSOMNIA Warfarin Sodium (Coumadin) 4 mg PO DAILY@1600 [facility] Allergies Allergy/AdvReac Type Severity Reaction Status Date / Time acetaminophen Allergy Severe Verified 05/14/18 08:05 butalbital Allergy Severe Verified 05/14/18 08:05 erythromycin base Allergy Severe Verified 05/14/18 08:05 tamsulosin Allergy Severe Verified 05/14/18 08:05 Home Medications Medication Instructions Recorded Confirmed Type metformin 500 mg PO BID 06/02/18 06/23/18 History acetaminophen 650 mg PO Q4H PRN 06/23/18 06/23/18 History amoxicillin-pot clavulanate 1 tab PO BID 06/23/18 06/23/18 History [Augmentin] warfarin [Coumadin] 4 mg PO DAILY@1600 06/23/18 06/23/18 History Exam Vital signs: Vital Signs 06/23/18 18:12 06/23/18 18:18 06/23/18 19:00 Temperature 98.2 F Pulse Rate 85 60 58 L Respiratory Rate 18 18 18 Blood Pressure 169/65 H 169/65 H 168/71 H Pulse Oximetry 98 100 100 06/23/18 22:30 06/24/18 03:21 06/24/18 03:22 Temperature Pulse Rate 70 70 Respiratory Rate 17 17 Blood Pressure 171/72 H 171/72 H Pulse Oximetry 95 100 100 06/24/18 03:23 Temperature Pulse Rate Respiratory Rate Blood Pressure Pulse Oximetry 100 Intake & Output 06/23/18 06/23/18 06/24/18 06:59 18:59 06:59 Weight 88 kg Narrative: Gen.: No acute distress Head: Normocephalic. Atraumatic. EENT: Pupils equal round and reactive to light. Nose without drainage. Airway intact. Throat without injection. Cardiovascular: Regular rate and rhythm. No murmurs, rubs or gallops. Respiratory: Lungs clear to auscultation bilaterally. No wheezes or rhonchi. Abdomen: Soft, nontender, nondistended. No peritoneal signs. Musculoskeletal: No gross deformities. No edema. Skin: Sacral ulcer, mid back ulcer and left foot wound Neuro: Sensory and motor grossly intact. Cranial nerves II through XII grossly intact. Psych: Appropriate mood and affect Results - Labs CBC & Chem 7: 06/23/18 18:35 06/23/18 18:35 Labs: Laboratory Results - last 24 hr 06/23/18 06/23/18 06/23/18 18:35 18:35 18:35 WBC 8.0 RBC 3.19 L Hgb 9.2 L Hct 28.9 L MCV 90.7 MCH 29.0 MCHC 32.0 RDW 16.4 Plt Count 364 MPV 7.6 Neut % (Auto) 77.9 H Lymph % (Auto) 8.9 L [place] % (Auto) 6.9 Eos % (Auto) 5.4 H Baso % (Auto) 0.9 Neut # (Auto) 6.3 Lymph # (Auto) 0.7 L [place] # (Auto) 0.6 Eos # (Auto) 0.4 Baso # (Auto) 0.1 WBC Differential . Differential Comment Auto diff final PT 17.3 H D INR 1.7 APTT 30.9 H D-Dimer Quant (PE/DVT) 3.38 H Sodium 143 Potassium 3.7 Chloride 108 H Carbon Dioxide 25.4 Anion Gap 10 BUN 22 H Creatinine 1.38 H Estimated GFR 50 L POC Glucose Random Glucose 148 H Calcium 8.2 L Magnesium 2.0 Total Bilirubin 0.5 AST 10 L ALT 17 Alkaline Phosphatase 99 Total Creatine Kinase 41 Troponin I 0.36 H B-Natriuretic Peptide Total Protein 5.9 L Albumin 2.4 L 06/23/18 06/24/18 06/24/18 18:35 02:20 03:17 WBC RBC Hgb Hct MCV MCH MCHC RDW Plt Count MPV Neut % (Auto) Lymph % (Auto) [place] % (Auto) Eos % (Auto) Baso % (Auto) Neut # (Auto) Lymph # (Auto) [place] # (Auto) Eos # (Auto) Baso # (Auto) WBC Differential Differential Comment PT INR APTT D-Dimer Quant (PE/DVT) Sodium Potassium Chloride Carbon Dioxide Anion Gap BUN Creatinine Estimated GFR POC Glucose 151 H Random Glucose Calcium Magnesium Total Bilirubin AST ALT Alkaline Phosphatase Total Creatine Kinase 41 Troponin I 0.33 H B-Natriuretic Peptide 375 H Total Protein Albumin - Imaging Impressions Chest X-Ray 06/23/18 18:25 CONCLUSION: Persistent bilateral pleural effusions and basilar consolidation without significant change. Chest CTA 06/23/18 19:40 CONCLUSION: 1. No pulmonary embolus. 2. Large pleural effusions and compressive/dependent atelectasis of both lungs. Caprini VTE Risk Assessment Caprini VTE Risk Assessment: Moderate/High Risk (score >= 2) Caprini Risk Assessment Model: Point Value = 1 Point Value = 2 Point Value = 3 Point Value = 5 Age 41-60 Minor surgery BMI > 25 kg/m2 Swollen legs Varicose veins or History of unexplained or recurrent spontaneous Oral contraceptives or hormone replacement Sepsis (< 1 month) Serious lung disease, including pneumonia (< 1 month) Abnormal pulmonary function Acute myocardial infarction Congestive heart failure (< 1 month) History of inflammatory bowel disease Medical patient at bed rest Age 61-74 Arthroscopic surgery Major open surgery (> 45 min) Laparoscopic surgery (> 45 min) Malignancy Confined to bed (> 72 hours) Immobilizing plaster cast Central venous access Age >= 75 History of VTE Family history of VTE Factor V Leiden Prothrombin [id number] Lupus anticoagulant Anticardiolipin antibodies Elevated serum homocysteine Heparin-induced thrombocytopenia Other congenital or acquired thrombophilia Stroke (< 1 month) Elective arthroplasty Hip, pelvis, or leg fracture Acute spinal cord injury (< 1 month) Prophylaxis Regimen: Total Risk Factor Score Risk Level Prophylaxis Regimen 0-1 Low Early ambulation 2 Moderate Order ONE of the following: *Sequential Compression Device (SCD) *Heparin 5000 units SQ BID 3-4 Higher Order ONE of the following medications: *Heparin 5000 units SQ TID *Enoxaparin/Lovenox 40 mg SQ daily (WT < 150 kg, CrCl > 30 mL/min) *Enoxaparin/Lovenox 30 mg SQ daily (WT < 150 kg, CrCl > 10-29 mL/min) *Enoxaparin/Lovenox 30 mg SQ BID (WT < 150 kg, CrCl > 30 mL/min) AND/OR *Sequential Compression Device (SCD) 5 or more Highest Order ONE of the following medications: *Heparin 5000 units SQ TID (Preferred with Epidurals) *Enoxaparin/Lovenox 40 mg SQ daily (WT < 150 kg, CrCl > 30 mL/min) *Enoxaparin/Lovenox 30 mg SQ daily (WT < 150 kg, CrCl > 10-29 mL/min) *Enoxaparin/Lovenox 30 mg SQ BID (WT < 150 kg, CrCl > 30 mL/min) AND *Sequential Compression Device (SCD) Assessment and Plan - Plan Assessment/plan: 1. Chest pain/CAD Initial troponin elevated at 0.36, patient is status post CABG 2 and aortic valve replacement on 06/02/18 EKG shows sinus bradycardia, pulse 59, without ST segment elevation or depression, personally reviewed ACS rule out pending; serial troponins/EKGs 2. Shortness of breath Chest CT significant for large pleural effusions and compressive atelectasis bilaterally Chest x-ray showed no significant change in the effusions Patient may require thoracentesis Supplemental oxygen 3. Diabetes mellitus Sliding-scale insulin Monitor blood glucose 4. Hypertension/hyperlipidemia Continue home medications 5. Chronic kidney disease Creatinine 1.38, plan for this patient Monitor renal function Patient is a Yarsanism, no blood products FEN N.p.o. Electrolytes: Monitor and replete as needed Warfarin
[2018-06-24] MEDS ORDERED: Heparin - SQ 10,000 UNITS/ML Vial SQ SCH (06:00)
[2018-06-24] MEDS ORDERED: Amiodarone 200 MG Tablet PO SCH (09:00)
[2018-06-24 10:26] LABS: Troponin I 0.34 ng/mL (0.02-0.05)
[2018-06-24] MEDS: Senna/Docusate Sodium 8.6/50 MG Tablet PO SCH ×2 (11:26→21:16)
--- NOTE | 2018-06-24 11:57 | P.PN ---
Subjective Interval history: Follow-up chest pain and shortness of breath. Patient seen with head of partner development. Currently denies chest pain and shortness of breath. Discussed with cardiothoracic surgery for ultrasound-guided thoracentesis. Physical Exam Vital signs: Vital Signs 06/23/18 18:12 06/23/18 18:18 06/23/18 19:00 Temperature 98.2 F Pulse Rate 85 60 58 L Respiratory Rate 18 18 18 Blood Pressure 169/65 H 169/65 H 168/71 H Pulse Oximetry 98 100 100 06/23/18 22:30 06/24/18 03:21 06/24/18 03:22 Temperature Pulse Rate 70 70 Respiratory Rate 17 17 Blood Pressure 171/72 H 171/72 H Pulse Oximetry 95 100 100 06/24/18 03:23 06/24/18 06:07 06/24/18 08:12 Temperature 97.9 F Pulse Rate 65 66 Respiratory Rate 16 27 H Blood Pressure 168/74 H 180/74 H Pulse Oximetry 100 97 97 06/24/18 08:24 Temperature Pulse Rate Respiratory Rate Blood Pressure Pulse Oximetry 97 Intake & Output 06/23/18 06/24/18 06/24/18 18:59 06:59 18:59 Output Total 500 / 500 Balance -500 / -500 Weight 88 kg Output: Urine Amount (Catheter) 500 / 500 Indwelling Urethral Catheter 500 / 500 Narrative: GENERAL: Well-developed, well-nourished in no distress SKIN: Warm and dry. CARDIOVASCULAR: Regular rate and rhythm. RESPIRATORY: No accessory muscle use. Clear to auscultation. Decreased breath sounds equal bilaterally. GASTROINTESTINAL: Abdomen soft, non-tender, nondistended. MUSCULOSKELETAL: Extremities without clubbing, cyanosis, or edema. No obvious deformities. NEUROLOGICAL: Awake and alert. No obvious cranial nerve deficits. Motor grossly within normal limits. Five out of 5 muscle strength in the arms and legs. Normal speech. Hard of hearing - Urinary Catheter Management Indwelling Urethral Catheter Cath placed during this visit: no Results - Labs CBC & Chem 7: 06/23/18 18:35 06/23/18 18:35 Laboratory Results - last 24 hr 06/23/18 06/23/18 06/23/18 18:35 18:35 18:35 WBC 8.0 RBC 3.19 L Hgb 9.2 L Hct 28.9 L MCV 90.7 MCH 29.0 MCHC 32.0 RDW 16.4 Plt Count 364 MPV 7.6 Neut % (Auto) 77.9 H Lymph % (Auto) 8.9 L [place] % (Auto) 6.9 Eos % (Auto) 5.4 H Baso % (Auto) 0.9 Neut # (Auto) 6.3 Lymph # (Auto) 0.7 L [place] # (Auto) 0.6 Eos # (Auto) 0.4 Baso # (Auto) 0.1 WBC Differential . Differential Comment Auto diff final PT 17.3 H D INR 1.7 APTT 30.9 H D-Dimer Quant (PE/DVT) 3.38 H Sodium 143 Potassium 3.7 Chloride 108 H Carbon Dioxide 25.4 Anion Gap 10 BUN 22 H Creatinine 1.38 H Estimated GFR 50 L POC Glucose Random Glucose 148 H Calcium 8.2 L Magnesium 2.0 Total Bilirubin 0.5 AST 10 L ALT 17 Alkaline Phosphatase 99 Total Creatine Kinase 41 Troponin I 0.36 H B-Natriuretic Peptide Total Protein 5.9 L Albumin 2.4 L 06/23/18 06/24/18 06/24/18 18:35 02:20 03:17 WBC RBC Hgb Hct MCV MCH MCHC RDW Plt Count MPV Neut % (Auto) Lymph % (Auto) [place] % (Auto) Eos % (Auto) Baso % (Auto) Neut # (Auto) Lymph # (Auto) [place] # (Auto) Eos # (Auto) Baso # (Auto) WBC Differential Differential Comment PT INR APTT D-Dimer Quant (PE/DVT) Sodium Potassium Chloride Carbon Dioxide Anion Gap BUN Creatinine Estimated GFR POC Glucose 151 H Random Glucose Calcium Magnesium Total Bilirubin AST ALT Alkaline Phosphatase Total Creatine Kinase 41 Troponin I 0.33 H B-Natriuretic Peptide 375 H Total Protein Albumin 06/24/18 06/24/18 08:04 10:29 WBC RBC Hgb Hct MCV MCH MCHC RDW Plt Count MPV Neut % (Auto) Lymph % (Auto) [place] % (Auto) Eos % (Auto) Baso % (Auto) Neut # (Auto) Lymph # (Auto) [place] # (Auto) Eos # (Auto) Baso # (Auto) WBC Differential Differential Comment PT INR APTT D-Dimer Quant (PE/DVT) Sodium Potassium Chloride Carbon Dioxide Anion Gap BUN Creatinine Estimated GFR POC Glucose 129 H Random Glucose Calcium Magnesium Total Bilirubin AST ALT Alkaline Phosphatase Total Creatine Kinase 43 Troponin I 0.34 H B-Natriuretic Peptide Total Protein Albumin - Imaging Impressions Chest X-Ray 06/23/18 18:25 CONCLUSION: Persistent bilateral pleural effusions and basilar consolidation without significant change. Chest CTA 06/23/18 19:40 CONCLUSION: 1. No pulmonary embolus. 2. Large pleural effusions and compressive/dependent atelectasis of both lungs. Assessment and Plan - Plan 1. CAD. Currently denies chest pain. Elevated troponin status post CABG and AVR. EKG with no ST-T changes. Doubt ACS. 2. Shortness of breath secondary to bilateral pleural effusion. Ultrasound- guided thoracentesis. Supplemental oxygen 3. Diabetes mellitus. Monitor fingersticks and sliding scale coverage 4. Fib/CVA /hypertension/hyperlipidemia. EKG with sinus rhythm stable continue home medications as appropriate. Hold Coumadin for now because of thoracentesis 5. Acute versus chronic kidney disease stage 3. Nonoliguric. Continue gentle IV hydration 6. Wound care 7. Urinary retention. Allergic to Flomax. Voiding trial. DVT prophylaxis with SCD and early ambulation patient is a Restorationism, no blood products Discharge Planning: SNF
[2018-06-24] MEDS: Metoprolol Tartrate 25 MG Tablet PO SCH ×2 (12:29→21:14)
[2018-06-24 13:44] LABS: INR 1.7 Ratio; Prothrombin Time 17.4 sec (9.8-11.6)
--- NOTE | 2018-06-24 14:07 | MB ---
cc: Yasir Beavers MD DATE: 06/24/2018 HISTORY OF PRESENT ILLNESS: This 77-year-old patient, known to our service recently admitted 06/02/2018 and discharge 06/12/2018. The patient with a known history of coronary artery disease, prior stenting, also severe aortic valve stenosis, ejection fraction 50-60%. Underwent coronary artery bypass grafting x 2, the RAPP to the LAD, saphenous vein graft to the ramus marginalis, also aortic valve replacement with a #23 Medtronic Mosaic tissue valve, right leg endoscopic harvesting on 06/02/2018. The patient is Jehovah Witness and does not accept blood products, was very anemic during the course of his postoperative stay. He was also placed on Epogen and iron supplement. He required an muffler tender at the bedside 09/06. He normally uses sign language, but he had difficulty with even doing so and required a bedside muffler tender. Apparently on the , he developed some left-sided weakness and was evaluated by Neurology. He had showed multiple CVA in all territories. The infarct was predominantly in the watershed zone areas. He persisted with some left-sided weakness in the arm and the leg. He also went into atrial fibrillation with RVR during the course of his stay, he was placed on amiodarone. He did convert once and then was started on the Coumadin. There was also concern for probable aspiration pneumonia and he was treated with IV antibiotics. The patient also had some urinary retention and was evaluated by Dr. Bruce Fulton who instructed to maintain Oliva catheter, voiding trial at rehab. The patient still has the Oliva catheter in place on this admission. Reason for admission on this visit was because of shortness of breath and fatigue. Also some chest discomfort across his chest. They did do a CTA of the chest which showed bilateral pleural effusions, moderate to large, the right being greater than the left. He also had some elevated troponins. The CTA was negative for pulmonary emboli. We were consulted for evaluation. PAST MEDICAL HISTORY: Includes aortic valve disease, coronary artery disease, diabetes mellitus, peripheral vascular disease, chronic kidney disease, atrial fibrillation, chronic anticoagulation, and history of prostate cancer. The patient is deaf and requires an muffler tender. PAST SURGICAL HISTORY: Include coronary artery bypass grafting x 2, aortic valve replacement on 06/02/2018, history of hernia repair, radical prostatectomy, appendectomy, and prior stent. ALLERGIES:
[2018-06-24] MEDS: Ferrrous Sulfate 300 MG/5 ML UDC PO SCH ×2 (15:48→18:35)
--- NOTE | 2018-06-24 22:13 | ECG ---
Date Performed: 06/24/2018 Time Performed: 02:15:34 PTAGE: 77 years EKG: Sinus rhythm NONSPECIFIC T-WAVE ABNORMALITY BORDERLINE ECG INTERPRETATION BASED ON A DEFAULT AGE OF 40 YEARS NO PREVIOUS TRACING DOCTOR: Thierno Duenas Interpretating Date/Time 06/24/2018 22:10:54
--- NOTE | 2018-06-24 22:31 | ECG ---
Date Performed: 06/23/2018 Time Performed: 18:42:34 PTAGE: 77 years EKG: SINUS BRADYCARDIA NONSPECIFIC ST & T-WAVE ABNORMALITY BORDERLINE ECG PREVIOUS TRACING : 06/08/2018 11.47 Compared to previous tracing, afib is no longer present DOCTOR: Thierno Duenas Interpretating Date/Time 06/24/2018 22:28:11
[2018-06-25] MEDS: Insulin NovoLOG Aspart Correctional Sugar Inj SQ SCH ×4 (02:56→18:15)
[2018-06-25 06:01] LABS: Baso # (Auto) 0.1 th/mm3 (0.0-0.2); Baso % (Auto) 1.5 % (0.0-2.0); Eos # (Auto) 0.5 th/mm3 (0.0-0.4); Hematocrit 29.1 % (39.0-51.0); Hemoglobin 9.3 gm/dL (13.0-17.0); Lymph # (Auto) 0.7 th/mm3 (1.0-4.8); Lymph % (Auto) 10.2 % (9.0-44.0); Mean Corpuscular HGB Conc 32.1 % (32.0-36.0); Mean Corpuscular Hemoglobin 28.7 pg (27.0-34.0); Mean Corpuscular Volume 89.4 fL (80.0-100.0); Mean Platelet Volume 7.5 fL (7.0-11.0); Mono # (Auto) 0.4 th/mm3 (0.0-0.9); Mono % (Auto) 6.4 % (0.0-8.0); Neut # (Auto) 5.1 th/mm3 (1.8-7.7); Neut % (Auto) 74.9 % (16.0-70.0); Platelet Count 325 th/mm3 (150-450); Red Blood Count 3.26 mil/mm3 (4.50-5.90); Red Cell Distribution Width 16.3 % (11.6-17.2); White Blood Count 6.9 th/mm3 (4.0-11.0)
[2018-06-25 06:04] LABS: INR 1.7 Ratio; Prothrombin Time 16.9 sec (9.8-11.6)
[2018-06-25 06:26] LABS: Calcium 8.4 mg/dL (8.5-10.1); Carbon Dioxide 23.8 meq/L (21.0-32.0); Potassium 3.4 meq/L (3.5-5.1)
[2018-06-25] MEDS: Metoprolol Tartrate 25 MG Tablet PO SCH (08:25)
[2018-06-25] MEDS: Senna/Docusate Sodium 8.6/50 MG Tablet PO SCH (08:26)
[2018-06-25] MEDS ORDERED: Potassium Chloride 25 MEQ Effervescent Tablet PO ONE (10:00)
[2018-06-25] MEDS: Ferrrous Sulfate 300 MG/5 ML UDC PO SCH ×2 (11:07→18:09)
[2018-06-25] MEDS: Sod Chloride 0.9% Inj 1,000 ML IV.CONT SCH (11:53)
--- NOTE | 2018-06-25 12:10 | P.PNCV ---
- Note Subjective/Hospital Course: 77-year-old patient, known to our service recently admitted 06/02/2018 and discharge 06/12/2018. The patient with a known history of coronary artery disease, prior stenting, also severe aortic valve stenosis, ejection fraction 50 -60%. Underwent coronary artery bypass grafting x 2, the RAPP to the LAD, saphenous vein graft to the ramus marginalis, also aortic valve replacement with a #23 Medtronic Mosaic tissue valve, right leg endoscopic harvesting on . He patient is Jehovah Witness and does not accept blood products, was very anemic during the course of his postoperative stay, placed on Epogen and iron supplement. Pt is deaf mute he required an court interpreter at the bedside . He normally uses sign language, but he had difficulty with even doing so and required a bedside court interpreter. Apparently on the , he developed some left-sided weakness and was evaluated by Neurology. He had showed multiple CVA in all territories. The infarct was predominantly in the watershed zone areas. He persisted with some left-sided weakness in the arm and the leg. He also went into atrial fibrillation with RVR during the course of his stay, he was placed on amiodarone. He did convert once and then was started on the Coumadin. There was also concern for probable aspiration pneumonia and he was treated with IV antibiotics. The patient also had some urinary retention and was evaluated by Dr. Bruce Fulton who instructed to maintain Oliva catheter, voiding trial at rehab. The patient still has the Oliva catheter in place on this admission. Reason for admission on this visit was because of shortness of breath and fatigue. Also some chest discomfort across his chest. They did do a CTA of the chest which showed bilateral pleural effusions, moderate to large, the right being greater than theleft. He also had some elevated troponins. The CTA was negative for pulmonary emboli. We were consulted for evaluation. 06/25 pt on room air / sat 94% coumadin on hold , await thoracentesis today court interpreter at bedside 2D echo ordered r/o pericardial effusion / and EF / recent AVR Objective: Vital Signs - 24 hr 06/24/18 18:16 06/24/18 19:00 06/24/18 20:00 Temperature 98.3 F 98.4 F Pulse Rate 96 H 67 72 Respiratory Rate 24 16 Blood Pressure 178/73 H 192/75 H Pulse Oximetry 98 94 L 06/24/18 20:22 06/24/18 23:00 06/24/18 23:46 Temperature Pulse Rate 56 L 55 L 71 Respiratory Rate 17 Blood Pressure Pulse Oximetry 06/24/18 23:51 06/25/18 03:19 06/25/18 07:00 Temperature 98.4 F 97.9 F Pulse Rate 68 63 67 Respiratory Rate 16 16 Blood Pressure 167/78 H 129/63 Pulse Oximetry 94 L 94 L 06/25/18 08:00 06/25/18 09:00 Temperature 97.5 F L Pulse Rate 66 62 Respiratory Rate 36 H Blood Pressure 171/95 H Pulse Oximetry 94 L GENERAL: A&O x 3 / responds appropriately , court interpreter at bedside SKIN: Warm and dry. sternal incision intact and well approximated , dressing to left foot HEAD: Normocephalic. EYES: No scleral icterus. No injection or drainage. NECK: Supple, trachea midline. No JVD or lymphadenopathy. CARDIOVASCULAR: Regular rate and rhythm without murmurs, gallops, or rubs. RESPIRATORY: Breath sounds equal bilaterally. No accessory muscle use. diminished in both bases up to mid lobes GASTROINTESTINAL: Abdomen soft, non-tender, nondistended. MUSCULOSKELETAL: No cyanosis, or edema. BACK: Nontender without obvious deformity. No CVA tenderness. Labs: Laboratory Results - last 12 hr 06/25/18 06/25/18 06/25/18 02:48 04:57 04:57 WBC 6.9 RBC 3.26 L Hgb 9.3 L Hct 29.1 L MCV 89.4 MCH 28.7 MCHC 32.1 RDW 16.3 Plt Count 325 MPV 7.5 Neut % (Auto) 74.9 H Lymph % (Auto) 10.2 [place] % (Auto) 6.4 Eos % (Auto) 7.0 H Baso % (Auto) 1.5 Neut # (Auto) 5.1 Lymph # (Auto) 0.7 L [place] # (Auto) 0.4 Eos # (Auto) 0.5 H Baso # (Auto) 0.1 WBC Differential . Differential Comment Auto diff final PT INR Sodium 143 Potassium 3.4 L Chloride 108 H Carbon Dioxide 23.8 Anion Gap 11 BUN 20 H Creatinine 1.26 Estimated GFR 55 L POC Glucose 131 H Random Glucose 124 H Calcium 8.4 L 06/25/18 06/25/18 06/25/18 04:57 07:39 11:14 WBC RBC Hgb Hct MCV MCH MCHC RDW Plt Count MPV Neut % (Auto) Lymph % (Auto) [place] % (Auto) Eos % (Auto) Baso % (Auto) Neut # (Auto) Lymph # (Auto) [place] # (Auto) Eos # (Auto) Baso # (Auto) WBC Differential Differential Comment PT 16.9 H INR 1.7 Sodium Potassium Chloride Carbon Dioxide Anion Gap BUN Creatinine Estimated GFR POC Glucose 148 H 144 H Random Glucose Calcium Result Diagrams: 06/25/18 04:57 06/25/18 04:57 Telemetry: sinus bradycardia - Plan (2) CAD (coronary artery disease), [place] coronary artery Plan: ASA, stop amiodarone OOB/ PT pulm toileting (6) Deaf mutism, congenital Plan: court interpreter at bedside (7) History of CVA (cerebrovascular accident) Plan: resume coumadin after thoracentesis (2) CAD (coronary artery disease), [place] coronary artery Qualifiers: [place] vs. transplanted heart: [place] heart
--- NOTE | 2018-06-25 15:22 | P.PNIM ---
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 He says that shortness of breath has improved slightly. Denies chest pain. Physical Exam Vital signs: Vital Signs 06/24/18 18:16 06/24/18 19:00 06/24/18 20:00 Temperature 98.3 F 98.4 F Pulse Rate 96 H 67 72 Respiratory Rate 24 16 Blood Pressure 178/73 H 192/75 H Pulse Oximetry 98 94 L 06/24/18 20:22 06/24/18 23:00 06/24/18 23:46 Temperature Pulse Rate 56 L 55 L 71 Respiratory Rate 17 Blood Pressure Pulse Oximetry 06/24/18 23:51 06/25/18 03:19 06/25/18 07:00 Temperature 98.4 F 97.9 F Pulse Rate 68 63 67 Respiratory Rate 16 16 Blood Pressure 167/78 H 129/63 Pulse Oximetry 94 L 94 L 06/25/18 08:00 06/25/18 09:00 06/25/18 11:00 Temperature 97.5 F L 97.1 F L Pulse Rate 66 62 58 L Respiratory Rate 36 H 36 H Blood Pressure 171/95 H 197/73 H Pulse Oximetry 94 L 95 06/25/18 13:15 06/25/18 14:10 Temperature Pulse Rate 63 62 Respiratory Rate Blood Pressure 180/74 H 165/89 H Pulse Oximetry 94 L 94 L Intake & Output 06/24/18 06/25/18 06/25/18 18:59 06:59 18:59 Intake Total 240 / 240 240 / 240 Output Total 500 / 500 250 / 250 Balance -260 / -260 -10 / -10 Intake: Oral 240 / 240 240 / 240 Output: Urine 250 / 250 Urine Amount (Catheter) 500 / 500 Indwelling Urethral Catheter 500 / 500 Other: # Voids 2 # Incontinent Voids 1 1 Date of Last Bowel Movement 06/24/18 # Bowel Movements 2 # Incontinent Bowel Movements 1 2 Narrative: GENERAL: Sitting up in bed. Appears comfortable. Alert and oriented SKIN: Warm and dry. HEAD: Normocephalic. EYES: No scleral icterus. No injection or drainage. NECK: Supple, trachea midline. No JVD . CARDIOVASCULAR: Regular rate and rhythm without murmurs, gallops, or rubs. RESPIRATORY: Breath sounds diminished bilaterally. No accessory muscle use. GASTROINTESTINAL: Abdomen soft, non-tender, nondistended. MUSCULOSKELETAL: No cyanosis, or edema. Left heel with stage I, possibly unstageable pressure ulcer with serous drainage. No surrounding erythema BACK: Nontender without obvious deformity. No CVA tenderness. - Urinary Catheter Management Indwelling Urethral Catheter Cath placed during this visit: no Results - Labs CBC & Chem 7: 06/25/18 04:57 06/25/18 04:57 Laboratory Results - last 24 hr 06/24/18 06/24/18 06/25/18 18:01 20:24 02:48 WBC RBC Hgb Hct MCV MCH MCHC RDW Plt Count MPV Neut % (Auto) Lymph % (Auto) [place] % (Auto) Eos % (Auto) Baso % (Auto) Neut # (Auto) Lymph # (Auto) [place] # (Auto) Eos # (Auto) Baso # (Auto) WBC Differential Differential Comment PT INR Sodium Potassium Chloride Carbon Dioxide Anion Gap BUN Creatinine Estimated GFR POC Glucose 133 H 172 H 131 H Random Glucose Calcium 06/25/18 06/25/18 06/25/18 04:57 04:57 04:57 WBC 6.9 RBC 3.26 L Hgb 9.3 L Hct 29.1 L MCV 89.4 MCH 28.7 MCHC 32.1 RDW 16.3 Plt Count 325 MPV 7.5 Neut % (Auto) 74.9 H Lymph % (Auto) 10.2 [place] % (Auto) 6.4 Eos % (Auto) 7.0 H Baso % (Auto) 1.5 Neut # (Auto) 5.1 Lymph # (Auto) 0.7 L [place] # (Auto) 0.4 Eos # (Auto) 0.5 H Baso # (Auto) 0.1 WBC Differential . Differential Comment Auto diff final PT 16.9 H INR 1.7 Sodium 143 Potassium 3.4 L Chloride 108 H Carbon Dioxide 23.8 Anion Gap 11 BUN 20 H Creatinine 1.26 Estimated GFR 55 L POC Glucose Random Glucose 124 H Calcium 8.4 L 06/25/18 06/25/18 07:39 11:14 WBC RBC Hgb Hct MCV MCH MCHC RDW Plt Count MPV Neut % (Auto) Lymph % (Auto) [place] % (Auto) Eos % (Auto) Baso % (Auto) Neut # (Auto) Lymph # (Auto) [place] # (Auto) Eos # (Auto) Baso # (Auto) WBC Differential Differential Comment PT INR Sodium Potassium Chloride Carbon Dioxide Anion Gap BUN Creatinine Estimated GFR POC Glucose 148 H 144 H Random Glucose Calcium Assessment and Plan - Plan //CAD. //With heart valve replacement Currently denies chest pain. Elevated troponin status post CABG and AVR. EKG with no ST-T changes. Doubt ACS. = Anticoagulation as per cardiothoracic surgery. //Shortness of breath secondary to bilateral pleural effusion. Ultrasound- guided thoracentesis. Supplemental oxygen = 06/25 thoracentesis planned for today. Appreciate cardiothoracic surgery assistance. //Diabetes mellitus. Monitor fingersticks and sliding scale coverage = 06/25. Glucose acceptable. //Fib/CVA /hypertension/hyperlipidemia. EKG with sinus rhythm stable continue home medications as appropriate. Hold Coumadin for now because of thoracentesis //Acute versus chronic kidney disease stage 3. Nonoliguric. Continue gentle IV hydration = 06/25. Creatinine stable. //Left heel ulcer from rehab Wound care nurse consulted //Urinary retention. Allergic to Flomax. -Voiding. //Hypokalemia. 3.4. Mild. Replace and monitor. DVT prophylaxis with SCD and early ambulation patient is a Zoroastrian, no blood products Discharge Planning: Pending cardiothoracic surgery clearance
--- NOTE | 2018-06-25 17:01 | P.PNWCN ---
Wound Care Nurse Consult Description: Consult for Wound Management of sacrum, back left foot per Dr Lin Communicated with: ANTON Harris Patient family member/friend at bedside Additional information: Attempted to see patient earlier today from [id number] however patient was urinating upon arrival and then family member/friend stated that the patient wanted to get up and walk into the restroom to have a bm. ANTON Harris states that he is supposed to go down for a thoracentesis as well. Patient will be followed up on tomorrow early Friday06/26/18
--- NOTE | 2018-06-25 17:06 | XR ---
EXAM DATE: 06/25/2018 5:02 PM EDT AGE/SEX: 77 years / Male INDICATIONS: Post right thoracentesis CLINICAL DATA: This is the patient's subsequent encounter. Patient reports that signs and symptoms h ave been present for 3 days and indicates a pain score of 0/10. MEDICAL/SURGICAL HISTORY: . Cardiovascular disease. . CABG COMPARISON: C, CHEST 1V SINGLE AP, 06/23/2018. . FINDINGS: There is mild consolidation at the left base and a small to moderate, not significantly changed. Righ t lung is now essentially clear. No pneumothorax. Heart size stable, upper limits of normal. Median sternotomy changes are again noted. CONCLUSION: 1. Consolidation and small to moderate effusion at the left base not significantly changed. 2. Interim clearing of the right lung post thoracentesis. No pneumothorax demonstrated. Electronically signed by: Roscoe Bearden MD 06/25/2018 5:04 PM EDT
--- NOTE | 2018-06-25 17:15 | US ---
EXAM DATE: 06/25/2018 5:12 PM EDT AGE/SEX: 77 years / Male INDICATIONS: Right pleural effusion. CLINICAL DATA: This is the patient's initial encounter. Patient reports that signs and symptoms have been present for 3 days and indicates a pain score of 2/10. MEDICAL/SURGICAL HISTORY: . Carcinoma, prostatic. Coronary artery disease and stenosis. CKD. De af. Diabetes. Heart murmur. HTN. Hyperlipidemia. PVD. Skin cancer. Stomach benign neoplasm. . Append ectomy. Hernia repair. Radical prostatectomy. Stented coronary artery. COMPARISON: [facility] [place], CT THORAX W/O CONTRAST, 05/14/2018. . FLUID: Total volume of 2300 cc of clear, red fluid was removed. Fluid was discarded. Thoracentesis was therapeutic only. . . TECHNIQUE: Ultrasound guidance for thoracentesis. Thoracentesis. The risks, benefits, and alternatives to ultrasound guided thoracentesis were explained to the patien t in lay simple terms, including the risk of bleeding and infection. Written and verbal informed con sent was obtained. Appropriate area for right thoracentesis was marked under ultrasound guidance with the patient in the upright position. Overlying skin was prepped and draped in the usual sterile fashion and with local anesthetic, a dermatotomy was made with an 11 blade scalpel. A 6 Thai thoracentesis catheter was placed in the pleural space and fluid was removed. Catheter was then removed and a sterile dressing applied. There were no immediate complications. The patient tolerated the procedure well and the lef t the ultrasound suite in stable condition. Chest radiograph is to be obtained. CONCLUSION: 1. Successful right-sided thoracentesis Electronically signed by: Humphrey Marcus MD 06/25/2018 5:13 PM EDT
--- NOTE | 2018-06-25 19:25 | ECHRPT ---
Indication: HEART FAILURE CONCLUSIONS Normal left ventricular size. Wall thickness is normal. The left ventricular systolic function is low normal with an estimated ejection fraction in the rang e of 50%. Mitral annular calcification is present. The aortic valve prosthesis is not well seen but is is normal to color flow and Doppler interrogatio n. The estimated pulmonary arterial pressure is 38 mmHg. A moderate left sided pleural effusion is noted. BP: / HR: Rhythm: MEASUREMENTS (Male / Female) Normal Values Technical Quality: 2D ECHO LV Diastolic Diameter PLAX 4.3 cm 4.2 - 5.9 / 3.9 - 5.3 cm LV Systolic Diameter PLAX 3.4 cm IVS Diastolic Thickness 1.1 cm 0.6 - 1.0 / 0.6 - 0.9 cm LVPW Diastolic Thickness 0.6 cm 0.6 - 1.0 / 0.6 - 0.9 cm LV Relative Wall Thickness 0.4 RV Internal Dim ED PLAX 2.4 cm DOPPLER AV Peak Velocity 250.0 cm/s AV Peak Gradient 25.0 mmHg AV Mean Gradient 9.0 mmHg AV Velocity Time Integral 52.2 cm LVOT Peak Velocity 95.9 cm/s LVOT Peak Gradient 3.7 mmHg LVOT Velocity Time Integral 22.6 cm Mitral E Point Velocity 151.0 cm/s Mitral A Point Velocity 74.7 cm/s Mitral E to A Ratio 2.0 TR Peak Velocity 265.0 cm/s TR Peak Gradient 28.1 mmHg Right Atrial Pressure 10.0 mmHg Pulmonary Artery Systolic Pressu 38.1 mmHg Right Ventricular Systolic Press 38.1 mmHg FINDINGS LEFT VENTRICLE Normal left ventricular size. Wall thickness is normal. The left ventricular systolic function is low normal with an estimated ejection fraction in the rang e of 50%. RIGHT VENTRICLE Normal right ventricular size and systolic function. LEFT ATRIUM The left atrial size is normal. RIGHT ATRIUM The right atrial size is normal. ATRIAL SEPTUM Normal atrial septal thickness without atrial level shunting by limited color doppler interrogation. AORTA The aortic root and proximal ascending aorta are normal in size on limited imaging. MITRAL VALVE Mitral annular calcification is present. AORTIC VALVE The aortic valve prosthesis is not well seen but is is normal to color flow and Doppler interrogatio n. TRICUSPID VALVE The estimated pulmonary arterial pressure is 38 mmHg. PULMONARY VALVE No pulmonary valve regurgitation or stenosis. VESSELS The inferior vena cava is normal in size. PERICARDIUM A moderate left sided pleural effusion is noted. Jose Rolle MD (Electronically Signed) Final Date:25 June 2018 19:24
[2018-06-26] MEDS: Metoprolol Tartrate 25 MG Tablet PO SCH ×3 (00:21→21:43)
[2018-06-26] MEDS: Senna/Docusate Sodium 8.6/50 MG Tablet PO SCH ×3 (00:21→21:44)
[2018-06-26] MEDS: Insulin NovoLOG Aspart Correctional Sugar Inj SQ SCH ×6 (00:30→21:43)
[2018-06-26 07:15] LABS: Baso # (Auto) 0.1 th/mm3 (0.0-0.2); Baso % (Auto) 1.2 % (0.0-2.0); Eos # (Auto) 0.3 th/mm3 (0.0-0.4); Hematocrit 28.4 % (39.0-51.0); Hemoglobin 9.2 gm/dL (13.0-17.0); Lymph # (Auto) 0.6 th/mm3 (1.0-4.8); Lymph % (Auto) 8.7 % (9.0-44.0); Mean Corpuscular HGB Conc 32.4 % (32.0-36.0); Mean Corpuscular Hemoglobin 28.6 pg (27.0-34.0); Mean Corpuscular Volume 88.4 fL (80.0-100.0); Mean Platelet Volume 7.5 fL (7.0-11.0); Mono # (Auto) 0.5 th/mm3 (0.0-0.9); Mono % (Auto) 7.3 % (0.0-8.0); Neut # (Auto) 5.4 th/mm3 (1.8-7.7); Neut % (Auto) 78.8 % (16.0-70.0); Platelet Count 277 th/mm3 (150-450); Red Blood Count 3.21 mil/mm3 (4.50-5.90); Red Cell Distribution Width 16.8 % (11.6-17.2); White Blood Count 6.9 th/mm3 (4.0-11.0)
[2018-06-26 07:24] LABS: INR 1.9 Ratio; Prothrombin Time 18.8 sec (9.8-11.6)
[2018-06-26 07:53] LABS: Albumin 2.1 g/dL (3.4-5.0); Calcium 7.8 mg/dL (8.5-10.1); Carbon Dioxide 25.1 meq/L (21.0-32.0); Phosphorus 2.7 mg/dL (2.5-4.9); Potassium 4.2 meq/L (3.5-5.1)
[2018-06-26] MEDS: Sod Chloride 0.9% Inj 1,000 ML IV.CONT SCH (08:52)
--- NOTE | 2018-06-26 11:25 | P.PNWCN ---
Wound Care Nurse Consult Description: Consult for Wound Management of sacrum, back left foot per Dr Lin Additional information: Attempted to see patient on [facility], earlier this morning, pt was moved off unit for thoracentesis.. will see patient before end of day.
[2018-06-26] MEDS: Ferrrous Sulfate 300 MG/5 ML UDC PO SCH ×2 (12:50→16:30)
--- NOTE | 2018-06-26 13:17 | P.PNIM ---
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 Patient says he is feeling all right. Denies any chest pain or shortness of breath. Physical Exam Vital signs: Vital Signs 06/25/18 14:00 06/25/18 14:10 06/25/18 15:00 Temperature Pulse Rate 62 62 62 Respiratory Rate Blood Pressure 165/89 H Pulse Oximetry 94 L 94 L 06/25/18 15:59 06/25/18 16:00 06/25/18 17:00 Temperature 98.3 F Pulse Rate 66 68 64 Respiratory Rate 24 Blood Pressure 213/85 H Pulse Oximetry 92 L 06/25/18 17:15 06/25/18 17:50 06/25/18 18:00 Temperature 97.7 F Pulse Rate 63 63 64 Respiratory Rate 14 18 Blood Pressure 145/61 H 142/63 H Pulse Oximetry 93 L 94 L 06/25/18 19:00 06/25/18 20:00 06/25/18 21:00 Temperature 98.7 F Pulse Rate 68 68 60 Respiratory Rate 20 Blood Pressure 144/75 H Pulse Oximetry 96 06/25/18 22:00 06/25/18 23:00 06/26/18 00:00 Temperature 97.9 F Pulse Rate 60 71 68 Respiratory Rate 22 Blood Pressure 147/65 H Pulse Oximetry 93 L 06/26/18 01:00 06/26/18 02:00 06/26/18 02:17 Temperature Pulse Rate 58 L 54 L Respiratory Rate Blood Pressure Pulse Oximetry 93 L 06/26/18 03:00 06/26/18 04:00 06/26/18 05:00 Temperature 98.7 F Pulse Rate 62 64 52 L Respiratory Rate 18 Blood Pressure 132/58 L Pulse Oximetry 91 L 06/26/18 06:00 06/26/18 07:00 06/26/18 07:38 Temperature 99 F Pulse Rate 56 L 57 L 62 Respiratory Rate 18 Blood Pressure 154/81 H Pulse Oximetry 95 06/26/18 08:00 06/26/18 09:00 06/26/18 10:00 Temperature Pulse Rate 64 78 64 Respiratory Rate Blood Pressure Pulse Oximetry 06/26/18 11:00 06/26/18 11:39 06/26/18 12:00 Temperature 99 F Pulse Rate 58 L 62 56 L Respiratory Rate 18 Blood Pressure 154/81 H Pulse Oximetry 95 06/26/18 13:00 06/26/18 13:15 Temperature 98.8 F Pulse Rate 60 62 Respiratory Rate 18 Blood Pressure 172/86 H Pulse Oximetry 95 Intake & Output 06/25/18 06/26/18 06/26/18 18:59 06:59 18:59 Intake Total 200 / 200 Output Total 155 / 155 300 / 300 Balance -155 / -155 -100 / -100 Intake: Oral 200 / 200 Output: Urine 155 / 155 300 / 300 Other: # Voids 2 # Incontinent Voids 1 Date of Last Bowel Movement 06/25/18 06/26/18 06/26/18 # Bowel Movements 1 # Incontinent Bowel Movements 1 1 Narrative: GENERAL: Sitting up in bed. Appears comfortable. Alert and oriented SKIN: Warm and dry. HEAD: Normocephalic. EYES: No scleral icterus. No injection or drainage. NECK: Supple, trachea midline. No JVD . CARDIOVASCULAR: Regular rate and rhythm without murmurs, gallops, or rubs. RESPIRATORY: Breath sounds diminished bilaterally. No accessory muscle use. GASTROINTESTINAL: Abdomen soft, non-tender, nondistended. MUSCULOSKELETAL: No cyanosis, or edema. Left heel with stage I/2 pressure ulcer with serous drainage. No surrounding erythema. BACK: Nontender without obvious deformity. No CVA tenderness. - Urinary Catheter Management Indwelling Urethral Catheter Cath placed during this visit: no Results - Labs CBC & Chem 7: 06/26/18 06:41 06/26/18 06:41 Laboratory Results - last 24 hr 06/25/18 06/26/18 06/26/18 18:13 00:25 03:51 WBC RBC Hgb Hct MCV MCH MCHC RDW Plt Count MPV Neut % (Auto) Lymph % (Auto) [place] % (Auto) Eos % (Auto) Baso % (Auto) Neut # (Auto) Lymph # (Auto) [place] # (Auto) Eos # (Auto) Baso # (Auto) WBC Differential Differential Comment PT INR Sodium Potassium Chloride Carbon Dioxide Anion Gap BUN Creatinine Estimated GFR POC Glucose 133 H 127 H 155 H Random Glucose Calcium Phosphorus Albumin 06/26/18 06/26/18 06/26/18 06:41 06:41 06:41 WBC 6.9 RBC 3.21 L Hgb 9.2 L Hct 28.4 L MCV 88.4 MCH 28.6 MCHC 32.4 RDW 16.8 Plt Count 277 MPV 7.5 Neut % (Auto) 78.8 H Lymph % (Auto) 8.7 L [place] % (Auto) 7.3 Eos % (Auto) 4.0 Baso % (Auto) 1.2 Neut # (Auto) 5.4 Lymph # (Auto) 0.6 L [place] # (Auto) 0.5 Eos # (Auto) 0.3 Baso # (Auto) 0.1 WBC Differential . Differential Comment Auto diff final PT 18.8 H INR 1.9 Sodium 145 Potassium 4.2 D Chloride 112 H Carbon Dioxide 25.1 Anion Gap 8 BUN 18 Creatinine 1.27 Estimated GFR 55 L POC Glucose Random Glucose 130 H Calcium 7.8 L Phosphorus 2.7 Albumin 2.1 L 06/26/18 06/26/18 07:53 11:45 WBC RBC Hgb Hct MCV MCH MCHC RDW Plt Count MPV Neut % (Auto) Lymph % (Auto) [place] % (Auto) Eos % (Auto) Baso % (Auto) Neut # (Auto) Lymph # (Auto) [place] # (Auto) Eos # (Auto) Baso # (Auto) WBC Differential Differential Comment PT INR Sodium Potassium Chloride Carbon Dioxide Anion Gap BUN Creatinine Estimated GFR POC Glucose 126 H 158 H Random Glucose Calcium Phosphorus Albumin - Imaging Impressions Chest X-Ray 06/25/18 00:00 CONCLUSION: 1. Consolidation and small to moderate effusion at the left base not significantly changed. 2. Interim clearing of the right lung post thoracentesis. No pneumothorax demonstrated. Thoracentesis Ultrasound 06/25/18 00:00 CONCLUSION: 1. Successful right-sided thoracentesis Assessment and Plan - Plan //CAD. //With heart valve replacement Currently denies chest pain. Elevated troponin status post CABG and AVR. EKG with no ST-T changes. Doubt ACS. = Anticoagulation as per cardiothoracic surgery. //Shortness of breath secondary to bilateral pleural effusion. Ultrasound- guided thoracentesis. Supplemental oxygen = 06/25 thoracentesis planned for today. Appreciate cardiothoracic surgery assistance. = 06/26. Thoracentesis of right pleural effusion performed yesterday with 2.3 L. Left sided thoracentesis today. //Diabetes mellitus. Monitor fingersticks and sliding scale coverage = 06/25. Glucose acceptable. //Fib/CVA /hypertension/hyperlipidemia. EKG with sinus rhythm stable continue home medications as appropriate. Hold Coumadin for now because of thoracentesis //Acute versus chronic kidney disease stage 3. Nonoliguric. Continue gentle IV hydration = 06/25. Creatinine stable. //Left heel ulcer from rehab Wound care nurse consulted = Discussed with nursing. Wound care nurse consult pending today. Does not appear infected. //Urinary retention. Allergic to Flomax. -Voiding. //Hypokalemia. 3.4. Mild. Replace and monitor. DVT prophylaxis with SCD and early ambulation patient is a Tenriism, no blood products Discharge Planning: Pending cardiothoracic surgery clearance
--- NOTE | 2018-06-26 14:30 | P.RAD ---
Post Procedure Progress Note - Pre Procedure Diagnosis (1) Pleural effusion, bilateral - Post Procedure Diagnosis (1) Pleural effusion, bilateral - Procedure Information Supervising Radiologist: Julio Mcarthur MD Anesthesia: Local - Plan of Activity Patient to Unit: Nursing Unit Patient Condition: Fair See PACS Report for procedural detail/treatment. Drainage Procedure Ultrasound left Thoracentesis Drainage: Suction Fluid Description: Clear, Red
--- NOTE | 2018-06-26 14:45 | XR ---
EXAM DATE: 06/26/2018 2:41 PM EDT AGE/SEX: 77 years / Male INDICATIONS: Post left thoracentesis. CLINICAL DATA: This is the patient's subsequent encounter. Patient reports that signs and symptoms h ave been present for 4 - 6 days and indicates a pain score of 0/10. MEDICAL/SURGICAL HISTORY: . Cardiovascular disease. . CABG. COMPARISON: [facility], CHEST EXPIRATION ONLY, 06/25/2018. . FINDINGS: 2 portable frontal views of the chest show development of a new infiltrate within the right lung base . The consolidation involving the left lung base and left pleural effusion have resolved. No pneumoth orax following left thoracentesis. Heart is at the upper limits of normal in terms of size. Median st ernotomy wires. CONCLUSION: No pneumothorax following left thoracentesis. New consolidation within the right base. Electronically signed by: Donaldo Retana MD 06/26/2018 2:44 PM EDT
--- NOTE | 2018-06-26 14:55 | US ---
EXAM DATE: 06/26/2018 2:48 PM EDT AGE/SEX: 77 years / Male INDICATIONS: Left pleural effusion. CLINICAL DATA: This is the patient's initial encounter. Patient reports that signs and symptoms have been present for 3 days and indicates a pain score of 3/10. MEDICAL/SURGICAL HISTORY: Carcinoma, prostatic. CAD. CKD. Coronary artery stenosis. Deaf. Diabe sayra. Heart murmur. HTN. Hyperlipidemia. Skin cancer. PVD. Stomach benign neoplasm. Appendectomy. Her shelbi repair. Radical prostatectomy. Stented coronary artery. COMPARISON: [facility] [place], 06/25/2018. . FLUID: Total volume of 2,400cc cc of clear, red fluid was removed. Fluid was discarded. Thoracentesis was therapeutic only. . . TECHNIQUE: Ultrasound guidance for thoracentesis. Thoracentesis. The risks, benefits, and alternatives to ultrasound guided thoracentesis were explained to the patien t in lay simple terms, including the risk of bleeding and infection. Written and verbal informed con sent was obtained. Appropriate area for left thoracentesis was marked under ultrasound guidance with the patient in the upright position. Overlying skin was prepped and draped in the usual sterile fashion and with local anesthetic, a dermatotomy was made with an 11 blade scalpel. A 6 Ethiopian thoracentesis catheter was p laced in the pleural space and fluid was removed. Catheter was then removed and a sterile dressing a pplied. There were no immediate complications. The patient tolerated the procedure well and the left the ultrasound suite in stable condition. Chest radiograph is to be obtained. CONCLUSION: 1. Uncomplicated ultrasound-guided left thoracentesis. Electronically signed by: Julio Mcarthur MD 06/26/2018 2:54 PM EDT
--- NOTE | 2018-06-26 15:59 | P.PNCV ---
- Note Subjective/Hospital Course: 77-year-old patient, known to our service recently admitted 06/02/2018 and discharge 06/12/2018. The patient with a known history of coronary artery disease, prior stenting, also severe aortic valve stenosis, ejection fraction 50 -60%. Underwent coronary artery bypass grafting x 2, the RAPP to the LAD, saphenous vein graft to the ramus marginalis, also aortic valve replacement with a #23 [employer] Mosaic tissue valve, right leg endoscopic harvesting on . He patient is Jehovah Witness and does not accept blood products, was very anemic during the course of his postoperative stay, placed on Epogen and iron supplement. Pt is deaf mute he required an official court interpreter at the bedside . He normally uses sign language, but he had difficulty with even doing so and required a bedside official court interpreter. Apparently on the , he developed some left-sided weakness and was evaluated by Neurology. He had showed multiple CVA in all territories. The infarct was predominantly in the watershed zone areas. He persisted with some left-sided weakness in the arm and the leg. He also went into atrial fibrillation with RVR during the course of his stay, he was placed on amiodarone. He did convert once and then was started on the Coumadin. There was also concern for probable aspiration pneumonia and he was treated with IV antibiotics. The patient also had some urinary retention and was evaluated by Dr. Bruce Fulton who instructed to maintain Oliva catheter, voiding trial at rehab. The patient still has the Oliva catheter in place on this admission. Reason for admission on this visit was because of shortness of breath and fatigue. Also some chest discomfort across his chest. They did do a CTA of the chest which showed bilateral pleural effusions, moderate to large, the right being greater than theleft. He also had some elevated troponins. The CTA was negative for pulmonary emboli. We were consulted for evaluation. 06/25 pt on room air / sat 94% coumadin on hold , await thoracentesis today official court interpreter at bedside 2D echo ordered r/o pericardial effusion / and EF / recent AVR 06/26 s/p right thoracentesis yesterday / 2300 cc of clear, red fluid was removed s/p left thoracentesis today / 2,400cc cc of clear, red fluid was removed. 2 d echo noted : The left ventricular systolic function is low normal with an estimated ejection fraction in the range of 50%. Mitral annular calcification is present. The aortic valve prosthesis is not well seen but is is normal to color flow and Doppler interrogation. no pericardial effusion ok to resume coumadin goal 2-3 has wound left heel, being evaluated by wound care ok to transfer back to SNF / pt requesting different SNF Objective: Vital Signs - 24 hr 06/25/18 15:59 06/25/18 16:00 06/25/18 17:00 Temperature 98.3 F Pulse Rate 66 68 64 Respiratory Rate 24 Blood Pressure 213/85 H Pulse Oximetry 92 L 06/25/18 17:15 06/25/18 17:50 06/25/18 18:00 Temperature 97.7 F Pulse Rate 63 63 64 Respiratory Rate 14 18 Blood Pressure 145/61 H 142/63 H Pulse Oximetry 93 L 94 L 06/25/18 19:00 06/25/18 20:00 06/25/18 21:00 Temperature 98.7 F Pulse Rate 68 68 60 Respiratory Rate 20 Blood Pressure 144/75 H Pulse Oximetry 96 06/25/18 22:00 06/25/18 23:00 06/26/18 00:00 Temperature 97.9 F Pulse Rate 60 71 68 Respiratory Rate 22 Blood Pressure 147/65 H Pulse Oximetry 93 L 06/26/18 01:00 06/26/18 02:00 06/26/18 02:17 Temperature Pulse Rate 58 L 54 L Respiratory Rate Blood Pressure Pulse Oximetry 93 L 06/26/18 03:00 06/26/18 04:00 06/26/18 05:00 Temperature 98.7 F Pulse Rate 62 64 52 L Respiratory Rate 18 Blood Pressure 132/58 L Pulse Oximetry 91 L 06/26/18 06:00 06/26/18 07:00 06/26/18 07:38 Temperature 99 F Pulse Rate 56 L 57 L 62 Respiratory Rate 18 Blood Pressure 154/81 H Pulse Oximetry 95 06/26/18 08:00 06/26/18 09:00 06/26/18 10:00 Temperature Pulse Rate 64 78 64 Respiratory Rate Blood Pressure Pulse Oximetry 06/26/18 11:00 06/26/18 11:39 06/26/18 12:00 Temperature 97.9 F Pulse Rate 58 L 57 L 56 L Respiratory Rate 18 Blood Pressure 157/69 H Pulse Oximetry 97 06/26/18 13:00 06/26/18 13:15 06/26/18 14:00 Temperature 98.8 F Pulse Rate 60 62 62 Respiratory Rate 18 Blood Pressure 172/86 H Pulse Oximetry 95 06/26/18 15:00 06/26/18 15:44 Temperature 98.6 F Pulse Rate 61 58 L Respiratory Rate 18 Blood Pressure 133/63 Pulse Oximetry 99 Labs: Laboratory Results - last 12 hr 06/26/18 06/26/18 06/26/18 03:51 06:41 06:41 WBC 6.9 RBC 3.21 L Hgb 9.2 L Hct 28.4 L MCV 88.4 MCH 28.6 MCHC 32.4 RDW 16.8 Plt Count 277 MPV 7.5 Neut % (Auto) 78.8 H Lymph % (Auto) 8.7 L Garrard % (Auto) 7.3 Eos % (Auto) 4.0 Baso % (Auto) 1.2 Neut # (Auto) 5.4 Lymph # (Auto) 0.6 L [place]arrard # (Auto) 0.5 Eos # (Auto) 0.3 Baso # (Auto) 0.1 WBC Differential . Differential Comment Auto diff final PT 18.8 H INR 1.9 Sodium Potassium Chloride Carbon Dioxide Anion Gap BUN Creatinine Estimated GFR POC Glucose 155 H Random Glucose Calcium Phosphorus Albumin 06/26/18 06/26/18 06/26/18 06:41 07:53 11:45 WBC RBC Hgb Hct MCV MCH MCHC RDW Plt Count MPV Neut % (Auto) Lymph % (Auto) Garrard % (Auto) Eos % (Auto) Baso % (Auto) Neut # (Auto) Lymph # (Auto) Garrard # (Auto) Eos # (Auto) Baso # (Auto) WBC Differential Differential Comment PT INR Sodium 145 Potassium 4.2 D Chloride 112 H Carbon Dioxide 25.1 Anion Gap 8 BUN 18 Creatinine 1.27 Estimated GFR 55 L POC Glucose 126 H 158 H Random Glucose 130 H Calcium 7.8 L Phosphorus 2.7 Albumin 2.1 L Result Diagrams: 06/26/18 06:41 06/26/18 06:41 Telemetry: sinus bradycardia - Plan (2) CAD (coronary artery disease), [place] coronary artery Plan: ASA, stop amiodarone OOB/ PT pulm toileting (4) S/P CABG x 2 Plan: ASA, statin , decrease BB , no amiodarone (5) S/P aortic valve replacement Plan: resume coumadin goal 2-3 (6) Deaf mutism, congenital Plan: official court interpreter at bedside (7) History of CVA (cerebrovascular accident) Plan: resume coumadin after thoracentesis (2) CAD (coronary artery disease), [place]vas[place] coronary artery Qualifiers: [place] vs. transplanted heart: [place]vas[place] heart
--- NOTE | 2018-06-26 19:19 | P.PNWCN ---
Wound Care Nurse Consult Description: Consult for Wound Management of sacrum, back left foot per Dr Lin Communicated with: [facility] 4th floor C[facility]U and Doctor Recommendation: 1.Please cleanse bilateral buttock moisture, friction related wounds with normal saline and pat dry. Cleanse entire buttock area with Remedy barrier wipes and allow to dry. Apply Calazime skin protectant paste BID and PRN and leave open to air. 2.Please cleanse wound to L heel with normal saline and pat dry. Apply Optifoam basic dressing over wound and secure with rolled gauze and tape. Change every 3 to 5 days or PRN if saturated or dislodged. Please apply bilateral heel raiser boots to offload pressure from bilateral heels. Order pump for Mariann CIC bed from environmental or SPD. Please turn and reposition patient every 2 hours and PRN for offloading of pressure from anthony prominences. Please do not use cotton under pads under patient use ultra sorb moisture wicking disposable pads only in staggered fashion. Wound/Pressure Injury - Wound bilateral buttocks Wound Assessment: Ongoing Wound Type: Abrasion (moisture/friction related wound) Requested from Provider a Wound Care Consult: Yes (Wound care saw patient today) Wound Bed Appearance: [place] Surrounding Tissue Appearance: [place] Surrounding Tissue Temperature: Warm Drainage Amount: None Drainage Odor: No Odor Dressing Status: Open to Air Topical: (Calazime skin protectant paste) Left Heel Wound Staging: Stage II Wound Assessment: Ongoing Requested from Provider a Wound Care Consult: Yes (Wound care saw patient today) Length: 2 (~2cm) Width: 1 (~1cm) Depth: 0.1 (~<0.1cm ) Wound Bed Appearance: [place] (dry and partial thickness) Surrounding Tissue Appearance: [place] Surrounding Tissue Temperature: Warm Drainage Amount: None Drainage Odor: No Odor Dressing Status: Open to Air - Additional Information Patient seen on CPCU for evaluation of sacral and L back foot wounds. Patinet seen with [facility] and was turned to R side with minimal assistance of RN and telegraphic typewriter repairer. Patient is noted with bilateral buttock partial thickness wound that present linear with jagged wound margins and surrounding denuded skin. Wounds are not located over a anthony prominence and etiology appears to be moisture and friction related. Patient is laying on staggered ultrasorb pads, Calazime skin protectant paste and been applied. Wound to L heel presents as partial thickness, dry and pink. Wound is over heel anthony prominence and is a stage II pressure injury.Wound has no active drainage , or odor. RN will apply dressing as recommended above.
[2018-06-27 04:34] LABS: INR 1.8 Ratio; Prothrombin Time 17.9 sec (9.8-11.6)
[2018-06-27] MEDS: Insulin NovoLOG Aspart Correctional Sugar Inj SQ SCH ×5 (07:08→21:25)
[2018-06-27] MEDS: Sod Chloride 0.9% Inj 1,000 ML IV.CONT SCH (07:09)
[2018-06-27] MEDS: Metoprolol Tartrate 25 MG Tablet PO SCH ×2 (09:02→21:09)
[2018-06-27] MEDS: Senna/Docusate Sodium 8.6/50 MG Tablet PO SCH (09:03)
--- NOTE | 2018-06-27 10:02 | P.PNIM ---
Subjective Interval history: Patient says he is feeling all right. Denies any chest pain or shortness of breath. He does report loose bowel movements, however has been receiving Tessa- Colace since admission, this is currently discontinued.. Physical Exam Vital signs: Vital Signs 06/26/18 10:00 06/26/18 11:00 06/26/18 11:39 Temperature 97.9 F Pulse Rate 64 58 L 57 L Respiratory Rate 18 Blood Pressure 157/69 H Pulse Oximetry 97 06/26/18 12:00 06/26/18 13:00 06/26/18 13:15 Temperature 98.8 F Pulse Rate 56 L 60 62 Respiratory Rate 18 Blood Pressure 172/86 H Pulse Oximetry 95 06/26/18 14:00 06/26/18 15:00 06/26/18 15:44 Temperature 98.6 F Pulse Rate 62 61 58 L Respiratory Rate 18 Blood Pressure 133/63 Pulse Oximetry 99 06/26/18 16:21 06/26/18 17:00 06/26/18 18:00 Temperature Pulse Rate 57 L 64 64 Respiratory Rate Blood Pressure Pulse Oximetry 06/26/18 19:00 06/26/18 20:00 06/26/18 21:00 Temperature 97.9 F Pulse Rate 66 66 71 Respiratory Rate 20 Blood Pressure 122/59 L Pulse Oximetry 93 L 06/26/18 22:00 06/26/18 23:00 06/27/18 00:00 Temperature 98.4 F Pulse Rate 66 68 63 Respiratory Rate 18 Blood Pressure 126/66 Pulse Oximetry 94 L 06/27/18 01:00 06/27/18 02:00 06/27/18 03:00 Temperature 97.9 F Pulse Rate 75 78 72 Respiratory Rate 20 Blood Pressure 116/57 L Pulse Oximetry 94 L 06/27/18 04:00 06/27/18 05:00 06/27/18 06:00 Temperature Pulse Rate 72 59 L 62 Respiratory Rate Blood Pressure Pulse Oximetry 06/27/18 07:00 06/27/18 07:47 Temperature 98.5 F Pulse Rate 70 Respiratory Rate 18 Blood Pressure 130/60 Pulse Oximetry 94 L 92 L Intake & Output 06/26/18 06/27/18 06/27/18 18:59 06:59 18:59 Intake Total 960 / 960 730 / 730 Output Total 250 / 250 250 / 250 Balance 710 / 710 480 / 480 Weight 80 kg 78 kg Intake: Oral 960 / 960 730 / 730 Output: Urine 250 / 250 250 / 250 Other: # Voids 2 # Incontinent Voids 1 Date of Last Bowel Movement 06/26/18 06/26/18 06/27/18 # Bowel Movements 0 # Incontinent Bowel Movements 0 Narrative: GENERAL: Sitting up in chair. Appears comfortable. Alert and oriented SKIN: Warm and dry. HEAD: Normocephalic. EYES: No scleral icterus. No injection or drainage. NECK: Supple, trachea midline. No JVD . CARDIOVASCULAR: Regular rate and rhythm without murmurs, gallops, or rubs. RESPIRATORY: Breath sounds diminished bilaterally. No accessory muscle use. GASTROINTESTINAL: Abdomen soft, non-tender, nondistended. MUSCULOSKELETAL: No cyanosis, or edema. Left heel with stage 2 pressure ulcer with serous drainage, dressing clean dry and intact.. No surrounding erythema. BACK: Nontender without obvious deformity. No CVA tenderness. - Urinary Catheter Management Indwelling Urethral Catheter Cath placed during this visit: no Results - Labs CBC & Chem 7: 06/26/18 06:41 06/26/18 06:41 Laboratory Results - last 24 hr 06/26/18 06/26/18 06/26/18 11:45 16:29 21:31 PT INR POC Glucose 158 H 185 H 225 H 06/27/18 06/27/18 06/27/18 03:53 03:57 07:46 PT 17.9 H INR 1.8 POC Glucose 148 H 212 H - Imaging Impressions Chest X-Ray 06/26/18 00:00 CONCLUSION: No pneumothorax following left thoracentesis. New consolidation within the right base. Thoracentesis Ultrasound 06/26/18 00:00 CONCLUSION: 1. Uncomplicated ultrasound-guided left thoracentesis. Assessment and Plan - Plan //CAD. //With heart valve replacement Currently denies chest pain. Elevated troponin status post CABG and AVR. EKG with no ST-T changes. Doubt ACS. = Continue on Coumadin as per cardiothoracic surgery. //Shortness of breath secondary to bilateral pleural effusion. Ultrasound- guided thoracentesis. Supplemental oxygen = 06/25 thoracentesis planned for today. Appreciate cardiothoracic surgery assistance. = 06/26. Thoracentesis of right pleural effusion performed yesterday with 2.3 L. Left sided thoracentesis today. = 06/27. Status post bilateral thoracentesis. Patient cleared for discharge to rehab by CBT. //Diabetes mellitus. Monitor fingersticks and sliding scale coverage = Glucose acceptable. //aFib/CVA /hypertension/hyperlipidemia. EKG with sinus rhythm stable continue home medications as appropriate. = Back on Coumadin as per cardiothoracic surgery //Acute versus chronic kidney disease stage 3. Nonoliguric. Continue gentle IV hydration = Creatinine stable. //Left heel ulcer from rehab Wound care nurse consulted = Appreciate wound care consult. Continue wound care //Urinary retention. Allergic to Flomax. -Voiding. //Hypokalemia. Resolved. DVT prophylaxis with SCD and early ambulation patient is a Pentecostal, no blood products Discharge Planning: to SNF Pending cardiothoracic surgery clearance
--- NOTE | 2018-06-27 10:03 | P.DS ---
Date of admission: 06/23/18 21:33 Primary care physician: UNKNOWN Anticipated date of discharge: 07/02/18 Brief History from admission: 77-year-old male with a past medical history significant for deafness, coronary artery disease, chronic kidney disease, diabetes mellitus, hypertension, hyperlipidemia and peripheral vascular disease presents to the emergency department for the evaluation of chest pain and shortness of breath. The patient had a two-vessel CABG and aortic valve replacement on June 02. He complains of a sharp and stabbing pain across his whole chest. It is nonradiating. The patient states that he has been short of breath all day and endorses palpitations. DS: Summary Hospital Course: CTA on admission negative for pulmonary embolism's, but showed bilateral pleural effusions, moderate to large, right greater than left, as well as troponin elevation. Due to recent surgery, cardiothoracic surgery was consulted , echocardiogram was performed. Patient underwent bilateral thoracentesis as per cardiothoracic surgery. Patient was restarted on Coumadin with goal of 2 3. Patient was discharged to rehabilitation. Will need to follow-up with cardiothoracic surgery, cardiology as outpatient. For problem-based summary from most recent progress note, please see below. //CAD. //With heart valve replacement Currently denies chest pain. Elevated troponin status post CABG and AVR. EKG with no ST-T changes. Doubt ACS. = Continue on Coumadin as per cardiothoracic surgery. //Shortness of breath secondary to bilateral pleural effusion. Ultrasound- guided thoracentesis. Supplemental oxygen = 06/25 thoracentesis planned for today. Appreciate cardiothoracic surgery assistance. = 06/26. Thoracentesis of right pleural effusion performed yesterday with 2.3 L. Left sided thoracentesis today. = 06/27. Status post bilateral thoracentesis. Patient cleared for discharge to rehab by CBT. //Diabetes mellitus. Monitor fingersticks and sliding scale coverage = Glucose acceptable. //aFib/CVA /hypertension/hyperlipidemia. EKG with sinus rhythm stable continue home medications as appropriate. = Back on Coumadin as per cardiothoracic surgery //Acute versus chronic kidney disease stage 3. Nonoliguric. Continue gentle IV hydration = Creatinine stable. //Left heel ulcer from rehab Wound care nurse consulted = Appreciate wound care consult. Continue wound care //Urinary retention. Allergic to Flomax. -Voiding. //Hypokalemia. Resolved. DVT prophylaxis with SCD and early ambulation patient is a Muslim, no blood products Discharge Planning: to SNF Pending cardiothoracic surgery clearance - Time Spent with Patient Total time spent providing and/or coordinating discharge services: Greater than 30 minutes Exam Vital signs: Vital Signs 06/26/18 11:00 06/26/18 11:39 06/26/18 12:00 Temperature 97.9 F Pulse Rate 58 L 57 L 56 L Respiratory Rate 18 Blood Pressure 157/69 H Pulse Oximetry 97 06/26/18 13:00 06/26/18 13:15 06/26/18 14:00 Temperature 98.8 F Pulse Rate 60 62 62 Respiratory Rate 18 Blood Pressure 172/86 H Pulse Oximetry 95 06/26/18 15:00 06/26/18 15:44 06/26/18 16:21 Temperature 98.6 F Pulse Rate 61 58 L 57 L Respiratory Rate 18 Blood Pressure 133/63 Pulse Oximetry 99 06/26/18 17:00 06/26/18 18:00 06/26/18 19:00 Temperature 97.9 F Pulse Rate 64 64 66 Respiratory Rate 20 Blood Pressure 122/59 L Pulse Oximetry 93 L 06/26/18 20:00 06/26/18 21:00 06/26/18 22:00 Temperature Pulse Rate 66 71 66 Respiratory Rate Blood Pressure Pulse Oximetry 06/26/18 23:00 06/27/18 00:00 06/27/18 01:00 Temperature 98.4 F Pulse Rate 68 63 75 Respiratory Rate 18 Blood Pressure 126/66 Pulse Oximetry 94 L 06/27/18 02:00 06/27/18 03:00 06/27/18 04:00 Temperature 97.9 F Pulse Rate 78 72 72 Respiratory Rate 20 Blood Pressure 116/57 L Pulse Oximetry 94 L 06/27/18 05:00 06/27/18 06:00 06/27/18 07:00 Temperature 98.5 F Pulse Rate 59 L 62 70 Respiratory Rate 18 Blood Pressure 130/60 Pulse Oximetry 94 L 06/27/18 07:47 Temperature Pulse Rate Respiratory Rate Blood Pressure Pulse Oximetry 92 L Intake & Output 06/26/18 06/27/18 06/27/18 18:59 06:59 18:59 Intake Total 960 / 960 730 / 730 Output Total 250 / 250 250 / 250 Balance 710 / 710 480 / 480 Weight 80 kg 78 kg Intake: Oral 960 / 960 730 / 730 Output: Urine 250 / 250 250 / 250 Other: # Voids 2 # Incontinent Voids 1 Date of Last Bowel Movement 06/26/18 06/26/18 06/27/18 # Bowel Movements 0 # Incontinent Bowel Movements 0 Results Procedures completed during hospitalization: Both right and left-sided thoracentesis. Please see reports. Labs on day of discharge: Labs from last 24 hours 06/27/18 06/27/18 06/27/18 07:46 03:57 03:53 PT 17.9 H INR 1.8 POC Glucose 212 H 148 H 06/26/18 06/26/18 06/26/18 21:31 16:29 11:45 PT INR POC Glucose 225 H 185 H 158 H - Impressions ITS Impressions Chest CTA 06/23/18 19:40 CONCLUSION: 1. No pulmonary embolus. 2. Large pleural effusions and compressive/dependent atelectasis of both lungs. Chest X-Ray 06/26/18 00:00 CONCLUSION: No pneumothorax following left thoracentesis. New consolidation within the right base. Thoracentesis Ultrasound 06/26/18 00:00 CONCLUSION: 1. Uncomplicated ultrasound-guided left thoracentesis. Discharge Plan - Discharge Disposition Patient Disposition: Discharge to SNF - Discharge Condition Condition: Stable - Discharge Order Discharge Orders: Discharge Order (Routine); Ordered 06/27/18 Ordered By: Eliezer Epperson - Physicians Team Primary Care Provider: UNKNOWN, Attending Provider: Eliezer Epperson Other Providers: [employer] ; Yasir Beavers MD ; [facility] ; Livia Chaidez MD ; Julio Mcarthur MD
[2018-06-27] MEDS: Ferrrous Sulfate 300 MG/5 ML UDC PO SCH ×2 (12:05→16:33)
[2018-06-27] MEDS: Acetaminophen 325 MG Tablet PO PRN (21:09)
[2018-06-28] MEDS: Sod Chloride 0.9% Inj 1,000 ML IV.CONT SCH ×2 (00:09→18:16)
[2018-06-28] MEDS: Insulin NovoLOG Aspart Correctional Sugar Inj SQ SCH ×5 (03:33→21:59)
[2018-06-28 04:22] LABS: INR 1.5 Ratio; Prothrombin Time 15.1 sec (9.8-11.6)
[2018-06-28] MEDS: Metoprolol Tartrate 25 MG Tablet PO SCH ×2 (08:54→21:36)
--- NOTE | 2018-06-28 10:31 | P.PN ---
Subjective Interval history: Follow-up CAD/valve replacement/CABG 2/bilateral pleural effusion June 28, 2018-patient seen and examined in the presence of line assigner. patient had asymptomatic low HR overnight per Nurse report. Per PT, patient requires significant assistance to ambulate this a.m. He denies any shortness of breath. Physical Exam Vital signs: Vital Signs 06/27/18 11:00 06/27/18 12:00 06/27/18 13:00 Temperature 98.7 F Pulse Rate 87 82 90 Respiratory Rate 20 Blood Pressure 110/52 L Pulse Oximetry 95 06/27/18 14:00 06/27/18 14:35 06/27/18 15:00 Temperature 97.8 F Pulse Rate 68 63 64 Respiratory Rate 20 Blood Pressure 105/56 L Pulse Oximetry 99 06/27/18 16:00 06/27/18 17:00 06/27/18 19:00 Temperature 98.1 F Pulse Rate 70 81 69 Respiratory Rate Blood Pressure Pulse Oximetry 95 06/27/18 20:00 06/27/18 21:00 06/27/18 22:00 Temperature Pulse Rate 67 63 65 Respiratory Rate Blood Pressure Pulse Oximetry 06/27/18 23:00 06/28/18 00:00 06/28/18 01:00 Temperature 97.8 F Pulse Rate 59 L 60 53 L Respiratory Rate Blood Pressure 90/53 L Pulse Oximetry 96 06/28/18 02:00 06/28/18 03:00 06/28/18 04:00 Temperature 98.1 F Pulse Rate 49 L 64 64 Respiratory Rate Blood Pressure 135/63 Pulse Oximetry 95 06/28/18 05:00 06/28/18 06:00 06/28/18 07:00 Temperature 98.6 F Pulse Rate 59 L 52 L 62 Respiratory Rate 18 Blood Pressure 147/66 H Pulse Oximetry 97 06/28/18 08:00 Temperature Pulse Rate 64 Respiratory Rate Blood Pressure Pulse Oximetry Intake & Output 06/27/18 06/28/18 06/28/18 18:59 06:59 18:59 Intake Total 720 / 720 240 / 240 Output Total 1325 / 1325 175 / 175 Balance -605 / -605 65 / 65 Weight 77 kg Intake: Oral 720 / 720 240 / 240 Output: Urine 1325 / 1325 175 / 175 Other: Date of Last Bowel Movement 08/10/0406/27/18 06/28/18 # Bowel Movements 1 Narrative: GENERAL: NAD SKIN: Warm and dry. HEAD: Normocephalic. EYES: No scleral icterus. No injection or drainage. NECK: Supple, trachea midline. No JVD or lymphadenopathy. CARDIOVASCULAR: Regular rate and rhythm without murmurs, gallops, or rubs. RESPIRATORY: Breath sounds equal bilaterally. No accessory muscle use. GASTROINTESTINAL: Abdomen soft, non-tender, nondistended. MUSCULOSKELETAL: No cyanosis, or edema. BACK: Nontender without obvious deformity. No CVA tenderness. - Urinary Catheter Management Indwelling Urethral Catheter Cath placed during this visit: no Results - Labs CBC & Chem 7: 06/26/18 06:41 06/26/18 06:41 Laboratory Results - last 24 hr 06/27/18 06/27/18 06/27/18 11:00 15:52 21:14 PT INR POC Glucose 227 H 158 H 164 H 06/28/18 06/28/18 03:44 07:21 PT 15.1 H INR 1.5 POC Glucose 124 H - Procedures Both right and left-sided thoracentesis. Please see reports. Assessment and Plan - Plan 77-year-old man with CAD. s/p heart valve replacement Currently on Coumadin per cardiothoracic surgery. Status post CABG 2 Bilateral pleural effusion. s/p Ultrasound-guided thoracentesis. Continue with supplemental oxygen Diabetes mellitus. Monitor fingersticks and sliding scale coverage aFib/CVA /hypertension/hyperlipidemia. . Continue with Coumadin per cardiothoracic surgery Continue with outpatient medications Acute versus chronic kidney disease stage 3. Nonoliguric. Continue gentle IV hydration Creatinine stable Left heel ulcer from rehab Wound care nurse consulted Continue wound care Urinary retention. Allergic to Flomax. Now resolved Hypokalemia. Resolved post replacement. DVT prophylaxis with SCD and early ambulation patient is a Anglican, no blood products Waiting for approval from insurance for possible admission to [facility]
[2018-06-28] MEDS: Acetaminophen 325 MG Tablet PO PRN ×2 (10:35→21:36)
[2018-06-28] MEDS: Ferrrous Sulfate 300 MG/5 ML UDC PO SCH ×2 (12:20→16:34)
[2018-06-29 03:36] LABS: INR 1.4 Ratio; Prothrombin Time 14.5 sec (9.8-11.6)
[2018-06-29] MEDS: Insulin NovoLOG Aspart Correctional Sugar Inj SQ SCH ×5 (03:46→23:07)
[2018-06-29] MEDS: Metoprolol Tartrate 25 MG Tablet PO SCH ×2 (08:43→21:18)
[2018-06-29] MEDS: Ferrrous Sulfate 300 MG/5 ML UDC PO SCH ×2 (11:33→17:11)
--- NOTE | 2018-06-29 11:38 | P.PNIM ---
Subjective Interval history: Says he is feeling well. Denies any chest pain or shortness of breath. Denies nausea or vomiting. No acute issues per nursing. Physical Exam Vital signs: Vital Signs 06/28/18 12:00 06/28/18 13:00 06/28/18 14:00 Temperature Pulse Rate 65 68 57 L Respiratory Rate Blood Pressure Pulse Oximetry 06/28/18 14:33 06/28/18 15:00 06/28/18 16:00 Temperature 98.2 F Pulse Rate 64 69 61 Respiratory Rate 20 Blood Pressure 111/51 L Pulse Oximetry 97 06/28/18 17:00 06/28/18 18:00 06/28/18 19:00 Temperature 98.0 F Pulse Rate 71 73 67 Respiratory Rate 18 Blood Pressure 136/63 Pulse Oximetry 98 06/28/18 20:00 06/28/18 21:00 06/28/18 22:00 Temperature Pulse Rate 66 46 L 60 Respiratory Rate 18 Blood Pressure Pulse Oximetry 06/28/18 23:00 06/29/18 00:00 06/29/18 01:00 Temperature 98.3 F Pulse Rate 60 54 L 57 L Respiratory Rate 18 Blood Pressure 159/67 H Pulse Oximetry 96 06/29/18 02:00 06/29/18 03:00 06/29/18 04:00 Temperature 97.6 F Pulse Rate 53 L 62 59 L Respiratory Rate 18 Blood Pressure 149/65 H Pulse Oximetry 97 06/29/18 05:00 06/29/18 05:54 06/29/18 07:00 Temperature 98.8 F Pulse Rate 60 63 67 Respiratory Rate 18 Blood Pressure 161/60 H Pulse Oximetry 97 06/29/18 08:00 06/29/18 09:00 06/29/18 10:29 Temperature Pulse Rate 66 74 52 L Respiratory Rate Blood Pressure Pulse Oximetry 06/29/18 11:00 Temperature 98.3 F Pulse Rate 60 Respiratory Rate 18 Blood Pressure 140/70 Pulse Oximetry 99 Intake & Output 06/28/18 06/29/18 06/29/18 18:59 06:59 18:59 Intake Total 1200 / 1200 240 / 240 Output Total 525 / 525 400 / 400 Balance 675 / 675 -160 / -160 Weight 79 kg Intake: Oral 1200 / 1200 240 / 240 Output: Urine 525 / 525 400 / 400 Other: # Voids 2 # Incontinent Voids 1 Date of Last Bowel Movement 06/28/18 06/28/18 # Bowel Movements 2 # Incontinent Bowel Movements 1 Narrative: GENERAL: Patient sitting up in chair. Appears comfortable. SKIN: Warm and dry. HEAD: Normocephalic. EYES: No scleral icterus. No injection or drainage. NECK: Supple, trachea midline. No JVD. CARDIOVASCULAR: Regular rate and rhythm without murmurs, gallops, or rubs. RESPIRATORY: Breath sounds equal bilaterally. No accessory muscle use. GASTROINTESTINAL: Abdomen soft, non-tender, nondistended. MUSCULOSKELETAL: No cyanosis, or edema. Left heel dressed. BACK: Nontender without obvious deformity. No CVA tenderness. - Urinary Catheter Management Indwelling Urethral Catheter Cath placed during this visit: no Results - Labs CBC & Chem 7: 06/26/18 06:41 06/26/18 06:41 Laboratory Results - last 24 hr 06/28/18 06/28/18 06/29/18 16:20 21:42 03:10 PT 14.5 H INR 1.4 POC Glucose 165 H 184 H 06/29/18 06/29/18 06/29/18 03:28 07:39 11:12 PT INR POC Glucose 121 H 104 172 H - Procedures Both right and left-sided thoracentesis. Please see reports. Assessment and Plan - Plan //CAD. //With heart valve replacement Currently denies chest pain. Elevated troponin status post CABG and AVR. EKG with no ST-T changes. Doubt ACS. = Continue on Coumadin as per cardiothoracic surgery. Placed 2-[address] surgery. //Shortness of breath secondary to bilateral pleural effusion. Ultrasound- guided thoracentesis. Supplemental oxygen = 06/25 thoracentesis planned for today. Appreciate cardiothoracic surgery assistance. = 06/26. Thoracentesis of right pleural effusion performed yesterday with 2.3 L. Left sided thoracentesis today. = 06/27. Status post bilateral thoracentesis. Patient cleared for discharge to rehab by CTS. = Awaiting placement. //Diabetes mellitus. Monitor fingersticks and sliding scale coverage = Glucose acceptable. //aFib/CVA /hypertension/hyperlipidemia. EKG with sinus rhythm stable continue home medications as appropriate. = Back on Coumadin as per cardiothoracic surgery. Goal is [address] surgery. //Acute versus chronic kidney disease stage 3. Nonoliguric. Continue gentle IV hydration = Creatinine stable. //Left heel ulcer from rehab Wound care nurse consulted = Appreciate wound care consult. Continue wound care //Urinary retention. Allergic to Flomax. -Voiding. //Hypokalemia. Resolved. DVT prophylaxis with SCD and early ambulation patient is a [employer], no blood products Discharge Planning: Cleared by cardiothoracic surgery. to SNF.
--- NOTE | 2018-06-29 16:20 | P.PNCV ---
- Note Subjective/Hospital Course: 77-year-old patient, known to our service recently admitted 06/02/2018 and discharge 06/12/2018. The patient with a known history of coronary artery disease, prior stenting, also severe aortic valve stenosis, ejection fraction 50 -60%. Underwent coronary artery bypass grafting x 2, the RAPP to the LAD, saphenous vein graft to the ramus marginalis, also aortic valve replacement with a #23 [employer] Mosaic tissue valve, right leg endoscopic harvesting on . He patient is [employer] and does not accept blood products, was very anemic during the course of his postoperative stay, placed on Epogen and iron supplement. Pt is deaf mute he required an yarn dry room worker at the bedside . He normally uses sign language, but he had difficulty with even doing so and required a bedside yarn dry room worker. Apparently on the , he developed some left-sided weakness and was evaluated by Neurology. He had showed multiple CVA in all territories. The infarct was predominantly in the watershed zone areas. He persisted with some left-sided weakness in the arm and the leg. He also went into atrial fibrillation with RVR during the course of his stay, he was placed on amiodarone. He did convert once and then was started on the Coumadin. There was also concern for probable aspiration pneumonia and he was treated with IV antibiotics. The patient also had some urinary retention and was evaluated by Dr. Bruce Fulton who instructed to maintain Oliva catheter, voiding trial at rehab. The patient still has the Loiva catheter in place on this admission. Reason for admission on this visit was because of shortness of breath and fatigue. Also some chest discomfort across his chest. They did do a CTA of the chest which showed bilateral pleural effusions, moderate to large, the right being greater than theleft. He also had some elevated troponins. The CTA was negative for pulmonary emboli. We were consulted for evaluation. 06/25 pt on room air / sat 94% coumadin on hold , await thoracentesis today yarn dry room worker at bedside 2D echo ordered r/o pericardial effusion / and EF / recent AVR 06/26 s/p right thoracentesis yesterday / 2300 cc of clear, red fluid was removed s/p left thoracentesis today / 2,400cc cc of clear, red fluid was removed. 2 d echo noted : The left ventricular systolic function is low normal with an estimated ejection fraction in the range of 50%. Mitral annular calcification is present. The aortic valve prosthesis is not well seen but is is normal to color flow and Doppler interrogation. no pericardial effusion ok to resume coumadin goal 2-3 has wound left heel, being evaluated by wound care ok to transfer back to SNF / pt requesting different SNF 06/29 stable for trransfer back to SNF or rehab/ on room air Objective: Vital Signs - 24 hr 06/28/18 17:00 06/28/18 18:00 06/28/18 19:00 Temperature 98.0 F Pulse Rate 71 73 67 Respiratory Rate 18 Blood Pressure 136/63 Pulse Oximetry 98 06/28/18 20:00 06/28/18 21:00 06/28/18 22:00 Temperature Pulse Rate 66 46 L 60 Respiratory Rate 18 Blood Pressure Pulse Oximetry 06/28/18 23:00 06/29/18 00:00 06/29/18 01:00 Temperature 98.3 F Pulse Rate 60 54 L 57 L Respiratory Rate 18 Blood Pressure 159/67 H Pulse Oximetry 96 06/29/18 02:00 06/29/18 03:00 06/29/18 04:00 Temperature 97.6 F Pulse Rate 53 L 62 59 L Respiratory Rate 18 Blood Pressure 149/65 H Pulse Oximetry 97 06/29/18 05:00 06/29/18 05:54 06/29/18 07:00 Temperature 98.8 F Pulse Rate 60 63 67 Respiratory Rate 18 Blood Pressure 161/60 H Pulse Oximetry 97 06/29/18 08:00 06/29/18 09:00 06/29/18 10:29 Temperature Pulse Rate 66 74 52 L Respiratory Rate Blood Pressure Pulse Oximetry 06/29/18 11:00 06/29/18 12:00 06/29/18 13:00 Temperature 98.3 F Pulse Rate 60 61 68 Respiratory Rate 18 Blood Pressure 140/70 Pulse Oximetry 99 06/29/18 14:00 Temperature Pulse Rate 65 Respiratory Rate Blood Pressure Pulse Oximetry GENERAL: awake interacts by sign language and yarn dry room worker SKIN: Warm and dry. HEAD: Normocephalic. EYES: No scleral icterus. No injection or drainage. NECK: Supple, trachea midline. No JVD or lymphadenopathy. CARDIOVASCULAR: Regular rate and rhythm without murmurs, gallops, or rubs. RESPIRATORY: Breath sounds equal bilaterally. No accessory muscle use. diminished in bases, otherwise CTA GASTROINTESTINAL: Abdomen soft, non-tender, nondistended. MUSCULOSKELETAL: No cyanosis, or edema. BACK: Nontender without obvious deformity. No CVA tenderness. Labs: Laboratory Results - last 12 hr 06/29/18 06/29/18 07:39 11:12 POC Glucose 104 172 H Result Diagrams: 06/26/18 06:41 06/26/18 06:41 - Plan (1) Pleural effusion Plan: s/p bilateral thoracentesis (2) CAD (coronary artery disease), [place] coronary artery Plan: ASA, OOB/ PT pulm toileting (4) S/P CABG x 2 Plan: ASA, statin , decrease BB , no amiodarone (5) S/P aortic valve replacement Plan: resume coumadin goal 2-3 (6) Deaf mutism, congenital Plan: yarn dry room worker at bedside (7) History of CVA (cerebrovascular accident) Plan: resume coumadin after thoracentesis (2) CAD (coronary artery disease), [place] coronary artery Qualifiers: [place] vs. transplanted heart: [place] heart
[2018-06-29] MEDS: Sod Chloride 0.9% Inj 1,000 ML IV.CONT SCH (17:11)
[2018-06-30 04:45] LABS: INR 1.5 Ratio; Prothrombin Time 15.3 sec (9.8-11.6)
[2018-06-30] MEDS: Insulin NovoLOG Aspart Correctional Sugar Inj SQ SCH ×5 (05:46→21:19)
[2018-06-30] MEDS: Metoprolol Tartrate 25 MG Tablet PO SCH ×2 (09:02→20:53)
[2018-06-30] MEDS: Sod Chloride 0.9% Inj 1,000 ML IV.CONT SCH (11:00)
--- NOTE | 2018-06-30 11:06 | P.PNIM ---
Subjective Interval history: Patient seen and examined this morning. Says he is feeling all right. Denies any chest pain or shortness of breath. Physical Exam Vital signs: Vital Signs 06/29/18 12:00 06/29/18 13:00 06/29/18 14:00 Temperature Pulse Rate 61 68 65 Respiratory Rate Blood Pressure Pulse Oximetry 06/29/18 15:00 06/29/18 16:00 06/29/18 17:00 Temperature 98.5 F Pulse Rate 63 64 70 Respiratory Rate 20 Blood Pressure 138/62 Pulse Oximetry 97 06/29/18 17:48 06/29/18 19:00 06/29/18 20:00 Temperature 98.3 F Pulse Rate 72 60 70 Respiratory Rate 18 Blood Pressure 163/67 H Pulse Oximetry 96 06/29/18 21:00 06/29/18 22:00 06/29/18 23:00 Temperature 98.3 F Pulse Rate 64 60 57 L Respiratory Rate 18 Blood Pressure 162/70 H Pulse Oximetry 96 06/30/18 00:00 06/30/18 01:00 06/30/18 02:00 Temperature Pulse Rate 56 L 66 62 Respiratory Rate Blood Pressure Pulse Oximetry 06/30/18 03:00 06/30/18 04:00 06/30/18 05:00 Temperature 97.6 F Pulse Rate 67 58 L 54 L Respiratory Rate 18 Blood Pressure 165/72 H Pulse Oximetry 98 06/30/18 06:00 06/30/18 07:00 06/30/18 07:57 Temperature 97.8 F Pulse Rate 67 55 L 75 Respiratory Rate 16 Blood Pressure 164/70 H Pulse Oximetry 06/30/18 08:00 06/30/18 09:00 06/30/18 10:00 Temperature Pulse Rate 74 72 62 Respiratory Rate Blood Pressure Pulse Oximetry Intake & Output 06/29/18 06/30/18 06/30/18 18:59 06:59 18:59 Intake Total 960 / 960 240 / 240 Output Total 700 / 700 550 / 550 Balance 260 / 260 -310 / -310 Weight 78 kg Intake: Oral 960 / 960 240 / 240 Output: Urine 700 / 700 550 / 550 Other: # Voids 1 Date of Last Bowel Movement 06/28/18 06/28/18 Narrative: GENERAL: Patient sitting up in chair. Appears comfortable. No change on exam. SKIN: Warm and dry. HEAD: Normocephalic. EYES: No scleral icterus. No injection or drainage. NECK: Supple, trachea midline. No JVD. CARDIOVASCULAR: Regular rate and rhythm without murmurs, gallops, or rubs. RESPIRATORY: Breath sounds equal bilaterally. No accessory muscle use. GASTROINTESTINAL: Abdomen soft, non-tender, nondistended. MUSCULOSKELETAL: No cyanosis, or edema. Left heel dressed. BACK: Nontender without obvious deformity. No CVA tenderness. - Urinary Catheter Management Indwelling Urethral Catheter Cath placed during this visit: no Results - Labs CBC & Chem 7: 06/26/18 06:41 06/26/18 06:41 Laboratory Results - last 24 hr 06/29/18 06/29/18 06/29/18 11:12 17:00 21:18 PT INR POC Glucose 172 H 193 H 128 H 06/30/18 06/30/18 06/30/18 03:55 04:33 08:07 PT 15.3 H INR 1.5 POC Glucose 157 H 115 H - Procedures Both right and left-sided thoracentesis. Please see reports. Assessment and Plan - Plan //CAD. //With heart valve replacement Currently denies chest pain. Elevated troponin status post CABG and AVR. EKG with no ST-T changes. Doubt ACS. = Continue on Coumadin as per cardiothoracic surgery. INR 1.5. INR 2-[address] surgery. //Shortness of breath secondary to bilateral pleural effusion. Ultrasound- guided thoracentesis. Supplemental oxygen = 06/25 thoracentesis planned for today. Appreciate cardiothoracic surgery assistance. = 06/26. Thoracentesis of right pleural effusion performed yesterday with 2.3 L. Left sided thoracentesis today. = 06/27. Status post bilateral thoracentesis. Patient cleared for discharge to rehab by CTS. = Awaiting placement. //Diabetes mellitus. Monitor fingersticks and sliding scale coverage = Glucose acceptable. //aFib/CVA /hypertension/hyperlipidemia. EKG with sinus rhythm stable continue home medications as appropriate. = Back on Coumadin as per cardiothoracic surgery. Goal is [address] surgery. //Acute versus chronic kidney disease stage 3. Nonoliguric. Continue gentle IV hydration = Creatinine stable. //Left heel ulcer from rehab Wound care nurse consulted = Appreciate wound care consult. Continue wound care //Urinary retention. Allergic to Flomax. -Voiding. //Hypokalemia. Resolved. DVT prophylaxis with SCD and early ambulation patient is a [employer], no blood products Discharge Planning: Cleared by cardiothoracic surgery. to SNF.
[2018-06-30] MEDS: Ferrrous Sulfate 300 MG/5 ML UDC PO SCH ×2 (12:43→16:43)
[2018-07-01] MEDS: Acetaminophen 325 MG Tablet PO PRN (00:13)
[2018-07-01] MEDS: Insulin NovoLOG Aspart Correctional Sugar Inj SQ SCH ×4 (05:20→17:42)
[2018-07-01 06:34] LABS: INR 1.5 Ratio; Prothrombin Time 15.4 sec (9.8-11.6)
[2018-07-01] MEDS: Sod Chloride 0.9% Inj 1,000 ML IV.CONT SCH (07:04)
[2018-07-01] MEDS: Metoprolol Tartrate 25 MG Tablet PO SCH ×2 (08:50→21:18)
[2018-07-01] MEDS: Ferrrous Sulfate 300 MG/5 ML UDC PO SCH ×2 (12:14→16:37)
--- NOTE | 2018-07-01 14:45 | P.CONREH ---
History of Present Illness Service: Physical medicine and rehabilitation Consult date: 07/01/18 Reason for Consult: Comprehensive rehabilitation evaluation Primary Care Provider: UNKNOWN Family Provider: Rob Squires MD History of Present Illness: Roscoe Bennett is a 77-year-old [id number] male who was initially admitted to [facility] 06/02/18 for CABG 2 (RAPP to LAD and right reverse saphenous graft to RM) and AVR with tissue valve. He was extubated 06/03/18. Postoperatively he was noted to have delirium and significant anemia with hemoglobin 6.7. 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 On 06/06/18 he developed left arm weakness. Head CT was negative. On 06/08/18 he was noted to have left neglect. He also developed atrial fibrillation with rapid ventricular response and received amiodarone. He was started on aspirin and Plavix. On 06/09/18 brain MRI showed multiple strokes primarily in the watershed zones of the superior frontal parietal area, right occipital area, bilateral temporal areas and cerebellar hemispheres. [facility]. He was subsequently readmitted to [facility] 06/24/18 with chest pain, shortness of breath and palpitations. CTA showed no pulmonary embolism but large pleural effusion with compressive/dependent atelectasis bilaterally. EKG showed sinus bradycardia. On 06/25/18 he underwent right thoracentesis with 2300 cc removed. On 06/26/18 he underwent left thoracentesis with 2400 cc removed. He has been followed by wound care for left heel wound. Additionally has bilateral buttock wounds. Coumadin has been restarted and goal INR is 2-3. Most recent INR 1.5. Review of Systems other (Information obtained through interpreter translator assisting with sign languague) Constitutional: Reports weakness Eyes: Denies double vision (Generalized) Ears, Nose, Mouth, and Throat: Denies sore throat Cardiovascular: Denies chest pain Respiratory: Reports cough, Reports shortness of breath with activity Gastrointestinal: Reports constipation, Denies abdominal pain Genitourinary: Reports urinary hesitancy, Reports urinary incontinence Musculoskeletal: Reports muscle weakness Skin/Breast: Reports dry skin, Reports wounds, Denies rash Neurologic: Reports abnormal hearing, Reports tingling/numbness/burning sensations Psychiatric: Denies confusion (In the distal lower extremities) [facility] - History History Provided By: Patient - Medical History Medical History: Medical History (Last Reviewed 06/30/18 @ 09:40 by Arlene Bower) CAD (coronary artery disease) CKD (chronic kidney disease) Coronary artery stenosis Deaf Diabetes mellitus HTN (hypertension) Heart murmur Hyperlipidemia PVD (peripheral vascular disease) Prostate cancer Skin cancer Stomach benign neoplasm - Surgical History Surgical History: Surgical History (Last Reviewed 06/30/18 @ 09:40 by Arlene Bower) H/O hernia repair H/O radical prostatectomy History of appendectomy Stented coronary artery - Tobacco History Second Hand Smoke Exposure: No Smoking Status: Unknown if ever smoked Tobacco Type: Cigarettes - Alcohol History How Often Do You Have a Drink Containing Alcohol: Never - Substance Use History Substance History: No History of Abuse - Immunization History Tetanus Immunization: Unsure Hx Influenza Vaccine This Season: No Medications and Allergies Active Medications: Active Medications Acetaminophen (Tylenol) 650 mg PO Q4H PRN PRN Reason: Temp > 100.4 Last Admin: 07/01/18 00:13 Dose: 650 mg Al Hydroxide/Mg Hydroxide (Milk Of Darek Liq) 30 ml PO Q12H PRN PRN Reason: Mild Constipation Albuterol (Duoneb Neb (Prn)) 1 ampul NEB Q6HR NEB PRN PRN Reason: wheezing Last Admin: 06/24/18 23:44 Dose: 1 ampul Aspirin (Aspirin Chew) 81 mg PO DAILY [facility] Last Admin: 07/01/18 08:50 Dose: 81 mg Bisacodyl (Dulcolax Supp) 10 mg RECTAL DAILY PRN PRN Reason: SEVERE CONSITIPATION Dextrose (D50w Vial) 50 ml IV.PUSH UNSCH PRN PRN Reason: PER HYPOGLYCEMIA PROTOCOL Enalaprilat (Vasotec Inj) 1.25 mg IV.PUSH Q6H PRN PRN Reason: SBP>160, DBP>90 Last Admin: 07/01/18 00:13 Dose: 1.25 mg Ferrous Sulfate (Ferrrous Sulfate Liq) 300 mg PO BID@1200,1700 [facility] Last Admin: 07/01/18 12:14 Dose: 300 mg Glucagon (Glucagon Inj) 1 mg OTHER PRN PRN PRN Reason: for Hypoglycemia Protocol Heparin Sodium (Porcine) (Heparin Inj) 5,000 units SQ Q8HR [facility] Last Admin: 06/24/18 06:53 Dose: 5,000 units Sodium Chloride (Ns Inj) 1,000 mls @ 50 mls/hr IV.CONT .Q20H [facility] Last Admin: 07/01/18 07:04 Dose: Not Given Pharmacy Profile Note (Coumadin Consult Pharmacy) 0 mls @ 0 mls/hr OTHER [facility] Insulin Aspart (Novolog Insulin Correctional Sugar Inj) 0 unit SQ ACHS AND 3AM LAW; Protocol Last Admin: 07/01/18 12:14 Dose: 3 unit Lactulose (Lactulose Liq) 30 ml PO DAILY PRN PRN Reason: SEVERE CONSITIPATION Metoprolol Tartrate (Lopressor) 12.5 mg PO BID [facility] Last Admin: 07/01/18 08:50 Dose: 12.5 mg Miscellaneous (Pill Splitter) 1 each OTHER [facility] Ondansetron HCl (Zofran Inj) 4 mg IV.PUSH Q6H PRN PRN Reason: NAUSEA OR VOMITING Pantoprazole Sodium (Protonix) 40 mg PO DAILY@06 [facility] Last Admin: 07/01/18 07:04 Dose: 40 mg Sennosides (Senokot) 17.2 mg PO Q12H PRN PRN Reason: Moderate Constipation Sodium Chloride (Ns Flush) 2 ml IV.FLUSH UNSCH PRN PRN Reason: FLUSH AFTER USING IV ACCESS Last Admin: 06/27/18 09:05 Dose: 2 ml Warfarin Sodium (Coumadin) 5 mg PO DAILY@1600 [facility] Last Admin: 06/30/18 16:43 Dose: 5 mg Warfarin Sodium (Coumadin) 1 mg PO ONCE ONE Stop: 07/01/18 16:01 Allergies Allergy/AdvReac Type Severity Reaction Status Date / Time acetaminophen Allergy Severe Verified 05/14/18 08:05 butalbital Allergy Severe Verified 05/14/18 08:05 erythromycin base Allergy Severe Verified 05/14/18 08:05 tamsulosin Allergy Severe Verified 05/14/18 08:05 Home Medications Medication Instructions Recorded Confirmed Type metformin 500 mg PO BID 06/02/18 06/23/18 History acetaminophen 650 mg PO Q4H PRN 06/23/18 06/23/18 History amoxicillin-pot clavulanate 1 tab PO BID 06/23/18 06/23/18 History [Augmentin] warfarin [Coumadin] 4 mg PO DAILY@1600 06/23/18 06/23/18 History Exam - Physical Examination Vital Signs / I&O: Vital Signs 06/30/18 15:00 06/30/18 16:00 06/30/18 17:00 Temperature 97.8 F Pulse Rate 60 60 58 L Respiratory Rate 16 Blood Pressure 143/65 H Pulse Oximetry 98 06/30/18 18:00 06/30/18 19:00 06/30/18 20:00 Temperature 98.7 F Pulse Rate 64 68 66 Respiratory Rate 22 Blood Pressure 170/72 H Pulse Oximetry 98 06/30/18 21:00 06/30/18 22:00 06/30/18 23:00 Temperature 97.9 F Pulse Rate 68 72 61 Respiratory Rate 20 Blood Pressure 169/70 H Pulse Oximetry 96 07/01/18 00:00 07/01/18 01:00 07/01/18 02:00 Temperature Pulse Rate 66 59 L 51 L Respiratory Rate Blood Pressure Pulse Oximetry 07/01/18 03:00 07/01/18 04:00 07/01/18 05:00 Temperature 98.2 F Pulse Rate 65 64 64 Respiratory Rate 22 Blood Pressure 165/72 H Pulse Oximetry 98 07/01/18 06:00 07/01/18 07:00 07/01/18 07:34 Temperature 97.6 F Pulse Rate 64 63 63 Respiratory Rate 18 Blood Pressure 168/74 H Pulse Oximetry 95 07/01/18 08:00 07/01/18 09:00 07/01/18 10:00 Temperature Pulse Rate 66 82 58 L Respiratory Rate Blood Pressure Pulse Oximetry 07/01/18 10:52 07/01/18 11:00 Temperature 97.7 F Pulse Rate 58 L 58 L Respiratory Rate 16 Blood Pressure 156/68 H Pulse Oximetry 98 Intake & Output 06/30/18 07/01/18 07/01/18 18:59 06:59 18:59 Intake Total 1182 / 1182 620 / 620 Output Total 500 / 500 350 / 350 Balance 682 / 682 270 / 270 Weight 77 kg Intake: Oral 1182 / 1182 620 / 620 Output: Urine 500 / 500 350 / 350 Other: # Voids 2 # Incontinent Voids 1 0 Date of Last Bowel Movement 06/28/18 06/30/18 07/01/18 # Bowel Movements 1 # Incontinent Bowel Movements 0 Intake & Output 06/29/18 06/30/18 07/01/18 07/02/18 06:59 06:59 06:59 06:59 Intake Total 1440 / 1440 1200 / 1200 1802 / 1802 Output Total 925 / 925 1250 / 1250 850 / 850 Balance 515 / 515 -50 / -50 952 / 952 Weight 79 kg 78 kg 77 kg General: No acute distress, Other (Friends at bedside who are interpreting with sign language) Respiratory: Lungs CTA, Non-labored respirations, BS equal, Coarse breath sounds Gastrointestinal: Positive bowel sounds, Non-distended, Non-tender Date of Last Bowel Movement: 07/01/18 Cardiovascular: Normal rate, No edema, Regular rhythm Skin: Wound(s) (Left lateral heel wound unstageable (approximately 1 x 1 cm)) Musculoskeletal: Swelling (None in distal lower extremities) Psychiatric: Cooperative, Appropriate mood & affect - Neurologic Orientation: oriented to: Self, Place, Situation, disoriented to: Time Neurologic: Pupils (PERRLA), EOM (Intact), Facial symmetry (Symmetric), Speech ( Nonverbal) Motor: Right Upper Extremity (4+/5), Left Upper Extremity (4+/5), Right Lower Extremity (4+/5 except for hip flexion 3+/5), Left Lower Extremity (4+/5 except for hip flexion 3+/5) Sensory: Decreased but present distal to the ankles bilaterally otherwise intact to light touch Clonus: Negative Results - Labs CBC & Chem 7: 06/26/18 06:41 06/26/18 06:41 Labs: Laboratory Results - last 24 hr 06/30/18 06/30/18 07/01/18 16:43 20:52 05:15 PT INR POC Glucose 140 H 181 H 133 H 07/01/18 07/01/18 07/01/18 05:17 07:51 11:52 PT 15.4 H INR 1.5 POC Glucose 122 H 247 H Assessment and Plan (1) Impaired mobility and activities of daily living Status: Acute Code(s): Z74.09 - Other reduced mobility (2) S/P CABG x 2 Status: Acute Code(s): Z95.1 - Presence of aortocoronary bypass graft (3) S/P aortic valve replacement Status: Acute Code(s): Z95.2 - Presence of prosthetic heart valve - Plan Assessment: 1. Status post CABG 2 with aortic valve replacement with tissue valve 06/02/18 2. Multiple ischemic strokes including watershed zone superior frontoparietal, right occipital, bilateral temporal and cerebellar hemispheres 06/09/18 3. Status post bilateral thoracentesis 06/25/18 and 06/26/18 (right 2300 cc and left 2400 cc) 4. Anemia 5. Anticoagulation with Coumadin with most recent INR 1.5 6. Sinus bradycardia 7. Left heel ulcer unstageable 8. Buttock wound stage II 9. Deaf and unable to communicate verbally Recommendations: 1. Patient will benefit from ongoing inpatient rehabilitation. Medical issues include monitoring of cardiac status including sinus bradycardia with mobilization, continuation of anticoagulation working toward a therapeutic INR of 2-3, follow-up of anemia, treatment of skin breakdown left heel and buttocks with careful pressure relief and local wound care, monitoring of neurological status given recent multi-distribution strokes, follow-up of bowel and bladder care and follow-up of pulmonary status with monitoring for recurrence of pleural effusions 2. Continue to mobilize with physical therapy. Patient now requires moderate assistance for sit to stand transfers. Patient was unable to progress to gait earlier today but on was minimal assistance with a rolling walker 60 feet with fair minus balance. Prior to admission for cardiac surgery patient was fully independent with all ADLs and mobility and was driving in the community 3. Continue occupational therapy to address independence with ADLs. Patient is now independent for feeding, supervision for grooming, minimal assistance for upper body dressing and moderate assistance for lower body ADLs 4. [id number]-[id number] review is pending 5. Will follow while hospitalized and is appropriate at discharge Thank you for this consult
--- NOTE | 2018-07-01 16:41 | P.PNIM ---
Subjective Interval history: Patient says he is feeling right. Denies chest pain shortness of breath. Denies any pain. No acute events per nursing Physical Exam Vital signs: Vital Signs 06/30/18 17:00 06/30/18 18:00 06/30/18 19:00 Temperature 98.7 F Pulse Rate 58 L 64 68 Respiratory Rate 22 Blood Pressure 170/72 H Pulse Oximetry 98 06/30/18 20:00 06/30/18 21:00 06/30/18 22:00 Temperature Pulse Rate 66 68 72 Respiratory Rate Blood Pressure Pulse Oximetry 06/30/18 23:00 07/01/18 00:00 07/01/18 01:00 Temperature 97.9 F Pulse Rate 61 66 59 L Respiratory Rate 20 Blood Pressure 169/70 H Pulse Oximetry 96 07/01/18 02:00 07/01/18 03:00 07/01/18 04:00 Temperature 98.2 F Pulse Rate 51 L 65 64 Respiratory Rate 22 Blood Pressure 165/72 H Pulse Oximetry 98 07/01/18 05:00 07/01/18 06:00 07/01/18 07:00 Temperature Pulse Rate 64 64 63 Respiratory Rate Blood Pressure Pulse Oximetry 07/01/18 07:34 07/01/18 08:00 07/01/18 09:00 Temperature 97.6 F Pulse Rate 63 66 82 Respiratory Rate 18 Blood Pressure 168/74 H Pulse Oximetry 95 07/01/18 10:00 07/01/18 10:52 07/01/18 11:00 Temperature 97.7 F Pulse Rate 58 L 58 L 58 L Respiratory Rate 16 Blood Pressure 156/68 H Pulse Oximetry 98 07/01/18 12:00 07/01/18 13:00 07/01/18 14:00 Temperature Pulse Rate 56 L 56 L 62 Respiratory Rate Blood Pressure Pulse Oximetry 07/01/18 14:55 07/01/18 15:00 07/01/18 16:00 Temperature 97.7 F Pulse Rate 59 L 57 L 58 L Respiratory Rate 16 Blood Pressure 159/69 H Pulse Oximetry 99 Intake & Output 06/30/18 07/01/18 07/01/18 18:59 06:59 18:59 Intake Total 1182 / 1182 620 / 620 Output Total 500 / 500 350 / 350 Balance 682 / 682 270 / 270 Weight 77 kg Intake: Oral 1182 / 1182 620 / 620 Output: Urine 500 / 500 350 / 350 Other: # Voids 2 # Incontinent Voids 1 0 Date of Last Bowel Movement 06/28/18 06/30/18 07/01/18 # Bowel Movements 1 # Incontinent Bowel Movements 0 - Urinary Catheter Management Indwelling Urethral Catheter Cath placed during this visit: no Results - Labs CBC & Chem 7: 06/26/18 06:41 06/26/18 06:41 Laboratory Results - last 24 hr 06/30/18 06/30/18 07/01/18 16:43 20:52 05:15 PT INR POC Glucose 140 H 181 H 133 H 07/01/18 07/01/18 07/01/18 05:17 07:51 11:52 PT 15.4 H INR 1.5 POC Glucose 122 H 247 H - Procedures Both right and left-sided thoracentesis. Please see reports. Assessment and Plan - Plan //CAD. //With heart valve replacement Currently denies chest pain. Elevated troponin status post CABG and AVR. EKG with no ST-T changes. Doubt ACS. = Continue on Coumadin as per cardiothoracic surgery. INR 1.5. INR 2-[address] surgery. = INR continues subtherapeutic. CT surgery following. //Shortness of breath secondary to bilateral pleural effusion. Ultrasound- guided thoracentesis. Supplemental oxygen = 06/25 thoracentesis planned for today. Appreciate cardiothoracic surgery assistance. = 06/26. Thoracentesis of right pleural effusion performed yesterday with 2.3 L. Left sided thoracentesis today. = 06/27. Status post bilateral thoracentesis. Patient cleared for discharge to rehab by CTS. = Awaiting placement. //Diabetes mellitus. Monitor fingersticks and sliding scale coverage = Glucose acceptable. //aFib/CVA /hypertension/hyperlipidemia. EKG with sinus rhythm stable continue home medications as appropriate. = Back on Coumadin as per cardiothoracic surgery. Goal is [address] surgery. //Acute versus chronic kidney disease stage 3. Nonoliguric. Continue gentle IV hydration = Creatinine stable. //Left heel ulcer from rehab Wound care nurse consulted = Appreciate wound care consult. Continue wound care //Urinary retention. Allergic to Flomax. -Voiding. //Hypokalemia. Resolved. DVT prophylaxis with SCD and early ambulation patient is a Protestant, no blood products Discharge Planning: Cleared by cardiothoracic surgery. to SNF.
[2018-07-02] MEDS: Insulin NovoLOG Aspart Correctional Sugar Inj SQ SCH ×4 (01:10→13:34)
[2018-07-02] MEDS: Sod Chloride 0.9% Inj 1,000 ML IV.CONT SCH (02:57)
[2018-07-02 04:49] LABS: INR 1.5 Ratio; Prothrombin Time 15.6 sec (9.8-11.6)
[2018-07-02] MEDS: Metoprolol Tartrate 25 MG Tablet PO SCH (09:53)
[2018-07-02] MEDS: Ferrrous Sulfate 300 MG/5 ML UDC PO SCH (13:33)
[2018-07-02 13:54] VITALS: PULSE 60
[2018-07-02 13:59] VITALS: BP 133/60; RESP 20; TEMP 98; O2SAT 98
--- NOTE | 2018-07-02 15:19 | P.PNCV ---
- Note Subjective/Hospital Course: 77-year-old patient, known to our service recently admitted 06/02/2018 and discharge 06/12/2018. The patient with a known history of coronary artery disease, prior stenting, also severe aortic valve stenosis, ejection fraction 50 -60%. Underwent coronary artery bypass grafting x 2, the RAPP to the LAD, saphenous vein graft to the ramus marginalis, also aortic valve replacement with a #23 [employer] Mosaic tissue valve, right leg endoscopic harvesting on . He patient is Jehovah Witness and does not accept blood products, was very anemic during the course of his postoperative stay, placed on Epogen and iron supplement. Pt is deaf mute he required an diplomatic interpreter at the bedside . He normally uses sign language, but he had difficulty with even doing so and required a bedside diplomatic interpreter. Apparently on the , he developed some left-sided weakness and was evaluated by Neurology. He had showed multiple CVA in all territories. The infarct was predominantly in the watershed zone areas. He persisted with some left-sided weakness in the arm and the leg. He also went into atrial fibrillation with RVR during the course of his stay, he was placed on amiodarone. He did convert once and then was started on the Coumadin. There was also concern for probable aspiration pneumonia and he was treated with IV antibiotics. The patient also had some urinary retention and was evaluated by Dr. Bruce Fulton who instructed to maintain Oliva catheter, voiding trial at rehab. The patient still has the Oliva catheter in place on this admission. Reason for admission on this visit was because of shortness of breath and fatigue. Also some chest discomfort across his chest. They did do a CTA of the chest which showed bilateral pleural effusions, moderate to large, the right being greater than theleft. He also had some elevated troponins. The CTA was negative for pulmonary emboli. We were consulted for evaluation. 06/25 pt on room air / sat 94% coumadin on hold , await thoracentesis today diplomatic interpreter at bedside 2D echo ordered r/o pericardial effusion / and EF / recent AVR 06/26 s/p right thoracentesis yesterday / 2300 cc of clear, red fluid was removed s/p left thoracentesis today / 2,400cc cc of clear, red fluid was removed. 2 d echo noted : The left ventricular systolic function is low normal with an estimated ejection fraction in the range of 50%. Mitral annular calcification is present. The aortic valve prosthesis is not well seen but is is normal to color flow and Doppler interrogation. no pericardial effusion ok to resume coumadin goal 2-3 has wound left heel, being evaluated by wound care ok to transfer back to SNF / pt requesting different SNF 06/29 stable for trransfer back to SNF or rehab/ on room air 3 07/02 await eval for [facility] INR 1.5/ ok to bridge if needed , on room air Objective: Vital Signs - 24 hr 07/01/18 16:00 07/01/18 17:00 07/01/18 18:00 Temperature Pulse Rate 58 L 58 L 70 Respiratory Rate Blood Pressure Pulse Oximetry 07/01/18 19:00 07/01/18 20:00 07/01/18 21:00 Temperature 98.7 F Pulse Rate 61 66 60 Respiratory Rate 16 Blood Pressure 162/72 H Pulse Oximetry 95 07/01/18 22:00 07/01/18 23:00 07/02/18 00:00 Temperature 98.5 F Pulse Rate 68 55 L 58 L Respiratory Rate 16 Blood Pressure 173/75 H Pulse Oximetry 97 07/02/18 01:00 07/02/18 02:00 07/02/18 03:00 Temperature 98.8 F Pulse Rate 60 56 L 67 Respiratory Rate 18 Blood Pressure 178/78 H Pulse Oximetry 97 07/02/18 04:00 07/02/18 05:00 07/02/18 06:00 Temperature Pulse Rate 60 52 L 65 Respiratory Rate Blood Pressure Pulse Oximetry 07/02/18 07:00 07/02/18 08:00 07/02/18 11:00 Temperature Pulse Rate 65 65 60 Respiratory Rate Blood Pressure Pulse Oximetry 07/02/18 12:00 07/02/18 13:00 07/02/18 13:59 Temperature 98 F Pulse Rate 60 60 60 Respiratory Rate 20 Blood Pressure 133/60 Pulse Oximetry 98 GENERAL: A&O x 3 SKIN: Warm and dry. incisions healing well HEAD: Normocephalic. EYES: No scleral icterus. No injection or drainage. NECK: Supple, trachea midline. No JVD or lymphadenopathy. CARDIOVASCULAR: Regular rate and rhythm without murmurs, gallops, or rubs. RESPIRATORY: Breath sounds equal bilaterally. No accessory muscle use. slightly diminished in bases GASTROINTESTINAL: Abdomen soft, non-tender, nondistended. MUSCULOSKELETAL: No cyanosis, or edema. left arm weakness./ improving BACK: Nontender without obvious deformity. No CVA tenderness. Labs: Laboratory Results - last 12 hr 07/02/18 07/02/18 04:10 05:45 PT 15.6 H INR 1.5 POC Glucose 133 H Result Diagrams: 06/26/18 06:41 06/26/18 06:41 - Plan (1) Pleural effusion Plan: s/p bilateral thoracentesis (2) CAD (coronary artery disease), [place] coronary artery Plan: ASA, OOB/ PT pulm toileting (4) S/P CABG x 2 Plan: ASA, statin , decrease BB , no amiodarone (5) S/P aortic valve replacement Plan: resume coumadin goal 2-3 (6) Deaf mutism, congenital Plan: diplomatic interpreter at bedside (7) History of CVA (cerebrovascular accident) Plan: resume coumadin after thoracentesis (2) CAD (coronary artery disease), [place] coronary artery Qualifiers: [place] vs. transplanted heart: [place] heart
== END 2018-07-02 14:50 ==
LOC: NEPE 18:05 → NEDA 21:33 → HCIS 06-24 14:32 → HCPC 06-25 17:48
PROVIDERS: ADMIT Internal Medicine; ATTEND Internal Medicine